=== PATIENT | female | born 1960 | race Two or more races ===

== ENCOUNTER 2016-10-08 21:18 | Inpatient (IN) | payer MEDICARE, MEDICAID ==
[~2016-10-08] VITALS: Ht 157.5 cm; Wt 59.0 kg
[2016-10-08 21:32] VITALS: BP 93/56
--- NOTE | 2016-10-08 21:37 | Emergency Room Report ---
History of Present Illness General Chief Complaint: Abnormal Labs Source: Patient Present Illness HPI Patient is a 56-year-old female who presents after having a decreased hemoglobin. Patient states that she has been sent in from her [facility] for generalized weakness. Patient reports having some bilateral leg pain. Patient states that she has a prior history of cancer. She was noted to have a prior history of schizophrenia on her record. Patient states that she had ovarian cancer on her left side. Patient reports having a neck wound which had previous had cultured as having of infection. The patient was noted to have a low hemoglobin and elevated white blood count on laboratory testing. Allergies: Coded Allergies: No Known Allergies (Unverified , 10/08/16) Patient History Past Medical History: see triage record Now: No Reviewed Nursing Documentation: PMH: Agreed, PSxH: Agreed Nursing Documentation-PMH Hx Hypertension: Yes Hx COPD: Yes Hx Seizures: Yes Review of Systems All Other Systems: negative except mentioned in HPI Physical Exam Vital Signs Date Time Temp Pulse Resp B/P Pulse Ox O2 Delivery O2 Flow Rate FiO2 10/08/16 21:18 80 16 102/62 94 Room Air 10/08/16 21:32 97.9 Sp02 EP Interpretation: reviewed, normal General Appearance: normal inspection, well appearing, no apparent distress, alert, GCS 15, Chronically Ill Head: atraumatic ENT: normal ENT inspection, hearing grossly normal, normal voice, other - poor dentition Neck: normal inspection, full range of motion, supple, no bony tend Respiratory: normal inspection, lungs clear, normal breath sounds, no respiratory distress, no retraction, no wheezing Cardiovascular #1: regular rate, rhythm, no edema Gastrointestinal: normal inspection, normal bowel sounds, non tender, soft, no guarding, no hernia Genitourinary: no CVA tenderness Musculoskeletal: normal inspection, back normal, normal range of motion Neurologic: normal inspection, alert, oriented x3, responsive, 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 Medical Decision Making Diagnostic Impression: Primary Impression: Skin abscess Additional Impression: Anemia ER Course Presented for abnormal laboratory values. Differential diagnosis included was not limited to hemolysis, chronic anemia, DIC, GI bleed, anemia of chronic disease, iron deficiency anemia among others.Because of complexity of patient's case laboratory testing and imaging studies were ordered. The patient was noted to have a rising white count compared to her baseline. I laboratory testing was also notable for anemia with hemoglobin of 7.2. Patient was noted to have a some skin lesions with evident infection. Patient started on vancomycin and Unasyn. Labs Test 10/08/16 21:36 10/08/16 22:15 10/08/16 23:15 White Blood Count 19.5 K/UL (4.8-10.8) Red Blood Count 2.90 M/UL (4.20-5.40) Hemoglobin 7.2 G/DL (12.0-16.0) Hematocrit 23.4 % (37.0-47.0) Mean Corpuscular Volume 81 FL (80-99) Mean Corpuscular Hemoglobin 25.0 PG (27.0-31.0) Mean Corpuscular Hemoglobin Concent 31.0 G/DL (32.0-36.0) Red Cell Distribution Width 15.5 % (11.6-14.8) Platelet Count 799 K/UL (150-450) Mean Platelet Volume 4.5 FL (6.5-10.1) Neutrophils (%) (Auto) 80.4 % (45.0-75.0) Lymphocytes (%) (Auto) 7.6 % (20.0-45.0) Monocytes (%) (Auto) 7.9 % (1.0-10.0) Eosinophils (%) (Auto) 3.3 % (0.0-3.0) Basophils (%) (Auto) 0.8 % (0.0-2.0) Prothrombin Time 10.9 SEC (9.30-11.50) Prothromb Time International Ratio 1.1 (0.9-1.1) Activated Partial Thromboplast Time 32 SEC (23-33) Sodium Level 133 mEQ/L (135-145) Potassium Level 4.4 mEQ/L (3.4-4.9) Chloride Level 95 mEQ/L (98-107) Carbon Dioxide Level 23 mEQ/L (20-30) Anion Gap 15 (5-15) Blood Urea Nitrogen 27 mg/dL (7-23) Creatinine 1.2 mg/dL (0.5-0.9) Estimat Glomerular Filtration Rate 46.7 mL/min (>60) Glucose Level 102 mg/dL (74-106) Calcium Level 13.7 mg/dL (8.6-10.2) Total Bilirubin 0.2 mg/dL (0.0-1.2) Aspartate Amino Transf (AST/SGOT) 14 U/L (5-40) Alanine Aminotransferase (ALT/SGPT) 7 U/L (3-33) Alkaline Phosphatase 78 U/L (35-104) Troponin I < 0.30 ng/mL (<=0.30) Total Protein 7.0 g/dL (6.6-8.7) Albumin 2.4 g/dL (3.5-5.2) Globulin 4.6 g/dL Albumin/Globulin Ratio 0.5 (1.0-2.7) Lipase 14 U/L (< 60) Lactic Acid Level 1.10 mmol/L (0.66-2.22) Urine Color Pale yellow Urine Appearance Clear Urine pH 6 (4.5-8.0) Urine Specific [place] 1.030 (1.005-1.035) Urine Protein 2+ (NEGATIVE) Urine Glucose (UA) Negative (NEGATIVE) Urine Ketones Negative (NEGATIVE) Urine Occult Blood 1+ (NEGATIVE) Urine Nitrite Negative (NEGATIVE) Urine Bilirubin Negative (NEGATIVE) Urine Urobilinogen Normal MG/DL (0.0-1.0) Urine Leukocyte Esterase Negative (NEGATIVE) Chest X-Ray Diagnostic Results EP Interpretation: Yes Findings: no consolidation, no effusion, no pneumothorax, no acute cardiopulmonary disease Number of Views: 1 Last Vital Signs Date Time Temp Pulse Resp B/P Pulse Ox O2 Delivery O2 Flow Rate FiO2 10/08/16 21:32 97.9 103 26 93/56 97 Room Air Status: unchanged Disposition: ADMITTED INPATIENT Condition: Serious Didier Arevalo Oct 08, 2016 21:37
[2016-10-08] MEDS ORDERED: Norco 5mg/325mg tab ORAL ONE (21:45)
[2016-10-08 21:52] LABS: MEAN CORPUSCULAR VOLUME 81 FL (80-99); MEAN PLATELET VOLUME 4.5 FL (6.5-10.1); PLATELET COUNT 799 K/UL (150-450); RED CELL DISTRIBUTION WIDTH 15.5 % (11.6-14.8); WHITE BLOOD COUNT 19.5 K/UL (4.8-10.8)
[2016-10-08 21:53] LABS: BASOPHILS % (AUTO) 0.8 % (0.0-2.0); EOSINOPHILS % (AUTO) 3.3 % (0.0-3.0); LYMPHOCYTES % (AUTO) 7.6 % (20.0-45.0); MONOCYTES % (AUTO) 7.9 % (1.0-10.0); NEUTROPHILS % (AUTO) 80.4 % (45.0-75.0)
[2016-10-08] MEDS ORDERED: Vancomycin 1 GM in NS 275 ML IVPB ONE (22:15)
[2016-10-08] MEDS ORDERED: Ampicillin/Sulbactam Sod 3 GM in NS 110 ML IVPB ONE (22:15)
[2016-10-08 22:21] LABS: INR 1.1 (0.9-1.1); PROTHROMBIN TIME 10.9 SEC (9.30-11.50); TROPONIN I < 0.30 ng/mL (<=0.30)
[2016-10-08 22:25] LABS: ALBUMIN/GLOBULIN RATIO 0.5 (1.0-2.7); CREATININE 1.2 mg/dL (0.5-0.9); GLOMERULAR FILTRATION RATE 46.7 mL/min (>60); POTASSIUM 4.4 mEQ/L (3.4-4.9)
[2016-10-08] MEDS ORDERED: Unasyn 3gm Inj ONE (22:25)
[2016-10-08] MEDS ORDERED: BENZTROPINE MESY1 MG PO (22:27)
[2016-10-08] MEDS ORDERED: DOCUSATE SODIU100 MG ORAL (22:30)
[2016-10-08] MEDS ORDERED: LISINOPRIL5 MG ORAL (22:31)
[2016-10-08] MEDS ORDERED: MONTELUKAST SOD10 MG ORAL (22:32)
[2016-10-08] MEDS ORDERED: TYLENOL EXTRA500 MG ORAL (22:33)
[2016-10-08] MEDS ORDERED: ZYPREXA20 MG ORAL (22:34)
[2016-10-08 22:40] LABS: CALCIUM 13.7 mg/dL (8.6-10.2)
[2016-10-08 22:59] VITALS: BP 89/54
[2016-10-08 23:15] VITALS: BP 95/58
[2016-10-08 23:35] LABS: APPEARANCE,URINE CLEAR; KETONES,URINE NEGATIVE (NEGATIVE); LEUKOCYTE ESTERASE ,URINE NEGATIVE (NEGATIVE); NITRITE,URINE NEGATIVE (NEGATIVE); PH,URINE 6 (4.5-8.0); PROTEIN,URINE 2+ (NEGATIVE); UROBILINOGEN,URINE NORMAL MG/DL (0.0-1.0)
[2016-10-08 23:45] LABS: BACTERIA,URINE MODERATE /HPF; SQUAMOUS EPITHELIAL CELL,UR FEW /LPF (NONE/OCC)
[2016-10-09] VITALS (9 sets, daily range): BP systolic 81–107; BP diastolic 43–60
[2016-10-09] MEDS ORDERED: Vancomycin 1gm inj IVPB ONE (00:07)
[2016-10-09 07:30] LABS: MEAN CORPUSCULAR HGB CONC 32.3 G/DL (32.0-36.0); MEAN CORPUSCULAR VOLUME 80 FL (80-99); MEAN PLATELET VOLUME 4.8 FL (6.5-10.1); PLATELET COUNT 743 K/UL (150-450); RED BLOOD COUNT 2.61 M/UL (4.20-5.40); RED CELL DISTRIBUTION WIDTH 15.5 % (11.6-14.8); WHITE BLOOD COUNT 17.6 K/UL (4.8-10.8)
[2016-10-09 08:14] LABS: ALBUMIN/GLOBULIN RATIO 0.5 (1.0-2.7); CREATININE 1.1 mg/dL (0.5-0.9); GLOMERULAR FILTRATION RATE 51.6 mL/min (>60); MAGNESIUM 1.8 mg/dL (1.7-2.5); PHOSPHORUS 4.1 mg/dL (2.5-4.8); TOTAL PROTEIN 6.2 g/dL (6.6-8.7); URIC ACID 6.2 mg/dL (3.0-7.5)
[2016-10-09 08:18] LABS: CALCIUM 13.2 mg/dL (8.6-10.2)
[2016-10-09 08:37] LABS: HEMOLYSIS 5; IRON 14 ug/dL (37-145); TOTAL IRON BINDING CAPACITY 119 ug/dL (250-400)
[2016-10-09] MEDS ORDERED: Pamidronate Disodium Inj 90 MG in Sodium Chloride 550 ML IVPB ONE ×3 (08:45→22:30)
[2016-10-09] MEDS ORDERED: Acetaminophen 500mg (ES) tab ORAL PRN (08:45)
[2016-10-09 08:46] LABS: FERRITIN 1271 ng/mL (13-150)
--- NOTE | 2016-10-09 08:53 | Consultation ---
Consult Note Consult Note asked to eval for management of hypercalcemia Patient is a 56-year-old female who presents after having a decreased hemoglobin. Patient states that she has been sent in from her retirement for generalized weakness. Patient reports having some bilateral leg pain. Patient states that she has a prior history of cancer. She was noted to have a prior history of schizophrenia on her record. Patient states that she had ovarian cancer on her left side. Patient reports having a neck wound which had previous had cultured as having of infection. The patient was noted to have a low hemoglobin and elevated white blood count on laboratory testing. Patient interviewed , examined, data reviewed, discussed with RN . Assessment/Plan Hypercalcemia, related to Neoplastic process- Symptomatic Anemia, Etiology?? Cancer, GI Loss, .... Sugg: Aggressive Hydrate- Aredia Calcitonin [place] Lasix Monitor Ca and Phos and Lytes Transfusion per frame polisher CLEMENTE APPIAH Oct 09, 2016 08:53
--- NOTE | 2016-10-09 10:13 | Infectious Diseases Prog Note ---
Assessment/Plan Problems: (1) Skin infection Assessment & Plan: of the left neck, will send wound for culture and start vancomycin and unasyn empirically (2) Sepsis Assessment & Plan: due to skin infection, will send blood culture , and start vancomycin with unasyn empirically (3) Anemia Assessment & Plan: monitor H/H transfuse blood as needed, rule out GI bleeding as a source (4) JAY (acute kidney injury) Assessment & Plan: suspect pre renal azotemia due to anemia, continue hydration , transfuse blood as needed Subjective Allergies: Coded Allergies: No Known Allergies (Unverified , 10/08/16) Objective Vital Signs Last 24 Hour Vital Signs Date Time Temp Pulse Resp B/P Pulse Ox O2 Delivery O2 Flow Rate FiO2 10/09/16 07:47 97.9 101 20 100/43 95 Room Air 10/09/16 05:40 97.5 88 18 93/47 96 Room Air 10/09/16 04:00 97.3 99 18 81/49 94 Room Air 10/09/16 00:53 97.9 91 18 85/46 95 Room Air 10/09/16 00:10 98 22 103/60 99 Room Air 10/09/16 00:10 98.6 98 22 103/60 99 Room Air 10/08/16 23:15 98.3 93 25 95/58 98 Room Air 10/08/16 22:59 98.1 96 25 89/54 97 Room Air 10/08/16 22:40 98.1 10/08/16 21:32 97.9 103 26 93/56 97 Room Air 10/08/16 21:18 80 16 102/62 94 Room Air Height (Feet): 5 Height (Inches): 2.00 Weight (Pounds): 130 Laboratory Tests Test 10/08/16 21:36 10/08/16 22:15 10/08/16 23:15 10/09/16 06:30 White Blood Count 19.5 K/UL (4.8-10.8) H Red Blood Count 2.90 M/UL (4.20-5.40) L Hemoglobin 7.2 G/DL (12.0-16.0) L Hematocrit 23.4 % (37.0-47.0) L Mean Corpuscular Volume 81 FL (80-99) Mean Corpuscular Hemoglobin 25.0 PG (27.0-31.0) L Mean Corpuscular Hemoglobin Concent 31.0 G/DL (32.0-36.0) L Red Cell Distribution Width 15.5 % (11.6-14.8) H Platelet Count 799 K/UL (150-450) H Mean Platelet Volume 4.5 FL (6.5-10.1) L Neutrophils (%) (Auto) 80.4 % (45.0-75.0) H Lymphocytes (%) (Auto) 7.6 % (20.0-45.0) L Monocytes (%) (Auto) 7.9 % (1.0-10.0) Eosinophils (%) (Auto) 3.3 % (0.0-3.0) H Basophils (%) (Auto) 0.8 % (0.0-2.0) Prothrombin Time 10.9 SEC (9.30-11.50) Prothromb Time International Ratio 1.1 (0.9-1.1) Activated Partial Thromboplast Time 32 SEC (23-33) Sodium Level 133 mEQ/L (135-145) L Potassium Level 4.4 mEQ/L (3.4-4.9) Chloride Level 95 mEQ/L (98-107) L Carbon Dioxide Level 23 mEQ/L (20-30) Anion Gap 15 (5-15) Blood Urea Nitrogen 27 mg/dL (7-23) H Creatinine 1.2 mg/dL (0.5-0.9) H Estimat Glomerular Filtration Rate 46.7 mL/min (>60) Glucose Level 102 mg/dL (74-106) Calcium Level 13.7 mg/dL (8.6-10.2) *H Total Bilirubin 0.2 mg/dL (0.0-1.2) Aspartate Amino Transf (AST/SGOT) 14 U/L (5-40) Alanine Aminotransferase (ALT/SGPT) 7 U/L (3-33) Alkaline Phosphatase 78 U/L (35-104) Troponin I < 0.30 ng/mL (<=0.30) Total Protein 7.0 g/dL (6.6-8.7) Albumin 2.4 g/dL (3.5-5.2) L Globulin 4.6 g/dL Albumin/Globulin Ratio 0.5 (1.0-2.7) L Lipase 14 U/L (< 60) Lactic Acid Level 1.10 mmol/L (0.66-2.22) Urine Color Pale yellow Urine Appearance Clear Urine pH 6 (4.5-8.0) Urine Specific [place] 1.030 (1.005-1.035) Urine Protein 2+ (NEGATIVE) H Urine Glucose (UA) Negative (NEGATIVE) Urine Ketones Negative (NEGATIVE) Urine Occult Blood 1+ (NEGATIVE) H Urine Nitrite Negative (NEGATIVE) Urine Bilirubin Negative (NEGATIVE) Urine Urobilinogen Normal MG/DL (0.0-1.0) Urine Leukocyte Esterase Negative (NEGATIVE) Urine RBC 2-4 /HPF (0 - 2) H Urine WBC 5-10 /HPF (0 - 2) H Urine Squamous Epithelial Cells Few /LPF (NONE/OCC) Urine Bacteria Moderate /HPF (NONE) H Vitamin B12 Level 432 pg/mL (211-946) Test 10/09/16 06:35 White Blood Count 17.6 K/UL (4.8-10.8) H Red Blood Count 2.61 M/UL (4.20-5.40) L Hemoglobin 6.8 G/DL (12.0-16.0) *L Hematocrit 21.0 % (37.0-47.0) L Mean Corpuscular Volume 80 FL (80-99) Mean Corpuscular Hemoglobin 26.0 PG (27.0-31.0) L Mean Corpuscular Hemoglobin Concent 32.3 G/DL (32.0-36.0) Red Cell Distribution Width 15.5 % (11.6-14.8) H Platelet Count 743 K/UL (150-450) H Mean Platelet Volume 4.8 FL (6.5-10.1) L Neutrophils (%) (Auto) % (45.0-75.0) Lymphocytes (%) (Auto) % (20.0-45.0) Monocytes (%) (Auto) % (1.0-10.0) Eosinophils (%) (Auto) % (0.0-3.0) Basophils (%) (Auto) % (0.0-2.0) Neutrophils % (Manual) Pending Lymphocytes % (Manual) Pending Platelet Estimate Pending Platelet Morphology Pending Sodium Level 133 mEQ/L (135-145) L Potassium Level 4.0 mEQ/L (3.4-4.9) Chloride Level 97 mEQ/L (98-107) L Carbon Dioxide Level 22 mEQ/L (20-30) Anion Gap 14 (5-15) Blood Urea Nitrogen 24 mg/dL (7-23) H Creatinine 1.1 mg/dL (0.5-0.9) H Estimat Glomerular Filtration Rate 51.6 mL/min (>60) Glucose Level 82 mg/dL (74-106) Uric Acid 6.2 mg/dL (3.0-7.5) Calcium Level 13.2 mg/dL (8.6-10.2) *H Phosphorus Level 4.1 mg/dL (2.5-4.8) Magnesium Level 1.8 mg/dL (1.7-2.5) Iron Level 14 ug/dL (37-145) L Total Iron Binding Capacity 119 ug/dL (250-400) L Percent Iron Saturation 12 % (15-50) L Unsaturated Iron Binding 105 ug/dL (112-346) L Ferritin 1271 ng/mL (13-150) H Total Bilirubin 0.2 mg/dL (0.0-1.2) Aspartate Amino Transf (AST/SGOT) 13 U/L (5-40) Alanine Aminotransferase (ALT/SGPT) 6 U/L (3-33) Alkaline Phosphatase 72 U/L (35-104) Total Protein 6.2 g/dL (6.6-8.7) L Albumin 2.1 g/dL (3.5-5.2) L Globulin 4.1 g/dL Albumin/Globulin Ratio 0.5 (1.0-2.7) L Folate Pending Cortisol Pending Current Medications Medications (Trade) Dose Ordered Sig/[place] Route PRN Reason Start Time Stop Time Status Last Admin Dose Admin Acetaminophen (Tylenol) 500 mg NEEDED PRN ORAL Prn Headache/Temp > 101 10/09/16 08:45 10/09/16 23:59 Acetaminophen 650 mg 650 mg Q4H PRN ORAL Mild Pain/Temp > 100.5 10/09/16 01:00 11/08/16 00:59 10/09/16 01:52 Calcitonin [place] 1 sprays 1 sprays DAILY NASAL 10/09/16 10:00 11/08/16 09:59 Docusate Sodium (Colace) 100 mg TWICE A DAY ORAL 10/09/16 09:00 11/08/16 08:59 Furosemide (Lasix) 10 mg EVERY 6 HOURS IV 10/09/16 12:00 10/10/16 12:01 Pamidronate Disodium/Sodium Chloride (Aredia/NS) 550 ml @ 137.5 mls/ hr ONCE ONCE IVPB 10/09/16 10:00 10/09/16 13:59 Pantoprazole (Protonix) 40 mg DAILY IVP 10/09/16 09:00 11/08/16 08:59 Sodium Chloride (Sodium Chloride 1000ml bag) 1,000 ml @ 150 mls/hr Q6H40M IV 10/10/16 02:00 11/09/16 01:59 Jaden Su M.D. Oct 09, 2016 10:13
--- NOTE | 2016-10-09 10:20 | Diagnostic Imaging Report ---
Indication: Chest pain Technique: XRAY CHEST 1 V Comparison: None Findings: Cardiomedial still silhouette is within normal limits. There are increased interstitial lung markings. There is no pneumothorax or obvious effusion. IVC filter is present. Degenerative osseous changes are noted. Impression: Acute indeterminate interstitial disease. Clinical correlation recommended.
[2016-10-09] MEDS: Docusate 100mg cap ORAL SCH ×2 (10:43→18:33)
[2016-10-09] MEDS: Pantoprazole Inj IVP SCH (10:44)
[2016-10-09 11:03] LABS: ANISOCYTOSIS 1+; BAND NEUTROPHILS % (MANUAL) 0 % (0-8); BASOPHILS % (MANUAL) 0 % (0-2); EOSINOPHILS % (MANUAL) 1 % (0-3); HYPOCHROMASIA 2+; LYMPHOCYTES % (MANUAL) 13 % (20-45); NEUTROPHILS % (MANUAL) 83 % (45-75); PLATELET ESTIMATE INCREASED; PLATELET MORPHOLOGY NORMAL; TOTAL CELLS COUNTED 100
[2016-10-09 11:04] LABS: MICROCYTES 1+
--- NOTE | 2016-10-09 12:01 | Wound Care Consultation ---
Wound Assessment Wound Assessment : Wound Number: #1 Wound Present on Admission: Yes New Wound: No Status Change of Wound: No Wound Location Body Site Modif: left, anterior Wound Location Body Site: other - neck Wound Type: other - abscess Lillian Test: Does not Lillian Wound Thickness: Full Thickness Wound Length: 2.0 Wound Width: 3.0 Wound Depth: utd Percent of Wound [place]/Red: 50 Percent of Wound Bed Yellow/Wh: 50 Wound Drainage Description: Serosanguineous Wound Drainage Amount: Scant Wound Drainage Odor: None/Absent Tissue Surrounding Wound: Erythemic Wound General Appearance: Reddened, Draining Wound Comment #1 Left anterior neck Abscess. Recommendation -FOLLOW UP WITH ATTENDING MD FOR POSSIBLE INCISION AND DRAINAGE.(I&D) OR ANY FURTHER TREATMENT ORDERS. -Local wound care as ordered. -Keep site clean and dry. -Turn and reposition.Offload affected site. -Optimize nutrition. -Pressure reducing mattress for skin management. -Assess and notify MD for any changes of condition noted. JEANNIE CASAS Oct 09, 2016 12:01
[2016-10-09] MEDS ORDERED: Vancomycin 750mg/D5W 275ml IVPB SCH ×2 (13:00)
[2016-10-09] MEDS ORDERED: Vancomycin 0.75 GM in D5W 275 ML IVPB SCH (13:00)
[2016-10-09] MEDS: Ampicillin/Sulbactam Sod 3 GM in NS 110 ML IVPB SCH ×2 (15:56→20:54)
[2016-10-09 17:06] LABS: MEAN CORPUSCULAR HEMOGLOBIN 26.5 PG (27.0-31.0); MEAN CORPUSCULAR HGB CONC 32.1 G/DL (32.0-36.0); MEAN CORPUSCULAR VOLUME 83 FL (80-99); MEAN PLATELET VOLUME 4.6 FL (6.5-10.1); PLATELET COUNT 735 K/UL (150-450); RED BLOOD COUNT 3.28 M/UL (4.20-5.40); RED CELL DISTRIBUTION WIDTH 15.3 % (11.6-14.8)
[2016-10-09 17:11] LABS: WHITE BLOOD COUNT 23.5 K/UL (4.8-10.8)
[2016-10-09 17:56] LABS: INR 1.1 (0.9-1.1); PROTHROMBIN TIME 11.3 SEC (9.30-11.50)
[2016-10-09 18:11] LABS: BAND NEUTROPHILS % (MANUAL) 3 % (0-8); EOSINOPHILS % (MANUAL) 2 % (0-3); LYMPHOCYTES % (MANUAL) 9 % (20-45); NEUTROPHILS % (MANUAL) 85 % (45-75); TOTAL CELLS COUNTED 100
[2016-10-09 18:12] LABS: ANISOCYTOSIS 1+; BASOPHILS % (MANUAL) 0 % (0-2); PLATELET ESTIMATE INCREASED; PLATELET MORPHOLOGY NORMAL; POLYCHROMASIA 1+
[2016-10-09 18:51] LABS: ALBUMIN/GLOBULIN RATIO 0.5 (1.0-2.7); CALCIUM 12.9 mg/dL (8.6-10.2); CREATININE 1.1 mg/dL (0.5-0.9); GLOMERULAR FILTRATION RATE 51.6 mL/min (>60); POTASSIUM 4.2 mEQ/L (3.4-4.9); TOTAL PROTEIN 6.2 g/dL (6.6-8.7)
[2016-10-09] MEDS ORDERED: Tubing IV Secondary IV ONE (19:46)
[2016-10-09] MEDS ORDERED: NS 550ML IV ONE (19:46)
[2016-10-09] MEDS ORDERED: Tubing Blood Filter IV ONE (19:47)
[2016-10-09] MEDS: Vancomycin 750mg/D5W 275ml IVPB SCH ×2 (22:28)
--- NOTE | 2016-10-09 22:29 | Consultation ---
DATE OF CONSULTATION: INFECTIOUS DISEASE CONSULTATION REQUESTING PHYSICIAN: Sulma Desir M.D. REASON FOR CONSULTATION: Left anterior neck abscess. Recommendation for antibiotics therapy. HISTORY OF PRESENT ILLNESS: The patient is a 56-year-old female who was sent from her retirement for generalized weakness and decreased hemoglobin level. The patient has a prior history of ovarian cancer on the left. Unclear whether she had surgical resection for it or chemotherapy, but recently she had skin lesion, which was biopsied on the left anterior side of her neck and she developed wounds after her biopsy. Her wound probably became infected and she developed an abscess. Her white count was found to be elevated in the emergency room 16665.5. Her temperature was 97.9. The patient was admitted to the hospital for intravenous antibiotics treatment and possible incision and drainage and I was consulted by the primary provider for antibiotics recommendation and further management. REVIEW OF SYSTEMS: A 12-point system reviewed were all negative apart from the one I mentioned above in my History and Physical. PAST MEDICAL HISTORY: Significant for hypertension, chronic obstructive pulmonary disease, and seizure. PAST SURGICAL HISTORY: Unknown. FAMILY HISTORY: Not able to obtain. The patient is poor historian. SOCIAL HISTORY: The patient lives in retirement. No recent drugs, tobacco, or alcohol. ALLERGIES: She has no known drug allergy. MEDICATIONS: The patient received vancomycin and Unasyn in the emergency room. For the rest of her medications, please refer to MAR. LABORATORY DATA: Today, white count 17.6, hemoglobin of 6.8, and platelet count of 743,000. BUN of 24, creatinine of 1.1., and ferritin of 1271. Urinalysis showed negative nitrite, negative leukocyte esterase, 2 to 4 red blood cells, and 5 to 10 WBC. IMAGING: Chest x-ray showed acute indeterminate interstitial disease. PHYSICAL EXAMINATION: VITAL SIGNS: Temperature a 100.6, pulse 116, respirations 20, blood pressure 101/58, saturation 95% on room air. GENERAL: This is a middle-aged female, lying in bed, awake, and alert , not in distress. HEENT: Normocephalic and atraumatic. Pupils reactive to light equally. Moist oral mucosa. No exudate or thrush. NECK: Supple. No lymphadenopathy. The left anterior skin abscess with pus material draining out of it. Mild fluctuation around the abscess site and skin redness. No significant lymphadenopathy. CARDIOVASCULAR: She is tachycardic. S1 and S2 positive. LUNGS: Clear bilaterally. No wheezing or rhonchi. Normal breathing efforts. ABDOMEN: Soft, nontender, and nondistended. Positive bowel sounds. No hepatosplenomegaly or ascites. EXTREMITIES: No edema. No cyanosis. ASSESSMENT AND PLAN: 1. Left anterior neck wound with a skin infection. The patient will be started on vancomycin and Unasyn. We will send wound for culture. Recommend surgical evaluation for incision and drainage and fluid to be sent for culture and sensitivity. 2. Sepsis due to number 1. We will start vancomycin and Unasyn empirically, send blood culture and skin culture. Continue intravenous fluid for hydration. Monitor vital signs. 3. Anemia, unclear whether gastrointestinal related. Continue to monitor H and H transfuse blood as needed and screen for melena. 4. Acute renal failure due to prerenal azotemia and anemia. Continue hydration. Transfuse blood. Continue intravenous fluids. Consult Renal. Monitor urine output. Jaden Su M.D. DR: DEANDRE JOB#: [id number] CC: BRINA
--- NOTE | 2016-10-09 23:59 | History and Physical Report ---
DATE OF ADMISSION: 10/08/2016 HISTORY OF PRESENT ILLNESS: The patient has been admitted for severe anemia as well as leukocytosis, rule out skin infection as well as sever hypercalcemia and dehydration. The patient also basically has been having bilateral leg pain that she has a history of cancer. The patient also has schizophrenia. The patient has a history of ovarian cancer and history of wounds in the neck. The patient denies nausea, vomiting, diarrhea, fever, or chills. No abdominal pain. Denies rectal bleeding. Denies vomiting. PAST MEDICAL HISTORY: Significant for ovarian cancer as well as hypertension, COPD, and seizure disorder as well as history of anemia, history of acute renal insufficiency, hypertension, constipation, psychosis, and asthma/COPD. MEDICATIONS: Montelukast, lisinopril, Colace, Cogentin, Tylenol and Zyprexa. ALLERGIES: No known allergies. SOCIAL HISTORY: Denies alcohol or illicit drug use. FAMILY HISTORY: Noncontributory. REVIEW OF SYSTEMS: HEENT: Denies headaches. Respiratory: Denies shortness of breath. Denies cough. Cardiovascular: Denies chest pain. Gastrointestinal: Denies nausea, vomiting or diarrhea. Extremities: Does have neck pain. Central Nervous System: Denies change in vision or speech pattern. PHYSICAL EXAMINATION: VITAL SIGNS: Temperature is 97.3 degrees, pulse is 99, and blood pressure initially was 81/49, which improved. HEENT: PERRLA. NECK: Supple. No lymphadenopathy. CHEST: Clear to auscultation. GASTROINTESTINAL: Soft, nontender and nondistended. No organomegaly. EXTREMITIES: There is 1+ edema. Reflexes are equal on both sides. She is able to move extremities. LABORATORY AND DIAGNOSTIC DATA: WBC of 19.5, hemoglobin 7.2, and platelets 799,000. Sodium 133, potassium 4, BUN of 25, creatinine of 1.1 and glucose of 82. Calcium of 13. ASSESSMENT AND PLAN: 1. Severe hypercalcemia. 2. Leukocytosis, rule out sepsis, rule out skin infection. 3. Severe anemia. I have asked, Dr. Jarquin, Dr. Sanchez, Dr. Su, Dr. Alvarez to see the patient for the above-mentioned diagnoses and treatment. Sulma Desir M.D. DR: ISABEL JOB#: [id number] CC:
[2016-10-10] VITALS: BP 101/52
[2016-10-10 00:47] LABS: MEAN CORPUSCULAR HEMOGLOBIN 26.3 PG (27.0-31.0); MEAN CORPUSCULAR HGB CONC 32.5 G/DL (32.0-36.0); MEAN CORPUSCULAR VOLUME 81 FL (80-99); MEAN PLATELET VOLUME 4.4 FL (6.5-10.1); PLATELET COUNT 743 K/UL (150-450); RED BLOOD COUNT 3.12 M/UL (4.20-5.40); RED CELL DISTRIBUTION WIDTH 15.1 % (11.6-14.8)
[2016-10-10 04:00] VITALS: BP 136/58
[2016-10-10] MEDS: Ampicillin/Sulbactam Sod 3 GM in NS 110 ML IVPB SCH ×3 (06:10→21:21)
--- NOTE | 2016-10-10 06:49 | Consultation ---
DATE OF CONSULTATION: 10/09/2016 GASTROLOGY CONSULTATION CHIEF COMPLAINT: I was asked to see this patient for evaluation of constipation. HISTORY OF PRESENT ILLNESS: The patient is a pleasant 56-year-old white woman who was brought in here due to infection in the neck. She has no abdominal pain, nausea, vomiting, or diarrhea, but she was complaining of constipation. She has not had endoscopy or colonoscopy and declined to have those. The patient understands that her anemia and possibility of cancer, and she refused, and she still refuses . PAST MEDICAL HISTORY: History of schizophrenia, history of anemia, history of ovarian cancer. FAMILY HISTORY: Noncontributory. SOCIAL HISTORY: The patient denies . REVIEW OF SYSTEMS: Otherwise negative. PHYSICAL EXAMINATION: GENERAL: A thin white woman, seen in her room. HEENT: Normocephalic and atraumatic. NECK: Supple. CHEST: Clear to auscultation. CARDIOVASCULAR: Revealed regular rate. ABDOMEN: Soft with good bowel sounds. There is no organomegaly. EXTREMITIES: Revealed no edema. LABORATORY DATA: Noted. ASSESSMENT: 1. Anemia. 2. . 3. Constipation. RECOMMENDATIONS: 1. Bowel regimen. 2. Monitor CBC. 3. Follow the exam. 4. The patient refuses endoscopy and colonoscopy. Thank you for asking to participate in the care of this patient. Arcadio Jarquin M.D. DR: JEROMY JOB#: [id number] CC:
[2016-10-10 08:00] VITALS: BP 95/56
[2016-10-10 08:07] LABS: RHEUMATOID FACTOR SCREEN 14.9 IU/mL (0.0-13.9)
--- NOTE | 2016-10-10 08:19 | Consultation ---
DATE OF CONSULTATION: 10/09/2016 NOTE: "POOR AUDIO QUALITY" HEMATOLOGY/ONCOLOGY CONSULTATION: CONSULTING PHYSICIAN: Bud Alvarez M.D. REASON FOR CONSULTATION: 1. Severe anemia. 2. Hypercalcemia. 3. Thrombocytosis, reactive. 4. Leukocytosis . CURRENT COMPLAINT/HISTORY OF PRESENT ILLNESS: Dear Dr. Desir, Today, I had an opportunity to see one of your patients, who as you are aware is a 56-year-old delightful female with a history of questionable ovarian cancer, anemia, and history of schizophrenia. The patient was brought to the emergency room of [facility]. During evaluation, it was found that the patient developed significant anemia as well as hypercalcemia as well as thrombocytosis as well as leukocytosis. Hematology service was history of severe anemia. PAST MEDICAL HISTORY: 1. History of ovarian cancer. 2. Skin abscess. 3. History of anemia. 4. Skin infection . 5. . 6. History of hypertension. 7. COPD. 8. History of seizure disorder. MEDICATIONS: 1. Pamidronate. 2. Vancomycin. 3. . 4. . 5. . 6. Pantoprazole. 7. Docusate. 8. Tylenol. FAMILY HISTORY: Noncontributory. SOCIAL HISTORY: No history of smoking. No history of alcohol abuse. No history of illicit drug use. REVIEW OF SYSTEMS: General: The patient is not in any significant distress, but looks chronically ill. Respiratory: Mild shortness of breath on exertion. Gastrointestinal: The patient claims constipation. Neuromuscular: The patient claims muscle aches. PHYSICAL EXAMINATION: VITAL SIGNS: T-Max 97 degrees, respiratory rate 20, heart rate 80, and blood pressure 130/80. HEENT: Head is normocephalic and atraumatic. NECK: Neck is supple. No thyroid enlargement. No lymphadenopathy. LUNGS: Decreased breath sounds bilaterally with few rhonchi in the base. HEART: S1 and S2 regular. ABDOMEN: Soft and benign. No organomegaly present. Bowel sounds present. EXTREMITIES: No cyanosis, clubbing, or edema. LABORATORY DATA: WBC 17.6, hemoglobin 6.8, hematocrit 21.0, and platelets 743,000. Chemistry shows calcium 13.2, 1.1, and ferritin 1271. IMPRESSION: 1. Hypercalcemia, unknown origin. 2. Possible underlying malignancy. 3. History of ovarian cancer. 4. Anemia of chronic disease (severe). 5. Anemia of iron deficiency (severe). 6. Hyperferritinemia, most likely reactive. 7. History of schizophrenia. 8. History of ovarian cancer. 9. Hypertension. 10. Chronic obstructive pulmonary disease. 11. History of seizure. 12. Skin abscess. 13. Failure to thrive. RECOMMENDATIONS: 1. Watch count. 2. Watch coagulopathy. 3. PRBC transfusion on p.r.n. basis. 4. Possible bone marrow biopsy to rule out aplastic anemia versus myelodysplastic syndrome. 5. CT scan of abdomen and pelvis, rule out possible occult malignancy. 6. Bone scan to rule out metastatic lesion. 7. Serum protein electrophoresis. 8. Anemia workup to be completed. 9. Venous Doppler of bilateral lower extremity to rule out DVT. 10. SCD DVT prophylaxis. 11. Check tumor markers. 12. Skin care. 13. . Bud Alvarez MD DR: Vanita JOB#: [id number] CC:
[2016-10-10] MEDS: Vancomycin 750mg/D5W 275ml IVPB SCH ×2 (08:44)
[2016-10-10] MEDS: Docusate 100mg cap ORAL SCH ×2 (08:44→18:52)
[2016-10-10] MEDS: Pantoprazole Inj IVP SCH (08:47)
[2016-10-10 09:11] LABS: MEAN CORPUSCULAR HEMOGLOBIN 25.9 PG (27.0-31.0); MEAN CORPUSCULAR VOLUME 81 FL (80-99); MEAN PLATELET VOLUME 4.8 FL (6.5-10.1); PLATELET COUNT 719 K/UL (150-450); RED BLOOD COUNT 3.12 M/UL (4.20-5.40); RED CELL DISTRIBUTION WIDTH 15.4 % (11.6-14.8); WHITE BLOOD COUNT 21.2 K/UL (4.8-10.8)
[2016-10-10 09:24] LABS: ALBUMIN/GLOBULIN RATIO 0.5 (1.0-2.7); CALCIUM 12.3 mg/dL (8.6-10.2); CREATININE 1.1 mg/dL (0.5-0.9); GLOMERULAR FILTRATION RATE 51.6 mL/min (>60); POTASSIUM 3.4 mEQ/L (3.4-4.9); TOTAL PROTEIN 6.2 g/dL (6.6-8.7)
[2016-10-10 09:29] LABS: ANISOCYTOSIS 1+; BAND NEUTROPHILS % (MANUAL) 1 % (0-8); BASOPHILS % (MANUAL) 0 % (0-2); EOSINOPHILS % (MANUAL) 0 % (0-3); HYPOCHROMASIA 1+; LYMPHOCYTES % (MANUAL) 5 % (20-45); NEUTROPHILS % (MANUAL) 88 % (45-75); PLATELET ESTIMATE INCREASED; PLATELET MORPHOLOGY NORMAL; TOTAL CELLS COUNTED 100
[2016-10-10 09:30] LABS: THYROID STIMULATING HORMONE 3.46 uIU/mL (0.300-4.500)
[2016-10-10 09:32] LABS: CRP QUANT 25.7 mg/dL (< 0.5); MAGNESIUM 1.6 mg/dL (1.7-2.5); PHOSPHORUS 3.5 mg/dL (2.5-4.8); URIC ACID 6.2 mg/dL (3.0-7.5)
[2016-10-10 10:25] LABS: ANISOCYTOSIS 1+; BAND NEUTROPHILS % (MANUAL) 4 % (0-8); BASOPHILS % (MANUAL) 0 % (0-2); EOSINOPHILS % (MANUAL) 2 % (0-3); HYPOCHROMASIA 1+; LYMPHOCYTES % (MANUAL) 4 % (20-45); NEUTROPHILS % (MANUAL) 86 % (45-75); PLATELET ESTIMATE INCREASED; PLATELET MORPHOLOGY NORMAL; TOTAL CELLS COUNTED 100
[2016-10-10 12:00] VITALS: BP 90/49
--- NOTE | 2016-10-10 12:01 | General Progress Note ---
Assessment/Plan Status: unchanged Status Narrative serum Ca slightly improved Assessment/Plan status: Hypercalcemia, related to Neoplastic process- Symptomatic Anemia, Etiology?? Cancer, GI Loss, .... Sugg: Aggressive Hydrate- Aredia Calcitonin Fontenot Lasix Monitor Ca and Phos and Lytes Transfusion per drywall sprayer PO Phos, Mag, KCL Subjective ROS Limited/Unobtainable: No Constitutional: Reports: malaise, other - confused, weakness Allergies: Coded Allergies: No Known Allergies (Unverified , 10/08/16) Objective Last 24 Hour Vital Signs Date Time Temp Pulse Resp B/P Pulse Ox O2 Delivery O2 Flow Rate FiO2 10/10/16 04:00 98.1 111 20 136/58 94 Room Air 10/10/16 00:00 97.9 107 20 101/52 96 Room Air 10/09/16 20:00 99.0 112 18 91/59 95 Room Air 10/09/16 15:34 99.1 107 20 107/53 94 Room Air 10/09/16 13:57 99.1 Intake and Output 10/09/16 10/10/16 19:00 07:00 Intake Total 1360 ml 1960 ml Output Total 350 ml 1350 ml Balance 1010 ml 610 ml Intake Oral 0 ml IV Total 1110 ml 1960 ml Blood Product 250 ml Output Urine Total 350 ml 1350 ml # Voids 2 Laboratory Tests 10/09/16 16:45: White Blood Count 23.5*H, Red Blood Count 3.28L, Hemoglobin 8.7L, Hematocrit 27.1L, Mean Corpuscular Volume 83, Mean Corpuscular Hemoglobin 26.5L, Mean Corpuscular Hemoglobin Concent 32.1, Red Cell Distribution Width 15.3H, Platelet Count 735H, Mean Platelet Volume 4.6L, Neutrophils (%) (Auto) , Lymphocytes (%) (Auto) , Monocytes (%) (Auto) , Eosinophils (%) (Auto) , Basophils (%) (Auto) , Differential Total Cells Counted 100, Neutrophils % ( Manual) 85H, Lymphocytes % (Manual) 9L, Monocytes % (Manual) 1, Eosinophils % ( Manual) 2, Basophils % (Manual) 0, Band Neutrophils 3, Platelet Estimate IncreasedH, Platelet Morphology Normal, Polychromasia 1+, Anisocytosis 1+, Reticulocyte Count 0.5, Hemoglobin A [Pending], Hemoglobin A2 [Pending], Hemoglobin C [Pending], Hemoglobin F () [Pending], Hemoglobin S [Pending], Variant Hemoglobin [Pending], Hemoglobin Electrophoresis Interp [Pending], Hemoglobin Interpretation [Pending], Hemoglobin Solubility [Pending], Haptoglobin 369H, Prothrombin Time 11.3, Prothromb Time International Ratio 1.1 , Fibrinogen 547H, Sodium Level 132L, Potassium Level 4.2, Chloride Level 95L, Carbon Dioxide Level 21, Anion Gap 16H, Blood Urea Nitrogen 25H, Creatinine 1.1H , Estimat Glomerular Filtration Rate 51.6, Glucose Level 69L, Calcium Level 12.9H, Total Bilirubin 0.2, Aspartate Amino Transf (AST/SGOT) 14, Alanine Aminotransferase (ALT/SGPT) 7, Alkaline Phosphatase 68, Ammonia 38, Lactate Dehydrogenase 248H, Total Protein 6.2L, Total Protein (PEP) [Pending], Albumin 2.1L, Albumin (PEP) [Pending], Globulin 4.1, Globulin (PEP) [Pending], Albumin/ Globulin Ratio [Pending], Lzvns-9-Yprozefqc [Pending], Ajmzd-0-Qxgnlwftn [ Pending], Beta Globulins [Pending], Beta Gamma Globulin [Pending], PEP Abnormal Protein Bands [Pending], Protein Electrophoresis Interpret [Pending], Alpha Fetoprotein [Pending], Carcinoembryonic Antigen 3.4H, CA 15-3 Antigen [Pending] , CA 19-9 Antigen 28.59, CA 27.29 [Pending], CA 125 Antigen [Pending], RBC Folate Hemolysate [Pending], Red Blood Cell Folate [Pending], Immunoglobulin G [ Pending], Immunoglobulin A [Pending], Immunoglobulin M [Pending], Immunofixation Screen [Pending], Rheumatoid Factor Screen 14.9H, Hepatitis A IgM Antibody [Pending], Hepatitis B Surface Antigen [Pending], Hepatitis B Core IgM Antibody [Pending], Hepatitis C Antibody [Pending], HIV (1&2) Antibody Rapid Negative 10/10/16 00:35: White Blood Count 23.0*H, Red Blood Count 3.12L, Hemoglobin 8.2L, Hematocrit 25.2L, Mean Corpuscular Volume 81, Mean Corpuscular Hemoglobin 26.3L, Mean Corpuscular Hemoglobin Concent 32.5, Red Cell Distribution Width 15.1H, Platelet Count 743H, Mean Platelet Volume 4.4L, Neutrophils (%) (Auto) , Lymphocytes (%) (Auto) , Monocytes (%) (Auto) , Eosinophils (%) (Auto) , Basophils (%) (Auto) , Differential Total Cells Counted 100, Neutrophils % ( Manual) 88H, Lymphocytes % (Manual) 5L, Monocytes % (Manual) 6, Eosinophils % ( Manual) 0, Basophils % (Manual) 0, Band Neutrophils 1, Platelet Estimate IncreasedH, Platelet Morphology Normal, Anisocytosis 1+, Hypochromasia 1+ 10/10/16 08:20: White Blood Count 21.2H, Red Blood Count 3.12L, Hemoglobin 8.1L, Hematocrit 25.3L, Mean Corpuscular Volume 81, Mean Corpuscular Hemoglobin 25.9L, Mean Corpuscular Hemoglobin Concent 32.0, Red Cell Distribution Width 15.4H, Platelet Count 719H, Mean Platelet Volume 4.8L, Neutrophils (%) (Auto) , Lymphocytes (%) (Auto) , Monocytes (%) (Auto) , Eosinophils (%) (Auto) , Basophils (%) (Auto) , Differential Total Cells Counted 100, Neutrophils % ( Manual) 86H, Lymphocytes % (Manual) 4L, Monocytes % (Manual) 4, Eosinophils % ( Manual) 2, Basophils % (Manual) 0, Band Neutrophils 4, Platelet Estimate IncreasedH, Platelet Morphology Normal, Anisocytosis 1+, Sodium Level 135, Potassium Level 3.4, Chloride Level 98, Carbon Dioxide Level 21, Anion Gap 16H, Blood Urea Nitrogen 21, Creatinine 1.1H, Estimat Glomerular Filtration Rate 51.6 , Glucose Level 111H, Calcium Level 12.3H, Total Bilirubin 0.3, Aspartate Amino Transf (AST/SGOT) 12, Alanine Aminotransferase (ALT/SGPT) 5, Alkaline Phosphatase 71, Total Protein 6.2L, Albumin 2.1L, Globulin 4.1, Albumin/ Globulin Ratio 0.5L, Hypochromasia 1+, Erythrocyte Sedimentation Rate 129H, Uric Acid 6.2, Phosphorus Level 3.5, Magnesium Level 1.6L, C-Reactive Protein, Quantitative 25.7H, Pro-B-Type Natriuretic Peptide 2715H, Thyroid Stimulating Hormone (TSH) 3.460 Height (Feet): 5 Height (Inches): 2.00 Weight (Pounds): 130 General Appearance: no apparent distress Cardiovascular: tachycardia Respiratory/Chest: decreased breath sounds Abdomen: soft Objective other physical exam not changed CLEMENTE APPIAH Oct 10, 2016 12:01
--- NOTE | 2016-10-10 12:33 | General Progress Note ---
Assessment/Plan Assessment/Plan IMPRESSION: 1. Hypercalcemia, unknown origin. eval for malignancy with tumor markers and CT C/A/P with contrast 2. Possible underlying malignancy, pending eval. 3. History of ovarian cancer. 4. Anemia of chronic disease (severe). 5. S/p pamidronate 6. Hyperferritinemia, most likely reactive. 7. History of schizophrenia. 8. History of ovarian cancer. 9. Hypertension. 10. Chronic obstructive pulmonary disease. 11. History of seizure. 12. Skin abscess. 13. Failure to thrive. RECOMMENDATIONS: 1. Watch count. 2. Watch coagulopathy. 3. PRBC transfusion on p.r.n. basis. 4. Possible bone marrow biopsy pending below eval 5. CT scan of abdomen and pelvis, rule out possible occult malignancy. 6. Bone scan in order to rule out metastatic lesion. 7. Serum protein electrophoresis. 8. Does not require iron 9. Venous Doppler of bilateral lower extremity to rule out DVT. 10. SCD for DVT prophylaxis. 11. Check tumor markers. 12. Hgb goal >7. 13. Staff Thank you, Miguel Alvarez MD Subjective Constitutional: Reports: no symptoms HEENT: Reports: no symptoms Cardiovascular: Reports: no symptoms Respiratory: Reports: no symptoms Gastrointestinal/Abdominal: Reports: poor appetite, poor fluid intake Genitourinary: Reports: no symptoms Neurologic/Psychiatric: Reports: no symptoms Endocrine: Reports: no symptoms Hematologic/Lymphatic: Reports: anemia Allergies: Coded Allergies: No Known Allergies (Unverified , 10/08/16) Subjective stable, tolerating POs, no complaints, no night sweats, hematochezia or hematemesis Objective Last 24 Hour Vital Signs Date Time Temp Pulse Resp B/P Pulse Ox O2 Delivery O2 Flow Rate FiO2 10/10/16 04:00 98.1 111 20 136/58 94 Room Air 10/10/16 00:00 97.9 107 20 101/52 96 Room Air 10/09/16 20:00 99.0 112 18 91/59 95 Room Air 10/09/16 15:34 99.1 107 20 107/53 94 Room Air 10/09/16 13:57 99.1 Intake and Output 10/09/16 10/10/16 19:00 07:00 Intake Total 1360 ml 1960 ml Output Total 350 ml 1350 ml Balance 1010 ml 610 ml Intake Oral 0 ml IV Total 1110 ml 1960 ml Blood Product 250 ml Output Urine Total 350 ml 1350 ml # Voids 2 Laboratory Tests 10/09/16 16:45: White Blood Count 23.5*H, Red Blood Count 3.28L, Hemoglobin 8.7L, Hematocrit 27.1L, Mean Corpuscular Volume 83, Mean Corpuscular Hemoglobin 26.5L, Mean Corpuscular Hemoglobin Concent 32.1, Red Cell Distribution Width 15.3H, Platelet Count 735H, Mean Platelet Volume 4.6L, Neutrophils (%) (Auto) , Lymphocytes (%) (Auto) , Monocytes (%) (Auto) , Eosinophils (%) (Auto) , Basophils (%) (Auto) , Differential Total Cells Counted 100, Neutrophils % ( Manual) 85H, Lymphocytes % (Manual) 9L, Monocytes % (Manual) 1, Eosinophils % ( Manual) 2, Basophils % (Manual) 0, Band Neutrophils 3, Platelet Estimate IncreasedH, Platelet Morphology Normal, Polychromasia 1+, Anisocytosis 1+, Reticulocyte Count 0.5, Hemoglobin A [Pending], Hemoglobin A2 [Pending], Hemoglobin C [Pending], Hemoglobin F () [Pending], Hemoglobin S [Pending], Variant Hemoglobin [Pending], Hemoglobin Electrophoresis Interp [Pending], Hemoglobin Interpretation [Pending], Hemoglobin Solubility [Pending], Haptoglobin 369H, Prothrombin Time 11.3, Prothromb Time International Ratio 1.1 , Fibrinogen 547H, Sodium Level 132L, Potassium Level 4.2, Chloride Level 95L, Carbon Dioxide Level 21, Anion Gap 16H, Blood Urea Nitrogen 25H, Creatinine 1.1H , Estimat Glomerular Filtration Rate 51.6, Glucose Level 69L, Calcium Level 12.9H, Total Bilirubin 0.2, Aspartate Amino Transf (AST/SGOT) 14, Alanine Aminotransferase (ALT/SGPT) 7, Alkaline Phosphatase 68, Ammonia 38, Lactate Dehydrogenase 248H, Total Protein 6.2L, Total Protein (PEP) [Pending], Albumin 2.1L, Albumin (PEP) [Pending], Globulin 4.1, Globulin (PEP) [Pending], Albumin/ Globulin Ratio [Pending], Jueag-7-Ryyuarjqk [Pending], Xifex-2-Kxypkfwiy [ Pending], Beta Globulins [Pending], Beta Gamma Globulin [Pending], PEP Abnormal Protein Bands [Pending], Protein Electrophoresis Interpret [Pending], Alpha Fetoprotein [Pending], Carcinoembryonic Antigen 3.4H, CA 15-3 Antigen [Pending] , CA 19-9 Antigen 28.59, CA 27.29 [Pending], CA 125 Antigen [Pending], RBC Folate Hemolysate [Pending], Red Blood Cell Folate [Pending], Immunoglobulin G [ Pending], Immunoglobulin A [Pending], Immunoglobulin M [Pending], Immunofixation Screen [Pending], Rheumatoid Factor Screen 14.9H, Hepatitis A IgM Antibody [Pending], Hepatitis B Surface Antigen [Pending], Hepatitis B Core IgM Antibody [Pending], Hepatitis C Antibody [Pending], HIV (1&2) Antibody Rapid Negative 10/10/16 00:35: White Blood Count 23.0*H, Red Blood Count 3.12L, Hemoglobin 8.2L, Hematocrit 25.2L, Mean Corpuscular Volume 81, Mean Corpuscular Hemoglobin 26.3L, Mean Corpuscular Hemoglobin Concent 32.5, Red Cell Distribution Width 15.1H, Platelet Count 743H, Mean Platelet Volume 4.4L, Neutrophils (%) (Auto) , Lymphocytes (%) (Auto) , Monocytes (%) (Auto) , Eosinophils (%) (Auto) , Basophils (%) (Auto) , Differential Total Cells Counted 100, Neutrophils % ( Manual) 88H, Lymphocytes % (Manual) 5L, Monocytes % (Manual) 6, Eosinophils % ( Manual) 0, Basophils % (Manual) 0, Band Neutrophils 1, Platelet Estimate IncreasedH, Platelet Morphology Normal, Anisocytosis 1+, Hypochromasia 1+ 10/10/16 08:20: White Blood Count 21.2H, Red Blood Count 3.12L, Hemoglobin 8.1L, Hematocrit 25.3L, Mean Corpuscular Volume 81, Mean Corpuscular Hemoglobin 25.9L, Mean Corpuscular Hemoglobin Concent 32.0, Red Cell Distribution Width 15.4H, Platelet Count 719H, Mean Platelet Volume 4.8L, Neutrophils (%) (Auto) , Lymphocytes (%) (Auto) , Monocytes (%) (Auto) , Eosinophils (%) (Auto) , Basophils (%) (Auto) , Differential Total Cells Counted 100, Neutrophils % ( Manual) 86H, Lymphocytes % (Manual) 4L, Monocytes % (Manual) 4, Eosinophils % ( Manual) 2, Basophils % (Manual) 0, Band Neutrophils 4, Platelet Estimate IncreasedH, Platelet Morphology Normal, Anisocytosis 1+, Sodium Level 135, Potassium Level 3.4, Chloride Level 98, Carbon Dioxide Level 21, Anion Gap 16H, Blood Urea Nitrogen 21, Creatinine 1.1H, Estimat Glomerular Filtration Rate 51.6 , Glucose Level 111H, Calcium Level 12.3H, Total Bilirubin 0.3, Aspartate Amino Transf (AST/SGOT) 12, Alanine Aminotransferase (ALT/SGPT) 5, Alkaline Phosphatase 71, Total Protein 6.2L, Albumin 2.1L, Globulin 4.1, Albumin/ Globulin Ratio 0.5L, Hypochromasia 1+, Erythrocyte Sedimentation Rate 129H, Uric Acid 6.2, Phosphorus Level 3.5, Magnesium Level 1.6L, C-Reactive Protein, Quantitative 25.7H, Pro-B-Type Natriuretic Peptide 2715H, Thyroid Stimulating Hormone (TSH) 3.460 Height (Feet): 5 Height (Inches): 2.00 Weight (Pounds): 130 General Appearance: no apparent distress EENT: normal ENT inspection Neck: supple Cardiovascular: normal rate Respiratory/Chest: chest wall non-tender Abdomen: non tender Extremities: non-tender Edema: 1+ Leg (L), 1+ Leg (R) Edema: mild edema Neurologic: alert Skin: warm/dry Miguel Alvarez Oct 10, 2016 12:33
[2016-10-10] MEDS ORDERED: Sorbitol Solution UD 30ml ORAL ONE (13:00)
[2016-10-10] MEDS: Phospha 250 Neutral tab ORAL SCH ×2 (14:51→18:52)
[2016-10-10] MEDS: Magnesium Oxide 400mg tab ORAL SCH ×2 (14:51→18:52)
[2016-10-10 15:33] VITALS: BP 96/64
--- NOTE | 2016-10-10 15:56 | General Progress Note ---
Assessment/Plan Assessment/Plan Assessment - hypercalcemia - constipation due to above - ovarian CA hx - Anemia - HTN - CPS Recommendations - laxative - push PO - OOB - refuses GI w/u - oncology f/u Subjective Allergies: Coded Allergies: No Known Allergies (Unverified , 10/08/16) Subjective c/o constipation po intake fair Objective Last 24 Hour Vital Signs Date Time Temp Pulse Resp B/P Pulse Ox O2 Delivery O2 Flow Rate FiO2 10/10/16 15:33 97.7 115 20 96/64 94 Room Air 10/10/16 12:00 98.6 114 18 90/49 93 10/10/16 08:00 98.1 113 20 95/56 94 Room Air 10/10/16 04:00 98.1 111 20 136/58 94 Room Air 10/10/16 00:00 97.9 107 20 101/52 96 Room Air 10/09/16 20:00 99.0 112 18 91/59 95 Room Air Intake and Output 10/09/16 10/10/16 19:00 07:00 Intake Total 1360 ml 1960 ml Output Total 350 ml 1350 ml Balance 1010 ml 610 ml Intake Oral 0 ml IV Total 1110 ml 1960 ml Blood Product 250 ml Output Urine Total 350 ml 1350 ml # Voids 2 Laboratory Tests 10/09/16 16:45: White Blood Count 23.5*H, Red Blood Count 3.28L, Hemoglobin 8.7L, Hematocrit 27.1L, Mean Corpuscular Volume 83, Mean Corpuscular Hemoglobin 26.5L, Mean Corpuscular Hemoglobin Concent 32.1, Red Cell Distribution Width 15.3H, Platelet Count 735H, Mean Platelet Volume 4.6L, Neutrophils (%) (Auto) , Lymphocytes (%) (Auto) , Monocytes (%) (Auto) , Eosinophils (%) (Auto) , Basophils (%) (Auto) , Differential Total Cells Counted 100, Neutrophils % ( Manual) 85H, Lymphocytes % (Manual) 9L, Monocytes % (Manual) 1, Eosinophils % ( Manual) 2, Basophils % (Manual) 0, Band Neutrophils 3, Platelet Estimate IncreasedH, Platelet Morphology Normal, Polychromasia 1+, Anisocytosis 1+, Reticulocyte Count 0.5, Hemoglobin A [Pending], Hemoglobin A2 [Pending], Hemoglobin C [Pending], Hemoglobin F () [Pending], Hemoglobin S [Pending], Variant Hemoglobin [Pending], Hemoglobin Electrophoresis Interp [Pending], Hemoglobin Interpretation [Pending], Hemoglobin Solubility [Pending], Haptoglobin 369H, Prothrombin Time 11.3, Prothromb Time International Ratio 1.1 , Fibrinogen 547H, Sodium Level 132L, Potassium Level 4.2, Chloride Level 95L, Carbon Dioxide Level 21, Anion Gap 16H, Blood Urea Nitrogen 25H, Creatinine 1.1H , Estimat Glomerular Filtration Rate 51.6, Glucose Level 69L, Calcium Level 12.9H, Total Bilirubin 0.2, Aspartate Amino Transf (AST/SGOT) 14, Alanine Aminotransferase (ALT/SGPT) 7, Alkaline Phosphatase 68, Ammonia 38, Lactate Dehydrogenase 248H, Total Protein 6.2L, Total Protein (PEP) [Pending], Albumin 2.1L, Albumin (PEP) [Pending], Globulin 4.1, Globulin (PEP) [Pending], Albumin/ Globulin Ratio [Pending], Qrjwk-3-Hesfuawnn [Pending], Ecezs-0-Ekywumodi [ Pending], Beta Globulins [Pending], Beta Gamma Globulin [Pending], PEP Abnormal Protein Bands [Pending], Protein Electrophoresis Interpret [Pending], Alpha Fetoprotein [Pending], Carcinoembryonic Antigen 3.4H, CA 15-3 Antigen [Pending] , CA 19-9 Antigen 28.59, CA 27.29 [Pending], CA 125 Antigen [Pending], RBC Folate Hemolysate [Pending], Red Blood Cell Folate [Pending], Immunoglobulin G [ Pending], Immunoglobulin A [Pending], Immunoglobulin M [Pending], Immunofixation Screen [Pending], Rheumatoid Factor Screen 14.9H, Hepatitis A IgM Antibody [Pending], Hepatitis B Surface Antigen [Pending], Hepatitis B Core IgM Antibody [Pending], Hepatitis C Antibody [Pending], HIV (1&2) Antibody Rapid Negative 10/10/16 00:35: White Blood Count 23.0*H, Red Blood Count 3.12L, Hemoglobin 8.2L, Hematocrit 25.2L, Mean Corpuscular Volume 81, Mean Corpuscular Hemoglobin 26.3L, Mean Corpuscular Hemoglobin Concent 32.5, Red Cell Distribution Width 15.1H, Platelet Count 743H, Mean Platelet Volume 4.4L, Neutrophils (%) (Auto) , Lymphocytes (%) (Auto) , Monocytes (%) (Auto) , Eosinophils (%) (Auto) , Basophils (%) (Auto) , Differential Total Cells Counted 100, Neutrophils % ( Manual) 88H, Lymphocytes % (Manual) 5L, Monocytes % (Manual) 6, Eosinophils % ( Manual) 0, Basophils % (Manual) 0, Band Neutrophils 1, Platelet Estimate IncreasedH, Platelet Morphology Normal, Anisocytosis 1+, Hypochromasia 1+ 10/10/16 08:20: White Blood Count 21.2H, Red Blood Count 3.12L, Hemoglobin 8.1L, Hematocrit 25.3L, Mean Corpuscular Volume 81, Mean Corpuscular Hemoglobin 25.9L, Mean Corpuscular Hemoglobin Concent 32.0, Red Cell Distribution Width 15.4H, Platelet Count 719H, Mean Platelet Volume 4.8L, Neutrophils (%) (Auto) , Lymphocytes (%) (Auto) , Monocytes (%) (Auto) , Eosinophils (%) (Auto) , Basophils (%) (Auto) , Differential Total Cells Counted 100, Neutrophils % ( Manual) 86H, Lymphocytes % (Manual) 4L, Monocytes % (Manual) 4, Eosinophils % ( Manual) 2, Basophils % (Manual) 0, Band Neutrophils 4, Platelet Estimate IncreasedH, Platelet Morphology Normal, Anisocytosis 1+, Sodium Level 135, Potassium Level 3.4, Chloride Level 98, Carbon Dioxide Level 21, Anion Gap 16H, Blood Urea Nitrogen 21, Creatinine 1.1H, Estimat Glomerular Filtration Rate 51.6 , Glucose Level 111H, Calcium Level 12.3H, Total Bilirubin 0.3, Aspartate Amino Transf (AST/SGOT) 12, Alanine Aminotransferase (ALT/SGPT) 5, Alkaline Phosphatase 71, Total Protein 6.2L, Albumin 2.1L, Globulin 4.1, Albumin/ Globulin Ratio 0.5L, Hypochromasia 1+, Erythrocyte Sedimentation Rate 129H, Uric Acid 6.2, Phosphorus Level 3.5, Magnesium Level 1.6L, C-Reactive Protein, Quantitative 25.7H, Pro-B-Type Natriuretic Peptide 2715H, Thyroid Stimulating Hormone (TSH) 3.460 Height (Feet): 5 Height (Inches): 2.00 Weight (Pounds): 130 Objective Thin WW NCAT supple CTA RRR Soft ND NT no edema HOLLAND GARSIA Oct 10, 2016 15:56
[2016-10-10 16:12] LABS: MEAN CORPUSCULAR HEMOGLOBIN 26.9 PG (27.0-31.0); MEAN CORPUSCULAR HGB CONC 33.4 G/DL (32.0-36.0); MEAN CORPUSCULAR VOLUME 81 FL (80-99); MEAN PLATELET VOLUME 4.4 FL (6.5-10.1); PLATELET COUNT 748 K/UL (150-450); RED CELL DISTRIBUTION WIDTH 15.1 % (11.6-14.8)
[2016-10-10 16:17] LABS: WHITE BLOOD COUNT 22.9 K/UL (4.8-10.8)
[2016-10-10 16:55] LABS: EOSINOPHILS % (MANUAL) 4 % (0-3); LYMPHOCYTES % (MANUAL) 7 % (20-45); NEUTROPHILS % (MANUAL) 87 % (45-75); TOTAL CELLS COUNTED 100
[2016-10-10 16:56] LABS: ANISOCYTOSIS 1+; MICROCYTES 2+; POLYCHROMASIA 1+; SPHEROCYTES OCCASIONAL
[2016-10-10 16:57] LABS: PLATELET MORPHOLOGY NORMAL
[2016-10-10 17:00] LABS: BAND NEUTROPHILS % (MANUAL) 0 % (0-8); BASOPHILS % (MANUAL) 0 % (0-2); PLATELET ESTIMATE INCREASED
[2016-10-10 20:00] VITALS: BP 102/65
[2016-10-11] VITALS: BP 112/67
[2016-10-11 04:00] VITALS: BP 106/60
[2016-10-11] MEDS: Ampicillin/Sulbactam Sod 3 GM in NS 110 ML IVPB SCH ×3 (05:51→21:52)
[2016-10-11 07:46] VITALS: BP 102/52
[2016-10-11 08:08] LABS: MEAN CORPUSCULAR VOLUME 81 FL (80-99); MEAN PLATELET VOLUME 4.8 FL (6.5-10.1); PLATELET COUNT 646 K/UL (150-450); RED CELL DISTRIBUTION WIDTH 15.8 % (11.6-14.8); WHITE BLOOD COUNT 17.9 K/UL (4.8-10.8)
[2016-10-11 08:28] LABS: ALBUMIN/GLOBULIN RATIO 0.5 (1.0-2.7); CALCIUM 10.7 mg/dL (8.6-10.2); GLOMERULAR FILTRATION RATE 57.6 mL/min (>60); MAGNESIUM 1.4 mg/dL (1.7-2.5); PHOSPHORUS 2.4 mg/dL (2.5-4.8); POTASSIUM 3.5 mEQ/L (3.4-4.9); TOTAL PROTEIN 6.1 g/dL (6.6-8.7); URIC ACID 5.3 mg/dL (3.0-7.5)
[2016-10-11] MEDS: Docusate 100mg cap ORAL SCH ×2 (09:00→17:36)
[2016-10-11] MEDS: Phospha 250 Neutral tab ORAL SCH ×3 (09:00→17:36)
[2016-10-11] MEDS: Vancomycin 500mg/D5W 110ml IVPB SCH ×4 (10:27→20:30)
--- NOTE | 2016-10-11 10:28 | General Progress Note ---
Assessment/Plan Status: stable Status Narrative Ca lower Assessment/Plan status: Hypercalcemia, related to Neoplastic process- Symptomatic Anemia, Etiology?? Cancer, GI Loss, .... Sugg: Aggressive Hydrate- Aredia given 90mg 10/09 Calcitonin nasal Fontenot Lasix Monitor Ca and Phos and Lytes Transfusion per mineral surveyor PO Phos, Mag, KCL Subjective ROS Limited/Unobtainable: No Constitutional: Reports: malaise Allergies: Coded Allergies: No Known Allergies (Unverified , 10/08/16) Objective Last 24 Hour Vital Signs Date Time Temp Pulse Resp B/P Pulse Ox O2 Delivery O2 Flow Rate FiO2 10/11/16 07:46 99.2 114 20 102/52 95 Room Air 10/11/16 04:00 98.0 120 20 106/60 93 Room Air 10/11/16 00:00 100.0 120 20 112/67 97 Room Air 10/10/16 20:00 98.5 118 20 102/65 97 Room Air 10/10/16 15:33 97.7 115 20 96/64 94 Room Air 10/10/16 12:00 98.6 114 18 90/49 93 Intake and Output 10/10/16 10/11/16 19:00 07:00 Intake Total 420 ml 1520 ml Output Total 1250 ml Balance 420 ml 270 ml Intake Oral 120 ml 360 ml IV Total 300 ml 1160 ml Output Urine Total 1250 ml # Bowel Movements 4 5 Laboratory Tests 10/10/16 16:00: White Blood Count 22.9*H, Red Blood Count 3.30L, Hemoglobin 8.9L, Hematocrit 26.6L, Mean Corpuscular Volume 81, Mean Corpuscular Hemoglobin 26.9L, Mean Corpuscular Hemoglobin Concent 33.4, Red Cell Distribution Width 15.1H, Platelet Count 748H, Mean Platelet Volume 4.4L, Neutrophils (%) (Auto) , Lymphocytes (%) (Auto) , Monocytes (%) (Auto) , Eosinophils (%) (Auto) , Basophils (%) (Auto) , Differential Total Cells Counted 100, Neutrophils % ( Manual) 87H, Lymphocytes % (Manual) 7L, Monocytes % (Manual) 2, Eosinophils % ( Manual) 4H, Basophils % (Manual) 0, Band Neutrophils 0, Platelet Estimate IncreasedH, Platelet Morphology Normal, Polychromasia 1+, Anisocytosis 1+, Microcytosis 2+, Spherocytes Occasional 10/10/16 18:30: Stool Occult Blood Negative 10/10/16 20:15: Vancomycin Level Trough 24.8H 10/11/16 07:30: White Blood Count 17.9H, Red Blood Count 3.00L, Hemoglobin 7.8L, Hematocrit 24.3L, Mean Corpuscular Volume 81, Mean Corpuscular Hemoglobin 26.0L, Mean Corpuscular Hemoglobin Concent 32.0, Red Cell Distribution Width 15.8H, Platelet Count 646H, Mean Platelet Volume 4.8L, Neutrophils (%) (Auto) , Lymphocytes (%) (Auto) , Monocytes (%) (Auto) , Eosinophils (%) (Auto) , Basophils (%) (Auto) , Neutrophils % (Manual) [Pending], Lymphocytes % (Manual) [Pending], Platelet Estimate [Pending], Platelet Morphology [Pending], Sodium Level 137, Potassium Level 3.5, Chloride Level 101, Carbon Dioxide Level 19L, Anion Gap 17H, Blood Urea Nitrogen 15, Creatinine 1.0H, Estimat Glomerular Filtration Rate 57.6, Glucose Level 91, Uric Acid 5.3, Calcium Level 10.7H, Phosphorus Level 2.4L, Magnesium Level 1.4L, Total Bilirubin 0.3, Aspartate Amino Transf (AST/SGOT) 12, Alanine Aminotransferase (ALT/SGPT) 5, Alkaline Phosphatase 78, Total Protein 6.1L, Albumin 2.2L, Globulin 3.9, Albumin/ Globulin Ratio 0.5L Height (Feet): 5 Height (Inches): 2.00 Weight (Pounds): 130 General Appearance: no apparent distress Cardiovascular: tachycardia Respiratory/Chest: decreased breath sounds Abdomen: soft Objective other physical exam not changed CLEMENTE APPIAH Oct 11, 2016 10:28
[2016-10-11] MEDS ORDERED: Potassium Phosphate 30 MM in NS 275 ML IV ONE (11:00)
--- NOTE | 2016-10-11 11:03 | Diagnostic Imaging Report ---
Indication: Pelvic pain Technique: XRAY PELVIS 1 VIEW Comparison: None Findings: Examination is limited secondary to obliquity. The left superior pubic ramus is poorly evaluated. There is no gross radiographically evident acute fracture or dislocation. A large cannulated cancellous screw traverses the sacrum and bilateral iliacs. Chronic appearing deformities are seen of the right superior and inferior pubic rami and the left inferior pubic ramus. There is osteopenia. Approximately 4.5 cm pelvic calcification is suggestive of a fibroid. There is osteopenia. Impression: Limited examination without gross radiographically evident acute fracture or dislocation. Further evaluation with CT recommended as indicated. Chronic appearing deformities of the right superior and inferior and left inferior pubic rami. Large cannulated cancellous screw traversing the sacrum and bilateral iliacs. Pelvic calcifications suggestive of fibroid. Osteopenia.
--- NOTE | 2016-10-11 11:11 | General Progress Note ---
Assessment/Plan Assessment/Plan IMPRESSION: 1. Hypercalcemia, unknown origin. eval for malignancy with tumor markers and CT C/A/P with contrast 2. Acute thrombus bilateral common femoral vein pending ivcFilter 3. History of ovarian cancer. 4. Anemia of chronic disease (severe). 5. S/p pamidronate 6. Hyperferritinemia, most likely reactive. 7. History of schizophrenia. 8. History of ovarian cancer. 9. Hypertension. 10. Chronic obstructive pulmonary disease. 11. History of seizure. 12. Skin abscess. 13. Failure to thrive. RECOMMENDATIONS: 1. Watch count. Hgb goal >7. 2. PENDING IVC filter today 3. PRBC transfusion on p.r.n. basis. 4. Possible bone marrow biopsy pending below eval 5. CT scan of abdomen and pelvis, rule out possible occult malignancy. 6. Bone scan in order to rule out metastatic lesion. 7. Serum protein electrophoresis. 8. Does not require iron 9. SCD for DVT prophylaxis. 10. Check tumor markers. 11. DW Staff Thank you, Miguel Alvarez MD Subjective Constitutional: Reports: no symptoms HEENT: Reports: no symptoms Cardiovascular: Reports: no symptoms Respiratory: Reports: no symptoms Gastrointestinal/Abdominal: Reports: no symptoms Genitourinary: Reports: no symptoms Neurologic/Psychiatric: Reports: no symptoms Endocrine: Reports: no symptoms Hematologic/Lymphatic: Reports: anemia Allergies: Coded Allergies: No Known Allergies (Unverified , 10/08/16) Subjective stable, tolerating POs, no complaints, no night sweats, hematochezia or hematemesis, pending IVCf Objective Last 24 Hour Vital Signs Date Time Temp Pulse Resp B/P Pulse Ox O2 Delivery O2 Flow Rate FiO2 10/11/16 07:46 99.2 114 20 102/52 95 Room Air 10/11/16 04:00 98.0 120 20 106/60 93 Room Air 10/11/16 00:00 100.0 120 20 112/67 97 Room Air 10/10/16 20:00 98.5 118 20 102/65 97 Room Air 10/10/16 15:33 97.7 115 20 96/64 94 Room Air 10/10/16 12:00 98.6 114 18 90/49 93 Intake and Output 10/10/16 10/11/16 18:59 06:59 Intake Total 420 ml 1670 ml Output Total 1250 ml Balance 420 ml 420 ml Intake Oral 120 ml 360 ml IV Total 300 ml 1310 ml Output Urine Total 1250 ml # Bowel Movements 4 5 Laboratory Tests 10/10/16 16:00: White Blood Count 22.9*H, Red Blood Count 3.30L, Hemoglobin 8.9L, Hematocrit 26.6L, Mean Corpuscular Volume 81, Mean Corpuscular Hemoglobin 26.9L, Mean Corpuscular Hemoglobin Concent 33.4, Red Cell Distribution Width 15.1H, Platelet Count 748H, Mean Platelet Volume 4.4L, Neutrophils (%) (Auto) , Lymphocytes (%) (Auto) , Monocytes (%) (Auto) , Eosinophils (%) (Auto) , Basophils (%) (Auto) , Differential Total Cells Counted 100, Neutrophils % ( Manual) 87H, Lymphocytes % (Manual) 7L, Monocytes % (Manual) 2, Eosinophils % ( Manual) 4H, Basophils % (Manual) 0, Band Neutrophils 0, Platelet Estimate IncreasedH, Platelet Morphology Normal, Polychromasia 1+, Anisocytosis 1+, Microcytosis 2+, Spherocytes Occasional 10/10/16 18:30: Stool Occult Blood Negative 10/10/16 20:15: Vancomycin Level Trough 24.8H 10/11/16 07:30: White Blood Count 17.9H, Red Blood Count 3.00L, Hemoglobin 7.8L, Hematocrit 24.3L, Mean Corpuscular Volume 81, Mean Corpuscular Hemoglobin 26.0L, Mean Corpuscular Hemoglobin Concent 32.0, Red Cell Distribution Width 15.8H, Platelet Count 646H, Mean Platelet Volume 4.8L, Neutrophils (%) (Auto) , Lymphocytes (%) (Auto) , Monocytes (%) (Auto) , Eosinophils (%) (Auto) , Basophils (%) (Auto) , Neutrophils % (Manual) [Pending], Lymphocytes % (Manual) [Pending], Platelet Estimate [Pending], Platelet Morphology [Pending], Sodium Level 137, Potassium Level 3.5, Chloride Level 101, Carbon Dioxide Level 19L, Anion Gap 17H, Blood Urea Nitrogen 15, Creatinine 1.0H, Estimat Glomerular Filtration Rate 57.6, Glucose Level 91, Uric Acid 5.3, Calcium Level 10.7H, Phosphorus Level 2.4L, Magnesium Level 1.4L, Total Bilirubin 0.3, Aspartate Amino Transf (AST/SGOT) 12, Alanine Aminotransferase (ALT/SGPT) 5, Alkaline Phosphatase 78, Total Protein 6.1L, Albumin 2.2L, Globulin 3.9, Albumin/ Globulin Ratio 0.5L Height (Feet): 5 Height (Inches): 2.00 Weight (Pounds): 130 General Appearance: no apparent distress EENT: TMs normal Neck: supple Cardiovascular: regular rhythm Respiratory/Chest: normal breath sounds Abdomen: non tender Extremities: non-tender Edema: 1+ Leg (L), 1+ Leg (R) Edema: mild edema Neurologic: alert Skin: warm/dry Miguel Alvarez Oct 11, 2016 11:11
[2016-10-11 11:41] VITALS: BP 110/68
[2016-10-11 12:12] LABS: BAND NEUTROPHILS % (MANUAL) 0 % (0-8); BASOPHILS % (MANUAL) 0 % (0-2); EOSINOPHILS % (MANUAL) 1 % (0-3); HYPOCHROMASIA 3+; LYMPHOCYTES % (MANUAL) 3 % (20-45); NEUTROPHILS % (MANUAL) 93 % (45-75); PLATELET ESTIMATE INCREASED; TOTAL CELLS COUNTED 100
[2016-10-11 12:13] LABS: ANISOCYTOSIS 1+; PLATELET MORPHOLOGY NORMAL
--- NOTE | 2016-10-11 12:31 | General Progress Note ---
Assessment/Plan Problem List: (1) Anemia ICD Codes: D64.9 - Anemia, unspecified SNOMED: 164054482 (2) Skin infection ICD Codes: L08.9 - Local infection of the skin and subcutaneous tissue, unspecified SNOMED: 561592556 (3) Sepsis ICD Codes: A41.9 - Sepsis, unspecified organism SNOMED: 06779739 (4) JAY (acute kidney injury) ICD Codes: N17.9 - Acute kidney failure, unspecified SNOMED: 26302944 Status: progressing Assessment/Plan afebrile vitals stable no wheezing arf sepsis ti anemia resp insuff clinically improving Subjective ROS Limited/Unobtainable: Yes Constitutional: Reports: no symptoms Allergies: Coded Allergies: No Known Allergies (Unverified , 10/08/16) Objective Last 24 Hour Vital Signs Date Time Temp Pulse Resp B/P Pulse Ox O2 Delivery O2 Flow Rate FiO2 10/11/16 11:41 98.8 112 20 110/68 95 Room Air 10/11/16 07:46 99.2 114 20 102/52 95 Room Air 10/11/16 04:00 98.0 120 20 106/60 93 Room Air 10/11/16 00:00 100.0 120 20 112/67 97 Room Air 10/10/16 20:00 98.5 118 20 102/65 97 Room Air 10/10/16 15:33 97.7 115 20 96/64 94 Room Air Intake and Output 10/10/16 10/11/16 19:00 07:00 Intake Total 420 ml 1520 ml Output Total 1250 ml Balance 420 ml 270 ml Intake Oral 120 ml 360 ml IV Total 300 ml 1160 ml Output Urine Total 1250 ml # Bowel Movements 4 5 Laboratory Tests 10/10/16 16:00: White Blood Count 22.9*H, Red Blood Count 3.30L, Hemoglobin 8.9L, Hematocrit 26.6L, Mean Corpuscular Volume 81, Mean Corpuscular Hemoglobin 26.9L, Mean Corpuscular Hemoglobin Concent 33.4, Red Cell Distribution Width 15.1H, Platelet Count 748H, Mean Platelet Volume 4.4L, Neutrophils (%) (Auto) , Lymphocytes (%) (Auto) , Monocytes (%) (Auto) , Eosinophils (%) (Auto) , Basophils (%) (Auto) , Differential Total Cells Counted 100, Neutrophils % ( Manual) 87H, Lymphocytes % (Manual) 7L, Monocytes % (Manual) 2, Eosinophils % ( Manual) 4H, Basophils % (Manual) 0, Band Neutrophils 0, Platelet Estimate IncreasedH, Platelet Morphology Normal, Polychromasia 1+, Anisocytosis 1+, Microcytosis 2+, Spherocytes Occasional 10/10/16 18:30: Stool Occult Blood Negative 10/10/16 20:15: Vancomycin Level Trough 24.8H 10/11/16 07:30: White Blood Count 17.9H, Red Blood Count 3.00L, Hemoglobin 7.8L, Hematocrit 24.3L, Mean Corpuscular Volume 81, Mean Corpuscular Hemoglobin 26.0L, Mean Corpuscular Hemoglobin Concent 32.0, Red Cell Distribution Width 15.8H, Platelet Count 646H, Mean Platelet Volume 4.8L, Neutrophils (%) (Auto) , Lymphocytes (%) (Auto) , Monocytes (%) (Auto) , Eosinophils (%) (Auto) , Basophils (%) (Auto) , Differential Total Cells Counted 100, Neutrophils % ( Manual) 93H, Lymphocytes % (Manual) 3L, Monocytes % (Manual) 3, Eosinophils % ( Manual) 1, Basophils % (Manual) 0, Band Neutrophils 0, Platelet Estimate IncreasedH, Platelet Morphology Normal, Anisocytosis 1+, Hypochromasia 3+, Sodium Level 137, Potassium Level 3.5, Chloride Level 101, Carbon Dioxide Level 19L, Anion Gap 17H, Blood Urea Nitrogen 15, Creatinine 1.0H, Estimat Glomerular Filtration Rate 57.6, Glucose Level 91, Uric Acid 5.3, Calcium Level 10.7H, Phosphorus Level 2.4L, Magnesium Level 1.4L, Total Bilirubin 0.3, Aspartate Amino Transf (AST/SGOT) 12, Alanine Aminotransferase (ALT/SGPT) 5, Alkaline Phosphatase 78, Total Protein 6.1L, Albumin 2.2L, Globulin 3.9, Albumin/ Globulin Ratio 0.5L Height (Feet): 5 Height (Inches): 2.00 Weight (Pounds): 130 EENT: PERRL/EOMI Neck: supple Cardiovascular: normal rate Respiratory/Chest: lungs clear Abdomen: soft Sulma Desir MD Oct 11, 2016 12:31
[2016-10-11 13:11] LABS: A/G RATIO 0.5 (0.7-1.7); ABNORMAL PROTEIN BAND 1 Not Observed g/dL (Not Observed); ALPHA-1 GLOBULIN 0.4 g/dL (0.0-0.4); ALPHA-2 GLOBULIN 0.9 g/dL (0.4-1.0); BETA GLOBULIN 0.9 g/dL (0.7-1.3); GLOBULIN, TOTAL 4.1 g/dL (2.2-3.9); TOTAL PROTEIN 6.1 g/dL (6.0-8.5)
[2016-10-11 14:15] LABS: IMMUNOGLOBULIN A 357 mg/dL (87-352); IMMUNOGLOBULIN G 1817 mg/dL (700-1600); IMMUNOGLOBULIN M 87 mg/dL (26-217)
[2016-10-11 14:26] LABS: OTHERS PATHOLOGIST COMMENT
--- NOTE | 2016-10-11 15:34 | Diagnostic Imaging Report ---
Clinical Indication: Abdominal pain Technique: Patient given oral contrast. IV administration nonionic contrast. Venous phase spiral acquisition obtained through the abdomen and pelvis. Multiplanar reconstructions were generated. Total dose length product 6:15 mGycm. CTDIvol(s) 12 mGy Comparison: None Findings: There is an inferior vena cava filter in good position in the infrarenal inferior vena cava. There is a very large mass in the pelvis. This is probably a conglomerate of masses and adenopathy. The posterior portion of this mass involves the left iliac wing, extending into the acetabulum and also crossing the sacroiliac joint into the sacrum. This destroys much of the left iliac bone. This mass surrounds and encases the external iliac artery and significantly narrows it distally. It completely occludes the left vein. Anteriorly, the mass extends through the lower abdominal/upper pelvic wall musculature and invades the subcutaneous fat, although does not appear to extend all the way into the skin surface. Overall the mass measures approximately 16 cm AP by 7 cm transverse by 15 cm craniocaudad. The mass also invades the medial aspect of the left psoas muscle, as well as iliacus muscle. There is a contiguous but probably separate mass appears to be centered in the left adnexal region which measures 4.9 x 3.7 cm. This appears to have a necrotic center. There is extensive involvement of the bladder by tumor, which appears to involve the bladder wall circumferentially. Contiguous tumor is seen posterior to the bladder as well, adjacent to the inferior aspect of the uterine fundus. The tumor masses involving the bladder sosa and demonstrate extensive necrosis. There is a Fontenot catheter within the bladder lumen. There is extensive bilateral inguinal lymphadenopathy, with inguinal nodes measuring up to 4.6 cm long axis dimension. There are iliac chain nodes on the right. There is a large necrotic mass to the right of the rectum, probably representing lymphadenopathy. There is some left iliac chain lymphadenopathy separate from the main mass There is extensive periaortic and pericaval lymphadenopathy. There is peripancreatic lymphadenopathy. Multiple masses are seen within the liver, measuring up to 16 mm long axis dimension. There is an osteolytic lesion involving the left side of the L5 vertebral body, extending into the pedicle and transverse process. There is an osteolytic lesion involving the right side of the L4 vertebral body. Small osteolytic lesion is in the anterior inferior L2 vertebral body to the right of midline. A large osteolytic lesion is seen involving the L1 vertebral body. This is associated with a mild pathologic compression fracture which mostly involves the inferior and superior endplates the results of about 10% height loss. Multiple masses are seen at both lung bases. There is also nonspecific interstitial and alveolar parenchymal disease at both lung bases, right greater than left, and trace right and small left pleural effusions. The gallbladder and bile ducts are unremarkable. The spleen and pancreas are unremarkable. The adrenals are unremarkable. There is severe left hydronephrosis, and severe thinning of the cortex and parenchymal loss of the left kidney. This appears to be due to obstruction by the large tumor mass described above. There is mild right hydronephrosis, with the point of ureteral obstruction appearing to be somewhere in the pelvis by either the lymphadenopathy or bladder mass In addition to the above described bony findings, there is a surgical waylon extending across the anterior sacrum from either iliac bone. There is what appears to be a fracture deformity of the left upper sacrum and left upper iliac bone. There is a fracture deformity of the right pubic bone. There is a large calcified uterine fibroid Defect within the right common femoral vein is noted, consistent with deep venous thro -- mbosis described on prior imaging report. The left femoral and common femoral veins are not well seen, appear to be compressed by surrounding tumor. There is diffuse subcutaneous edema. Impression: Evidence of extensive disseminated malignancy, as described above, with a large pelvic mass, extensive lymphadenopathy, extensive osseous metastases, hepatic and pulmonary metastases. There is also unusual circumferential involvement of the bladder wall Severe left hydronephrosis. Given the severe extent of renal cortical thinning, this is presumably long-standing Mild right hydronephrosis, presumably due to pelvic tumor Compression fracture of the L1 vertebral body, as described Posttraumatic and postsurgical skeletal changes, as described Bilateral pleural effusions, presumably malignant In addition to the pulmonary masses, there is bilateral basilar pulmonary parenchymal disease, which is nonspecific Inferior vena cava filter Right femoral deep venous thrombosis also described on prior venous duplex scan Diffuse subcutaneous edema Large calcified uterine fibroid The CT scanner at [facility] is accredited by the [employer] and the scans are performed using protocols designed to limit radiation exposure to as low as reasonably achievable to attain images of sufficient resolution adequate for diagnostic evaluation.
[2016-10-11 15:58] VITALS: BP 94/50
--- NOTE | 2016-10-11 16:45 | Infectious Diseases Prog Note ---
Assessment/Plan Problems: (1) Skin infection Assessment & Plan: of the left neck, wound culture is pending . continue vancomycin and unasyn empirically pending culture results (2) Sepsis Assessment & Plan: with leukocytosis , skin infection VS pelvic malignancy related , await blood culture , continue vancomycin with unasyn empirically (3) Anemia Assessment & Plan: due to chronic disease and malignancy, monitor H/H transfuse blood as needed, rule out GI bleeding as a source (4) JAY (acute kidney injury) Assessment & Plan: suspect due to ureter obstruction due to pelvic mass, recommend urology consult for stent placement , continue hydration, monitor UOP , avoid nephrotoxic meds (5) Pelvic mass in female Assessment & Plan: suspect recurrent ovarian CA, oncology is following, may benefit from chemo. Subjective Constitutional: Reports: anorexia, fatigue HEENT: Denies: congestion, coryza, dysphagia, hearing change, no symptoms, other, visual change Respiratory: Denies: dry cough, no symptoms, other, productive cough, shortness of breath Breasts: Denies: discharge, no symptoms, other, swelling, tenderness Cardiovascular: Reports: palpitations Gastrointestinal/Abdominal: Reports: bloating, nausea Genitourinary: Reports: frequency Neurologic: Denies: confusion, headache, no symptoms, numbness, other, weakness Psychiatric: Denies: anxiety, depression, no symptoms, other Skin: Reports: ulcer Allergies: Coded Allergies: No Known Allergies (Unverified , 10/08/16) Objective Vital Signs Last 24 Hour Vital Signs Date Time Temp Pulse Resp B/P Pulse Ox O2 Delivery O2 Flow Rate FiO2 10/11/16 15:58 98.2 112 20 94/50 94 Room Air 10/11/16 11:41 98.8 112 20 110/68 95 Room Air 10/11/16 07:46 99.2 114 20 102/52 95 Room Air 10/11/16 04:00 98.0 120 20 106/60 93 Room Air 10/11/16 00:00 100.0 120 20 112/67 97 Room Air 10/10/16 20:00 98.5 118 20 102/65 97 Room Air Height (Feet): 5 Height (Inches): 2.00 Weight (Pounds): 130 General Appearance: no acute distress, cachetic HEENT: normocephalic, atraumatic, anicteric, other - left anterior wound with cellulitis Respiratory/Chest: chest wall non-tender, normal breath sounds, no respiratory distress, no accessory muscle use, decreased breath sounds, crackles/rales Cardiovascular: normal peripheral pulses, normal rate, regular rhythm, no gallop/murmur, no JVD Abdomen: non distended, no scars, hypoactive bowel sounds, distended, tender, mass Extremities: no cyanosis, no clubbing Skin: no rash, ulcers Microbiology Date/Time Source Procedure Growth Status 10/08/16 22:15 Blood Blood Culture - Preliminary NO GROWTH AFTER 48 HOURS Resulted 10/08/16 22:00 Blood Blood Culture - Preliminary NO GROWTH AFTER 48 HOURS Resulted 10/08/16 22:56 Nasal Nares MRSA Culture - Final NO METHICILLIN RESISTANT STAPH AUREUS... Complete 10/08/16 23:15 Urine,Clean Catch Urine Culture - Preliminary Mixed Gram Positive Organism Resulted 10/10/16 07:30 Neck Gram Stain - Final Resulted 10/10/16 07:30 Neck Wound Culture - Preliminary NO GROWTH Resulted 10/08/16 22:56 Rectum VRE Culture - Final NO VANCOMYCIN RESISTANT ENTEROCOCCUS ... Complete Laboratory Tests Test 10/10/16 18:30 10/10/16 20:15 10/11/16 07:30 Stool Occult Blood Negative (NEGATIVE) Vancomycin Level Trough 24.8 ug/mL (5.0-12.0) H White Blood Count 17.9 K/UL (4.8-10.8) H Red Blood Count 3.00 M/UL (4.20-5.40) L Hemoglobin 7.8 G/DL (12.0-16.0) L Hematocrit 24.3 % (37.0-47.0) L Mean Corpuscular Volume 81 FL (80-99) Mean Corpuscular Hemoglobin 26.0 PG (27.0-31.0) L Mean Corpuscular Hemoglobin Concent 32.0 G/DL (32.0-36.0) Red Cell Distribution Width 15.8 % (11.6-14.8) H Platelet Count 646 K/UL (150-450) H Mean Platelet Volume 4.8 FL (6.5-10.1) L Neutrophils (%) (Auto) % (45.0-75.0) Lymphocytes (%) (Auto) % (20.0-45.0) Monocytes (%) (Auto) % (1.0-10.0) Eosinophils (%) (Auto) % (0.0-3.0) Basophils (%) (Auto) % (0.0-2.0) Differential Total Cells Counted 100 Neutrophils % (Manual) 93 % (45-75) H Lymphocytes % (Manual) 3 % (20-45) L Monocytes % (Manual) 3 % (1-10) Eosinophils % (Manual) 1 % (0-3) Basophils % (Manual) 0 % (0-2) Band Neutrophils 0 % (0-8) Platelet Estimate Increased H Platelet Morphology Normal Hypochromasia 3+ Anisocytosis 1+ Sodium Level 137 mEQ/L (135-145) Potassium Level 3.5 mEQ/L (3.4-4.9) Chloride Level 101 mEQ/L (98-107) Carbon Dioxide Level 19 mEQ/L (20-30) L Anion Gap 17 (5-15) H Blood Urea Nitrogen 15 mg/dL (7-23) Creatinine 1.0 mg/dL (0.5-0.9) H Estimat Glomerular Filtration Rate 57.6 mL/min (>60) Glucose Level 91 mg/dL (74-106) Uric Acid 5.3 mg/dL (3.0-7.5) Calcium Level 10.7 mg/dL (8.6-10.2) H Phosphorus Level 2.4 mg/dL (2.5-4.8) L Magnesium Level 1.4 mg/dL (1.7-2.5) L Total Bilirubin 0.3 mg/dL (0.0-1.2) Aspartate Amino Transf (AST/SGOT) 12 U/L (5-40) Alanine Aminotransferase (ALT/SGPT) 5 U/L (3-33) Alkaline Phosphatase 78 U/L (35-104) Total Protein 6.1 g/dL (6.6-8.7) L Albumin 2.2 g/dL (3.5-5.2) L Globulin 3.9 g/dL Albumin/Globulin Ratio 0.5 (1.0-2.7) L Current Medications Medications (Trade) Dose Ordered Sig/[place] Route PRN Reason Start Time Stop Time Status Last Admin Dose Admin Acetaminophen 650 mg 650 mg Q4H PRN ORAL Mild Pain/Temp > 100.5 10/09/16 01:00 11/08/16 00:59 10/09/16 01:52 Ampicillin Sodium/ Sulbactam Sodium/ Sodium Chloride (Unasyn/Sodium Chloride) 110 ml @ 220 mls/hr Q8HR IVPB 10/09/16 14:00 10/16/16 13:59 10/11/16 14:52 Calcitonin [place] (Miacalcin) 1 sprays DAILY NASAL 10/09/16 15:00 11/08/16 14:59 10/11/16 12:27 Docusate Sodium 100 mg 100 mg TWICE A DAY ORAL 10/09/16 09:00 11/08/16 08:59 10/10/16 18:52 Furosemide (Lasix) 10 mg EVERY 8 HOURS IV 10/11/16 14:00 11/10/16 13:59 10/11/16 14:52 Pantoprazole 40 mg 40 mg DAILY ORAL 10/11/16 09:00 11/10/16 08:59 Phosphorus (Phospha 250 Neutral) 250 mg THREE TIMES A DAY ORAL 10/10/16 13:00 11/09/16 12:59 10/10/16 18:52 Potassium Phosphate/Sodium Chloride (Potassium Phosphate/Sodium Chloride) 285 ml @ 47.5 mls/hr ONCE ONCE IV 10/11/16 11:00 10/11/16 16:59 10/11/16 13:51 Potassium Chloride (K-Dur) 40 meq Q12HR ORAL 10/10/16 21:00 11/09/16 20:59 10/10/16 20:47 Sodium Chloride (Sodium Chloride 1000ml bag) 1,000 ml @ 150 mls/hr Q6H40M IV 10/09/16 16:49 11/08/16 16:48 10/11/16 05:56 Vancomycin HCl (Vanco rx to dose) 1 ea DAILY PRN MISC PER RX PROTOCOL 10/09/16 11:45 11/08/16 11:44 Vancomycin HCl 500 mg/Dextrose 110 ml @ 110 mls/hr Q12H IVPB 10/11/16 09:00 10/16/16 08:59 10/11/16 10:27 Jaden Su M.D. Oct 11, 2016 16:45
[2016-10-11 20:00] VITALS: BP 102/67
--- NOTE | 2016-10-11 23:21 | General Progress Note ---
Assessment/Plan Assessment/Plan Assessment - hypercalcemia - constipation due to above - ovarian CA hx - Anemia - HTN - CPS Recommendations - laxative - push PO - OOB - refuses GI w/u - oncology f/u Subjective Allergies: Coded Allergies: No Known Allergies (Unverified , 10/08/16) Subjective doing better tolerating PO no abd pain Objective Last 24 Hour Vital Signs Date Time Temp Pulse Resp B/P Pulse Ox O2 Delivery O2 Flow Rate FiO2 10/11/16 20:00 97.9 89 20 102/67 97 Room Air 10/11/16 15:58 98.2 112 20 94/50 94 Room Air 10/11/16 11:41 98.8 112 20 110/68 95 Room Air 10/11/16 07:46 99.2 114 20 102/52 95 Room Air 10/11/16 04:00 98.0 120 20 106/60 93 Room Air 10/11/16 00:00 100.0 120 20 112/67 97 Room Air Intake and Output 10/10/16 10/11/16 19:00 07:00 Intake Total 420 ml 1670 ml Output Total 1250 ml Balance 420 ml 420 ml Intake Oral 120 ml 360 ml IV Total 300 ml 1310 ml Output Urine Total 1250 ml # Bowel Movements 4 5 Laboratory Tests 10/11/16 07:30: White Blood Count 17.9H, Red Blood Count 3.00L, Hemoglobin 7.8L, Hematocrit 24.3L, Mean Corpuscular Volume 81, Mean Corpuscular Hemoglobin 26.0L, Mean Corpuscular Hemoglobin Concent 32.0, Red Cell Distribution Width 15.8H, Platelet Count 646H, Mean Platelet Volume 4.8L, Neutrophils (%) (Auto) , Lymphocytes (%) (Auto) , Monocytes (%) (Auto) , Eosinophils (%) (Auto) , Basophils (%) (Auto) , Differential Total Cells Counted 100, Neutrophils % ( Manual) 93H, Lymphocytes % (Manual) 3L, Monocytes % (Manual) 3, Eosinophils % ( Manual) 1, Basophils % (Manual) 0, Band Neutrophils 0, Platelet Estimate IncreasedH, Platelet Morphology Normal, Hypochromasia 3+, Anisocytosis 1+, Sodium Level 137, Potassium Level 3.5, Chloride Level 101, Carbon Dioxide Level 19L, Anion Gap 17H, Blood Urea Nitrogen 15, Creatinine 1.0H, Estimat Glomerular Filtration Rate 57.6, Glucose Level 91, Uric Acid 5.3, Calcium Level 10.7H, Phosphorus Level 2.4L, Magnesium Level 1.4L, Total Bilirubin 0.3, Aspartate Amino Transf (AST/SGOT) 12, Alanine Aminotransferase (ALT/SGPT) 5, Alkaline Phosphatase 78, Total Protein 6.1L, Albumin 2.2L, Globulin 3.9, Albumin/ Globulin Ratio 0.5L Height (Feet): 5 Height (Inches): 2.00 Weight (Pounds): 130 Objective Thin WW NCAT supple CTA RRR Soft ND NT no edema HOLLAND GARSIA Oct 11, 2016 23:21
[2016-10-12] VITALS: BP 91/46
[2016-10-12 02:17] LABS: CA 27.29 81.1 U/mL (0.0-38.6)
[2016-10-12 04:00] VITALS: BP 91/50
[2016-10-12] MEDS: Ampicillin/Sulbactam Sod 3 GM in NS 110 ML IVPB SCH ×3 (06:39→22:19)
[2016-10-12 07:11] LABS: MEAN CORPUSCULAR HEMOGLOBIN 26.3 PG (27.0-31.0); MEAN CORPUSCULAR HGB CONC 31.2 G/DL (32.0-36.0); MEAN CORPUSCULAR VOLUME 84 FL (80-99); MEAN PLATELET VOLUME 4.7 FL (6.5-10.1); PLATELET COUNT 646 K/UL (150-450); RED BLOOD COUNT 2.95 M/UL (4.20-5.40); RED CELL DISTRIBUTION WIDTH 15.6 % (11.6-14.8)
[2016-10-12 07:15] LABS: ALANINE AMINOTRANSFERASE 8 U/L (3-33); ALBUMIN/GLOBULIN RATIO 0.4 (1.0-2.7); ANION GAP 15 (5-15); ASPARTATE AMINO TRANSFERASE 14 U/L (5-40); CALCIUM 9.6 mg/dL (8.6-10.2); CARBON DIOXIDE 18 mEQ/L (20-30); CHLORIDE 104 mEQ/L (98-107); CREATININE 0.9 mg/dL (0.5-0.9); GLOMERULAR FILTRATION RATE > 60 mL/min (>60); HEMOLYSIS 0; MAGNESIUM 2.4 mg/dL (1.7-2.5); PHOSPHORUS 3.2 mg/dL (2.5-4.8); POTASSIUM 4.6 mEQ/L (3.4-4.9); SODIUM 137 mEQ/L (135-145); URIC ACID 4.9 mg/dL (3.0-7.5)
[2016-10-12 08:15] VITALS: BP 96/73
[2016-10-12] MEDS: Docusate 100mg cap ORAL SCH ×2 (09:39→17:18)
[2016-10-12] MEDS: Vancomycin 500mg/D5W 110ml IVPB SCH ×4 (09:39→21:04)
[2016-10-12] MEDS: Phospha 250 Neutral tab ORAL SCH (09:39)
[2016-10-12 09:47] LABS: BAND NEUTROPHILS % (MANUAL) 0 % (0-8); BASOPHILS % (MANUAL) 0 % (0-2); EOSINOPHILS % (MANUAL) 0 % (0-3); LYMPHOCYTES % (MANUAL) 4 % (20-45); NEUTROPHILS % (MANUAL) 90 % (45-75); PLATELET ESTIMATE INCREASED; PLATELET MORPHOLOGY NORMAL; TOTAL CELLS COUNTED 100
[2016-10-12 09:48] LABS: ANISOCYTOSIS 1+
[2016-10-12 09:49] LABS: HYPOCHROMASIA 1+
--- NOTE | 2016-10-12 10:47 | General Progress Note ---
Assessment/Plan Status: stable Status Narrative Ca lower Assessment/Plan status: Hypercalcemia, related to Neoplastic process- Symptomatic Anemia, Etiology?? Cancer, GI Loss, .... Sugg: per orders- Aggressive Hydrate- Aredia given 90mg 10/09 Calcitonin nasal Fontenot Lasix Monitor Ca and Phos and Lytes Transfusion per gre tutor PO Phos, Mag, KCL Subjective ROS Limited/Unobtainable: No Constitutional: Reports: malaise Allergies: Coded Allergies: No Known Allergies (Unverified , 10/08/16) Objective Last 24 Hour Vital Signs Date Time Temp Pulse Resp B/P Pulse Ox O2 Delivery O2 Flow Rate FiO2 10/12/16 08:15 97.6 111 20 96/73 95 Room Air 10/12/16 04:00 98.1 105 20 91/50 93 Room Air 10/12/16 00:00 98.6 116 18 91/46 95 Room Air 10/11/16 20:00 97.9 89 20 102/67 97 Room Air 10/11/16 15:58 98.2 112 20 94/50 94 Room Air 10/11/16 11:41 98.8 112 20 110/68 95 Room Air Intake and Output 10/11/16 10/12/16 19:00 07:00 Intake Total 1107.5 ml 1660 ml Output Total 400 ml 1150 ml Balance 707.5 ml 510 ml Intake Oral 0 ml 240 ml IV Total 1107.5 ml 1420 ml Output Urine Total 400 ml 1150 ml # Bowel Movements 1 1 Laboratory Tests 10/12/16 06:15: White Blood Count 21.0H, Red Blood Count 2.95L, Hemoglobin 7.7L, Hematocrit 24.8L, Mean Corpuscular Volume 84, Mean Corpuscular Hemoglobin 26.3L, Mean Corpuscular Hemoglobin Concent 31.2L, Red Cell Distribution Width 15.6H, Platelet Count 646H, Mean Platelet Volume 4.7L, Neutrophils (%) (Auto) , Lymphocytes (%) (Auto) , Monocytes (%) (Auto) , Eosinophils (%) (Auto) , Basophils (%) (Auto) , Differential Total Cells Counted 100, Neutrophils % ( Manual) 90H, Lymphocytes % (Manual) 4L, Monocytes % (Manual) 6, Eosinophils % ( Manual) 0, Basophils % (Manual) 0, Band Neutrophils 0, Platelet Estimate IncreasedH, Platelet Morphology Normal, Hypochromasia 1+, Anisocytosis 1+, Sodium Level 137, Potassium Level 4.6, Chloride Level 104, Carbon Dioxide Level 18L, Anion Gap 15, Blood Urea Nitrogen 12, Creatinine 0.9, Estimat Glomerular Filtration Rate > 60, Glucose Level 92, Uric Acid 4.9, Calcium Level 9.6, Phosphorus Level 3.2, Magnesium Level 2.4, Total Bilirubin 0.2, Aspartate Amino Transf (AST/SGOT) 14, Alanine Aminotransferase (ALT/SGPT) 8, Alkaline Phosphatase 99, Total Protein 6.0L, Albumin 1.9L, Globulin 4.1, Albumin/ Globulin Ratio 0.4L Height (Feet): 5 Height (Inches): 2.00 Weight (Pounds): 130 General Appearance: no apparent distress Respiratory/Chest: lungs clear Abdomen: soft Objective other physical exam not changed CLEMENTE APPIAH Oct 12, 2016 10:47
--- NOTE | 2016-10-12 11:57 | General Progress Note ---
Assessment/Plan Problem List: (1) Anemia ICD Codes: D64.9 - Anemia, unspecified SNOMED: 110905346 (2) Skin infection ICD Codes: L08.9 - Local infection of the skin and subcutaneous tissue, unspecified SNOMED: 004103407 (3) Sepsis ICD Codes: A41.9 - Sepsis, unspecified organism SNOMED: 37539596 (4) JAY (acute kidney injury) ICD Codes: N17.9 - Acute kidney failure, unspecified SNOMED: 78892758 Status: progressing Assessment/Plan vitals stable dvt;treatment per dr davon wilde clinically improving Subjective ROS Limited/Unobtainable: Yes Constitutional: Reports: no symptoms Allergies: Coded Allergies: No Known Allergies (Unverified , 10/08/16) Objective Last 24 Hour Vital Signs Date Time Temp Pulse Resp B/P Pulse Ox O2 Delivery O2 Flow Rate FiO2 10/12/16 08:15 97.6 111 20 96/73 95 Room Air 10/12/16 04:00 98.1 105 20 91/50 93 Room Air 10/12/16 00:00 98.6 116 18 91/46 95 Room Air 10/11/16 20:00 97.9 89 20 102/67 97 Room Air 10/11/16 15:58 98.2 112 20 94/50 94 Room Air Intake and Output 10/11/16 10/12/16 19:00 07:00 Intake Total 1107.5 ml 1660 ml Output Total 400 ml 1150 ml Balance 707.5 ml 510 ml Intake Oral 0 ml 240 ml IV Total 1107.5 ml 1420 ml Output Urine Total 400 ml 1150 ml # Bowel Movements 1 1 Laboratory Tests 10/12/16 06:15: White Blood Count 21.0H, Red Blood Count 2.95L, Hemoglobin 7.7L, Hematocrit 24.8L, Mean Corpuscular Volume 84, Mean Corpuscular Hemoglobin 26.3L, Mean Corpuscular Hemoglobin Concent 31.2L, Red Cell Distribution Width 15.6H, Platelet Count 646H, Mean Platelet Volume 4.7L, Neutrophils (%) (Auto) , Lymphocytes (%) (Auto) , Monocytes (%) (Auto) , Eosinophils (%) (Auto) , Basophils (%) (Auto) , Differential Total Cells Counted 100, Neutrophils % ( Manual) 90H, Lymphocytes % (Manual) 4L, Monocytes % (Manual) 6, Eosinophils % ( Manual) 0, Basophils % (Manual) 0, Band Neutrophils 0, Platelet Estimate IncreasedH, Platelet Morphology Normal, Hypochromasia 1+, Anisocytosis 1+, Sodium Level 137, Potassium Level 4.6, Chloride Level 104, Carbon Dioxide Level 18L, Anion Gap 15, Blood Urea Nitrogen 12, Creatinine 0.9, Estimat Glomerular Filtration Rate > 60, Glucose Level 92, Uric Acid 4.9, Calcium Level 9.6, Phosphorus Level 3.2, Magnesium Level 2.4, Total Bilirubin 0.2, Aspartate Amino Transf (AST/SGOT) 14, Alanine Aminotransferase (ALT/SGPT) 8, Alkaline Phosphatase 99, Total Protein 6.0L, Albumin 1.9L, Globulin 4.1, Albumin/ Globulin Ratio 0.4L Height (Feet): 5 Height (Inches): 2.00 Weight (Pounds): 130 EENT: PERRL/EOMI Cardiovascular: regular rhythm Respiratory/Chest: lungs clear Sulma Desir MD Oct 12, 2016 11:57
[2016-10-12 12:10] VITALS: BP 104/57
[2016-10-12 13:55] LABS: CA 125 39.5 U/mL (0.0-38.1); CA15-3 75.8 U/mL (0.0-25.0)
[2016-10-12 14:17] LABS: HEMOGLOBIN A 97.9 % (94.0-98.0); HEMOGLOBIN A2 2.1 % (0.7-3.1)
[2016-10-12 15:17] LABS: HEMATOCRIT 25.4 % (34.0-46.6)
--- NOTE | 2016-10-12 15:20 | General Progress Note ---
Assessment/Plan Assessment/Plan IMPRESSION: 1. Hypercalcemia, likely related to metastatic malignancy - will obtain a biopsy if patient consents, has a history of ovarian cancer 2. Acute thrombus bilateral common femoral vein s/p IVC filter placement 3. Extensive disseminated malignancy, as described above, with a large pelvic mass, extensive lymphadenopathy, extensive osseous metastases, hepatic and pulmonary metastases. There is also unusual circumferential involvement of the bladder wall - pending bx 4. Anemia of chronic disease (severe). 5. Hx of ovarian cancer 6. Hyperferritinemia, most likely reactive. 7. History of schizophrenia. 8. History of ovarian cancer. 9. Hypertension. 10. Chronic obstructive pulmonary disease. 11. History of seizure. 12. Skin abscess. 13. Failure to thrive. RECOMMENDATIONS: 1. Watch count. Hgb goal >7. 2. PENDING CT guided biopsy of pelvic or pulm masses if consents 3. PRBC transfusion on p.r.n. basis. 4. Has refused endoscopy/colonoscopy 5. hx of noncomplance with care/treatment 6. Bone scan in order to rule out metastatic lesion. 7. Does not require iron 8. SCD for DVT prophylaxis. 9. Check tumor markers. 10. Staff Thank you, Miguel Alvarez MD Subjective Constitutional: Reports: no symptoms HEENT: Reports: no symptoms Cardiovascular: Reports: no symptoms Respiratory: Reports: no symptoms Gastrointestinal/Abdominal: Reports: poor appetite Genitourinary: Reports: no symptoms Neurologic/Psychiatric: Reports: no symptoms Endocrine: Reports: no symptoms Hematologic/Lymphatic: Reports: anemia Allergies: Coded Allergies: No Known Allergies (Unverified , 10/08/16) Subjective stable, tolerating POs, no complaints, no night sweats, hematochezia or hematemesis Objective Last 24 Hour Vital Signs Date Time Temp Pulse Resp B/P Pulse Ox O2 Delivery O2 Flow Rate FiO2 10/12/16 12:10 97.6 109 21 104/57 92 Room Air 10/12/16 08:15 97.6 111 20 96/73 95 Room Air 10/12/16 04:00 98.1 105 20 91/50 93 Room Air 10/12/16 00:00 98.6 116 18 91/46 95 Room Air 10/11/16 20:00 97.9 89 20 102/67 97 Room Air 10/11/16 15:58 98.2 112 20 94/50 94 Room Air Intake and Output 10/11/16 10/12/16 19:00 07:00 Intake Total 1107.5 ml 1660 ml Output Total 400 ml 1150 ml Balance 707.5 ml 510 ml Intake Oral 0 ml 240 ml IV Total 1107.5 ml 1420 ml Output Urine Total 400 ml 1150 ml # Bowel Movements 1 1 Laboratory Tests 10/12/16 06:15: White Blood Count 21.0H, Red Blood Count 2.95L, Hemoglobin 7.7L, Hematocrit 24.8L, Mean Corpuscular Volume 84, Mean Corpuscular Hemoglobin 26.3L, Mean Corpuscular Hemoglobin Concent 31.2L, Red Cell Distribution Width 15.6H, Platelet Count 646H, Mean Platelet Volume 4.7L, Neutrophils (%) (Auto) , Lymphocytes (%) (Auto) , Monocytes (%) (Auto) , Eosinophils (%) (Auto) , Basophils (%) (Auto) , Differential Total Cells Counted 100, Neutrophils % ( Manual) 90H, Lymphocytes % (Manual) 4L, Monocytes % (Manual) 6, Eosinophils % ( Manual) 0, Basophils % (Manual) 0, Band Neutrophils 0, Platelet Estimate IncreasedH, Platelet Morphology Normal, Hypochromasia 1+, Anisocytosis 1+, Sodium Level 137, Potassium Level 4.6, Chloride Level 104, Carbon Dioxide Level 18L, Anion Gap 15, Blood Urea Nitrogen 12, Creatinine 0.9, Estimat Glomerular Filtration Rate > 60, Glucose Level 92, Uric Acid 4.9, Calcium Level 9.6, Phosphorus Level 3.2, Magnesium Level 2.4, Total Bilirubin 0.2, Aspartate Amino Transf (AST/SGOT) 14, Alanine Aminotransferase (ALT/SGPT) 8, Alkaline Phosphatase 99, Total Protein 6.0L, Albumin 1.9L, Globulin 4.1, Albumin/ Globulin Ratio 0.4L Height (Feet): 5 Height (Inches): 2.00 Weight (Pounds): 130 General Appearance: no apparent distress EENT: TMs normal Neck: supple Cardiovascular: regular rhythm Respiratory/Chest: no respiratory distress Abdomen: soft Extremities: non-tender Edema: 1+ Leg (L), 1+ Leg (R) Edema: mild edema Neurologic: alert Skin: warm/dry Miguel Alvarez Oct 12, 2016 15:20
--- NOTE | 2016-10-12 15:53 | General Progress Note ---
Assessment/Plan Assessment/Plan Assessment - hypercalcemia - constipation due to above - ovarian CA hx - Anemia - HTN - CPS Recommendations - laxative - push PO - OOB - refuses GI w/u - understands risks - oncology f/u Subjective Allergies: Coded Allergies: No Known Allergies (Unverified , 10/08/16) Subjective doing better tolerating PO no abd pain (+) BM Objective Last 24 Hour Vital Signs Date Time Temp Pulse Resp B/P Pulse Ox O2 Delivery O2 Flow Rate FiO2 10/12/16 12:10 97.6 109 21 104/57 92 Room Air 10/12/16 08:15 97.6 111 20 96/73 95 Room Air 10/12/16 04:00 98.1 105 20 91/50 93 Room Air 10/12/16 00:00 98.6 116 18 91/46 95 Room Air 10/11/16 20:00 97.9 89 20 102/67 97 Room Air 10/11/16 15:58 98.2 112 20 94/50 94 Room Air Intake and Output 10/11/16 10/12/16 19:00 07:00 Intake Total 1107.5 ml 1660 ml Output Total 400 ml 1150 ml Balance 707.5 ml 510 ml Intake Oral 0 ml 240 ml IV Total 1107.5 ml 1420 ml Output Urine Total 400 ml 1150 ml # Bowel Movements 1 1 Laboratory Tests 10/12/16 06:15: White Blood Count 21.0H, Red Blood Count 2.95L, Hemoglobin 7.7L, Hematocrit 24.8L, Mean Corpuscular Volume 84, Mean Corpuscular Hemoglobin 26.3L, Mean Corpuscular Hemoglobin Concent 31.2L, Red Cell Distribution Width 15.6H, Platelet Count 646H, Mean Platelet Volume 4.7L, Neutrophils (%) (Auto) , Lymphocytes (%) (Auto) , Monocytes (%) (Auto) , Eosinophils (%) (Auto) , Basophils (%) (Auto) , Differential Total Cells Counted 100, Neutrophils % ( Manual) 90H, Lymphocytes % (Manual) 4L, Monocytes % (Manual) 6, Eosinophils % ( Manual) 0, Basophils % (Manual) 0, Band Neutrophils 0, Platelet Estimate IncreasedH, Platelet Morphology Normal, Hypochromasia 1+, Anisocytosis 1+, Sodium Level 137, Potassium Level 4.6, Chloride Level 104, Carbon Dioxide Level 18L, Anion Gap 15, Blood Urea Nitrogen 12, Creatinine 0.9, Estimat Glomerular Filtration Rate > 60, Glucose Level 92, Uric Acid 4.9, Calcium Level 9.6, Phosphorus Level 3.2, Magnesium Level 2.4, Total Bilirubin 0.2, Aspartate Amino Transf (AST/SGOT) 14, Alanine Aminotransferase (ALT/SGPT) 8, Alkaline Phosphatase 99, Total Protein 6.0L, Albumin 1.9L, Globulin 4.1, Albumin/ Globulin Ratio 0.4L Height (Feet): 5 Height (Inches): 2.00 Weight (Pounds): 130 Objective Thin WW NCAT supple CTA RRR Soft ND NT no edema HOLLAND GARSIA Oct 12, 2016 15:53
[2016-10-12 16:00] VITALS: BP 102/46
[2016-10-12] MEDS ORDERED: Milk of Magnesia 30ml Ud ORAL PRN (17:15)
[2016-10-12] MEDS ORDERED: Bisacodyl EC 5mg tab ORAL PRN (17:15)
[2016-10-12] MEDS: Norco 5mg/325mg tab ORAL PRN ×2 (17:19→21:23)
[2016-10-12 20:00] VITALS: BP 103/59
--- NOTE | 2016-10-12 21:54 | Infectious Diseases Prog Note ---
Assessment/Plan Problems: (1) Skin infection Assessment & Plan: of the left neck, wound culture is pending . continue vancomycin and unasyn empirically pending culture results (2) Sepsis Assessment & Plan: with leukocytosis , skin infection VS pelvic malignancy related , await culture results , continue vancomycin with unasyn empirically (3) Anemia Assessment & Plan: due to chronic disease and malignancy, monitor H/H transfuse blood as needed, rule out GI bleeding as a source (4) JAY (acute kidney injury) Assessment & Plan: suspect due to ureter obstruction due to pelvic mass, recommend urology consult for stent placement , continue hydration, monitor UOP , avoid nephrotoxic meds (5) Pelvic mass in female Assessment & Plan: suspect recurrent ovarian CA, oncology is following, needs biopsy to confirm , may benefit from chemo. Subjective Constitutional: Reports: anorexia, fatigue HEENT: Reports: other - left anterior neck wound Gastrointestinal/Abdominal: Reports: bloating, constipation Skin: Reports: ulcer Allergies: Coded Allergies: No Known Allergies (Unverified , 10/08/16) Objective Vital Signs Last 24 Hour Vital Signs Date Time Temp Pulse Resp B/P Pulse Ox O2 Delivery O2 Flow Rate FiO2 10/12/16 20:00 98.2 96 20 103/59 98 Room Air 10/12/16 16:00 97.9 108 20 102/46 91 Room Air 10/12/16 12:10 97.6 109 21 104/57 92 Room Air 10/12/16 08:15 97.6 111 20 96/73 95 Room Air 10/12/16 04:00 98.1 105 20 91/50 93 Room Air 10/12/16 00:00 98.6 116 18 91/46 95 Room Air Height (Feet): 5 Height (Inches): 2.00 Weight (Pounds): 130 General Appearance: WD/WN, no acute distress, cachetic HEENT: normocephalic, atraumatic, anicteric, mucous membranes moist, PERRL Respiratory/Chest: chest wall non-tender, lungs clear, normal breath sounds, no respiratory distress, no accessory muscle use Cardiovascular: normal peripheral pulses, normal rate, regular rhythm, no gallop/murmur, no JVD Abdomen: normal bowel sounds, soft, non tender, hypoactive bowel sounds, distended, guarding, tender, mass Extremities: no cyanosis Skin: no rash, no lesions Microbiology Date/Time Source Procedure Growth Status 10/10/16 07:30 Nasal Nares MRSA Culture - Final NO METHICILLIN RESISTANT STAPH AUREUS... Complete 10/10/16 07:30 Neck Gram Stain - Final Resulted 10/10/16 07:30 Neck Wound Culture - Preliminary NO GROWTH AFTER 48 HOURS Resulted 10/10/16 07:30 Rectum VRE Culture - Final NO VANCOMYCIN RESISTANT ENTEROCOCCUS ... Complete Laboratory Tests Test 10/12/16 06:15 White Blood Count 21.0 K/UL (4.8-10.8) H Red Blood Count 2.95 M/UL (4.20-5.40) L Hemoglobin 7.7 G/DL (12.0-16.0) L Hematocrit 24.8 % (37.0-47.0) L Mean Corpuscular Volume 84 FL (80-99) Mean Corpuscular Hemoglobin 26.3 PG (27.0-31.0) L Mean Corpuscular Hemoglobin Concent 31.2 G/DL (32.0-36.0) L Red Cell Distribution Width 15.6 % (11.6-14.8) H Platelet Count 646 K/UL (150-450) H Mean Platelet Volume 4.7 FL (6.5-10.1) L Neutrophils (%) (Auto) % (45.0-75.0) Lymphocytes (%) (Auto) % (20.0-45.0) Monocytes (%) (Auto) % (1.0-10.0) Eosinophils (%) (Auto) % (0.0-3.0) Basophils (%) (Auto) % (0.0-2.0) Differential Total Cells Counted 100 Neutrophils % (Manual) 90 % (45-75) H Lymphocytes % (Manual) 4 % (20-45) L Monocytes % (Manual) 6 % (1-10) Eosinophils % (Manual) 0 % (0-3) Basophils % (Manual) 0 % (0-2) Band Neutrophils 0 % (0-8) Platelet Estimate Increased H Platelet Morphology Normal Hypochromasia 1+ Anisocytosis 1+ Sodium Level 137 mEQ/L (135-145) Potassium Level 4.6 mEQ/L (3.4-4.9) Chloride Level 104 mEQ/L (98-107) Carbon Dioxide Level 18 mEQ/L (20-30) L Anion Gap 15 (5-15) Blood Urea Nitrogen 12 mg/dL (7-23) Creatinine 0.9 mg/dL (0.5-0.9) Estimat Glomerular Filtration Rate > 60 mL/min (>60) Glucose Level 92 mg/dL (74-106) Uric Acid 4.9 mg/dL (3.0-7.5) Calcium Level 9.6 mg/dL (8.6-10.2) Phosphorus Level 3.2 mg/dL (2.5-4.8) Magnesium Level 2.4 mg/dL (1.7-2.5) Total Bilirubin 0.2 mg/dL (0.0-1.2) Aspartate Amino Transf (AST/SGOT) 14 U/L (5-40) Alanine Aminotransferase (ALT/SGPT) 8 U/L (3-33) Alkaline Phosphatase 99 U/L (35-104) Total Protein 6.0 g/dL (6.6-8.7) L Albumin 1.9 g/dL (3.5-5.2) L Globulin 4.1 g/dL Albumin/Globulin Ratio 0.4 (1.0-2.7) L Current Medications Medications (Trade) Dose Ordered Sig/[place] Route PRN Reason Start Time Stop Time Status Last Admin Dose Admin Acetaminophen (Tylenol) 650 mg Q4H PRN ORAL Mild Pain/Temp > 100.5 10/09/16 01:00 11/08/16 00:59 10/09/16 01:52 Acetaminophen/ Hydrocodone Bitart ([place] 5/325) 1 tab Q4H PRN ORAL Moderate Pain (Pain Scale 4-6) 10/12/16 16:45 10/19/16 16:44 10/12/16 21:23 Ampicillin Sodium/ Sulbactam Sodium/ Sodium Chloride (Unasyn/Sodium Chloride) 110 ml @ 220 mls/hr Q8HR IVPB 10/09/16 14:00 10/16/16 13:59 10/12/16 13:03 Bisacodyl (Dulcolax) 10 mg DAILYPRN PRN ORAL Constipation 10/12/16 17:15 11/11/16 17:14 Calcitonin [place] (Miacalcin) 1 sprays DAILY NASAL 10/09/16 15:00 11/08/16 14:59 10/12/16 09:39 Docusate Sodium 100 mg 100 mg TWICE A DAY ORAL 10/09/16 09:00 11/08/16 08:59 10/12/16 17:18 Furosemide 10 mg 10 mg EVERY 8 HOURS IV 10/11/16 14:00 11/10/16 13:59 10/12/16 21:03 Magnesium Hydroxide (Mom) 30 ml DAILYPRN PRN ORAL Constipation Second Line 10/12/16 17:15 11/11/16 17:14 Pantoprazole 40 mg 40 mg DAILY ORAL 10/11/16 09:00 11/10/16 08:59 10/12/16 09:39 Potassium Chloride (K-Dur) 40 meq Q12HR ORAL 10/10/16 21:00 11/09/16 20:59 10/12/16 21:03 Sennosides (Senokot) 8.6 mg DAILY PRN ORAL Constipation 10/12/16 17:15 11/11/16 17:14 10/12/16 17:18 Sodium Chloride (Sodium Chloride 1000ml bag) 1,000 ml @ 100 mls/hr Q10H IV 10/12/16 13:00 11/11/16 12:59 10/12/16 13:03 Vancomycin HCl (Vanco rx to dose) 1 ea DAILY PRN MISC PER RX PROTOCOL 10/09/16 11:45 11/08/16 11:44 Vancomycin HCl/ Dextrose (Vancomycin/D5W) 110 ml @ 110 mls/hr Q12H IVPB 10/11/16 09:00 10/16/16 08:59 10/12/16 21:04 Jaden Su M.D. Oct 12, 2016 21:54
[2016-10-13] VITALS (7 sets, daily range): BP systolic 96–109; BP diastolic 58–69
[2016-10-13] MEDS: Ampicillin/Sulbactam Sod 3 GM in NS 110 ML IVPB SCH (06:38)
[2016-10-13] MEDS: Norco 5mg/325mg tab ORAL PRN ×3 (06:42→17:28)
[2016-10-13 07:02] LABS: MEAN CORPUSCULAR HEMOGLOBIN 26.1 PG (27.0-31.0); MEAN CORPUSCULAR HGB CONC 30.9 G/DL (32.0-36.0); MEAN CORPUSCULAR VOLUME 84 FL (80-99); MEAN PLATELET VOLUME 4.6 FL (6.5-10.1); PLATELET COUNT 699 K/UL (150-450); RED CELL DISTRIBUTION WIDTH 16.1 % (11.6-14.8)
[2016-10-13 07:04] LABS: WHITE BLOOD COUNT 22.6 K/UL (4.8-10.8)
[2016-10-13 07:36] LABS: ALANINE AMINOTRANSFERASE 6 U/L (3-33); ALBUMIN/GLOBULIN RATIO 0.4 (1.0-2.7); ANION GAP 16 (5-15); ASPARTATE AMINO TRANSFERASE 12 U/L (5-40); CARBON DIOXIDE 18 mEQ/L (20-30); CHLORIDE 104 mEQ/L (98-107); CREATININE 0.8 mg/dL (0.5-0.9); CRP QUANT 22.4 mg/dL (< 0.5); GLOMERULAR FILTRATION RATE > 60 mL/min (>60); HEMOLYSIS 0; PHOSPHORUS 2.4 mg/dL (2.5-4.8); POTASSIUM 4.9 mEQ/L (3.4-4.9); SODIUM 138 mEQ/L (135-145); TOTAL PROTEIN 6.2 g/dL (6.6-8.7); URIC ACID 4.2 mg/dL (3.0-7.5)
[2016-10-13 08:43] LABS: BAND NEUTROPHILS % (MANUAL) 0 % (0-8); BASOPHILS % (MANUAL) 0 % (0-2); EOSINOPHILS % (MANUAL) 3 % (0-3); LYMPHOCYTES % (MANUAL) 7 % (20-45); NEUTROPHILS % (MANUAL) 84 % (45-75); PLATELET ESTIMATE INCREASED; PLATELET MORPHOLOGY NORMAL; TOTAL CELLS COUNTED 100
[2016-10-13 08:44] LABS: ANISOCYTOSIS 1+; HYPOCHROMASIA 1+
[2016-10-13] MEDS: Vancomycin 500mg/D5W 110ml IVPB SCH ×4 (08:45→20:37)
[2016-10-13] MEDS: Docusate 100mg cap ORAL SCH ×2 (08:46→17:28)
--- NOTE | 2016-10-13 09:05 | General Progress Note ---
Assessment/Plan Status: stable Status Narrative serum Ca almost normalized Assessment/Plan status: Hypercalcemia, related to Neoplastic process- Symptomatic Anemia, Etiology?? Cancer, GI Loss, .... Sugg: per orders- DC IV Aredia given 90mg 10/09 DC Calcitonin nasal DC Fontenot DC Lasix DC KCL PO Phos Monitor Ca and Phos and Lytes Transfusion per state assessed properties director Subjective ROS Limited/Unobtainable: No Constitutional: Reports: malaise, weakness Allergies: Coded Allergies: No Known Allergies (Unverified , 10/08/16) Objective Last 24 Hour Vital Signs Date Time Temp Pulse Resp B/P Pulse Ox O2 Delivery O2 Flow Rate FiO2 10/13/16 08:15 96.6 109 16 96/64 95 Room Air 10/13/16 07:41 97.7 10/13/16 04:00 97.7 103 18 100/58 94 Room Air 10/13/16 00:00 97.7 92 18 96/61 94 Room Air 10/12/16 20:00 98.2 96 20 103/59 98 Room Air 10/12/16 16:00 97.9 108 20 102/46 91 Room Air 10/12/16 12:10 97.6 109 21 104/57 92 Room Air Intake and Output 10/12/16 10/13/16 19:00 07:00 Intake Total 1700 ml 1360 ml Output Total 1200 ml 1650 ml Balance 500 ml -290 ml Intake Oral 720 ml 240 ml IV Total 980 ml 1120 ml Output Urine Total 1200 ml 1650 ml Laboratory Tests 10/13/16 06:20: White Blood Count 22.6*H, Red Blood Count 3.10L, Hemoglobin 8.1L, Hematocrit 26.1L, Mean Corpuscular Volume 84, Mean Corpuscular Hemoglobin 26.1L, Mean Corpuscular Hemoglobin Concent 30.9L, Red Cell Distribution Width 16.1H, Platelet Count 699H, Mean Platelet Volume 4.6L, Neutrophils (%) (Auto) , Lymphocytes (%) (Auto) , Monocytes (%) (Auto) , Eosinophils (%) (Auto) , Basophils (%) (Auto) , Differential Total Cells Counted 100, Neutrophils % ( Manual) 84H, Lymphocytes % (Manual) 7L, Monocytes % (Manual) 6, Eosinophils % ( Manual) 3, Basophils % (Manual) 0, Band Neutrophils 0, Platelet Estimate IncreasedH, Platelet Morphology Normal, Hypochromasia 1+, Anisocytosis 1+, Sodium Level 138, Potassium Level 4.9, Chloride Level 104, Carbon Dioxide Level 18L, Anion Gap 16H, Blood Urea Nitrogen 12, Creatinine 0.8, Estimat Glomerular Filtration Rate > 60, Glucose Level 93, Uric Acid 4.2, Calcium Level 9.0, Phosphorus Level 2.4L, Magnesium Level 2.0, Total Bilirubin 0.2, Gamma Glutamyl Transpeptidase 23, Aspartate Amino Transf (AST/SGOT) 12, Alanine Aminotransferase (ALT/SGPT) 6, Alkaline Phosphatase 91, C-Reactive Protein, Quantitative 22.4H, Pro-B-Type Natriuretic Peptide 4617H, Total Protein 6.2L, Albumin 2.0L, Globulin 4.2, Albumin/Globulin Ratio 0.4L Height (Feet): 5 Height (Inches): 2.00 Weight (Pounds): 130 General Appearance: no apparent distress, confused Cardiovascular: tachycardia Respiratory/Chest: decreased breath sounds Abdomen: soft Objective other physical exam not changed CLEMENTE APPIAH Oct 13, 2016 09:05
[2016-10-13] MEDS: Phospha 250 Neutral tab ORAL SCH ×3 (09:49→17:28)
--- NOTE | 2016-10-13 11:03 | General Progress Note ---
Assessment/Plan Problem List: (1) Anemia ICD Codes: D64.9 - Anemia, unspecified SNOMED: 914757263 (2) Skin infection ICD Codes: L08.9 - Local infection of the skin and subcutaneous tissue, unspecified SNOMED: 179466796 (3) Sepsis ICD Codes: A41.9 - Sepsis, unspecified organism SNOMED: 38321845 (4) JAY (acute kidney injury) ICD Codes: N17.9 - Acute kidney failure, unspecified SNOMED: 10691740 Status: progressing Assessment/Plan vitals stable dvt;treatment per dr davon wilde infection is improving afebrle reviwed chart and labs Subjective ROS Limited/Unobtainable: Yes Allergies: Coded Allergies: No Known Allergies (Unverified , 10/08/16) Objective Last 24 Hour Vital Signs Date Time Temp Pulse Resp B/P Pulse Ox O2 Delivery O2 Flow Rate FiO2 10/13/16 08:15 96.6 109 16 96/64 95 Room Air 10/13/16 07:41 97.7 10/13/16 04:00 97.7 103 18 100/58 94 Room Air 10/13/16 00:00 97.7 92 18 96/61 94 Room Air 10/12/16 20:00 98.2 96 20 103/59 98 Room Air 10/12/16 16:00 97.9 108 20 102/46 91 Room Air 10/12/16 12:10 97.6 109 21 104/57 92 Room Air Intake and Output 10/12/16 10/13/16 19:00 07:00 Intake Total 1700 ml 1360 ml Output Total 1200 ml 1650 ml Balance 500 ml -290 ml Intake Oral 720 ml 240 ml IV Total 980 ml 1120 ml Output Urine Total 1200 ml 1650 ml Laboratory Tests 10/13/16 06:20: White Blood Count 22.6*H, Red Blood Count 3.10L, Hemoglobin 8.1L, Hematocrit 26.1L, Mean Corpuscular Volume 84, Mean Corpuscular Hemoglobin 26.1L, Mean Corpuscular Hemoglobin Concent 30.9L, Red Cell Distribution Width 16.1H, Platelet Count 699H, Mean Platelet Volume 4.6L, Neutrophils (%) (Auto) , Lymphocytes (%) (Auto) , Monocytes (%) (Auto) , Eosinophils (%) (Auto) , Basophils (%) (Auto) , Differential Total Cells Counted 100, Neutrophils % ( Manual) 84H, Lymphocytes % (Manual) 7L, Monocytes % (Manual) 6, Eosinophils % ( Manual) 3, Basophils % (Manual) 0, Band Neutrophils 0, Platelet Estimate IncreasedH, Platelet Morphology Normal, Hypochromasia 1+, Anisocytosis 1+, Sodium Level 138, Potassium Level 4.9, Chloride Level 104, Carbon Dioxide Level 18L, Anion Gap 16H, Blood Urea Nitrogen 12, Creatinine 0.8, Estimat Glomerular Filtration Rate > 60, Glucose Level 93, Uric Acid 4.2, Calcium Level 9.0, Phosphorus Level 2.4L, Magnesium Level 2.0, Total Bilirubin 0.2, Gamma Glutamyl Transpeptidase 23, Aspartate Amino Transf (AST/SGOT) 12, Alanine Aminotransferase (ALT/SGPT) 6, Alkaline Phosphatase 91, C-Reactive Protein, Quantitative 22.4H, Pro-B-Type Natriuretic Peptide 4617H, Total Protein 6.2L, Albumin 2.0L, Globulin 4.2, Albumin/Globulin Ratio 0.4L Height (Feet): 5 Height (Inches): 2.00 Weight (Pounds): 130 EENT: PERRL/EOMI Neck: supple Cardiovascular: normal rate Respiratory/Chest: lungs clear Abdomen: soft Sulma Desir MD Oct 13, 2016 11:03
[2016-10-13] MEDS: Piperacillin/Tazobactam 3.375 GM in D5W 110 ML IVPB SCH ×2 (13:37→21:45)
--- NOTE | 2016-10-13 17:04 | Infectious Diseases Prog Note ---
Assessment/Plan Problems: (1) Skin infection Assessment & Plan: S/P lymph node biopsy complicated with skin wound of the left neck, wound culture is pending . continue vancomycin and switch unasyn to zosyn empirically pending culture results (2) Sepsis Assessment & Plan: with leukocytosis , skin infection VS pyelonephritis due to ureter obstruction from pelvic malignancy related , recommend immediate nephrostomy to relief obstruction, by IR. culture results are negative so far , continue vancomycin and switch unasyn to zosyn (3) Anemia Assessment & Plan: due to chronic disease and malignancy, monitor H/H transfuse blood as needed, rule out GI bleeding as a source (4) JAY (acute kidney injury) Assessment & Plan: suspect due to ureter obstruction due to pelvic mass, recommend urology consult for stent placement , continue hydration, monitor UOP , avoid nephrotoxic meds (5) Pelvic mass in female Assessment & Plan: suspect recurrent ovarian CA, oncology is following, needs biopsy to confirm , but she refused it, may benefit from chemo for palliative purpose. recommend hospice care Subjective Constitutional: Reports: anorexia, fatigue Gastrointestinal/Abdominal: Reports: bloating, constipation, nausea Neurologic: Reports: weakness Psychiatric: Reports: depression Hematologic: Reports: swollen lymph nodes Allergies: Coded Allergies: No Known Allergies (Unverified , 10/08/16) Objective Vital Signs Last 24 Hour Vital Signs Date Time Temp Pulse Resp B/P Pulse Ox O2 Delivery O2 Flow Rate FiO2 10/13/16 16:00 98.7 109 20 109/69 95 Room Air 10/13/16 12:22 97.0 10/13/16 12:15 97.0 105 18 98/62 95 Room Air 10/13/16 08:15 96.6 109 16 96/64 95 Room Air 10/13/16 04:00 97.7 103 18 100/58 94 Room Air 10/13/16 00:00 97.7 92 18 96/61 94 Room Air 10/12/16 20:00 98.2 96 20 103/59 98 Room Air Height (Feet): 5 Height (Inches): 2.00 Weight (Pounds): 130 General Appearance: WD/WN, no acute distress HEENT: normocephalic, atraumatic, anicteric, mucous membranes moist Respiratory/Chest: chest wall non-tender, lungs clear, normal breath sounds, no respiratory distress, no accessory muscle use Cardiovascular: normal peripheral pulses, normal rate, regular rhythm, no gallop/murmur Abdomen: normal bowel sounds, hypoactive bowel sounds, distended, mass, hepatomegaly Extremities: no cyanosis, no clubbing Skin: no rash, no lesions, other - neck lymph node Laboratory Tests Test 10/13/16 06:20 White Blood Count 22.6 K/UL (4.8-10.8) *H Red Blood Count 3.10 M/UL (4.20-5.40) L Hemoglobin 8.1 G/DL (12.0-16.0) L Hematocrit 26.1 % (37.0-47.0) L Mean Corpuscular Volume 84 FL (80-99) Mean Corpuscular Hemoglobin 26.1 PG (27.0-31.0) L Mean Corpuscular Hemoglobin Concent 30.9 G/DL (32.0-36.0) L Red Cell Distribution Width 16.1 % (11.6-14.8) H Platelet Count 699 K/UL (150-450) H Mean Platelet Volume 4.6 FL (6.5-10.1) L Neutrophils (%) (Auto) % (45.0-75.0) Lymphocytes (%) (Auto) % (20.0-45.0) Monocytes (%) (Auto) % (1.0-10.0) Eosinophils (%) (Auto) % (0.0-3.0) Basophils (%) (Auto) % (0.0-2.0) Differential Total Cells Counted 100 Neutrophils % (Manual) 84 % (45-75) H Lymphocytes % (Manual) 7 % (20-45) L Monocytes % (Manual) 6 % (1-10) Eosinophils % (Manual) 3 % (0-3) Basophils % (Manual) 0 % (0-2) Band Neutrophils 0 % (0-8) Platelet Estimate Increased H Platelet Morphology Normal Hypochromasia 1+ Anisocytosis 1+ Sodium Level 138 mEQ/L (135-145) Potassium Level 4.9 mEQ/L (3.4-4.9) Chloride Level 104 mEQ/L (98-107) Carbon Dioxide Level 18 mEQ/L (20-30) L Anion Gap 16 (5-15) H Blood Urea Nitrogen 12 mg/dL (7-23) Creatinine 0.8 mg/dL (0.5-0.9) Estimat Glomerular Filtration Rate > 60 mL/min (>60) Glucose Level 93 mg/dL (74-106) Uric Acid 4.2 mg/dL (3.0-7.5) Calcium Level 9.0 mg/dL (8.6-10.2) Phosphorus Level 2.4 mg/dL (2.5-4.8) L Magnesium Level 2.0 mg/dL (1.7-2.5) Total Bilirubin 0.2 mg/dL (0.0-1.2) Gamma Glutamyl Transpeptidase 23 U/L (5-36) Aspartate Amino Transf (AST/SGOT) 12 U/L (5-40) Alanine Aminotransferase (ALT/SGPT) 6 U/L (3-33) Alkaline Phosphatase 91 U/L (35-104) C-Reactive Protein, Quantitative 22.4 mg/dL (< 0.5) H Pro-B-Type Natriuretic Peptide 4617 pg/mL (0-125) H Total Protein 6.2 g/dL (6.6-8.7) L Albumin 2.0 g/dL (3.5-5.2) L Globulin 4.2 g/dL Albumin/Globulin Ratio 0.4 (1.0-2.7) L Current Medications Medications (Trade) Dose Ordered Sig/[place] Route PRN Reason Start Time Stop Time Status Last Admin Dose Admin Acetaminophen (Tylenol) 650 mg Q4H PRN ORAL Mild Pain/Temp > 100.5 10/09/16 01:00 11/08/16 00:59 10/09/16 01:52 Acetaminophen/ Hydrocodone Bitart (Scroggins 5/325) 1 tab Q4H PRN ORAL Moderate Pain (Pain Scale 4-6) 10/12/16 16:45 10/19/16 16:44 10/13/16 11:23 Bisacodyl (Dulcolax) 10 mg DAILYPRN PRN ORAL Constipation 10/12/16 17:15 11/11/16 17:14 Docusate Sodium (Colace) 100 mg TWICE A DAY ORAL 10/09/16 09:00 11/08/16 08:59 10/13/16 08:46 Magnesium Hydroxide 30 ml 30 ml DAILYPRN PRN ORAL Constipation Second Line 10/12/16 17:15 11/11/16 17:14 Pantoprazole 40 mg 40 mg DAILY ORAL 10/11/16 09:00 11/10/16 08:59 10/13/16 08:46 Phosphorus (Phospha 250 Neutral) 250 mg THREE TIMES A DAY ORAL 10/13/16 09:15 11/12/16 09:14 10/13/16 13:00 Piperacillin Sod/ Tazobactam Sod/ Dextrose (Zosyn/D5W) 110 ml @ 27.5 mls/hr EVERY 8 HOURS IVPB 10/13/16 14:00 10/18/16 13:59 10/13/16 13:37 Sennosides (Senokot) 8.6 mg DAILY PRN ORAL Constipation 10/12/16 17:15 11/11/16 17:14 10/12/16 17:18 Vancomycin HCl (Vanco rx to dose) 1 ea DAILY PRN MISC PER RX PROTOCOL 10/09/16 11:45 11/08/16 11:44 Vancomycin HCl/ Dextrose (Vancomycin/D5W) 110 ml @ 110 mls/hr Q12H IVPB 10/11/16 09:00 10/16/16 08:59 10/13/16 08:45 Jaden Su M.D. Oct 13, 2016 17:04
--- NOTE | 2016-10-13 17:54 | General Progress Note ---
Assessment/Plan Assessment/Plan IMPRESSION: 1. Hypercalcemia, likely related to metastatic malignancy - will obtain a biopsy if patient consents (today she consented with RN by bedside), has a history of ovarian cancer 2. Acute thrombus bilateral common femoral vein s/p IVC filter placement 3. Extensive disseminated malignancy, as described above, with a large pelvic mass, extensive lymphadenopathy, extensive osseous metastases, hepatic and pulmonary metastases. There is also unusual circumferential involvement of the bladder wall - pending bx 4. Anemia of chronic disease (severe). 5. Hx of ovarian cancer 6. Hyperferritinemia, most likely reactive. 7. History of schizophrenia. 8. History of ovarian cancer. 9. Hypertension. 10. Chronic obstructive pulmonary disease. 11. History of seizure. 12. Skin abscess. 13. Failure to thrive. RECOMMENDATIONS: 1. Watch count. Hgb goal >7. 2. PENDING CT guided biopsy of pelvic or pulm masses if consents 3. PRBC transfusion on p.r.n. basis. 4. Has refused endoscopy/colonoscopy 5. hx of noncomplance with care/treatment 6. Bone scan in order to rule out metastatic lesion. 7. Does not require iron 8. SCD for DVT prophylaxis. 9. Check tumor markers. 10. Staff Thank you, Miguel Alvarez MD Subjective Constitutional: Denies: chills, diaphoresis, fever, malaise, no symptoms, other , weakness HEENT: Denies: blurred vision, double vision, ear discharge, ear pain, eye pain , mouth pain, mouth swelling, no symptoms, nose congestion, nose pain, other, tearing, throat pain, throat swelling Cardiovascular: Denies: chest pain, edema, irregular heart rate, lightheadedness, no symptoms, other, palpitations, syncope Respiratory: Denies: SOB at rest, SOB with excertion, cough, no symptoms, orthopnea, other, shortness of breath, sputum, stridor, wheezing Gastrointestinal/Abdominal: Denies: abdomen distended, abdominal pain, black stools, blood in stool, constipated, diarrhea, difficulty swallowing, nausea, no symptoms, other, poor appetite, poor fluid intake, rectal bleeding, tarry stools, vomiting Genitourinary: Denies: burning, discharge, flank pain, frequency, hematuria, incontinence, no symptoms, other, pain, urgency Neurologic/Psychiatric: Denies: anxiety, depressed, emotional problems, headache, no symptoms, numbness, other, paresthesia, pre-existing deficit, seizure, tingling, tremors, weakness Endocrine: Denies: excessive sweating, flushing, increased hunger, increased thirst, increased urine, intolerance to cold, intolerance to heat, no symptoms, other, unexplained weight gain, unexplained weight loss Allergies: Coded Allergies: No Known Allergies (Unverified , 10/08/16) Subjective stable, tolerating POs, no complaints, no night sweats, hematochezia or hematemesis Objective Last 24 Hour Vital Signs Date Time Temp Pulse Resp B/P Pulse Ox O2 Delivery O2 Flow Rate FiO2 10/13/16 16:00 98.7 109 20 109/69 95 Room Air 10/13/16 12:22 97.0 10/13/16 12:15 97.0 105 18 98/62 95 Room Air 10/13/16 08:15 96.6 109 16 96/64 95 Room Air 10/13/16 04:00 97.7 103 18 100/58 94 Room Air 10/13/16 00:00 97.7 92 18 96/61 94 Room Air 10/12/16 20:00 98.2 96 20 103/59 98 Room Air Intake and Output 10/12/16 10/13/16 19:00 07:00 Intake Total 1700 ml 1360 ml Output Total 1200 ml 1650 ml Balance 500 ml -290 ml Intake Oral 720 ml 240 ml IV Total 980 ml 1120 ml Output Urine Total 1200 ml 1650 ml Laboratory Tests 10/13/16 06:20: White Blood Count 22.6*H, Red Blood Count 3.10L, Hemoglobin 8.1L, Hematocrit 26.1L, Mean Corpuscular Volume 84, Mean Corpuscular Hemoglobin 26.1L, Mean Corpuscular Hemoglobin Concent 30.9L, Red Cell Distribution Width 16.1H, Platelet Count 699H, Mean Platelet Volume 4.6L, Neutrophils (%) (Auto) , Lymphocytes (%) (Auto) , Monocytes (%) (Auto) , Eosinophils (%) (Auto) , Basophils (%) (Auto) , Differential Total Cells Counted 100, Neutrophils % ( Manual) 84H, Lymphocytes % (Manual) 7L, Monocytes % (Manual) 6, Eosinophils % ( Manual) 3, Basophils % (Manual) 0, Band Neutrophils 0, Platelet Estimate IncreasedH, Platelet Morphology Normal, Hypochromasia 1+, Anisocytosis 1+, Sodium Level 138, Potassium Level 4.9, Chloride Level 104, Carbon Dioxide Level 18L, Anion Gap 16H, Blood Urea Nitrogen 12, Creatinine 0.8, Estimat Glomerular Filtration Rate > 60, Glucose Level 93, Uric Acid 4.2, Calcium Level 9.0, Phosphorus Level 2.4L, Magnesium Level 2.0, Total Bilirubin 0.2, Gamma Glutamyl Transpeptidase 23, Aspartate Amino Transf (AST/SGOT) 12, Alanine Aminotransferase (ALT/SGPT) 6, Alkaline Phosphatase 91, C-Reactive Protein, Quantitative 22.4H, Pro-B-Type Natriuretic Peptide 4617H, Total Protein 6.2L, Albumin 2.0L, Globulin 4.2, Albumin/Globulin Ratio 0.4L Height (Feet): 5 Height (Inches): 2.00 Weight (Pounds): 130 General Appearance: no apparent distress EENT: TMs normal Neck: supple Cardiovascular: regular rhythm Respiratory/Chest: lungs clear Abdomen: non tender, no mass Extremities: non-tender Edema: 1+ Leg (L), 1+ Leg (R) Edema: moderate edema Neurologic: alert Skin: normal pigmentation Miguel Alvarez Oct 13, 2016 17:54
--- NOTE | 2016-10-13 17:59 | Consultation ---
DATE OF CONSULTATION: 10/13/2016 REASON FOR CONSULTATION: Wound at the left supraclavicular area. REQUESTING PHYSICIAN: Dr. Su. HISTORY OF PRESENT ILLNESS: The patient is a 56-year-old female, who was brought to the emergency room due to weakness and multiple medical problems as well as the anemia. She stated that a few months ago which is not clear when, she has had a biopsy of the left supraclavicular area but the wound did not heal and during evaluation bulging in the area was felt and it was felt that it might be due to infection and abscess. The patient denies any fever but in the emergency room she had WBC of 22,000. She had laparoscopic biopsy of the mass in her pelvis which apparently has shown cancer of the ovary but she did not receive any radiation or even chemotherapy. There is a scar of the incision in the left groin which seem that it has been for probably for another lymph node biopsy. PAST MEDICAL HISTORY: She denies allergies, diabetes, hypertension, cardiac, or renal disease. She has a history of seizure disorder, anemia, ovarian cancer, chronic obstructive pulmonary disease, and schizophrenia. PAST SURGICAL HISTORY: Laparoscopic biopsy of the intra-abdominal mass and probably the surgery on the left groin as well as lymph node biopsy of the left suprapubic area. MEDICATIONS: Please see the medicine reconciliation form. SOCIAL HISTORY: The patient is a 56-year-old female, who is and mother of one child. She smokes about 4 to 5 cigarettes per day. Denies drinking. In the last few months, [facility] has been a [facility]. She has severe pain in the legs and she is unable to walk. REVIEW OF SYSTEMS: She complains of the pain in the legs and weakness as well as shortness of breath. PHYSICAL EXAMINATION: GENERAL: The patient appeared to be cachectic 56-year-old female, in no acute distress. HEENT: Head is normocephalic and atraumatic. Eyes, pupils are equal, round, reactive to light. Mouth is clear but very poor denture. NECK: There is no palpable thyromegaly or adenopathy. She has multiple lymph nodes in the left supraclavicular area. She has a small incision which is open. CHEST: She has rhonchi on both sides. HEART: There is no gallop or murmur. ABDOMEN: Soft, flat, nontender. She has a scar of a small vertical incision above the umbilicus. She has a mass in the lower abdomen. GENITALIA: She has edema and erythema in the left groin. She has adenopathy in both groins. EXTREMITIES: Cachectic. ASSESSMENT: Stage IV ovarian cancer. RECOMMENDATIONS: The lump at the supraclavicular area is the lymph node and I do not feel any abscess in the left groin. The erythema, edema, and swelling is due to the extension of the tumor. At this time, unfortunately surgery cannot offer any benefit and the patient requires to be kept comfortable. Glo Morales M.D. DR: Tima JOB#: [id number] CC: BRINA
--- NOTE | 2016-10-13 23:16 | General Progress Note ---
Assessment/Plan Assessment/Plan Assessment - hypercalcemia - constipation - ovarian CA , mets - Anemia - HTN - CPS Recommendations - laxative - push PO - OOB - refuses GI w/u - oncology f/u Subjective Allergies: Coded Allergies: No Known Allergies (Unverified , 10/08/16) Subjective doing better tolerating PO no abd pain (-) BM Objective Last 24 Hour Vital Signs Date Time Temp Pulse Resp B/P Pulse Ox O2 Delivery O2 Flow Rate FiO2 10/13/16 22:00 109 99/65 10/13/16 20:00 98.2 115 20 105/61 96 Room Air 10/13/16 16:00 98.7 109 20 109/69 95 Room Air 10/13/16 12:22 97.0 10/13/16 12:15 97.0 105 18 98/62 95 Room Air 10/13/16 08:15 96.6 109 16 96/64 95 Room Air 10/13/16 04:00 97.7 103 18 100/58 94 Room Air 10/13/16 00:00 97.7 92 18 96/61 94 Room Air Intake and Output 10/12/16 10/13/16 19:00 07:00 Intake Total 1700 ml 1360 ml Output Total 1200 ml 1650 ml Balance 500 ml -290 ml Intake Oral 720 ml 240 ml IV Total 980 ml 1120 ml Output Urine Total 1200 ml 1650 ml Laboratory Tests 10/13/16 06:20: White Blood Count 22.6*H, Red Blood Count 3.10L, Hemoglobin 8.1L, Hematocrit 26.1L, Mean Corpuscular Volume 84, Mean Corpuscular Hemoglobin 26.1L, Mean Corpuscular Hemoglobin Concent 30.9L, Red Cell Distribution Width 16.1H, Platelet Count 699H, Mean Platelet Volume 4.6L, Neutrophils (%) (Auto) , Lymphocytes (%) (Auto) , Monocytes (%) (Auto) , Eosinophils (%) (Auto) , Basophils (%) (Auto) , Differential Total Cells Counted 100, Neutrophils % ( Manual) 84H, Lymphocytes % (Manual) 7L, Monocytes % (Manual) 6, Eosinophils % ( Manual) 3, Basophils % (Manual) 0, Band Neutrophils 0, Platelet Estimate IncreasedH, Platelet Morphology Normal, Hypochromasia 1+, Anisocytosis 1+, Sodium Level 138, Potassium Level 4.9, Chloride Level 104, Carbon Dioxide Level 18L, Anion Gap 16H, Blood Urea Nitrogen 12, Creatinine 0.8, Estimat Glomerular Filtration Rate > 60, Glucose Level 93, Uric Acid 4.2, Calcium Level 9.0, Phosphorus Level 2.4L, Magnesium Level 2.0, Total Bilirubin 0.2, Gamma Glutamyl Transpeptidase 23, Aspartate Amino Transf (AST/SGOT) 12, Alanine Aminotransferase (ALT/SGPT) 6, Alkaline Phosphatase 91, C-Reactive Protein, Quantitative 22.4H, Pro-B-Type Natriuretic Peptide 4617H, Total Protein 6.2L, Albumin 2.0L, Globulin 4.2, Albumin/Globulin Ratio 0.4L 10/13/16 19:30: Random Vancomycin Level 22.9 Height (Feet): 5 Height (Inches): 2.00 Weight (Pounds): 130 Objective Thin WW NCAT supple CTA RRR Soft ND NT no edema HOLLAND GARSIA Oct 13, 2016 23:16
[2016-10-14] VITALS: BP 94/49
[2016-10-14] MEDS: Norco 5mg/325mg tab ORAL PRN ×3 (03:55→20:46)
[2016-10-14 04:00] VITALS: BP 104/56
[2016-10-14] MEDS: Piperacillin/Tazobactam 3.375 GM in D5W 110 ML IVPB SCH ×3 (06:10→22:55)
[2016-10-14 07:46] VITALS: BP 90/57
[2016-10-14] MEDS: Docusate 100mg cap ORAL SCH ×2 (08:59→18:00)
[2016-10-14] MEDS: Phospha 250 Neutral tab ORAL SCH ×3 (09:00→19:16)
[2016-10-14] MEDS: Vancomycin 750 MG in D5W 275 ML IVPB SCH (09:00)
--- NOTE | 2016-10-14 10:27 | General Progress Note ---
Assessment/Plan Status: stable Assessment/Plan status: Hypercalcemia, related to Neoplastic process- Symptomatic Anemia, Etiology?? Cancer, GI Loss, .... Sugg: no labs today per orders- DC IV Aredia given 90mg 10/09 DC Calcitonin nasal DC Fontenot DC Lasix DC KCL PO Phos Monitor Ca and Phos and Lytes Transfusion per mangle roller Subjective ROS Limited/Unobtainable: No Constitutional: Reports: malaise Allergies: Coded Allergies: No Known Allergies (Unverified , 10/08/16) Objective Last 24 Hour Vital Signs Date Time Temp Pulse Resp B/P Pulse Ox O2 Delivery O2 Flow Rate FiO2 10/14/16 07:46 97.2 105 16 90/57 94 Room Air 10/14/16 04:00 97.7 102 18 104/56 92 Room Air 10/14/16 00:00 98.2 107 18 94/49 91 Room Air 10/13/16 22:00 109 99/65 10/13/16 20:00 98.2 115 20 105/61 96 Room Air 10/13/16 16:00 98.7 109 20 109/69 95 Room Air 10/13/16 12:22 97.0 10/13/16 12:15 97.0 105 18 98/62 95 Room Air Intake and Output 10/13/16 10/14/16 18:59 06:59 Intake Total 900.0 ml 415.0 ml Output Total 900 ml Balance 0 ml 415.0 ml Intake Oral 580 ml 360 ml IV Total 320.0 ml 55.0 ml Output Urine Total 900 ml # Voids 5 Laboratory Tests 10/13/16 19:30: Random Vancomycin Level 22.9 Height (Feet): 5 Height (Inches): 2.00 Weight (Pounds): 130 General Appearance: no apparent distress Objective other physical exam not changed CLEMENTE APPIAH Oct 14, 2016 10:27
--- NOTE | 2016-10-14 10:29 | General Progress Note ---
Assessment/Plan Assessment/Plan Assessment - hypercalcemia - constipation - ovarian CA , mets - Anemia - HTN - CPS Recommendations - laxative - push PO - OOB - refuses GI w/u - oncology f/u Subjective Allergies: Coded Allergies: No Known Allergies (Unverified , 10/08/16) Subjective doing better tolerating PO no abd pain (-) BM - wants laxative Objective Last 24 Hour Vital Signs Date Time Temp Pulse Resp B/P Pulse Ox O2 Delivery O2 Flow Rate FiO2 10/14/16 07:46 97.2 105 16 90/57 94 Room Air 10/14/16 04:00 97.7 102 18 104/56 92 Room Air 10/14/16 00:00 98.2 107 18 94/49 91 Room Air 10/13/16 22:00 109 99/65 10/13/16 20:00 98.2 115 20 105/61 96 Room Air 10/13/16 16:00 98.7 109 20 109/69 95 Room Air 10/13/16 12:22 97.0 10/13/16 12:15 97.0 105 18 98/62 95 Room Air Intake and Output 10/13/16 10/14/16 19:00 07:00 Intake Total 900.0 ml 415.0 ml Output Total 900 ml Balance 0 ml 415.0 ml Intake Oral 580 ml 360 ml IV Total 320.0 ml 55.0 ml Output Urine Total 900 ml # Voids 5 Laboratory Tests 10/13/16 19:30: Random Vancomycin Level 22.9 Height (Feet): 5 Height (Inches): 2.00 Weight (Pounds): 130 Objective Thin WW NCAT supple CTA RRR Soft ND NT no edema HOLLAND GARSIA Oct 14, 2016 10:29
[2016-10-14] MEDS ORDERED: Sorbitol Solution UD 30ml ORAL ONE (11:00)
--- NOTE | 2016-10-14 11:07 | General Progress Note ---
Assessment/Plan Problem List: (1) Anemia ICD Codes: D64.9 - Anemia, unspecified SNOMED: 295221863 (2) Skin infection ICD Codes: L08.9 - Local infection of the skin and subcutaneous tissue, unspecified SNOMED: 421762801 (3) Sepsis ICD Codes: A41.9 - Sepsis, unspecified organism SNOMED: 92094574 (4) JAY (acute kidney injury) ICD Codes: N17.9 - Acute kidney failure, unspecified SNOMED: 37314788 Assessment/Plan afebrle no wheezing hydro consulted urology for hydronephrosis reviewed chart and labs Subjective ROS Limited/Unobtainable: Yes Constitutional: Reports: no symptoms HEENT: Reports: no symptoms Cardiovascular: Reports: no symptoms Respiratory: Reports: no symptoms Allergies: Coded Allergies: No Known Allergies (Unverified , 10/08/16) Objective Last 24 Hour Vital Signs Date Time Temp Pulse Resp B/P Pulse Ox O2 Delivery O2 Flow Rate FiO2 10/14/16 07:46 97.2 105 16 90/57 94 Room Air 10/14/16 04:00 97.7 102 18 104/56 92 Room Air 10/14/16 00:00 98.2 107 18 94/49 91 Room Air 10/13/16 22:00 109 99/65 10/13/16 20:00 98.2 115 20 105/61 96 Room Air 10/13/16 16:00 98.7 109 20 109/69 95 Room Air 10/13/16 12:22 97.0 10/13/16 12:15 97.0 105 18 98/62 95 Room Air Intake and Output 10/13/16 10/14/16 19:00 07:00 Intake Total 900.0 ml 415.0 ml Output Total 900 ml Balance 0 ml 415.0 ml Intake Oral 580 ml 360 ml IV Total 320.0 ml 55.0 ml Output Urine Total 900 ml # Voids 5 Laboratory Tests 10/13/16 19:30: Random Vancomycin Level 22.9 Height (Feet): 5 Height (Inches): 2.00 Weight (Pounds): 130 EENT: PERRL/EOMI Neck: supple Respiratory/Chest: lungs clear Abdomen: soft Sulma Desir MD Oct 14, 2016 11:07
[2016-10-14 11:31] VITALS: BP 95/63
--- NOTE | 2016-10-14 13:04 | Consultation ---
History of Present Illness General Date patient seen: Oct 14, 2016 Time patient seen: 12:57 Chief Complaint: Abnormal Labs Reason for Consultation: hydronephrosis Present Illness HPI 56 yo female, very pleasant, but in an unpleasant medical situation. Has ovarian/pelvic malignancy extensively invading left pelvis, muscle and bone involvement. Bladder involved as well. Imaging shows chronic obstruction of left kidney leading to nonfunctioning hydronephrotic kidney. Has extensive lymphadenopathy. Patient seems to understand this, she expressed multiple times she wants no more procedures and wants to go home. Denies flank pain, hematuria, abdominal discomfort currently. Allergies: Coded Allergies: No Known Allergies (Unverified , 10/08/16) Medication History Scheduled Benztropine Mesylate* (Benztropine Mesylate*), 1 MG PO TWICE A DAY, (Reported) Docusate Sodium* (Docusate Sodium*), 100 MG ORAL TWICE A DAY, (Reported) Montelukast Sodium* (Montelukast Sodium*), 10 MG ORAL BEDTIME, (Reported) Olanzapine (Zyprexa), 20 MG ORAL TWICE A DAY, (Reported) Scheduled PRN Acetaminophen* (Tylenol Extra Strength*), 325 MG ORAL Q4HR PRN for Fever/ Headache/Mild Pain, (Reported) Lisinopril (Lisinopril*), 5 MG ORAL DAILY PRN for For High Blood Pressure, ( Reported) Patient History Limited by: medical condition History Provided By: Patient, Medical Record Healthcare decision maker pt alert Resuscitation status Full Code Advanced Directive on File Past Medical/Surgical History Past Medical/Surgical History: (1) Skin abscess (2) Sepsis (3) JAY (acute kidney injury) (4) Pelvic mass in female Review of Systems Constitutional: Reports: malaise, weakness Eye: Denies: acuity changes, blurred vision, discharge, double vision, eye pain , no symptoms, nose congestion, nose pain, other, see HPI, tearing ENT: Denies: ear discharge, ear pain, hearing loss, mouth pain, nasal discharge , no symptoms, nose congestion, nose pain, other, see HPI, throat pain, throat swelling Respiratory: Denies: MONTES, cough, no symptoms, orthopnea, other, see HPI, shortness of breath, sputum, stridor, wheezing Cardiovascular: Denies: PND, chest pain, edema, no symptoms, other, palpitations, see HPI, syncope Gastrointestinal: Denies: abdominal pain, constipation, diarrhea, hematemesis, melena, nausea, no symptoms, other, see HPI, vomiting Genitourinary: Denies: discharge, dysuria, frequency, hematuria, incontinence, no symptoms, other, pain, retention, see HPI, urgency, vag bleed/dc Musculoskeletal: Denies: back pain, gout, joint pain, joint swelling, muscle pain, muscle stiffness, no symptoms, other, see HPI Skin: Denies: change in color, change in hair/nails, dryness, lesions, no symptoms, other, rash, see HPI Psychiatric: Denies: HI, SI, anxiety, depressed feelings, emotional problems, hallucinations, no symptoms, other, prior hx, see HPI Neurological: Denies: dizziness, focal weakness, headache, no symptoms, numbness, other, paresthesia, see HPI, seizure, syncope, tingling, tremors Endocrine: Denies: excessive sweating, flushing, increased thirst, increased urine, intolerance to temperature, no symptoms, other, see HPI, unexplained weight loss Hematologic/Lymphatic: Denies: anemia, blood clots, diathesis, easy bleeding, easy bruising, no symptoms, other, see HPI, swollen glands Physical Exam General Appearance: mild distress, agitated, thin Respiratory/Chest: lungs clear Cardiovascular/Chest: normal rate, regular rhythm Abdomen: soft Neurologic: alert Last 24 Hour Vital Signs Date Time Temp Pulse Resp B/P Pulse Ox O2 Delivery O2 Flow Rate FiO2 10/14/16 11:31 98.2 108 15 95/63 93 Room Air 10/14/16 07:46 97.2 105 16 90/57 94 Room Air 10/14/16 04:00 97.7 102 18 104/56 92 Room Air 10/14/16 00:00 98.2 107 18 94/49 91 Room Air 10/13/16 22:00 109 99/65 10/13/16 20:00 98.2 115 20 105/61 96 Room Air 10/13/16 16:00 98.7 109 20 109/69 95 Room Air Intake and Output 10/13/16 10/14/16 19:00 07:00 Intake Total 900.0 ml 415.0 ml Output Total 900 ml Balance 0 ml 415.0 ml Intake Oral 580 ml 360 ml IV Total 320.0 ml 55.0 ml Output Urine Total 900 ml # Voids 5 Laboratory Tests Test 10/13/16 19:30 Random Vancomycin Level 22.9 ug/mL Height (Feet): 5 Height (Inches): 2.00 Weight (Pounds): 130 Medications Current Medications Medications (Trade) Dose Ordered Sig/[place] Route PRN Reason Start Time Stop Time Status Last Admin Dose Admin Acetaminophen (Tylenol) 650 mg Q4H PRN ORAL Mild Pain/Temp > 100.5 10/09/16 01:00 11/08/16 00:59 10/09/16 01:52 Acetaminophen/ Hydrocodone Bitart ([place] 5/325) 1 tab Q4H PRN ORAL Moderate Pain (Pain Scale 4-6) 10/12/16 16:45 10/19/16 16:44 10/14/16 03:55 Bisacodyl (Dulcolax) 10 mg DAILYPRN PRN ORAL Constipation 10/12/16 17:15 11/11/16 17:14 10/13/16 20:37 Docusate Sodium (Colace) 100 mg TWICE A DAY ORAL 10/09/16 09:00 11/08/16 08:59 10/14/16 08:59 Magnesium Hydroxide 30 ml 30 ml DAILYPRN PRN ORAL Constipation Second Line 10/12/16 17:15 11/11/16 17:14 Pantoprazole (Protonix) 40 mg DAILY ORAL 10/11/16 09:00 11/10/16 08:59 10/14/16 08:59 Phosphorus 250 mg 250 mg THREE TIMES A DAY ORAL 10/13/16 09:15 11/12/16 09:14 10/14/16 09:00 Piperacillin Sod/ Tazobactam Sod/ Dextrose (Zosyn/D5W) 110 ml @ 27.5 mls/hr EVERY 8 HOURS IVPB 10/13/16 14:00 10/18/16 13:59 10/14/16 06:10 Sennosides (Senokot) 8.6 mg DAILY PRN ORAL Constipation 10/12/16 17:15 11/11/16 17:14 10/13/16 20:37 Vancomycin HCl (Vanco rx to dose) 1 ea DAILY PRN MISC PER RX PROTOCOL 10/09/16 11:45 11/08/16 11:44 Vancomycin HCl/ Dextrose (Vancomycin/D5W) 275 ml @ 183.333 mls/hr Q24H IVPB 10/14/16 09:00 10/19/16 08:59 10/14/16 09:[address] abd/pelvis: left atrophic kidney with hydronephrosis, mild right hydronephrosis. extensive pelvic mass involving muscle, bone, and bladder. Assessment/Plan Status: not improved Assessment/Plan 56 yo female with extensive pelvic malignancy. Given infiltrative nature, has caused loss of function in left kidney likely due to chronic obstruction. Thankfully not having severe left flank pain. While it is possible this atrophic kidney is chronically infected, the likelihood of ureteral stent being placed through bladder is very low. Given involvement of bladder, I would strongly recommend against any sort of cystoscopic retrograde instrumentation of EITHER kidney. Currently, creatinine is stable, function in right kidney is preserved. Mild hydro does not warrant intervention at this point as stenting will undoubtedly fail due to extrinsic compression. Patient stated multiple times she wishes for no further procedures. Offered unilateral vs. bilateral percutaneous nephrostomy tubes, but she does not wish for external urine drainage bags. She seems to understand the status of her kidneys and the likelihood of progression of disease. Given destructive nature of pelvic lesion , I would favor that as more of source of leukocytosis than possible pyelonephritis. At this time, recommend no urologic intervention, strongly consider palliation. Sai Soria M.D. Oct 14, 2016 13:03
--- NOTE | 2016-10-14 16:01 | General Progress Note ---
Assessment/Plan Assessment/Plan IMPRESSION: 1. Extensive disseminated malignancy, as described above, with a large pelvic mass, extensive lymphadenopathy, extensive osseous metastases, hepatic and pulmonary metastases. There is also unusual circumferential involvement of the bladder wall - pending biopsy however patient refuses 2. Hypercalcemia, likely related to metastatic malignancy 3. Acute thrombus bilateral common femoral vein s/p IVC filter placement 4. Anemia of chronic disease (severe). 5. Hx of ovarian cancer 6. Hyperferritinemia, most likely reactive. 7. History of schizophrenia. 8. History of ovarian cancer. 9. Hypertension. 10. Chronic obstructive pulmonary disease. 11. History of seizure. 12. Skin abscess. 13. Failure to thrive. 14. Hepatitis C RECOMMENDATIONS: 1. Watch count. Hgb goal >7. 2. PENDING a biopsy but patient refusing 3. PRBC transfusion on p.r.n. basis. Refused meds 4. Has refused endoscopy/colonoscopy 5. hx of noncomplance with care/treatment 6. Consider hospice/palliative care given patient refusal for workup/treatment, would benefit from this service 7. Does not require iron 8. SCD for DVT prophylaxis. 9. Reviewed tumor markers. 10. Staff Thank you, Miguel Alvarez MD Subjective Constitutional: Reports: no symptoms HEENT: Reports: no symptoms Cardiovascular: Reports: no symptoms Respiratory: Reports: no symptoms Gastrointestinal/Abdominal: Reports: no symptoms Genitourinary: Reports: no symptoms Neurologic/Psychiatric: Reports: anxiety Endocrine: Reports: no symptoms Hematologic/Lymphatic: Reports: anemia Allergies: Coded Allergies: No Known Allergies (Unverified , 10/08/16) Subjective stable, tolerating POs, no complaints, no night sweats, hematochezia or hematemesis Objective Last 24 Hour Vital Signs Date Time Temp Pulse Resp B/P Pulse Ox O2 Delivery O2 Flow Rate FiO2 10/14/16 11:31 98.2 108 15 95/63 93 Room Air 10/14/16 07:46 97.2 105 16 90/57 94 Room Air 10/14/16 04:00 97.7 102 18 104/56 92 Room Air 10/14/16 00:00 98.2 107 18 94/49 91 Room Air 10/13/16 22:00 109 99/65 10/13/16 20:00 98.2 115 20 105/61 96 Room Air 10/13/16 16:00 98.7 109 20 109/69 95 Room Air Intake and Output 10/13/16 10/14/16 19:00 07:00 Intake Total 900.0 ml 415.0 ml Output Total 900 ml Balance 0 ml 415.0 ml Intake Oral 580 ml 360 ml IV Total 320.0 ml 55.0 ml Output Urine Total 900 ml # Voids 5 Laboratory Tests 10/13/16 19:30: Random Vancomycin Level 22.9 Height (Feet): 5 Height (Inches): 2.00 Weight (Pounds): 130 General Appearance: no apparent distress EENT: normal ENT inspection Neck: normal alignment Cardiovascular: regular rhythm Respiratory/Chest: normal breath sounds Abdomen: non tender Extremities: normal inspection Edema: 1+ Leg (L), 1+ Leg (R) Edema: mild edema Neurologic: alert Skin: warm/dry Miguel Alvarez Oct 14, 2016 16:00
[2016-10-14 16:07] VITALS: BP 120/72
[2016-10-14] MEDS ORDERED: Tubing IV Secondary IV ONE (17:35)
--- NOTE | 2016-10-14 17:39 | Infectious Diseases Prog Note ---
Assessment/Plan Problems: (1) Skin infection Assessment & Plan: S/P lymph node biopsy complicated with skin wound of the left neck, wound culture is negative . on vancomycin and zosyn empirically , still has leukocytosis, will add fluconazol for fungal coverage , pending culture results (2) Sepsis Assessment & Plan: with leukocytosis , skin infection VS pyelonephritis due to ureter obstruction from pelvic malignancy , recommend nephrostomy to relief obstruction, by IR, but patient refused. culture results are negative so far , continue vancomycin and zosyn (3) Anemia Assessment & Plan: due to chronic disease and malignancy, monitor H/H transfuse blood as needed, rule out GI bleeding as a source (4) JAY (acute kidney injury) Assessment & Plan: suspect due to ureter obstruction due to pelvic mass, recommend urology consult for stent placement , or nephrostomy by IR, continue hydration, monitor UOP, avoid nephrotoxic meds (5) Pelvic mass in female Assessment & Plan: suspect recurrent ovarian CA, oncology is following, needs biopsy to confirm , but she refused it, may benefit from chemo for palliative purpose. recommend hospice care Subjective Constitutional: Reports: anorexia, fatigue Gastrointestinal/Abdominal: Reports: bloating, nausea, other - pain Psychiatric: Reports: anxiety, depression Skin: Reports: ulcer Allergies: Coded Allergies: No Known Allergies (Unverified , 10/08/16) Objective Vital Signs Last 24 Hour Vital Signs Date Time Temp Pulse Resp B/P Pulse Ox O2 Delivery O2 Flow Rate FiO2 10/14/16 17:32 98.1 10/14/16 16:07 98.1 106 20 120/72 94 Room Air 10/14/16 11:31 98.2 108 15 95/63 93 Room Air 10/14/16 07:46 97.2 105 16 90/57 94 Room Air 10/14/16 04:00 97.7 102 18 104/56 92 Room Air 10/14/16 00:00 98.2 107 18 94/49 91 Room Air 10/13/16 22:00 109 99/65 10/13/16 20:00 98.2 115 20 105/61 96 Room Air Height (Feet): 5 Height (Inches): 2.00 Weight (Pounds): 130 General Appearance: WD/WN, no acute distress HEENT: normocephalic, atraumatic, anicteric, mucous membranes moist Respiratory/Chest: chest wall non-tender, lungs clear, normal breath sounds, no respiratory distress, no accessory muscle use Cardiovascular: normal peripheral pulses, normal rate, regular rhythm, no gallop/murmur Abdomen: no organomegaly, hypoactive bowel sounds, distended, tender, mass Extremities: no cyanosis, no clubbing Skin: no rash, no lesions, ulcers Laboratory Tests Test 10/13/16 19:30 10/14/16 15:20 Random Vancomycin Level 22.9 ug/mL Stool Occult Blood Pending Current Medications Medications (Trade) Dose Ordered Sig/[place] Route PRN Reason Start Time Stop Time Status Last Admin Dose Admin Acetaminophen (Tylenol) 650 mg Q4H PRN ORAL Mild Pain/Temp > 100.5 10/09/16 01:00 11/08/16 00:59 10/09/16 01:52 Acetaminophen/ Hydrocodone Bitart ([place] 5/325) 1 tab Q4H PRN ORAL Moderate Pain (Pain Scale 4-6) 10/12/16 16:45 10/19/16 16:44 10/14/16 16:25 Bisacodyl (Dulcolax) 10 mg DAILYPRN PRN ORAL Constipation 10/12/16 17:15 11/11/16 17:14 10/13/16 20:37 Docusate Sodium (Colace) 100 mg TWICE A DAY ORAL 10/09/16 09:00 11/08/16 08:59 10/14/16 08:59 Magnesium Hydroxide 30 ml 30 ml DAILYPRN PRN ORAL Constipation Second Line 10/12/16 17:15 11/11/16 17:14 Pantoprazole (Protonix) 40 mg DAILY ORAL 10/11/16 09:00 11/10/16 08:59 10/14/16 08:59 Phosphorus 250 mg 250 mg THREE TIMES A DAY ORAL 10/13/16 09:15 11/12/16 09:14 10/14/16 13:49 Piperacillin Sod/ Tazobactam Sod/ Dextrose (Zosyn/D5W) 110 ml @ 27.5 mls/hr EVERY 8 HOURS IVPB 10/13/16 14:00 10/18/16 13:59 10/14/16 13:49 Sennosides (Senokot) 8.6 mg DAILY PRN ORAL Constipation 10/12/16 17:15 11/11/16 17:14 10/13/16 20:37 Vancomycin HCl (Vanco rx to dose) 1 ea DAILY PRN MISC PER RX PROTOCOL 10/09/16 11:45 11/08/16 11:44 Vancomycin HCl/ Dextrose (Vancomycin/D5W) 275 ml @ 183.333 mls/hr Q24H IVPB 10/14/16 09:00 10/19/16 08:59 10/14/16 09:00 Jaden Su M.D. Oct 14, 2016 17:39
[2016-10-14 20:00] VITALS: BP 114/72
[2016-10-15] VITALS: BP 148/73
[2016-10-15 04:00] VITALS: BP 96/55
[2016-10-15] MEDS: Piperacillin/Tazobactam 3.375 GM in D5W 110 ML IVPB SCH ×3 (06:35→23:11)
[2016-10-15] MEDS: Norco 5mg/325mg tab ORAL PRN ×2 (06:40→18:37)
--- NOTE | 2016-10-15 06:56 | Pulmonology Progress Note ---
Assessment/Plan Assessment/Plan ASSESSMENT ovarian cancer with mets extensive metastatic disseminated disease persistent leukocytosis, likely 2 to malignancy possible sepsis s/p lymph node biopsy with subsequent left neck wound infection anemia , s/p 1 u PRBC acute DVT bilateral LE hypercalcemia bilateral pleural effusion, likely malignant COPD hydronephrosis, chronic acute kidney injury /ATN 2 to hydronephrosis, schizophrenia hepatitis C L1 compression fracture PLAN OF CARE MS floor CTAP with evidence of extensive disseminated malignancy, with a large pelvic mass, extensive lymphadenopathy, extensive osseous metastases, hepatic and pulmonary metastases, unusual circumferential involvement of the bladder wall Severe left hydronephrosis. Given the severe extent of renal cortical thinning, this is presumably long-standing. Mild right hydronephrosis, presumably due to pelvic tumor Compression fracture of the L1 vertebral body, cancer tumor markers elevated : Ca 15-3, CA 125, CA 27-29 and CEA, normal Ca 19- 9 pain management heme/onco follows patient refused biopsy as ordered as well as bone scan GI follows patient declined EGD/colonoscopy monitor HH, transfuse prn, per heme goal Hgb>7 low iron but high ferritin, s/p 1 u PRBC, stool OB negative x 1, 2 other pending empiric abx, ID follows, blood cx negative, wound cx negative, urine cx mixed GPO, colony <10,000 leukocytosis likely reactive, due to malignancy O2 ; HHN prn fup with CXR, Venous Duplex with evidence of acute bilateral DVT LE. patient had IVC filter as evident on imaging, further management as per heme/ onco urologist seen the patient, does not recommend stents, instead bilateral nephrostomies, however patient declined urologist concurred that leukocytosis more likely due to malignancy than possible pyelo pain management bowel regimen correction of electrolytes , s/p Aredia case discussed and evaluated by supervising physician Subjective Allergies: Coded Allergies: No Known Allergies (Unverified , 10/08/16) Subjective persistent leukocytosis, afebrile HH down to 7.5/24 creat up to 1.3 Objective Last 24 Hour Vital Signs Date Time Temp Pulse Resp B/P Pulse Ox O2 Delivery O2 Flow Rate FiO2 10/15/16 04:00 98.2 104 18 96/55 91 Room Air 10/15/16 00:00 97.9 63 18 148/73 98 Room Air 10/14/16 21:45 97.7 10/14/16 20:00 97.7 96 18 114/72 95 Room Air 10/14/16 16:07 98.1 106 20 120/72 94 Room Air 10/14/16 11:31 98.2 108 15 95/63 93 Room Air 10/14/16 07:46 97.2 105 16 90/57 94 Room Air Intake and Output 10/14/16 10/15/16 19:00 07:00 Intake Total 812.500 ml 600.0 ml Output Total 200 ml Balance 612.500 ml 600.0 ml Intake Oral 400 ml 490 ml IV Total 412.500 ml 110.0 ml Output Urine Total 200 ml # Voids 3 # Bowel Movements 1 5 General Appearance: no acute distress, other - awake, alert, resposive, chronically ill looking female, older than her biological age HEENT: normocephalic, atraumatic, anicteric, mucous membranes moist Respiratory/Chest: lungs clear - with moderate air entry , no respiratory distress, no accessory muscle use Cardiovascular: normal peripheral pulses, regular rhythm, no JVD Abdomen: normal bowel sounds - abdomen soft, mild diffused tenderness, no rebound, no guarding, no CVAT Genitourinary: normal external genitalia Extremities: no edema, pedal pulses normal Neurologic/Psychiatric: alert, oriented x 3, responsive, normal mood/affect Musculoskeletal: normal muscle bulk Laboratory Tests 10/14/16 15:20: Stool Occult Blood [Pending] 10/14/16 23:00: Stool Occult Blood [Pending] Current Medications Medications (Trade) Dose Ordered Sig/[place] Route PRN Reason Start Time Stop Time Status Last Admin Dose Admin Acetaminophen (Tylenol) 650 mg Q4H PRN ORAL Mild Pain/Temp > 100.5 10/09/16 01:00 11/08/16 00:59 10/09/16 01:52 Acetaminophen/ Hydrocodone Bitart ([place] 5/325) 1 tab Q4H PRN ORAL Moderate Pain (Pain Scale 4-6) 10/12/16 16:45 10/19/16 16:44 10/15/16 06:40 Bisacodyl (Dulcolax) 10 mg DAILYPRN PRN ORAL Constipation 10/12/16 17:15 11/11/16 17:14 10/13/16 20:37 Docusate Sodium (Colace) 100 mg TWICE A DAY ORAL 10/09/16 09:00 11/08/16 08:59 10/14/16 08:59 Fluconazole/ Sodium Chloride (Diflucan 400mg/ 200ml Premix) 200 ml @ 100 mls/hr Q24H IV 10/14/16 20:00 10/21/16 19:59 10/14/16 20:46 Magnesium Hydroxide 30 ml 30 ml DAILYPRN PRN ORAL Constipation Second Line 10/12/16 17:15 11/11/16 17:14 Pantoprazole (Protonix) 40 mg DAILY ORAL 10/11/16 09:00 11/10/16 08:59 10/14/16 08:59 Phosphorus 250 mg 250 mg THREE TIMES A DAY ORAL 10/13/16 09:15 11/12/16 09:14 10/14/16 19:16 Piperacillin Sod/ Tazobactam Sod/ Dextrose (Zosyn/D5W) 110 ml @ 27.5 mls/hr EVERY 8 HOURS IVPB 10/13/16 14:00 10/18/16 13:59 10/15/16 06:35 Sennosides (Senokot) 8.6 mg DAILY PRN ORAL Constipation 10/12/16 17:15 11/11/16 17:14 10/13/16 20:37 Vancomycin HCl (Vanco rx to dose) 1 ea DAILY PRN MISC PER RX PROTOCOL 10/09/16 11:45 11/08/16 11:44 Vancomycin HCl 750 mg/Dextrose 275 ml @ 183.333 mls/hr Q24H IVPB 10/14/16 09:00 10/19/16 08:59 10/14/16 09:00 Rocío Gonzalez (Vanchtein) POLICY INTERN Oct 15, 2016 06:56
[2016-10-15 07:19] LABS: MEAN CORPUSCULAR HEMOGLOBIN 25.9 PG (27.0-31.0); MEAN CORPUSCULAR HGB CONC 31.4 G/DL (32.0-36.0); MEAN CORPUSCULAR VOLUME 83 FL (80-99); PLATELET COUNT 761 K/UL (150-450); RED BLOOD COUNT 2.91 M/UL (4.20-5.40); WHITE BLOOD COUNT 21.4 K/UL (4.8-10.8)
[2016-10-15 07:30] VITALS: BP 97/58
[2016-10-15 07:40] LABS: ALANINE AMINOTRANSFERASE < 5 U/L (3-33); ALBUMIN/GLOBULIN RATIO 0.5 (1.0-2.7); ANION GAP 16 (5-15); ASPARTATE AMINO TRANSFERASE 11 U/L (5-40); CARBON DIOXIDE 19 mEQ/L (20-30); CHLORIDE 103 mEQ/L (98-107); CREATININE 1.3 mg/dL (0.5-0.9); CRP QUANT 18.9 mg/dL (< 0.5); GLOMERULAR FILTRATION RATE 42.5 mL/min (>60); HEMOLYSIS 2; MAGNESIUM 1.9 mg/dL (1.7-2.5); POTASSIUM 4.9 mEQ/L (3.4-4.9); SODIUM 138 mEQ/L (135-145); TOTAL PROTEIN 5.7 g/dL (6.6-8.7); URIC ACID 4.3 mg/dL (3.0-7.5)
[2016-10-15] MEDS: Phospha 250 Neutral tab ORAL SCH (09:18)
[2016-10-15] MEDS: Vancomycin 750 MG in D5W 275 ML IVPB SCH (09:18)
[2016-10-15] MEDS: Docusate 100mg cap ORAL SCH ×2 (09:18→18:00)
[2016-10-15 10:24] LABS: ANISOCYTOSIS 1+; BAND NEUTROPHILS % (MANUAL) 0 % (0-8); BASOPHILS % (MANUAL) 0 % (0-2); EOSINOPHILS % (MANUAL) 2 % (0-3); HYPOCHROMASIA 1+; LYMPHOCYTES % (MANUAL) 9 % (20-45); NEUTROPHILS % (MANUAL) 86 % (45-75); PLATELET ESTIMATE INCREASED; PLATELET MORPHOLOGY NORMAL; TOTAL CELLS COUNTED 100
--- NOTE | 2016-10-15 10:28 | General Progress Note ---
Assessment/Plan Problem List: (1) Anemia ICD Codes: D64.9 - Anemia, unspecified SNOMED: 283011661 (2) Skin infection ICD Codes: L08.9 - Local infection of the skin and subcutaneous tissue, unspecified SNOMED: 518866284 (3) Sepsis ICD Codes: A41.9 - Sepsis, unspecified organism SNOMED: 82594023 (4) JAY (acute kidney injury) ICD Codes: N17.9 - Acute kidney failure, unspecified SNOMED: 03151451 Status: progressing Assessment/Plan mets cancer w hydro refuses any procedure whatsoever spread cancer psych patient cant dc due to very low hb needs transfusion before dc Subjective ROS Limited/Unobtainable: Yes Allergies: Coded Allergies: No Known Allergies (Unverified , 10/08/16) Objective Last 24 Hour Vital Signs Date Time Temp Pulse Resp B/P Pulse Ox O2 Delivery O2 Flow Rate FiO2 10/15/16 07:30 98.2 96 15 97/58 92 Room Air 10/15/16 04:00 98.2 104 18 96/55 91 Room Air 10/15/16 00:00 97.9 63 18 148/73 98 Room Air 10/14/16 21:45 97.7 10/14/16 20:00 97.7 96 18 114/72 95 Room Air 10/14/16 16:07 98.1 106 20 120/72 94 Room Air 10/14/16 11:31 98.2 108 15 95/63 93 Room Air Intake and Output 10/14/16 10/15/16 19:00 07:00 Intake Total 812.500 ml 600.0 ml Output Total 200 ml Balance 612.500 ml 600.0 ml Intake Oral 400 ml 490 ml IV Total 412.500 ml 110.0 ml Output Urine Total 200 ml # Voids 3 # Bowel Movements 1 5 Laboratory Tests 10/14/16 15:20: Stool Occult Blood [Pending] 10/14/16 23:00: Stool Occult Blood [Pending] 10/15/16 05:25: White Blood Count 21.4H, Red Blood Count 2.91L, Hemoglobin 7.5L, Hematocrit 24.0L, Mean Corpuscular Volume 83, Mean Corpuscular Hemoglobin 25.9L, Mean Corpuscular Hemoglobin Concent 31.4L, Red Cell Distribution Width 17.0H, Platelet Count 761H, Mean Platelet Volume 5.0L, Neutrophils (%) (Auto) , Lymphocytes (%) (Auto) , Monocytes (%) (Auto) , Eosinophils (%) (Auto) , Basophils (%) (Auto) , Differential Total Cells Counted 100, Neutrophils % ( Manual) 86H, Lymphocytes % (Manual) 9L, Monocytes % (Manual) 3, Eosinophils % ( Manual) 2, Basophils % (Manual) 0, Band Neutrophils 0, Platelet Estimate IncreasedH, Platelet Morphology Normal, Hypochromasia 1+, Anisocytosis 1+, Sodium Level 138, Potassium Level 4.9, Chloride Level 103, Carbon Dioxide Level 19L, Anion Gap 16H, Blood Urea Nitrogen 17, Creatinine 1.3H, Estimat Glomerular Filtration Rate 42.5, Glucose Level 82, Uric Acid 4.3, Calcium Level 8.0L, Phosphorus Level 3.0, Magnesium Level 1.9, Total Bilirubin < 0.2, Aspartate Amino Transf (AST/SGOT) 11, Alanine Aminotransferase (ALT/SGPT) < 5, Alkaline Phosphatase 101, C-Reactive Protein, Quantitative 18.9H, Total Protein 5.7L, Albumin 2.0L, Globulin 3.7, Albumin/Globulin Ratio 0.5L Height (Feet): 5 Height (Inches): 2.00 Weight (Pounds): 130 General Appearance: confused Neck: supple Cardiovascular: normal rate Respiratory/Chest: lungs clear Sulma Desir MD Oct 15, 2016 10:28
[2016-10-15 11:28] VITALS: BP 105/70
--- NOTE | 2016-10-15 13:01 | General Progress Note ---
Assessment/Plan Assessment/Plan IMPRESSION: 1. Extensive disseminated malignancy, as described above, with a large pelvic mass, extensive lymphadenopathy, extensive osseous metastases, hepatic and pulmonary metastases. There is also unusual circumferential involvement of the bladder wall - discussed multiple times, patient refuses 2. Hypercalcemia, likely related to metastatic malignancy 3. Acute thrombus bilateral common femoral vein s/p IVC filter placement 4. Anemia of chronic disease (severe). 5. Hx of ovarian cancer 6. Hyperferritinemia, most likely reactive. 7. History of schizophrenia. 8. History of ovarian cancer. 9. Hypertension. 10. Chronic obstructive pulmonary disease. 11. History of seizure. 12. Skin abscess. 13. Failure to thrive. 14. Hepatitis C RECOMMENDATIONS: 1. Watch count. Hgb goal >7. 2. PATIENT IS REFUSING biopsy 3. PRBC transfusion on p.r.n. basis. Refused meds 4. Has refused endoscopy/colonoscopy 5. hx of noncomplance with care/treatment 6. Consider hospice/palliative care given patient refusal for workup/treatment, would benefit from this service 7. Does not require iron 8. SCD for DVT prophylaxis. 9. Reviewed tumor markers. 10. Staff Thank you, Miguel Alvarez MD Subjective Constitutional: Reports: no symptoms HEENT: Reports: no symptoms Cardiovascular: Reports: no symptoms Respiratory: Reports: no symptoms Gastrointestinal/Abdominal: Reports: no symptoms Genitourinary: Reports: no symptoms Neurologic/Psychiatric: Reports: no symptoms Endocrine: Reports: no symptoms Hematologic/Lymphatic: Reports: anemia Allergies: Coded Allergies: No Known Allergies (Unverified , 10/08/16) Subjective stable, potentially to be discharged after blood transfusion Objective Last 24 Hour Vital Signs Date Time Temp Pulse Resp B/P Pulse Ox O2 Delivery O2 Flow Rate FiO2 10/15/16 11:28 97.7 91 14 105/70 94 Room Air 10/15/16 07:30 98.2 96 15 97/58 92 Room Air 10/15/16 04:00 98.2 104 18 96/55 91 Room Air 10/15/16 00:00 97.9 63 18 148/73 98 Room Air 10/14/16 21:45 97.7 10/14/16 20:00 97.7 96 18 114/72 95 Room Air 10/14/16 16:07 98.1 106 20 120/72 94 Room Air Intake and Output 10/14/16 10/15/16 19:00 07:00 Intake Total 812.500 ml 600.0 ml Output Total 200 ml Balance 612.500 ml 600.0 ml Intake Oral 400 ml 490 ml IV Total 412.500 ml 110.0 ml Output Urine Total 200 ml # Voids 3 # Bowel Movements 1 5 Laboratory Tests 10/14/16 15:20: Stool Occult Blood Negative 10/14/16 23:00: Stool Occult Blood [Pending] 10/15/16 05:25: White Blood Count 21.4H, Red Blood Count 2.91L, Hemoglobin 7.5L, Hematocrit 24.0L, Mean Corpuscular Volume 83, Mean Corpuscular Hemoglobin 25.9L, Mean Corpuscular Hemoglobin Concent 31.4L, Red Cell Distribution Width 17.0H, Platelet Count 761H, Mean Platelet Volume 5.0L, Neutrophils (%) (Auto) , Lymphocytes (%) (Auto) , Monocytes (%) (Auto) , Eosinophils (%) (Auto) , Basophils (%) (Auto) , Differential Total Cells Counted 100, Neutrophils % ( Manual) 86H, Lymphocytes % (Manual) 9L, Monocytes % (Manual) 3, Eosinophils % ( Manual) 2, Basophils % (Manual) 0, Band Neutrophils 0, Platelet Estimate IncreasedH, Platelet Morphology Normal, Hypochromasia 1+, Anisocytosis 1+, Sodium Level 138, Potassium Level 4.9, Chloride Level 103, Carbon Dioxide Level 19L, Anion Gap 16H, Blood Urea Nitrogen 17, Creatinine 1.3H, Estimat Glomerular Filtration Rate 42.5, Glucose Level 82, Uric Acid 4.3, Calcium Level 8.0L, Phosphorus Level 3.0, Magnesium Level 1.9, Total Bilirubin < 0.2, Aspartate Amino Transf (AST/SGOT) 11, Alanine Aminotransferase (ALT/SGPT) < 5, Alkaline Phosphatase 101, C-Reactive Protein, Quantitative 18.9H, Total Protein 5.7L, Albumin 2.0L, Globulin 3.7, Albumin/Globulin Ratio 0.5L Height (Feet): 5 Height (Inches): 2.00 Weight (Pounds): 130 General Appearance: alert EENT: normal ENT inspection Neck: normal inspection Cardiovascular: regular rhythm Respiratory/Chest: normal breath sounds Abdomen: non tender Extremities: non-tender Edema: 1+ Leg (L), 1+ Leg (R) Edema: mild edema Neurologic: alert Skin: normal pigmentation Miguel Alvarez Oct 15, 2016 13:01
--- NOTE | 2016-10-15 14:16 | General Progress Note ---
Assessment/Plan Status: stable - from renal stand Status Narrative leukocytosis persists Assessment/Plan status: Hypercalcemia, related to Neoplastic process- IMPROVED Symptomatic Anemia, Etiology?? Cancer, GI Loss, .... Sugg: Aredia given 90mg 10/09 DC Calcitonin nasal DC Fontenot DC Lasix DC KCL PO Phos Monitor Ca and Phos and Lytes Transfusion per cfo controller per consultants Subjective ROS Limited/Unobtainable: No Constitutional: Reports: malaise Allergies: Coded Allergies: No Known Allergies (Unverified , 10/08/16) Objective Last 24 Hour Vital Signs Date Time Temp Pulse Resp B/P Pulse Ox O2 Delivery O2 Flow Rate FiO2 10/15/16 11:28 97.7 91 14 105/70 94 Room Air 10/15/16 07:30 98.2 96 15 97/58 92 Room Air 10/15/16 04:00 98.2 104 18 96/55 91 Room Air 10/15/16 00:00 97.9 63 18 148/73 98 Room Air 10/14/16 21:45 97.7 10/14/16 20:00 97.7 96 18 114/72 95 Room Air 10/14/16 16:07 98.1 106 20 120/72 94 Room Air Intake and Output 10/14/16 10/15/16 19:00 07:00 Intake Total 812.500 ml 600.0 ml Output Total 200 ml Balance 612.500 ml 600.0 ml Intake Oral 400 ml 490 ml IV Total 412.500 ml 110.0 ml Output Urine Total 200 ml # Voids 3 # Bowel Movements 1 5 Laboratory Tests 10/14/16 15:20: Stool Occult Blood Negative 10/14/16 23:00: Stool Occult Blood [Pending] 10/15/16 05:25: White Blood Count 21.4H, Red Blood Count 2.91L, Hemoglobin 7.5L, Hematocrit 24.0L, Mean Corpuscular Volume 83, Mean Corpuscular Hemoglobin 25.9L, Mean Corpuscular Hemoglobin Concent 31.4L, Red Cell Distribution Width 17.0H, Platelet Count 761H, Mean Platelet Volume 5.0L, Neutrophils (%) (Auto) , Lymphocytes (%) (Auto) , Monocytes (%) (Auto) , Eosinophils (%) (Auto) , Basophils (%) (Auto) , Differential Total Cells Counted 100, Neutrophils % ( Manual) 86H, Lymphocytes % (Manual) 9L, Monocytes % (Manual) 3, Eosinophils % ( Manual) 2, Basophils % (Manual) 0, Band Neutrophils 0, Platelet Estimate IncreasedH, Platelet Morphology Normal, Hypochromasia 1+, Anisocytosis 1+, Sodium Level 138, Potassium Level 4.9, Chloride Level 103, Carbon Dioxide Level 19L, Anion Gap 16H, Blood Urea Nitrogen 17, Creatinine 1.3H, Estimat Glomerular Filtration Rate 42.5, Glucose Level 82, Uric Acid 4.3, Calcium Level 8.0L, Phosphorus Level 3.0, Magnesium Level 1.9, Total Bilirubin < 0.2, Aspartate Amino Transf (AST/SGOT) 11, Alanine Aminotransferase (ALT/SGPT) < 5, Alkaline Phosphatase 101, C-Reactive Protein, Quantitative 18.9H, Total Protein 5.7L, Albumin 2.0L, Globulin 3.7, Albumin/Globulin Ratio 0.5L Height (Feet): 5 Height (Inches): 2.00 Weight (Pounds): 130 General Appearance: no apparent distress Cardiovascular: tachycardia Respiratory/Chest: lungs clear Objective other physical exam not changed CLEMENTE APPIAH Oct 15, 2016 14:16
[2016-10-15] MEDS ORDERED: Tubing IV Secondary IV ONE (14:56)
[2016-10-15] MEDS ORDERED: NS 275ml ONE (14:56)
--- NOTE | 2016-10-15 15:59 | General Progress Note ---
Assessment/Plan Assessment/Plan Assessment - hypercalcemia - constipation - ovarian CA , mets - Anemia - HTN - CPS Recommendations - laxative - push PO - OOB - refuses GI w/u - oncology f/u Subjective Allergies: Coded Allergies: No Known Allergies (Unverified , 10/08/16) Subjective doing better tolerating PO no abd pain (+) BM Objective Last 24 Hour Vital Signs Date Time Temp Pulse Resp B/P Pulse Ox O2 Delivery O2 Flow Rate FiO2 10/15/16 11:28 97.7 91 14 105/70 94 Room Air 10/15/16 07:30 98.2 96 15 97/58 92 Room Air 10/15/16 04:00 98.2 104 18 96/55 91 Room Air 10/15/16 00:00 97.9 63 18 148/73 98 Room Air 10/14/16 21:45 97.7 10/14/16 20:00 97.7 96 18 114/72 95 Room Air 10/14/16 16:07 98.1 106 20 120/72 94 Room Air Intake and Output 10/14/16 10/15/16 19:00 07:00 Intake Total 812.500 ml 600.0 ml Output Total 200 ml Balance 612.500 ml 600.0 ml Intake Oral 400 ml 490 ml IV Total 412.500 ml 110.0 ml Output Urine Total 200 ml # Voids 3 # Bowel Movements 1 5 Laboratory Tests 10/14/16 23:00: Stool Occult Blood Negative 10/15/16 05:25: White Blood Count 21.4H, Red Blood Count 2.91L, Hemoglobin 7.5L, Hematocrit 24.0L, Mean Corpuscular Volume 83, Mean Corpuscular Hemoglobin 25.9L, Mean Corpuscular Hemoglobin Concent 31.4L, Red Cell Distribution Width 17.0H, Platelet Count 761H, Mean Platelet Volume 5.0L, Neutrophils (%) (Auto) , Lymphocytes (%) (Auto) , Monocytes (%) (Auto) , Eosinophils (%) (Auto) , Basophils (%) (Auto) , Differential Total Cells Counted 100, Neutrophils % ( Manual) 86H, Lymphocytes % (Manual) 9L, Monocytes % (Manual) 3, Eosinophils % ( Manual) 2, Basophils % (Manual) 0, Band Neutrophils 0, Platelet Estimate IncreasedH, Platelet Morphology Normal, Hypochromasia 1+, Anisocytosis 1+, Sodium Level 138, Potassium Level 4.9, Chloride Level 103, Carbon Dioxide Level 19L, Anion Gap 16H, Blood Urea Nitrogen 17, Creatinine 1.3H, Estimat Glomerular Filtration Rate 42.5, Glucose Level 82, Uric Acid 4.3, Calcium Level 8.0L, Phosphorus Level 3.0, Magnesium Level 1.9, Total Bilirubin < 0.2, Aspartate Amino Transf (AST/SGOT) 11, Alanine Aminotransferase (ALT/SGPT) < 5, Alkaline Phosphatase 101, C-Reactive Protein, Quantitative 18.9H, Total Protein 5.7L, Albumin 2.0L, Globulin 3.7, Albumin/Globulin Ratio 0.5L Height (Feet): 5 Height (Inches): 2.00 Weight (Pounds): 130 Objective Thin WW NCAT supple CTA RRR Soft ND NT no edema HOLLAND GARSIA Oct 15, 2016 15:59
[2016-10-15 16:00] VITALS: BP 111/67
--- NOTE | 2016-10-15 16:16 | Infectious Diseases Prog Note ---
Assessment/Plan Problems: (1) Skin infection Assessment & Plan: S/P lymph node biopsy complicated with skin wound infection of the left neck, wound culture is negative . on vancomycin and zosyn empirically , still has leukocytosis, suspect due to ureter obstruction and peylonephritis, refused nephrostomy , fluconazol was added for fungal coverage , await culture results (2) Sepsis Assessment & Plan: with leukocytosis , skin infection VS pyelonephritis due to ureter obstruction from pelvic malignancy , recommend nephrostomy to relief obstruction, by IR, but patient refused. culture results are negative so far , continue vancomycin and zosyn for now, recommend hospice care (3) Anemia Assessment & Plan: due to chronic disease and malignancy, monitor H/H transfuse blood as needed, rule out GI bleeding as a source (4) JAY (acute kidney injury) Assessment & Plan: suspect due to ureter obstruction due to pelvic mass, recommend urology consult for stent placement , or nephrostomy by IR, continue hydration, monitor UOP, avoid nephrotoxic meds (5) Pelvic mass in female Assessment & Plan: suspect recurrent ovarian CA, oncology is following, needs biopsy to confirm , but she refused it, may benefit from chemo for palliative purpose. recommend hospice care Subjective Constitutional: Reports: fatigue Gastrointestinal/Abdominal: Reports: bloating, constipation Neurologic: Reports: weakness Allergies: Coded Allergies: No Known Allergies (Unverified , 10/08/16) All Systems: reviewed and negative except above Objective Vital Signs Last 24 Hour Vital Signs Date Time Temp Pulse Resp B/P Pulse Ox O2 Delivery O2 Flow Rate FiO2 10/15/16 11:28 97.7 91 14 105/70 94 Room Air 10/15/16 07:30 98.2 96 15 97/58 92 Room Air 10/15/16 04:00 98.2 104 18 96/55 91 Room Air 10/15/16 00:00 97.9 63 18 148/73 98 Room Air 10/14/16 21:45 97.7 10/14/16 20:00 97.7 96 18 114/72 95 Room Air Height (Feet): 5 Height (Inches): 2.00 Weight (Pounds): 130 General Appearance: WD/WN, no acute distress HEENT: normocephalic, atraumatic, anicteric, mucous membranes moist Respiratory/Chest: chest wall non-tender, lungs clear, normal breath sounds, no respiratory distress, no accessory muscle use Cardiovascular: normal peripheral pulses, normal rate, regular rhythm, no gallop/murmur, no JVD Abdomen: normal bowel sounds, soft, non tender, no scars, hypoactive bowel sounds, distended, tender, mass Skin: no rash, no lesions Laboratory Tests Test 10/14/16 23:00 10/15/16 05:25 Stool Occult Blood Negative (NEGATIVE) White Blood Count 21.4 K/UL (4.8-10.8) H Red Blood Count 2.91 M/UL (4.20-5.40) L Hemoglobin 7.5 G/DL (12.0-16.0) L Hematocrit 24.0 % (37.0-47.0) L Mean Corpuscular Volume 83 FL (80-99) Mean Corpuscular Hemoglobin 25.9 PG (27.0-31.0) L Mean Corpuscular Hemoglobin Concent 31.4 G/DL (32.0-36.0) L Red Cell Distribution Width 17.0 % (11.6-14.8) H Platelet Count 761 K/UL (150-450) H Mean Platelet Volume 5.0 FL (6.5-10.1) L Neutrophils (%) (Auto) % (45.0-75.0) Lymphocytes (%) (Auto) % (20.0-45.0) Monocytes (%) (Auto) % (1.0-10.0) Eosinophils (%) (Auto) % (0.0-3.0) Basophils (%) (Auto) % (0.0-2.0) Differential Total Cells Counted 100 Neutrophils % (Manual) 86 % (45-75) H Lymphocytes % (Manual) 9 % (20-45) L Monocytes % (Manual) 3 % (1-10) Eosinophils % (Manual) 2 % (0-3) Basophils % (Manual) 0 % (0-2) Band Neutrophils 0 % (0-8) Platelet Estimate Increased H Platelet Morphology Normal Hypochromasia 1+ Anisocytosis 1+ Sodium Level 138 mEQ/L (135-145) Potassium Level 4.9 mEQ/L (3.4-4.9) Chloride Level 103 mEQ/L (98-107) Carbon Dioxide Level 19 mEQ/L (20-30) L Anion Gap 16 (5-15) H Blood Urea Nitrogen 17 mg/dL (7-23) Creatinine 1.3 mg/dL (0.5-0.9) H Estimat Glomerular Filtration Rate 42.5 mL/min (>60) Glucose Level 82 mg/dL (74-106) Uric Acid 4.3 mg/dL (3.0-7.5) Calcium Level 8.0 mg/dL (8.6-10.2) L Phosphorus Level 3.0 mg/dL (2.5-4.8) Magnesium Level 1.9 mg/dL (1.7-2.5) Total Bilirubin < 0.2 mg/dL (0.0-1.2) Aspartate Amino Transf (AST/SGOT) 11 U/L (5-40) Alanine Aminotransferase (ALT/SGPT) < 5 U/L (3-33) Alkaline Phosphatase 101 U/L (35-104) C-Reactive Protein, Quantitative 18.9 mg/dL (< 0.5) H Total Protein 5.7 g/dL (6.6-8.7) L Albumin 2.0 g/dL (3.5-5.2) L Globulin 3.7 g/dL Albumin/Globulin Ratio 0.5 (1.0-2.7) L Current Medications Medications (Trade) Dose Ordered Sig/[place] Route PRN Reason Start Time Stop Time Status Last Admin Dose Admin Acetaminophen (Tylenol) 325 mg ONCE PRN ORAL prior to blood transfusion 10/15/16 09:00 10/15/16 21:00 10/15/16 12:39 Acetaminophen (Tylenol) 650 mg Q4H PRN ORAL Mild Pain/Temp > 100.5 10/09/16 01:00 11/08/16 00:59 10/09/16 01:52 Acetaminophen/ Hydrocodone Bitart ([place] 5/325) 1 tab Q4H PRN ORAL Moderate Pain (Pain Scale 4-6) 10/12/16 16:45 10/19/16 16:44 10/15/16 06:40 Bisacodyl (Dulcolax) 10 mg DAILYPRN PRN ORAL Constipation 10/12/16 17:15 11/11/16 17:14 10/13/16 20:37 Diphenhydramine HCl (Benadryl) 50 mg ONCE PRN ORAL prior to blood transfusion 10/15/16 09:00 10/15/16 21:00 10/15/16 12:37 Docusate Sodium (Colace) 100 mg TWICE A DAY ORAL 10/09/16 09:00 11/08/16 08:59 10/15/16 09:18 Fluconazole/ Sodium Chloride (Diflucan 400mg/ 200ml Premix) 200 ml @ 100 mls/hr Q24H IV 10/14/16 20:00 10/21/16 19:59 10/14/16 20:46 Magnesium Hydroxide 30 ml 30 ml DAILYPRN PRN ORAL Constipation Second Line 10/12/16 17:15 11/11/16 17:14 Pantoprazole (Protonix) 40 mg DAILY ORAL 10/11/16 09:00 11/10/16 08:59 10/15/16 09:18 Piperacillin Sod/ Tazobactam Sod 3.375 gm/Dextrose 110 ml @ 27.5 mls/hr EVERY 8 HOURS IVPB 10/13/16 14:00 10/18/16 13:59 10/15/16 06:35 Sennosides (Senokot) 8.6 mg DAILY PRN ORAL Constipation 10/12/16 17:15 11/11/16 17:14 10/13/16 20:37 Vancomycin HCl (Vanco rx to dose) 1 ea DAILY PRN MISC PER RX PROTOCOL 10/09/16 11:45 11/08/16 11:44 Vancomycin HCl 750 mg/Dextrose 275 ml @ 183.333 mls/hr Q24H IVPB 10/14/16 09:00 10/19/16 08:59 10/15/16 09:18 Jaden Su M.D. Oct 15, 2016 16:16
[2016-10-15] MEDS ORDERED: VANCOMYCIN1 GM/2502 IVPB (17:12)
[2016-10-15] MEDS ORDERED: FLUCONAZOL IV (17:15)
[2016-10-15] MEDS ORDERED: ZOSYN 3.373.375 GM/1 IVPB (17:16)
[2016-10-15 20:00] VITALS: BP 109/62
--- NOTE | 2016-10-15 21:51 | Diagnostic Imaging Report ---
APPROVED REPORT CPT Code: 55600 Present Symptoms Lower Extremity Pain: Bilateral DVT of Lower Extremity: Bilateral RIGHT LEG: Venous imaging reveals acute thrombus in the common femoral vein. Imaging also reveals patency of the superficial femoral, popliteal and the calf veins. The greater saphenous vein is also within normal limits. LEFT LEG: Venous imaging reveals acute thrombus in the common femoral, superficial femoral and popliteal veins. Imaging also reveals patency of the calf veins. Imaging also reveals acute thrombus in imaged portion of the greater saphenous vein. RHIANNA Kang was notified of the abnormal results at 11:30 hours.
[2016-10-16] VITALS: BP 105/63
[2016-10-16] MEDS: Norco 5mg/325mg tab ORAL PRN ×2 (01:09→16:42)
[2016-10-16 04:00] VITALS: BP 90/60
[2016-10-16] MEDS: Piperacillin/Tazobactam 3.375 GM in D5W 110 ML IVPB SCH ×3 (06:51→22:19)
[2016-10-16 07:52] LABS: MEAN CORPUSCULAR HEMOGLOBIN 27.2 PG (27.0-31.0); MEAN CORPUSCULAR HGB CONC 32.8 G/DL (32.0-36.0); MEAN CORPUSCULAR VOLUME 83 FL (80-99); MEAN PLATELET VOLUME 4.6 FL (6.5-10.1); PLATELET COUNT 774 K/UL (150-450); RED BLOOD COUNT 3.84 M/UL (4.20-5.40); RED CELL DISTRIBUTION WIDTH 16.1 % (11.6-14.8)
[2016-10-16 08:04] VITALS: BP 108/69
[2016-10-16 08:22] LABS: ALBUMIN/GLOBULIN RATIO 0.4 (1.0-2.7); CALCIUM 7.6 mg/dL (8.6-10.2); CREATININE 1.6 mg/dL (0.5-0.9); GLOMERULAR FILTRATION RATE 33.5 mL/min (>60); POTASSIUM 4.9 mEQ/L (3.4-4.9); TOTAL PROTEIN 5.8 g/dL (6.6-8.7)
[2016-10-16] MEDS: Docusate 100mg cap ORAL SCH ×2 (08:38→17:55)
[2016-10-16 09:43] LABS: ANISOCYTOSIS 1+; BAND NEUTROPHILS % (MANUAL) 0 % (0-8); BASOPHILS % (MANUAL) 1 % (0-2); EOSINOPHILS % (MANUAL) 2 % (0-3); HYPOCHROMASIA 1+; LYMPHOCYTES % (MANUAL) 1 % (20-45); NEUTROPHILS % (MANUAL) 93 % (45-75); PLATELET ESTIMATE INCREASED; PLATELET MORPHOLOGY NORMAL; TOTAL CELLS COUNTED 100
[2016-10-16 11:56] VITALS: BP 95/59
[2016-10-16] MEDS ORDERED: NS 250 ML IVPB ONE (12:30)
--- NOTE | 2016-10-16 12:31 | General Progress Note ---
Assessment/Plan Status: unchanged, deteriorating - serum Cr Status Narrative Cr maliha 1.6 Assessment/Plan status: Hypercalcemia, related to Neoplastic process- IMPROVED Symptomatic Anemia, Etiology?? Cancer, GI Loss, .... Acute renal failure now- Cr up 1.6 Sugg: restart IV- check lytes and Ca and Phos Aredia given 90mg 10/09 DC Calcitonin nasal DC Fontenot DC Lasix DC KCL PO Phos Monitor Ca and Phos and Lytes Transfusion per bow maker custom per consultants Subjective ROS Limited/Unobtainable: No Constitutional: Reports: malaise Allergies: Coded Allergies: No Known Allergies (Unverified , 10/08/16) Objective Last 24 Hour Vital Signs Date Time Temp Pulse Resp B/P Pulse Ox O2 Delivery O2 Flow Rate FiO2 10/16/16 11:56 97.5 94 15 95/59 93 Room Air 10/16/16 08:04 98.1 100 16 108/69 Room Air 10/16/16 04:00 97.5 98 18 90/60 91 Room Air 10/16/16 00:00 96.8 92 18 105/63 93 Room Air 10/15/16 20:00 98.6 80 17 109/62 96 Room Air 10/15/16 19:36 98.1 10/15/16 16:00 98.1 93 16 111/67 92 Room Air Intake and Output 10/15/16 10/16/16 19:00 07:00 Intake Total 1471.666 ml 530 ml Output Total 400 ml Balance 1071.666 ml 530 ml Intake Oral 800 ml 430 ml IV Total 421.666 ml 100 ml Blood Product 250 ml Output Urine Total 400 ml # Voids 5 Laboratory Tests 10/16/16 07:47: White Blood Count 21.0H, Red Blood Count 3.84L, Hemoglobin 10.4#L, Hematocrit 31.8#L, Mean Corpuscular Volume 83, Mean Corpuscular Hemoglobin 27.2, Mean Corpuscular Hemoglobin Concent 32.8, Red Cell Distribution Width 16.1H, Platelet Count 774H, Mean Platelet Volume 4.6L, Neutrophils (%) (Auto) , Lymphocytes (%) (Auto) , Monocytes (%) (Auto) , Eosinophils (%) (Auto) , Basophils (%) (Auto) , Differential Total Cells Counted 100, Neutrophils % ( Manual) 93H, Lymphocytes % (Manual) 1L, Monocytes % (Manual) 3, Eosinophils % ( Manual) 2, Basophils % (Manual) 1, Band Neutrophils 0, Platelet Estimate IncreasedH, Platelet Morphology Normal, Hypochromasia 1+, Anisocytosis 1+, Sodium Level 128L, Potassium Level 4.9, Chloride Level 94L, Carbon Dioxide Level 17L, Anion Gap 17H, Blood Urea Nitrogen 18, Creatinine 1.6H, Estimat Glomerular Filtration Rate 33.5, Glucose Level 88, Calcium Level 7.6L, Total Bilirubin 0.3, Aspartate Amino Transf (AST/SGOT) 11, Alanine Aminotransferase ( ALT/SGPT) 5, Alkaline Phosphatase 93, Total Protein 5.8L, Albumin 1.7L, Globulin 4.1, Albumin/Globulin Ratio 0.4L, Vancomycin Level Trough 29.0H Height (Feet): 5 Height (Inches): 2.00 Weight (Pounds): 130 General Appearance: no apparent distress, lethargic Objective other physical exam not changed CLEMENTE APPIAH Oct 16, 2016 12:31
[2016-10-16] MEDS: Sodium Citrate 30ml ORAL SCH ×2 (12:47→17:55)
[2016-10-16] MEDS: D5NS 1,000 ML IV SCH ×2 (13:28→22:22)
--- NOTE | 2016-10-16 13:46 | Pulmonology Progress Note ---
Assessment/Plan Assessment/Plan ASSESSMENT ovarian cancer with mets extensive metastatic disseminated disease persistent leukocytosis, likely 2 to malignancy possible sepsis s/p lymph node biopsy with subsequent left neck wound infection anemia , s/p 1 u PRBC acute DVT bilateral LE hypercalcemia of malignancy acute renal failure hyponatremia bilateral pleural effusion, likely malignant COPD hydronephrosis, chronic acute kidney injury /ATN 2 to hydronephrosis, schizophrenia hepatitis C L1 compression fracture PLAN OF CARE MS floor CTAP with evidence of extensive disseminated malignancy, with a large pelvic mass, extensive lymphadenopathy, extensive osseous metastases, hepatic and pulmonary metastases, unusual circumferential involvement of the bladder wall Severe left hydronephrosis. Given the severe extent of renal cortical thinning, this is presumably long-standing. Mild right hydronephrosis, presumably due to pelvic tumor Compression fracture of the L1 vertebral body, cancer tumor markers elevated : Ca 15-3, CA 125, CA 27-29 and CEA, normal Ca 19- 9 pain management heme/onco follows patient refused biopsy as ordered as well as bone scan GI follows patient declined EGD/colonoscopy monitor HH, up after transfusion 10/15 low iron but high ferritin, stool OB negative x 3 empiric abx, ID follows, blood cx negative, wound cx negative, urine cx mixed GPO, colony <10,000 leukocytosis likely reactive, due to malignancy in acute renal failrue and hypo Na today: nephro follows started on IVF off Lasix , avoid nephrotoxic hyper Ca management , correction of electrolytes , s/p Aredia -per nephro O2 ; HHN prn fup with CXR, Venous Duplex with evidence of acute bilateral DVT LE. patient had IVC filter as evident on imaging, further management as per heme/ onco urologist seen the patient, does not recommend stents, instead bilateral nephrostomies, however patient declined urologist concurred that leukocytosis more likely due to malignancy than possible pyelo pain management bowel regimen case discussed and evaluated by supervising physician Subjective Allergies: Coded Allergies: No Known Allergies (Unverified , 10/08/16) Subjective persistent leukocytosis, afebrile up after transfusion in ARF with creat 1.6 and hyponatremia, Na 128 Objective Last 24 Hour Vital Signs Date Time Temp Pulse Resp B/P Pulse Ox O2 Delivery O2 Flow Rate FiO2 10/16/16 11:56 97.5 94 15 95/59 93 Room Air 10/16/16 08:04 98.1 100 16 108/69 Room Air 10/16/16 04:00 97.5 98 18 90/60 91 Room Air 10/16/16 00:00 96.8 92 18 105/63 93 Room Air 10/15/16 20:00 98.6 80 17 109/62 96 Room Air 10/15/16 19:36 98.1 10/15/16 16:00 98.1 93 16 111/67 92 Room Air Intake and Output 10/15/16 10/16/16 19:00 07:00 Intake Total 1471.666 ml 530 ml Output Total 400 ml Balance 1071.666 ml 530 ml Intake Oral 800 ml 430 ml IV Total 421.666 ml 100 ml Blood Product 250 ml Output Urine Total 400 ml # Voids 5 Objective General Appearance: no acute distress, other - awake, alert, resposive, chronically ill looking female, older than her biological age HEENT: normocephalic, atraumatic, anicteric, mucous membranes moist Respiratory/Chest: lungs clear - with moderate air entry , no respiratory distress, no accessory muscle use Cardiovascular: normal peripheral pulses, regular rhythm, no JVD Abdomen: normal bowel sounds - abdomen soft, mild diffused tenderness, no rebound, no guarding, no CVAT Genitourinary: normal external genitalia Extremities: no edema, pedal pulses normal Neurologic/Psychiatric: alert, oriented x 3, responsive, normal mood/affect Musculoskeletal: normal muscle bulk Laboratory Tests 10/16/16 07:47: White Blood Count 21.0H, Red Blood Count 3.84L, Hemoglobin 10.4#L, Hematocrit 31.8#L, Mean Corpuscular Volume 83, Mean Corpuscular Hemoglobin 27.2, Mean Corpuscular Hemoglobin Concent 32.8, Red Cell Distribution Width 16.1H, Platelet Count 774H, Mean Platelet Volume 4.6L, Neutrophils (%) (Auto) , Lymphocytes (%) (Auto) , Monocytes (%) (Auto) , Eosinophils (%) (Auto) , Basophils (%) (Auto) , Differential Total Cells Counted 100, Neutrophils % ( Manual) 93H, Lymphocytes % (Manual) 1L, Monocytes % (Manual) 3, Eosinophils % ( Manual) 2, Basophils % (Manual) 1, Band Neutrophils 0, Platelet Estimate IncreasedH, Platelet Morphology Normal, Hypochromasia 1+, Anisocytosis 1+, Sodium Level 128L, Potassium Level 4.9, Chloride Level 94L, Carbon Dioxide Level 17L, Anion Gap 17H, Blood Urea Nitrogen 18, Creatinine 1.6H, Estimat Glomerular Filtration Rate 33.5, Glucose Level 88, Calcium Level 7.6L, Total Bilirubin 0.3, Aspartate Amino Transf (AST/SGOT) 11, Alanine Aminotransferase ( ALT/SGPT) 5, Alkaline Phosphatase 93, Total Protein 5.8L, Albumin 1.7L, Globulin 4.1, Albumin/Globulin Ratio 0.4L, Vancomycin Level Trough 29.0H Current Medications Medications (Trade) Dose Ordered Sig/[place] Route PRN Reason Start Time Stop Time Status Last Admin Dose Admin Acetaminophen (Tylenol) 650 mg Q4H PRN ORAL Mild Pain/Temp > 100.5 10/09/16 01:00 11/08/16 00:59 10/09/16 01:52 Acetaminophen/ Hydrocodone Bitart ([place] 5/325) 1 tab Q4H PRN ORAL Moderate Pain (Pain Scale 4-6) 10/12/16 16:45 10/19/16 16:44 10/16/16 01:09 Bisacodyl (Dulcolax) 10 mg DAILYPRN PRN ORAL Constipation 10/12/16 17:15 11/11/16 17:14 10/13/16 20:37 Dextrose/Sodium Chloride (D5ns) 1,000 ml @ 100 mls/hr Q10H IV 10/16/16 13:00 11/15/16 12:59 10/16/16 13:28 Docusate Sodium (Colace) 100 mg TWICE A DAY ORAL 10/09/16 09:00 11/08/16 08:59 10/16/16 08:38 Fluconazole/ Sodium Chloride 100 ml @ 100 mls/hr Q24H IV 10/16/16 20:00 10/23/16 19:59 Magnesium Hydroxide 30 ml 30 ml DAILYPRN PRN ORAL Constipation Second Line 10/12/16 17:15 11/11/16 17:14 Pantoprazole (Protonix) 40 mg DAILY ORAL 10/11/16 09:00 11/10/16 08:59 10/16/16 08:38 Piperacillin Sod/ Tazobactam Sod 3.375 gm/Dextrose 110 ml @ 27.5 mls/hr EVERY 8 HOURS IVPB 10/13/16 14:00 10/18/16 13:59 10/16/16 06:51 Sennosides (Senokot) 8.6 mg DAILY PRN ORAL Constipation 10/12/16 17:15 11/11/16 17:14 10/13/16 20:37 Sodium Citrate (Bicitra) 30 ml EVERY 6 HOURS ORAL 10/16/16 12:30 11/15/16 12:29 10/16/16 12:47 Vancomycin HCl (Vanco rx to dose) 1 ea DAILY PRN MISC PER RX PROTOCOL 10/09/16 11:45 11/08/16 11:44 Carlos (Abbiarabella)Rocío NP Oct 16, 2016 13:46
[2016-10-16] MEDS ORDERED: Tubing Blood Filter IV ONE (14:06)
[2016-10-16] MEDS ORDERED: NS 275ml ONE (14:06)
[2016-10-16] MEDS ORDERED: Tubing IV Secondary IV ONE (14:07)
--- NOTE | 2016-10-16 14:09 | General Progress Note ---
Assessment/Plan Problem List: (1) Anemia ICD Codes: D64.9 - Anemia, unspecified SNOMED: 535338596 (2) Skin infection ICD Codes: L08.9 - Local infection of the skin and subcutaneous tissue, unspecified SNOMED: 938580721 (3) Sepsis ICD Codes: A41.9 - Sepsis, unspecified organism SNOMED: 25766994 (4) JAY (acute kidney injury) ICD Codes: N17.9 - Acute kidney failure, unspecified SNOMED: 93090390 Status: progressing Assessment/Plan mets cancer w hydro refuses any procedure whatsoever spread cancer psych patient anemia improved dc planning might benefit from comfort care Subjective ROS Limited/Unobtainable: Yes Constitutional: Reports: no symptoms Allergies: Coded Allergies: No Known Allergies (Unverified , 10/08/16) Objective Last 24 Hour Vital Signs Date Time Temp Pulse Resp B/P Pulse Ox O2 Delivery O2 Flow Rate FiO2 10/16/16 11:56 97.5 94 15 95/59 93 Room Air 10/16/16 08:04 98.1 100 16 108/69 Room Air 10/16/16 04:00 97.5 98 18 90/60 91 Room Air 10/16/16 00:00 96.8 92 18 105/63 93 Room Air 10/15/16 20:00 98.6 80 17 109/62 96 Room Air 10/15/16 19:36 98.1 10/15/16 16:00 98.1 93 16 111/67 92 Room Air Intake and Output 10/15/16 10/16/16 19:00 07:00 Intake Total 1471.666 ml 530 ml Output Total 400 ml Balance 1071.666 ml 530 ml Intake Oral 800 ml 430 ml IV Total 421.666 ml 100 ml Blood Product 250 ml Output Urine Total 400 ml # Voids 5 Laboratory Tests 10/16/16 07:47: White Blood Count 21.0H, Red Blood Count 3.84L, Hemoglobin 10.4#L, Hematocrit 31.8#L, Mean Corpuscular Volume 83, Mean Corpuscular Hemoglobin 27.2, Mean Corpuscular Hemoglobin Concent 32.8, Red Cell Distribution Width 16.1H, Platelet Count 774H, Mean Platelet Volume 4.6L, Neutrophils (%) (Auto) , Lymphocytes (%) (Auto) , Monocytes (%) (Auto) , Eosinophils (%) (Auto) , Basophils (%) (Auto) , Differential Total Cells Counted 100, Neutrophils % ( Manual) 93H, Lymphocytes % (Manual) 1L, Monocytes % (Manual) 3, Eosinophils % ( Manual) 2, Basophils % (Manual) 1, Band Neutrophils 0, Platelet Estimate IncreasedH, Platelet Morphology Normal, Hypochromasia 1+, Anisocytosis 1+, Sodium Level 128L, Potassium Level 4.9, Chloride Level 94L, Carbon Dioxide Level 17L, Anion Gap 17H, Blood Urea Nitrogen 18, Creatinine 1.6H, Estimat Glomerular Filtration Rate 33.5, Glucose Level 88, Calcium Level 7.6L, Total Bilirubin 0.3, Aspartate Amino Transf (AST/SGOT) 11, Alanine Aminotransferase ( ALT/SGPT) 5, Alkaline Phosphatase 93, Total Protein 5.8L, Albumin 1.7L, Globulin 4.1, Albumin/Globulin Ratio 0.4L, Vancomycin Level Trough 29.0H Height (Feet): 5 Height (Inches): 2.00 Weight (Pounds): 130 General Appearance: confused Respiratory/Chest: lungs clear Abdomen: soft Sulma Desir MD Oct 16, 2016 14:09
--- NOTE | 2016-10-16 15:15 | Infectious Diseases Prog Note ---
Assessment/Plan Problems: (1) Skin infection Assessment & Plan: S/P lymph node biopsy complicated with skin wound infection of the left neck, wound culture is negative . on vancomycin and zosyn empirically , still has leukocytosis, suspect due to ureter obstruction and pyelonephritis, refused nephrostomy , fluconazole was added for fungal coverage , await culture results (2) Sepsis Assessment & Plan: with leukocytosis , suspect malignancy related VS pyelonephritis due to ureter obstruction from pelvic malignancy , recommend nephrostomy to relief obstruction by IR, but patient refused. culture results are negative so far , continue vancomycin and zosyn for now, recommend hospice care, since she has been refusing medical care and procedures. (3) Anemia Assessment & Plan: due to chronic disease and malignancy, monitor H/H transfuse blood as needed, rule out GI bleeding as a source (4) JAY (acute kidney injury) Assessment & Plan: suspect due to ureter obstruction due to pelvic mass, recommend urology consult for stent placement , or nephrostomy by IR, continue hydration, monitor UOP, avoid nephrotoxic meds (5) Pelvic mass in female Assessment & Plan: suspect recurrent ovarian CA, oncology is following, needs biopsy to confirm , but she refused it, may benefit from chemo for palliative purpose. recommend hospice care Subjective Constitutional: Reports: anorexia, fatigue Respiratory: Reports: dry cough Gastrointestinal/Abdominal: Reports: bloating, constipation Neurologic: Reports: weakness Psychiatric: Reports: depression Skin: Reports: ulcer Allergies: Coded Allergies: No Known Allergies (Unverified , 10/08/16) All Systems: reviewed and negative except above Objective Vital Signs Last 24 Hour Vital Signs Date Time Temp Pulse Resp B/P Pulse Ox O2 Delivery O2 Flow Rate FiO2 10/16/16 11:56 97.5 94 15 95/59 93 Room Air 10/16/16 08:04 98.1 100 16 108/69 Room Air 10/16/16 04:00 97.5 98 18 90/60 91 Room Air 10/16/16 00:00 96.8 92 18 105/63 93 Room Air 10/15/16 20:00 98.6 80 17 109/62 96 Room Air 10/15/16 19:36 98.1 10/15/16 16:00 98.1 93 16 111/67 92 Room Air Height (Feet): 5 Height (Inches): 2.00 Weight (Pounds): 130 General Appearance: WD/WN, no acute distress HEENT: normocephalic, atraumatic, anicteric, mucous membranes moist, other - left anterior neck wound Respiratory/Chest: chest wall non-tender, lungs clear, normal breath sounds, no respiratory distress, no accessory muscle use Cardiovascular: normal peripheral pulses, normal rate, regular rhythm, no gallop/murmur, no JVD Abdomen: normal bowel sounds, soft, non tender, no organomegaly, non distended , no mass Extremities: no cyanosis, no clubbing Skin: no rash, no lesions, ulcers Laboratory Tests Test 10/16/16 07:47 White Blood Count 21.0 K/UL (4.8-10.8) H Red Blood Count 3.84 M/UL (4.20-5.40) L Hemoglobin 10.4 G/DL (12.0-16.0) #L Hematocrit 31.8 % (37.0-47.0) #L Mean Corpuscular Volume 83 FL (80-99) Mean Corpuscular Hemoglobin 27.2 PG (27.0-31.0) Mean Corpuscular Hemoglobin Concent 32.8 G/DL (32.0-36.0) Red Cell Distribution Width 16.1 % (11.6-14.8) H Platelet Count 774 K/UL (150-450) H Mean Platelet Volume 4.6 FL (6.5-10.1) L Neutrophils (%) (Auto) % (45.0-75.0) Lymphocytes (%) (Auto) % (20.0-45.0) Monocytes (%) (Auto) % (1.0-10.0) Eosinophils (%) (Auto) % (0.0-3.0) Basophils (%) (Auto) % (0.0-2.0) Differential Total Cells Counted 100 Neutrophils % (Manual) 93 % (45-75) H Lymphocytes % (Manual) 1 % (20-45) L Monocytes % (Manual) 3 % (1-10) Eosinophils % (Manual) 2 % (0-3) Basophils % (Manual) 1 % (0-2) Band Neutrophils 0 % (0-8) Platelet Estimate Increased H Platelet Morphology Normal Hypochromasia 1+ Anisocytosis 1+ Sodium Level 128 mEQ/L (135-145) L Potassium Level 4.9 mEQ/L (3.4-4.9) Chloride Level 94 mEQ/L (98-107) L Carbon Dioxide Level 17 mEQ/L (20-30) L Anion Gap 17 (5-15) H Blood Urea Nitrogen 18 mg/dL (7-23) Creatinine 1.6 mg/dL (0.5-0.9) H Estimat Glomerular Filtration Rate 33.5 mL/min (>60) Glucose Level 88 mg/dL (74-106) Calcium Level 7.6 mg/dL (8.6-10.2) L Total Bilirubin 0.3 mg/dL (0.0-1.2) Aspartate Amino Transf (AST/SGOT) 11 U/L (5-40) Alanine Aminotransferase (ALT/SGPT) 5 U/L (3-33) Alkaline Phosphatase 93 U/L (35-104) Total Protein 5.8 g/dL (6.6-8.7) L Albumin 1.7 g/dL (3.5-5.2) L Globulin 4.1 g/dL Albumin/Globulin Ratio 0.4 (1.0-2.7) L Vancomycin Level Trough 29.0 ug/mL (5.0-12.0) H Current Medications Medications (Trade) Dose Ordered Sig/[place] Route PRN Reason Start Time Stop Time Status Last Admin Dose Admin Acetaminophen (Tylenol) 650 mg Q4H PRN ORAL Mild Pain/Temp > 100.5 10/09/16 01:00 11/08/16 00:59 10/09/16 01:52 Acetaminophen/ Hydrocodone Bitart ([place] 5/325) 1 tab Q4H PRN ORAL Moderate Pain (Pain Scale 4-6) 10/12/16 16:45 10/19/16 16:44 10/16/16 01:09 Bisacodyl (Dulcolax) 10 mg DAILYPRN PRN ORAL Constipation 10/12/16 17:15 11/11/16 17:14 10/13/16 20:37 Dextrose/Sodium Chloride (D5ns) 1,000 ml @ 100 mls/hr Q10H IV 10/16/16 13:00 11/15/16 12:59 10/16/16 13:28 Docusate Sodium (Colace) 100 mg TWICE A DAY ORAL 10/09/16 09:00 11/08/16 08:59 10/16/16 08:38 Fluconazole/ Sodium Chloride 100 ml @ 100 mls/hr Q24H IV 10/16/16 20:00 10/23/16 19:59 Magnesium Hydroxide 30 ml 30 ml DAILYPRN PRN ORAL Constipation Second Line 10/12/16 17:15 11/11/16 17:14 Pantoprazole (Protonix) 40 mg DAILY ORAL 10/11/16 09:00 11/10/16 08:59 10/16/16 08:38 Piperacillin Sod/ Tazobactam Sod 3.375 gm/Dextrose 110 ml @ 27.5 mls/hr EVERY 8 HOURS IVPB 10/13/16 14:00 10/18/16 13:59 10/16/16 14:19 Sennosides (Senokot) 8.6 mg DAILY PRN ORAL Constipation 10/12/16 17:15 11/11/16 17:14 10/13/16 20:37 Sodium Citrate (Bicitra) 30 ml EVERY 6 HOURS ORAL 10/16/16 12:30 11/15/16 12:29 10/16/16 12:47 Vancomycin HCl (Vanco rx to dose) 1 ea DAILY PRN MISC PER RX PROTOCOL 10/09/16 11:45 11/08/16 11:44 Jaden Su M.D. Oct 16, 2016 15:15
[2016-10-16 15:55] VITALS: BP 100/60
--- NOTE | 2016-10-16 16:46 | General Progress Note ---
Assessment/Plan Assessment/Plan IMPRESSION: 1. Extensive disseminated malignancy, as described above, with a large pelvic mass, extensive lymphadenopathy, extensive osseous metastases, hepatic and pulmonary metastases. There is also unusual circumferential involvement of the bladder wall - discussed multiple times, patient refuses 2. Hypercalcemia, likely related to metastatic malignancy 3. Acute thrombus bilateral common femoral vein s/p IVC filter placement 4. Anemia of chronic disease (severe). 5. Hx of ovarian cancer 6. Hyperferritinemia, most likely reactive. 7. History of schizophrenia. 8. History of ovarian cancer. 9. Hypertension. 10. Chronic obstructive pulmonary disease. 11. History of seizure. 12. Skin abscess. 13. Failure to thrive. 14. Hepatitis C RECOMMENDATIONS: 1. Watch count. Hgb goal >7. 2. PATIENT IS REFUSING biopsy 3. PRBC transfusion on p.r.n. basis. Refused meds 4. Has refused endoscopy/colonoscopy 5. hx of noncomplance with care/treatment 6. Consider hospice/palliative care given patient refusal for workup/treatment, would benefit from this service 7. Does not require iron 8. SCD for DVT prophylaxis. 9. Reviewed tumor markers. 10. Staff Thank you, Florentino Alvarez MD Subjective Constitutional: Reports: no symptoms HEENT: Reports: no symptoms Cardiovascular: Reports: no symptoms Respiratory: Reports: no symptoms Gastrointestinal/Abdominal: Reports: no symptoms Genitourinary: Reports: no symptoms Neurologic/Psychiatric: Reports: no symptoms Hematologic/Lymphatic: Reports: no symptoms Allergies: Coded Allergies: No Known Allergies (Unverified , 10/08/16) Objective Last 24 Hour Vital Signs Date Time Temp Pulse Resp B/P Pulse Ox O2 Delivery O2 Flow Rate FiO2 10/16/16 15:55 100.4 104 16 100/60 92 Room Air 10/16/16 11:56 97.5 94 15 95/59 93 Room Air 10/16/16 08:04 98.1 100 16 108/69 Room Air 10/16/16 04:00 97.5 98 18 90/60 91 Room Air 10/16/16 00:00 96.8 92 18 105/63 93 Room Air 10/15/16 20:00 98.6 80 17 109/62 96 Room Air 10/15/16 19:36 98.1 Intake and Output 10/15/16 10/16/16 19:00 07:00 Intake Total 1471.666 ml 530 ml Output Total 400 ml Balance 1071.666 ml 530 ml Intake Oral 800 ml 430 ml IV Total 421.666 ml 100 ml Blood Product 250 ml Output Urine Total 400 ml # Voids 5 Laboratory Tests 10/16/16 07:47: White Blood Count 21.0H, Red Blood Count 3.84L, Hemoglobin 10.4#L, Hematocrit 31.8#L, Mean Corpuscular Volume 83, Mean Corpuscular Hemoglobin 27.2, Mean Corpuscular Hemoglobin Concent 32.8, Red Cell Distribution Width 16.1H, Platelet Count 774H, Mean Platelet Volume 4.6L, Neutrophils (%) (Auto) , Lymphocytes (%) (Auto) , Monocytes (%) (Auto) , Eosinophils (%) (Auto) , Basophils (%) (Auto) , Differential Total Cells Counted 100, Neutrophils % ( Manual) 93H, Lymphocytes % (Manual) 1L, Monocytes % (Manual) 3, Eosinophils % ( Manual) 2, Basophils % (Manual) 1, Band Neutrophils 0, Platelet Estimate IncreasedH, Platelet Morphology Normal, Hypochromasia 1+, Anisocytosis 1+, Sodium Level 128L, Potassium Level 4.9, Chloride Level 94L, Carbon Dioxide Level 17L, Anion Gap 17H, Blood Urea Nitrogen 18, Creatinine 1.6H, Estimat Glomerular Filtration Rate 33.5, Glucose Level 88, Calcium Level 7.6L, Total Bilirubin 0.3, Aspartate Amino Transf (AST/SGOT) 11, Alanine Aminotransferase ( ALT/SGPT) 5, Alkaline Phosphatase 93, Total Protein 5.8L, Albumin 1.7L, Globulin 4.1, Albumin/Globulin Ratio 0.4L, Vancomycin Level Trough 29.0H Height (Feet): 5 Height (Inches): 2.00 Weight (Pounds): 130 General Appearance: no apparent distress EENT: TMs normal Neck: supple Cardiovascular: regular rhythm Respiratory/Chest: normal breath sounds Abdomen: soft Pelvis: no masses Extremities: non-tender Edema: no edema noted Arm (L), no edema noted Arm (R), no edema noted Leg (L), no edema noted Leg (R), no edema noted Pedal (L), no edema noted Pedal (R), no edema noted Generalized Neurologic: alert Skin: warm/dry Lymphatic: normal anterior cervical (L), normal anterior cervical (R), normal axillary (L), normal axillary (R), normal inguinal (L), normal inguinal (R), normal other, normal posterior cervical (L), normal posterior cervical (R), normal submandibular (L), normal submandibular (R), normal supraclavicular (L), normal supraclavicular (R) FLORENTINO ALVAREZ Oct 16, 2016 16:46
[2016-10-16 20:00] VITALS: BP 102/61
[2016-10-16] MEDS: Fluconazole 200mg/100ml (Pre-Mix) IV SCH (20:09)
[2016-10-17] VITALS: BP 94/53
[2016-10-17] MEDS: Sodium Citrate 30ml ORAL SCH ×4 (00:32→18:00)
[2016-10-17 04:00] VITALS: BP 113/64
[2016-10-17 04:59] LABS: ALANINE AMINOTRANSFERASE < 5 U/L (3-33); ALBUMIN/GLOBULIN RATIO 0.4 (1.0-2.7); ANION GAP 16 (5-15); ASPARTATE AMINO TRANSFERASE 11 U/L (5-40); CALCIUM 7.4 mg/dL (8.6-10.2); CARBON DIOXIDE 17 mEQ/L (20-30); CHLORIDE 95 mEQ/L (98-107); CREATININE 1.8 mg/dL (0.5-0.9); GLOMERULAR FILTRATION RATE 29.2 mL/min (>60); HEMOLYSIS 0; POTASSIUM 4.5 mEQ/L (3.4-4.9); SODIUM 128 mEQ/L (135-145)
[2016-10-17] MEDS: Piperacillin/Tazobactam 3.375 GM in D5W 110 ML IVPB SCH ×2 (05:08→21:30)
[2016-10-17 05:37] LABS: CRP QUANT 22.6 mg/dL (< 0.5); MAGNESIUM 1.6 mg/dL (1.7-2.5); PHOSPHORUS 3.3 mg/dL (2.5-4.8); URIC ACID 4.6 mg/dL (3.0-7.5)
[2016-10-17 08:15] VITALS: BP 104/60
[2016-10-17] MEDS: Docusate 100mg cap ORAL SCH ×2 (09:00→18:00)
[2016-10-17] MEDS: D5NS 1,000 ML IV SCH ×2 (09:06→19:00)
[2016-10-17] MEDS: Norco 5mg/325mg tab ORAL PRN ×2 (09:14→18:00)
--- NOTE | 2016-10-17 10:16 | Infectious Diseases Prog Note ---
Assessment/Plan Problems: (1) Skin infection Assessment & Plan: S/P lymph node biopsy complicated with skin wound infection of the left neck, wound culture is negative . on vancomycin and zosyn empirically , still has leukocytosis, suspect due to ureter obstruction and pyelonephritis, refused nephrostomy , fluconazole was added for fungal coverage , await culture results (2) Sepsis Assessment & Plan: with leukocytosis , suspect malignancy related VS pyelonephritis due to ureter obstruction from pelvic malignancy , recommend nephrostomy to relief obstruction by IR, but patient refused. culture results are negative so far , continue vancomycin and zosyn for now, recommend hospice care, since she has been refusing medical care and procedures. (3) Anemia Assessment & Plan: due to chronic disease and malignancy, monitor H/H transfuse blood as needed, rule out GI bleeding as a source (4) JAY (acute kidney injury) Assessment & Plan: suspect due to ureter obstruction due to pelvic mass, recommend urology consult for stent placement , or nephrostomy by IR, continue hydration, monitor UOP, avoid nephrotoxic meds (5) Pelvic mass in female Assessment & Plan: suspect recurrent ovarian CA, oncology is following, needs biopsy to confirm , but she refused it, may benefit from chemo for palliative purpose. recommend hospice care Subjective Constitutional: Reports: anorexia, fatigue Cardiovascular: Reports: dyspnea on exertion Gastrointestinal/Abdominal: Reports: bloating, constipation Allergies: Coded Allergies: No Known Allergies (Unverified , 10/08/16) Objective Vital Signs Last 24 Hour Vital Signs Date Time Temp Pulse Resp B/P Pulse Ox O2 Delivery O2 Flow Rate FiO2 10/17/16 08:15 97.9 101 20 104/60 97 Room Air 10/17/16 04:00 97.7 100 18 113/64 97 Room Air 10/17/16 00:00 97.7 85 18 94/53 92 Room Air 10/16/16 20:00 98.3 96 20 102/61 90 Room Air 10/16/16 18:30 97.9 10/16/16 17:41 100.4 10/16/16 15:55 100.4 104 16 100/60 92 Room Air 10/16/16 11:56 97.5 94 15 95/59 93 Room Air Height (Feet): 5 Height (Inches): 2.00 Weight (Pounds): 130 General Appearance: WD/WN, no acute distress, cachetic HEENT: normocephalic, atraumatic, anicteric, other - left anterior neck wound Respiratory/Chest: chest wall non-tender, lungs clear, normal breath sounds, no respiratory distress Cardiovascular: normal peripheral pulses, normal rate, regular rhythm Abdomen: normal bowel sounds, distended, tender, mass Extremities: no cyanosis, no clubbing Laboratory Tests Test 10/17/16 03:45 Sodium Level 128 mEQ/L (135-145) L Potassium Level 4.5 mEQ/L (3.4-4.9) Chloride Level 95 mEQ/L (98-107) L Carbon Dioxide Level 17 mEQ/L (20-30) L Anion Gap 16 (5-15) H Blood Urea Nitrogen 18 mg/dL (7-23) Creatinine 1.8 mg/dL (0.5-0.9) H Estimat Glomerular Filtration Rate 29.2 mL/min (>60) Glucose Level 87 mg/dL (74-106) Uric Acid 4.6 mg/dL (3.0-7.5) Calcium Level 7.4 mg/dL (8.6-10.2) L Phosphorus Level 3.3 mg/dL (2.5-4.8) Magnesium Level 1.6 mg/dL (1.7-2.5) L Total Bilirubin 0.3 mg/dL (0.0-1.2) Gamma Glutamyl Transpeptidase 37 U/L (5-36) H Aspartate Amino Transf (AST/SGOT) 11 U/L (5-40) Alanine Aminotransferase (ALT/SGPT) < 5 U/L (3-33) Alkaline Phosphatase 111 U/L (35-104) H Total Creatine Kinase 38 U/L (26-140) C-Reactive Protein, Quantitative 22.6 mg/dL (< 0.5) H Pro-B-Type Natriuretic Peptide 4967 pg/mL (0-125) H Total Protein 6.0 g/dL (6.6-8.7) L Albumin 1.8 g/dL (3.5-5.2) L Globulin 4.2 g/dL Albumin/Globulin Ratio 0.4 (1.0-2.7) L Random Vancomycin Level 24.6 ug/mL Current Medications Medications (Trade) Dose Ordered Sig/[place] Route PRN Reason Start Time Stop Time Status Last Admin Dose Admin Acetaminophen (Tylenol) 650 mg Q4H PRN ORAL Mild Pain/Temp > 100.5 10/09/16 01:00 11/08/16 00:59 10/16/16 17:31 Acetaminophen/ Hydrocodone Bitart ([place] 5/325) 1 tab Q4H PRN ORAL Moderate Pain (Pain Scale 4-6) 10/12/16 16:45 10/19/16 16:44 10/17/16 09:14 Bisacodyl (Dulcolax) 10 mg DAILYPRN PRN ORAL Constipation 10/12/16 17:15 11/11/16 17:14 10/13/16 20:37 Dextrose/Sodium Chloride (D5ns) 1,000 ml @ 100 mls/hr Q10H IV 10/16/16 13:00 11/15/16 12:59 10/17/16 09:06 Docusate Sodium (Colace) 100 mg TWICE A DAY ORAL 10/09/16 09:00 11/08/16 08:59 10/16/16 17:55 Fluconazole/ Sodium Chloride 100 ml @ 100 mls/hr Q24H IV 10/16/16 20:00 10/23/16 19:59 10/16/16 20:09 Magnesium Hydroxide 30 ml 30 ml DAILYPRN PRN ORAL Constipation Second Line 10/12/16 17:15 11/11/16 17:14 Pantoprazole (Protonix) 40 mg DAILY ORAL 10/11/16 09:00 11/10/16 08:59 10/17/16 09:06 Piperacillin Sod/ Tazobactam Sod 3.375 gm/Dextrose 110 ml @ 27.5 mls/hr EVERY 8 HOURS IVPB 10/13/16 14:00 10/18/16 23:59 10/17/16 05:08 Sennosides (Senokot) 8.6 mg DAILY PRN ORAL Constipation 10/12/16 17:15 11/11/16 17:14 10/13/16 20:37 Sodium Citrate (Bicitra) 30 ml EVERY 6 HOURS ORAL 10/16/16 12:30 11/15/16 12:29 10/17/16 06:00 Vancomycin HCl (Vanco rx to dose) 1 ea DAILY PRN MISC PER RX PROTOCOL 10/09/16 11:45 11/08/16 11:44 Jaden Su M.D. Oct 17, 2016 10:16
--- NOTE | 2016-10-17 11:59 | General Progress Note ---
Assessment/Plan Status: deteriorating - serum Cr Assessment/Plan status: Hypercalcemia, related to Neoplastic process- IMPROVED Symptomatic Anemia, Etiology?? Cancer, GI Loss, .... Acute renal failure now- Cr up 1.8, high Vanco level Sugg: Restart IV- and [place]- urine studies- monitor Vanco level- Hold Vanco for now- adjust Zosyn dose- check lytes and Ca and Phos Aredia given 90mg 10/09 Monitor Ca and Phos and Lytes Transfusion per child care center assistant director per consultants Subjective ROS Limited/Unobtainable: No Constitutional: Reports: malaise, weakness Allergies: Coded Allergies: No Known Allergies (Unverified , 10/08/16) Objective Last 24 Hour Vital Signs Date Time Temp Pulse Resp B/P Pulse Ox O2 Delivery O2 Flow Rate FiO2 10/17/16 08:15 97.9 101 20 104/60 97 Room Air 10/17/16 04:00 97.7 100 18 113/64 97 Room Air 10/17/16 00:00 97.7 85 18 94/53 92 Room Air 10/16/16 20:00 98.3 96 20 102/61 90 Room Air 10/16/16 18:30 97.9 10/16/16 17:41 100.4 10/16/16 15:55 100.4 104 16 100/60 92 Room Air 10/16/16 11:56 97.5 94 15 95/59 93 Room Air Intake and Output 10/16/16 10/17/16 19:00 07:00 Intake Total 1160.0 ml 2187.5 ml Balance 1160.0 ml 2187.5 ml Intake Oral 800 ml 1550 ml IV Total 360.0 ml 637.5 ml # Voids 2 6 # Bowel Movements 4 Laboratory Tests 10/17/16 03:45: Sodium Level 128L, Potassium Level 4.5, Chloride Level 95L, Carbon Dioxide Level 17L, Anion Gap 16H, Blood Urea Nitrogen 18, Creatinine 1.8H, Estimat Glomerular Filtration Rate 29.2, Glucose Level 87, Uric Acid 4.6, Calcium Level 7.4L, Phosphorus Level 3.3, Magnesium Level 1.6L, Total Bilirubin 0.3, Gamma Glutamyl Transpeptidase 37H, Aspartate Amino Transf (AST/SGOT) 11, Alanine Aminotransferase (ALT/SGPT) < 5, Alkaline Phosphatase 111H, Total Creatine Kinase 38, C-Reactive Protein, Quantitative 22.6H, Pro-B-Type Natriuretic Peptide 4967H, Total Protein 6.0L, Albumin 1.8L, Globulin 4.2, Albumin/Globulin Ratio 0.4L, Random Vancomycin Level 24.6 Height (Feet): 5 Height (Inches): 2.00 Weight (Pounds): 130 General Appearance: no apparent distress, lethargic Objective other physical exam not changed CLEMENTE APPIAH Oct 17, 2016 11:58
[2016-10-17 12:15] VITALS: BP_SYST 152; BP_SYST 99; BP_DIAS 56; BP_DIAS 79
[2016-10-17] MEDS: Clindamycin 600mg 50 ML IV SCH ×2 (13:24→20:53)
--- NOTE | 2016-10-17 13:44 | General Progress Note ---
Assessment/Plan Assessment/Plan IMPRESSION: 1. Extensive disseminated malignancy, as described above, with a large pelvic mass, extensive lymphadenopathy, extensive osseous metastases, hepatic and pulmonary metastases. There is also unusual circumferential involvement of the bladder wall - discussed multiple times, patient refuses 2. Hypercalcemia, likely related to metastatic malignancy 3. Acute thrombus bilateral common femoral vein s/p IVC filter placement 4. Anemia of chronic disease (severe). 5. Hx of ovarian cancer 6. Hyperferritinemia, most likely reactive. 7. History of schizophrenia. 8. History of ovarian cancer. 9. Hypertension. 10. Chronic obstructive pulmonary disease. 11. History of seizure. 12. Skin abscess. 13. Failure to thrive. 14. Hepatitis C RECOMMENDATIONS: 1. Watch count. Hgb goal >7. 2. PATIENT IS REFUSING biopsy 3. PRBC transfusion on p.r.n. basis. Refused meds 4. Has refused endoscopy/colonoscopy 5. hx of noncomplance with care/treatment 6. Consider hospice/palliative care given patient refusal for workup/treatment, would benefit from this service 7. Does not require iron 8. SCD for DVT prophylaxis. 9. Reviewed tumor markers. 10. Staff Thank you, Miguel Alvarez MD Subjective Constitutional: Reports: no symptoms HEENT: Reports: no symptoms Cardiovascular: Reports: no symptoms Respiratory: Reports: no symptoms Gastrointestinal/Abdominal: Reports: no symptoms Genitourinary: Reports: no symptoms Neurologic/Psychiatric: Reports: no symptoms Endocrine: Reports: no symptoms Hematologic/Lymphatic: Reports: anemia Allergies: Coded Allergies: No Known Allergies (Unverified , 10/08/16) Subjective stable, potentially to be discharged soon Objective Last 24 Hour Vital Signs Date Time Temp Pulse Resp B/P Pulse Ox O2 Delivery O2 Flow Rate FiO2 10/17/16 12:15 97.6 97 19 99/56 97 Room Air 10/17/16 08:15 97.9 101 20 104/60 97 Room Air 10/17/16 04:00 97.7 100 18 113/64 97 Room Air 10/17/16 00:00 97.7 85 18 94/53 92 Room Air 10/16/16 20:00 98.3 96 20 102/61 90 Room Air 10/16/16 18:30 97.9 10/16/16 17:41 100.4 10/16/16 15:55 100.4 104 16 100/60 92 Room Air Intake and Output 10/16/16 10/17/16 19:00 07:00 Intake Total 1160.0 ml 2187.5 ml Balance 1160.0 ml 2187.5 ml Intake Oral 800 ml 1550 ml IV Total 360.0 ml 637.5 ml # Voids 2 6 # Bowel Movements 4 Laboratory Tests 10/17/16 03:45: Sodium Level 128L, Potassium Level 4.5, Chloride Level 95L, Carbon Dioxide Level 17L, Anion Gap 16H, Blood Urea Nitrogen 18, Creatinine 1.8H, Estimat Glomerular Filtration Rate 29.2, Glucose Level 87, Uric Acid 4.6, Calcium Level 7.4L, Phosphorus Level 3.3, Magnesium Level 1.6L, Total Bilirubin 0.3, Gamma Glutamyl Transpeptidase 37H, Aspartate Amino Transf (AST/SGOT) 11, Alanine Aminotransferase (ALT/SGPT) < 5, Alkaline Phosphatase 111H, Total Creatine Kinase 38, C-Reactive Protein, Quantitative 22.6H, Pro-B-Type Natriuretic Peptide 4967H, Total Protein 6.0L, Albumin 1.8L, Globulin 4.2, Albumin/Globulin Ratio 0.4L, Random Vancomycin Level 24.6 Height (Feet): 5 Height (Inches): 2.00 Weight (Pounds): 130 General Appearance: no apparent distress Neck: non-tender Cardiovascular: regular rhythm Respiratory/Chest: no accessory muscle use Extremities: non-tender Edema: 1+ Leg (L), 1+ Leg (R) Edema: mild edema Neurologic: alert Skin: warm/dry Miguel Alvarez Oct 17, 2016 13:44
--- NOTE | 2016-10-17 14:01 | Pulmonology Progress Note ---
Assessment/Plan Assessment/Plan ASSESSMENT ovarian cancer with mets extensive metastatic disseminated disease persistent leukocytosis, likely 2 to malignancy possible sepsis s/p lymph node biopsy with subsequent left neck wound infection anemia , s/p 1 u PRBC acute DVT bilateral LE hypercalcemia of malignancy acute renal failure hyponatremia bilateral pleural effusion, likely malignant COPD hydronephrosis, chronic acute kidney injury /ATN 2 to hydronephrosis, schizophrenia hepatitis C L1 compression fracture PLAN OF CARE MS floor CTAP with evidence of extensive disseminated malignancy, with a large pelvic mass, extensive lymphadenopathy, extensive osseous metastases, hepatic and pulmonary metastases, unusual circumferential involvement of the bladder wall Severe left hydronephrosis. Given the severe extent of renal cortical thinning, this is presumably long-standing. Mild right hydronephrosis, presumably due to pelvic tumor Compression fracture of the L1 vertebral body, cancer tumor markers elevated : Ca 15-3, CA 125, CA 27-29 and CEA, normal Ca 19- 9 pain management heme/onco follows patient refused biopsy as ordered as well as bone scan GI follows patient declined EGD/colonoscopy monitor HH, up after transfusion 10/15 low iron but high ferritin, stool OB negative x 3 empiric abx, ID follows, blood cx negative, wound cx negative, urine cx mixed GPO, colony <10,000 leukocytosis likely reactive, due to malignancy in acute renal failure and hypo Na : nephro follows check labs in am continue on IVF off Lasix , avoid nephrotoxic hyper Ca management , correction of electrolytes , s/p Aredia -per nephro O2 ; HHN prn fup with CXR, Venous Duplex with evidence of acute bilateral DVT LE. patient had IVC filter as evident on imaging, further management as per heme/ onco urologist seen the patient, does not recommend stents, instead bilateral nephrostomies, however patient declined urologist concurred that leukocytosis more likely due to malignancy than possible pyelo pain management bowel regimen case discussed and evaluated by supervising physician Subjective Allergies: Coded Allergies: No Known Allergies (Unverified , 10/08/16) Subjective persistent leukocytosis, afebrile up after transfusion in ARF with creat 1.6 and hyponatremia, Na 128 Objective Last 24 Hour Vital Signs Date Time Temp Pulse Resp B/P Pulse Ox O2 Delivery O2 Flow Rate FiO2 10/17/16 12:15 97.6 97 19 99/56 97 Room Air 10/17/16 08:15 97.9 101 20 104/60 97 Room Air 10/17/16 04:00 97.7 100 18 113/64 97 Room Air 10/17/16 00:00 97.7 85 18 94/53 92 Room Air 10/16/16 20:00 98.3 96 20 102/61 90 Room Air 10/16/16 18:30 97.9 10/16/16 17:41 100.4 10/16/16 15:55 100.4 104 16 100/60 92 Room Air Intake and Output 10/16/16 10/17/16 19:00 07:00 Intake Total 1160.0 ml 2187.5 ml Balance 1160.0 ml 2187.5 ml Intake Oral 800 ml 1550 ml IV Total 360.0 ml 637.5 ml # Voids 2 6 # Bowel Movements 4 Objective General Appearance: no acute distress, other - awake, alert, resposive, chronically ill looking female, older than her biological age HEENT: normocephalic, atraumatic, anicteric, mucous membranes moist Respiratory/Chest: lungs clear - with moderate air entry , no respiratory distress, no accessory muscle use Cardiovascular: normal peripheral pulses, regular rhythm, no JVD Abdomen: normal bowel sounds - abdomen soft, mild diffused tenderness, no rebound, no guarding, no CVAT Genitourinary: normal external genitalia Extremities: no edema, pedal pulses normal Neurologic/Psychiatric: alert, oriented x 3, responsive, normal mood/affect Musculoskeletal: normal muscle bulk Laboratory Tests 10/17/16 03:45: Sodium Level 128L, Potassium Level 4.5, Chloride Level 95L, Carbon Dioxide Level 17L, Anion Gap 16H, Blood Urea Nitrogen 18, Creatinine 1.8H, Estimat Glomerular Filtration Rate 29.2, Glucose Level 87, Uric Acid 4.6, Calcium Level 7.4L, Phosphorus Level 3.3, Magnesium Level 1.6L, Total Bilirubin 0.3, Gamma Glutamyl Transpeptidase 37H, Aspartate Amino Transf (AST/SGOT) 11, Alanine Aminotransferase (ALT/SGPT) < 5, Alkaline Phosphatase 111H, Total Creatine Kinase 38, C-Reactive Protein, Quantitative 22.6H, Pro-B-Type Natriuretic Peptide 4967H, Total Protein 6.0L, Albumin 1.8L, Globulin 4.2, Albumin/Globulin Ratio 0.4L, Random Vancomycin Level 24.6 Current Medications Medications (Trade) Dose Ordered Sig/[place] Route PRN Reason Start Time Stop Time Status Last Admin Dose Admin Acetaminophen (Tylenol) 650 mg Q4H PRN ORAL Mild Pain/Temp > 100.5 10/09/16 01:00 11/08/16 00:59 10/16/16 17:31 Acetaminophen/ Hydrocodone Bitart ([place] 5/325) 1 tab Q4H PRN ORAL Moderate Pain (Pain Scale 4-6) 10/12/16 16:45 10/19/16 16:44 10/17/16 09:14 Bisacodyl (Dulcolax) 10 mg DAILYPRN PRN ORAL Constipation 10/12/16 17:15 11/11/16 17:14 10/13/16 20:37 Clindamycin HCl/ Dextrose 50 ml @ 100 mls/hr Q8HR@0500,1300,2100 IV 10/17/16 13:00 10/24/16 12:59 10/17/16 13:24 Dextrose/Sodium Chloride (D5ns) 1,000 ml @ 100 mls/hr Q10H IV 10/16/16 13:00 11/15/16 12:59 10/17/16 09:06 Docusate Sodium (Colace) 100 mg TWICE A DAY ORAL 10/09/16 09:00 11/08/16 08:59 10/16/16 17:55 Fluconazole/ Sodium Chloride 100 ml @ 100 mls/hr Q24H IV 10/16/16 20:00 10/23/16 19:59 10/16/16 20:09 Pantoprazole (Protonix) 40 mg DAILY ORAL 10/11/16 09:00 11/10/16 08:59 10/17/16 09:06 Piperacillin Sod/ Tazobactam Sod/ Dextrose (Zosyn/D5W) 110 ml @ 27.5 mls/hr EVERY 12 HOURS IVPB 10/17/16 21:00 10/24/16 20:59 Sennosides 8.6 mg 8.6 mg DAILY PRN ORAL Constipation 10/12/16 17:15 11/11/16 17:14 10/13/16 20:37 Sodium Citrate 30 ml 30 ml EVERY 6 HOURS ORAL 10/16/16 12:30 11/15/16 12:29 10/17/16 13:24 Carlos ([facility])Rocío NP Oct 17, 2016 14:01
[2016-10-17 16:00] VITALS: BP 116/67
[2016-10-17 19:00] VITALS: BP 118/65
[2016-10-17] MEDS: Fluconazole 200mg/100ml (Pre-Mix) IV SCH (19:49)
[2016-10-18] VITALS (8 sets, daily range): BP systolic 95–148; BP diastolic 54–96
[2016-10-18] MEDS ORDERED: Morphine Sulfate 4mg/ml Inj IVP PRN
[2016-10-18] MEDS: Sodium Citrate 30ml ORAL SCH ×4 (00:16→17:39)
[2016-10-18] MEDS: Norco 5mg/325mg tab ORAL PRN ×2 (02:52→18:46)
[2016-10-18] MEDS: Clindamycin 600mg 50 ML IV SCH ×3 (04:24→20:44)
[2016-10-18] MEDS: D5NS 1,000 ML IV SCH (04:27)
[2016-10-18 07:47] LABS: MEAN CORPUSCULAR HEMOGLOBIN 27.3 PG (27.0-31.0); MEAN CORPUSCULAR HGB CONC 32.7 G/DL (32.0-36.0); MEAN CORPUSCULAR VOLUME 83 FL (80-99); PLATELET COUNT 748 K/UL (150-450); RED BLOOD COUNT 3.65 M/UL (4.20-5.40); RED CELL DISTRIBUTION WIDTH 16.9 % (11.6-14.8)
[2016-10-18 07:54] LABS: WHITE BLOOD COUNT 22.5 K/UL (4.8-10.8)
[2016-10-18 07:57] LABS: ALANINE AMINOTRANSFERASE 5 U/L (3-33); ALBUMIN/GLOBULIN RATIO 0.4 (1.0-2.7); ANION GAP 19 (5-15); ASPARTATE AMINO TRANSFERASE 10 U/L (5-40); CALCIUM 6.8 mg/dL (8.6-10.2); CARBON DIOXIDE 17 mEQ/L (20-30); CHLORIDE 87 mEQ/L (98-107); CREATININE 2.2 mg/dL (0.5-0.9); GLOMERULAR FILTRATION RATE 23.2 mL/min (>60); HEMOLYSIS 1; MAGNESIUM 1.5 mg/dL (1.7-2.5); PHOSPHORUS 3.8 mg/dL (2.5-4.8); POTASSIUM 4.3 mEQ/L (3.4-4.9); SODIUM 123 mEQ/L (135-145); TOTAL PROTEIN 5.4 g/dL (6.6-8.7); URIC ACID 4.6 mg/dL (3.0-7.5)
[2016-10-18] MEDS ORDERED: DuoNeb 0.5-3(2.5)mg/3ml neb HHN PRN (08:00)
[2016-10-18 08:29] LABS: BAND NEUTROPHILS % (MANUAL) 2 % (0-8); BASOPHILS % (MANUAL) 0 % (0-2); EOSINOPHILS % (MANUAL) 2 % (0-3); LYMPHOCYTES % (MANUAL) 17 % (20-45); NEUTROPHILS % (MANUAL) 72 % (45-75); PLATELET ESTIMATE INCREASED; PLATELET MORPHOLOGY NORMAL; TOTAL CELLS COUNTED 100
[2016-10-18] MEDS: Docusate 100mg cap ORAL SCH ×2 (09:00→17:41)
[2016-10-18] MEDS: Piperacillin/Tazobactam 3.375 GM in D5W 110 ML IVPB SCH (09:16)
--- NOTE | 2016-10-18 10:44 | Diagnostic Imaging Report ---
Indication: Dyspnea Comparison: 10/15/16 A single view chest radiograph was obtained. Findings: Vascular and interstitial prominence demonstrated. Heart is normal in size. Central vessels are prominent. Bones are osteopenic. Impression: Suspected interstitial pulmonary edema
--- NOTE | 2016-10-18 10:50 | Diagnostic Imaging Report ---
Indication: SOB Technique: One view of the chest Comparison: 07.15 Findings: Bilateral diffuse chronic appearing interstitial disease/fibrosis is again demonstrated throughout both lungs. There is some pleural fluid on the left which was not evident previously. Heart size is normal. Impression: New small left pleural effusion Stable diffuse chronic appearing parenchymal changes. No new infiltrates
--- NOTE | 2016-10-18 11:32 | General Progress Note ---
Assessment/Plan Problem List: (1) Anemia ICD Codes: D64.9 - Anemia, unspecified SNOMED: 716559354 (2) Skin infection ICD Codes: L08.9 - Local infection of the skin and subcutaneous tissue, unspecified SNOMED: 131585747 (3) Sepsis ICD Codes: A41.9 - Sepsis, unspecified organism SNOMED: 74923458 (4) JAY (acute kidney injury) ICD Codes: N17.9 - Acute kidney failure, unspecified SNOMED: 18691568 Status: deteriorating Assessment/Plan mets cancer w hydro refuses any procedure consulted dr huitron worsening leukocytosis and azotemia wheezing febrile yesterday not safe for dc hydrop Subjective Allergies: Coded Allergies: No Known Allergies (Unverified , 10/08/16) Subjective chronic pain Objective Last 24 Hour Vital Signs Date Time Temp Pulse Resp B/P Pulse Ox O2 Delivery O2 Flow Rate FiO2 10/18/16 08:32 103 24 97 Nasal Cannula 2.0 28 10/18/16 08:28 28 10/18/16 08:27 99 24 95 Nasal Cannula 2.0 28 10/18/16 08:26 99 24 Nasal Cannula 2.0 28 10/18/16 08:00 96.8 89 18 114/68 96 Nasal Cannula 2.0 10/18/16 04:00 97.5 89 16 121/76 96 Room Air 10/18/16 00:00 96.9 97 19 98/54 92 Room Air 10/17/16 19:00 97.9 99 20 118/65 96 Nasal Cannula 2.0 10/17/16 18:59 97.7 10/17/16 16:00 97.7 96 20 116/67 95 Nasal Cannula 2.0 10/17/16 12:15 97.6 97 19 99/56 97 Room Air Intake and Output 10/17/16 10/18/16 19:00 07:00 Intake Total 1517.5 ml 742.5 ml Output Total 300 ml Balance 1517.5 ml 442.5 ml Intake Oral 440 ml 240 ml IV Total 1077.5 ml 502.5 ml Output Urine Total 300 ml # Voids 2 2 # Bowel Movements 3 1 Laboratory Tests 10/18/16 05:40: White Blood Count 22.5*H, Red Blood Count 3.65L, Hemoglobin 10.0L, Hematocrit 30.5L, Mean Corpuscular Volume 83, Mean Corpuscular Hemoglobin 27.3, Mean Corpuscular Hemoglobin Concent 32.7, Red Cell Distribution Width 16.9H, Platelet Count 748H, Mean Platelet Volume 5.0L, Neutrophils (%) (Auto) , Lymphocytes (%) (Auto) , Monocytes (%) (Auto) , Eosinophils (%) (Auto) , Basophils (%) (Auto) , Differential Total Cells Counted 100, Neutrophils % ( Manual) 72, Lymphocytes % (Manual) 17L, Monocytes % (Manual) 7, Eosinophils % ( Manual) 2, Basophils % (Manual) 0, Band Neutrophils 2, Platelet Estimate IncreasedH, Platelet Morphology Normal, Red Blood Cell Morphology Normal, Sodium Level 123L, Potassium Level 4.3, Chloride Level 87L, Carbon Dioxide Level 17L, Anion Gap 19H, Blood Urea Nitrogen 21, Creatinine 2.2H, Estimat Glomerular Filtration Rate 23.2, Glucose Level 79, Uric Acid 4.6, Calcium Level 6.8L, Phosphorus Level 3.8, Magnesium Level 1.5L, Total Bilirubin < 0.2, Aspartate Amino Transf (AST/SGOT) 10, Alanine Aminotransferase (ALT/SGPT) 5, Alkaline Phosphatase 129H, C-Reactive Protein, Quantitative 20.0H, Pro-B-Type Natriuretic Peptide 5248H, Total Protein 5.4L, Albumin 1.7L, Globulin 3.7, Albumin/Globulin Ratio 0.4L, Random Vancomycin Level 18.1 10/18/16 06:45: Urine Eosinophils None seen, Urine Random Sodium 27 Height (Feet): 5 Height (Inches): 2.00 Weight (Pounds): 130 Respiratory/Chest: rhonchi - bilaterally Sulma Desir MD Oct 18, 2016 11:32
--- NOTE | 2016-10-18 12:59 | General Progress Note ---
Assessment/Plan Status: unchanged, deteriorating Status Narrative wants to go home- refusing care Assessment/Plan status: Hypercalcemia, related to Neoplastic process- IMPROVED Symptomatic Anemia, Etiology?? Cancer, GI Loss, .... Acute renal failure now- Cr up 1.8, high Vanco level Sugg: Psych eval for MS - If patient can make her own decisions? urine studies- monitor Vanco level- Hold Vanco for now- adjust Zosyn dose- check lytes and Ca and Phos Aredia given 90mg 10/09 Monitor Ca and Phos and Lytes Transfusion per basket person per consultants Subjective ROS Limited/Unobtainable: No Constitutional: Reports: malaise, weakness Allergies: Coded Allergies: No Known Allergies (Unverified , 10/08/16) Objective Last 24 Hour Vital Signs Date Time Temp Pulse Resp B/P Pulse Ox O2 Delivery O2 Flow Rate FiO2 10/18/16 12:00 96.6 97 18 126/79 95 Room Air 10/18/16 08:32 103 24 97 Nasal Cannula 2.0 28 10/18/16 08:28 28 10/18/16 08:27 99 24 95 Nasal Cannula 2.0 28 10/18/16 08:26 99 24 Nasal Cannula 2.0 28 10/18/16 08:00 96.8 89 18 114/68 96 Nasal Cannula 2.0 10/18/16 04:00 97.5 89 16 121/76 96 Room Air 10/18/16 00:00 96.9 97 19 98/54 92 Room Air 10/17/16 19:00 97.9 99 20 118/65 96 Nasal Cannula 2.0 10/17/16 18:59 97.7 10/17/16 16:00 97.7 96 20 116/67 95 Nasal Cannula 2.0 Intake and Output 10/17/16 10/18/16 19:00 07:00 Intake Total 1517.5 ml 742.5 ml Output Total 300 ml Balance 1517.5 ml 442.5 ml Intake Oral 440 ml 240 ml IV Total 1077.5 ml 502.5 ml Output Urine Total 300 ml # Voids 2 2 # Bowel Movements 3 1 Laboratory Tests 10/18/16 05:40: White Blood Count 22.5*H, Red Blood Count 3.65L, Hemoglobin 10.0L, Hematocrit 30.5L, Mean Corpuscular Volume 83, Mean Corpuscular Hemoglobin 27.3, Mean Corpuscular Hemoglobin Concent 32.7, Red Cell Distribution Width 16.9H, Platelet Count 748H, Mean Platelet Volume 5.0L, Neutrophils (%) (Auto) , Lymphocytes (%) (Auto) , Monocytes (%) (Auto) , Eosinophils (%) (Auto) , Basophils (%) (Auto) , Differential Total Cells Counted 100, Neutrophils % ( Manual) 72, Lymphocytes % (Manual) 17L, Monocytes % (Manual) 7, Eosinophils % ( Manual) 2, Basophils % (Manual) 0, Band Neutrophils 2, Platelet Estimate IncreasedH, Platelet Morphology Normal, Red Blood Cell Morphology Normal, Sodium Level 123L, Potassium Level 4.3, Chloride Level 87L, Carbon Dioxide Level 17L, Anion Gap 19H, Blood Urea Nitrogen 21, Creatinine 2.2H, Estimat Glomerular Filtration Rate 23.2, Glucose Level 79, Uric Acid 4.6, Calcium Level 6.8L, Phosphorus Level 3.8, Magnesium Level 1.5L, Total Bilirubin < 0.2, Aspartate Amino Transf (AST/SGOT) 10, Alanine Aminotransferase (ALT/SGPT) 5, Alkaline Phosphatase 129H, C-Reactive Protein, Quantitative 20.0H, Pro-B-Type Natriuretic Peptide 5248H, Total Protein 5.4L, Albumin 1.7L, Globulin 3.7, Albumin/Globulin Ratio 0.4L, Random Vancomycin Level 18.1 10/18/16 06:45: Urine Eosinophils None seen, Urine Random Sodium 27 Height (Feet): 5 Height (Inches): 2.00 Weight (Pounds): 130 General Appearance: no apparent distress, lethargic Objective other physical exam not changed CLEMENTE APPIAH Oct 18, 2016 12:59
[2016-10-18] MEDS ORDERED: Tubing IV Secondary IV ONE (17:10)
[2016-10-18] MEDS ORDERED: D5NS 1000ml IV ONE (17:10)
--- NOTE | 2016-10-18 17:26 | Infectious Diseases Prog Note ---
Assessment/Plan Problems: (1) Skin infection Assessment & Plan: S/P lymph node biopsy complicated with skin wound infection of the left neck, wound culture is negative . on clindamycin and zosyn empirically , still has leukocytosis, suspect due to ureter obstruction and pyelonephritis, refused nephrostomy , fluconazole was added for fungal coverage , but no improvement in her WBC, since she needs source control to relief her obstruction (2) Sepsis Assessment & Plan: with leukocytosis , suspect malignancy related VS pyelonephritis due to ureter obstruction from pelvic malignancy , recommend nephrostomy to relief obstruction by IR, but patient refused. culture results are negative so far , continue vancomycin and zosyn for now, recommend hospice care, since she has been refusing medical care and procedures. (3) Anemia Assessment & Plan: due to chronic disease and malignancy, monitor H/H transfuse blood as needed, rule out GI bleeding as a source (4) JAY (acute kidney injury) Assessment & Plan: suspect due to ureter obstruction due to pelvic mass, recommend urology consult for stent placement , or nephrostomy by IR, unfortunately she refused , continue hydration, monitor UOP, avoid nephrotoxic meds (5) Pelvic mass in female Assessment & Plan: suspect recurrent ovarian CA, oncology is following, needs biopsy to confirm , but she refused it, may benefit from chemo for palliative purpose. recommend hospice care Subjective Constitutional: Reports: fatigue Gastrointestinal/Abdominal: Reports: bloating, nausea Neurologic: Reports: confusion, weakness Skin: Reports: ulcer Musculoskeletal: Reports: stiffness Allergies: Coded Allergies: No Known Allergies (Unverified , 10/08/16) All Systems: reviewed and negative except above Objective Vital Signs Last 24 Hour Vital Signs Date Time Temp Pulse Resp B/P Pulse Ox O2 Delivery O2 Flow Rate FiO2 10/18/16 16:00 98.4 98 18 120/77 94 Room Air 10/18/16 12:00 96.6 97 18 126/79 95 Room Air 10/18/16 08:32 103 24 97 Nasal Cannula 2.0 28 10/18/16 08:28 28 10/18/16 08:27 99 24 95 Nasal Cannula 2.0 28 10/18/16 08:26 99 24 Nasal Cannula 2.0 28 10/18/16 08:00 96.8 89 18 114/68 96 Nasal Cannula 2.0 10/18/16 04:00 97.5 89 16 121/76 96 Room Air 10/18/16 00:00 96.9 97 19 98/54 92 Room Air 10/17/16 19:00 97.9 99 20 118/65 96 Nasal Cannula 2.0 10/17/16 18:59 97.7 Height (Feet): 5 Height (Inches): 2.00 Weight (Pounds): 130 General Appearance: no acute distress, cachetic HEENT: normocephalic, atraumatic, anicteric Respiratory/Chest: chest wall non-tender, lungs clear, normal breath sounds, no respiratory distress Cardiovascular: normal peripheral pulses, normal rate, regular rhythm, no gallop/murmur, no JVD Abdomen: normal bowel sounds, soft, non tender, no organomegaly, non distended , no mass Extremities: no cyanosis, no clubbing Skin: no rash, no lesions Laboratory Tests Test 10/18/16 05:40 10/18/16 06:45 White Blood Count 22.5 K/UL (4.8-10.8) *H Red Blood Count 3.65 M/UL (4.20-5.40) L Hemoglobin 10.0 G/DL (12.0-16.0) L Hematocrit 30.5 % (37.0-47.0) L Mean Corpuscular Volume 83 FL (80-99) Mean Corpuscular Hemoglobin 27.3 PG (27.0-31.0) Mean Corpuscular Hemoglobin Concent 32.7 G/DL (32.0-36.0) Red Cell Distribution Width 16.9 % (11.6-14.8) H Platelet Count 748 K/UL (150-450) H Mean Platelet Volume 5.0 FL (6.5-10.1) L Neutrophils (%) (Auto) % (45.0-75.0) Lymphocytes (%) (Auto) % (20.0-45.0) Monocytes (%) (Auto) % (1.0-10.0) Eosinophils (%) (Auto) % (0.0-3.0) Basophils (%) (Auto) % (0.0-2.0) Differential Total Cells Counted 100 Neutrophils % (Manual) 72 % (45-75) Lymphocytes % (Manual) 17 % (20-45) L Monocytes % (Manual) 7 % (1-10) Eosinophils % (Manual) 2 % (0-3) Basophils % (Manual) 0 % (0-2) Band Neutrophils 2 % (0-8) Platelet Estimate Increased H Platelet Morphology Normal Red Blood Cell Morphology Normal Sodium Level 123 mEQ/L (135-145) L Potassium Level 4.3 mEQ/L (3.4-4.9) Chloride Level 87 mEQ/L (98-107) L Carbon Dioxide Level 17 mEQ/L (20-30) L Anion Gap 19 (5-15) H Blood Urea Nitrogen 21 mg/dL (7-23) Creatinine 2.2 mg/dL (0.5-0.9) H Estimat Glomerular Filtration Rate 23.2 mL/min (>60) Glucose Level 79 mg/dL (74-106) Uric Acid 4.6 mg/dL (3.0-7.5) Calcium Level 6.8 mg/dL (8.6-10.2) L Phosphorus Level 3.8 mg/dL (2.5-4.8) Magnesium Level 1.5 mg/dL (1.7-2.5) L Total Bilirubin < 0.2 mg/dL (0.0-1.2) Aspartate Amino Transf (AST/SGOT) 10 U/L (5-40) Alanine Aminotransferase (ALT/SGPT) 5 U/L (3-33) Alkaline Phosphatase 129 U/L (35-104) H C-Reactive Protein, Quantitative 20.0 mg/dL (< 0.5) H Pro-B-Type Natriuretic Peptide 5248 pg/mL (0-125) H Total Protein 5.4 g/dL (6.6-8.7) L Albumin 1.7 g/dL (3.5-5.2) L Globulin 3.7 g/dL Albumin/Globulin Ratio 0.4 (1.0-2.7) L Random Vancomycin Level 18.1 ug/mL Urine Eosinophils None seen Urine Random Sodium 27 mmol/L Current Medications Medications (Trade) Dose Ordered Sig/[place] Route PRN Reason Start Time Stop Time Status Last Admin Dose Admin Acetaminophen (Tylenol) 650 mg Q4H PRN ORAL Mild Pain/Temp > 100.5 10/09/16 01:00 11/08/16 00:59 10/16/16 17:31 Acetaminophen/ Hydrocodone Bitart (Chili 5/325) 1 tab Q4H PRN ORAL Moderate Pain (Pain Scale 4-6) 10/12/16 16:45 10/19/16 16:44 10/18/16 02:52 Albuterol/ Ipratropium (DuoNeb 0.5-3(2.5)mg/3ml) 3 ml Q4H PRN HHN Shortness of Breath 10/18/16 08:00 10/23/16 07:59 10/18/16 08:23 Bisacodyl (Dulcolax) 10 mg DAILYPRN PRN ORAL Constipation 10/12/16 17:15 11/11/16 17:14 10/13/16 20:37 Clindamycin HCl/ Dextrose 50 ml @ 100 mls/hr Q8HR@0500,1300,2100 IV 10/17/16 13:00 10/24/16 12:59 10/18/16 13:26 Docusate Sodium (Colace) 100 mg TWICE A DAY ORAL 10/09/16 09:00 11/08/16 08:59 10/17/16 18:00 Fluconazole/ Sodium Chloride (Diflucan 200mg/ 100ml Premix) 100 ml @ 100 mls/hr Q24H IV 10/16/16 20:00 10/23/16 19:59 10/17/16 19:49 Morphine Sulfate (Morphine Sulfate) 4 mg Q4H PRN IVP Severe Pain (Pain Scale 7-10) 10/18/16 00:00 10/25/16 00:00 Pantoprazole (Protonix) 40 mg DAILY ORAL 10/11/16 09:00 11/10/16 08:59 10/18/16 09:16 Piperacillin Sod/ Tazobactam Sod/ Dextrose (Zosyn/D5W) 110 ml @ 27.5 mls/hr EVERY 12 HOURS IVPB 10/17/16 21:00 10/24/16 20:59 10/18/16 09:16 Sennosides 8.6 mg 8.6 mg DAILY PRN ORAL Constipation 10/12/16 17:15 11/11/16 17:14 10/13/16 20:37 Sodium Citrate 30 ml 30 ml EVERY 6 HOURS ORAL 10/16/16 12:30 11/15/16 12:29 10/18/16 13:25 Jaden Su M.D. Oct 18, 2016 17:26
--- NOTE | 2016-10-18 18:06 | General Progress Note ---
Assessment/Plan Assessment/Plan IMPRESSION: 1. Extensive disseminated malignancy, as described above, with a large pelvic mass, extensive lymphadenopathy, extensive osseous metastases, hepatic and pulmonary metastases. There is also unusual circumferential involvement of the bladder wall - discussed multiple times, patient refuses 2. Hypercalcemia, likely related to metastatic malignancy 3. Acute thrombus bilateral common femoral vein s/p IVC filter placement 4. Anemia of chronic disease (severe). 5. Hx of ovarian cancer 6. Hyperferritinemia, most likely reactive. 7. History of schizophrenia. 8. History of ovarian cancer. 9. Hypertension. 10. Chronic obstructive pulmonary disease. 11. History of seizure. 12. Skin abscess. 13. Failure to thrive. 14. Hepatitis C RECOMMENDATIONS: 1. Watch count. Hgb goal >7. 2. PATIENT IS REFUSING biopsy 3. PRBC transfusion on p.r.n. basis. Refused meds 4. Has refused endoscopy/colonoscopy 5. hx of noncomplance with care/treatment 6. Consider hospice/palliative care given patient refusal for workup/treatment, would benefit from this service 7. Does not require iron 8. SCD for DVT prophylaxis. 9. Reviewed tumor markers. 10. Staff Thank you, Florentino Alvarez MD Subjective Constitutional: Reports: no symptoms HEENT: Reports: no symptoms Cardiovascular: Reports: no symptoms Respiratory: Reports: no symptoms Gastrointestinal/Abdominal: Reports: no symptoms Genitourinary: Reports: no symptoms Neurologic/Psychiatric: Reports: no symptoms Endocrine: Reports: no symptoms Hematologic/Lymphatic: Reports: no symptoms Allergies: Coded Allergies: No Known Allergies (Unverified , 10/08/16) Objective Last 24 Hour Vital Signs Date Time Temp Pulse Resp B/P Pulse Ox O2 Delivery O2 Flow Rate FiO2 10/18/16 16:00 98.4 98 18 120/77 94 Room Air 10/18/16 12:00 96.6 97 18 126/79 95 Room Air 10/18/16 08:32 103 24 97 Nasal Cannula 2.0 10/18/16 08:28 28 10/18/16 08:27 99 24 95 Nasal Cannula 2.0 28 10/18/16 08:26 99 24 Nasal Cannula 2.0 28 10/18/16 08:00 96.8 89 18 114/68 96 Nasal Cannula 2.0 10/18/16 04:00 97.5 89 16 121/76 96 Room Air 10/18/16 00:00 96.9 97 19 98/54 92 Room Air Intake and Output 10/17/16 10/18/16 17:00 05:00 Intake Total 1595.0 ml 742.5 ml Output Total 150 ml 300 ml Balance 1445.0 ml 442.5 ml Intake Oral 690 ml 240 ml IV Total 905.0 ml 502.5 ml Output Urine Total 150 ml 300 ml # Voids 5 # Bowel Movements 5 Laboratory Tests 10/18/16 05:40: White Blood Count 22.5*H, Red Blood Count 3.65L, Hemoglobin 10.0L, Hematocrit 30.5L, Mean Corpuscular Volume 83, Mean Corpuscular Hemoglobin 27.3, Mean Corpuscular Hemoglobin Concent 32.7, Red Cell Distribution Width 16.9H, Platelet Count 748H, Mean Platelet Volume 5.0L, Neutrophils (%) (Auto) , Lymphocytes (%) (Auto) , Monocytes (%) (Auto) , Eosinophils (%) (Auto) , Basophils (%) (Auto) , Differential Total Cells Counted 100, Neutrophils % ( Manual) 72, Lymphocytes % (Manual) 17L, Monocytes % (Manual) 7, Eosinophils % ( Manual) 2, Basophils % (Manual) 0, Band Neutrophils 2, Platelet Estimate IncreasedH, Platelet Morphology Normal, Red Blood Cell Morphology Normal, Sodium Level 123L, Potassium Level 4.3, Chloride Level 87L, Carbon Dioxide Level 17L, Anion Gap 19H, Blood Urea Nitrogen 21, Creatinine 2.2H, Estimat Glomerular Filtration Rate 23.2, Glucose Level 79, Uric Acid 4.6, Calcium Level 6.8L, Phosphorus Level 3.8, Magnesium Level 1.5L, Total Bilirubin < 0.2, Aspartate Amino Transf (AST/SGOT) 10, Alanine Aminotransferase (ALT/SGPT) 5, Alkaline Phosphatase 129H, C-Reactive Protein, Quantitative 20.0H, Pro-B-Type Natriuretic Peptide 5248H, Total Protein 5.4L, Albumin 1.7L, Globulin 3.7, Albumin/Globulin Ratio 0.4L, Random Vancomycin Level 18.1 10/18/16 06:45: Urine Eosinophils None seen, Urine Random Sodium 27 Height (Feet): 5 Height (Inches): 2.00 Weight (Pounds): 130 General Appearance: alert EENT: TMs normal Neck: supple Cardiovascular: normal rate Respiratory/Chest: lungs clear Abdomen: soft Pelvis: no masses Extremities: non-tender Edema: no edema noted Arm (L), no edema noted Arm (R), no edema noted Leg (L), no edema noted Leg (R), no edema noted Pedal (L), no edema noted Pedal (R), no edema noted Generalized Edema: mild edema Neurologic: oriented x 3 Skin: warm/dry Lymphatic: normal anterior cervical (L), normal anterior cervical (R), normal axillary (L), normal axillary (R), normal inguinal (L), normal inguinal (R), normal other, normal posterior cervical (L), normal posterior cervical (R), normal submandibular (L), normal submandibular (R), normal supraclavicular (L), normal supraclavicular (R) FLORENTINO ALVAREZ Oct 18, 2016 18:06
[2016-10-18] MEDS: Fluconazole 200mg/100ml (Pre-Mix) IV SCH (19:01)
[2016-10-18 21:09] LABS: TROPONIN I < 0.30 ng/mL (<=0.30)
[2016-10-18 21:21] LABS: CKMB 1.7 ng/mL (< 3.8)
--- NOTE | 2016-10-18 21:59 | Consultation ---
DATE OF CONSULTATION: HISTORY OF PRESENT ILLNESS: The patient is a 56-year-old female with a history of multiple medical problems including ovarian cancer on her left side and she also has a history of hypertension, chronic obstructive pulmonary disease, and seizure disorder. The patient has been admitted due to left anterior neck abscess after she received the biopsy. She also has had surgical resection as well as chemotherapy for her ovarian cancer. Psychiatry was consulted as the patient has been refusing dialysis as well as further biopsy that was recommended by the doctors. She also has been off and on refusing laboratory workups. During the evaluation, the patient was disoriented. She did not know the month or date and she thought she is in 2016. She was unable to understand the process and/or appreciate the information that was given to her in regards to her medical condition and the importance of receiving biopsy and dialysis. She was unable to understand when I discussed with her high BUN and creatinine and liver function. PAST PSYCHIATRIC HISTORY: Unknown. She is a poor historian. PAST MEDICAL HISTORY: Hypertension, ovarian cancer, and seizure disorder. ALLERGIES: There is no known drug allergies. FAMILY HISTORY: Noncontributory and the patient is a poor historian. SUBSTANCE ABUSE HISTORY: No history of illicit drug use or alcohol. SOCIAL HISTORY: The patient lives in a [facility]. MENTAL STATUS EXAMINATION: The patient was alert and oriented times self and place. Mood was depressed. Affect was constricted. Congruent mood. Thought process was concrete. Thought content was negative for suicidal or homicidal ideation. No psychotic symptoms. Cognition is impaired. Insight and judgment was impaired. ASSESSMENT: AXIS I Cognitive impairment due to underlying general medical condition. AXIS II Deferred. AXIS III As above. AXIS IV Moderate. AXIS V Global assessment of functioning is 20. PLAN: The patient does not have capacity to make medical decisions. Therefore, I discussed with the case management to fill out the probate conservatorship paperwork. The clinical social work aide services were unavailable, who had the form. Therefore, I will fill out the next . Probate conservatorship will be filed on 10/19/2016. No medication at this time. We will continue to follow and readjust the medications. Darcy Santos M.D. DR: NAVID JOB#: [id number] CC:
--- NOTE | 2016-10-18 22:08 | General Progress Note ---
Assessment/Plan Assessment/Plan Assessment - hypercalcemia - constipation - ovarian CA , mets - Anemia - HTN - CPS Recommendations - laxative - push PO - OOB - refuses GI w/u - oncology f/u Subjective Allergies: Coded Allergies: No Known Allergies (Unverified , 10/08/16) Subjective feels OK tolerating PO no abd pain (+) BM Objective Last 24 Hour Vital Signs Date Time Temp Pulse Resp B/P Pulse Ox O2 Delivery O2 Flow Rate FiO2 10/18/16 20:00 97.9 135 16 148/96 90 Room Air 10/18/16 19:45 98.4 10/18/16 16:00 98.4 98 18 120/77 94 Room Air 10/18/16 12:00 96.6 97 18 126/79 95 Room Air 10/18/16 08:32 103 24 97 Nasal Cannula 2.0 28 10/18/16 08:28 28 10/18/16 08:27 99 24 95 Nasal Cannula 2.0 28 10/18/16 08:26 99 24 Nasal Cannula 2.0 28 10/18/16 08:00 96.8 89 18 114/68 96 Nasal Cannula 2.0 10/18/16 04:00 97.5 89 16 121/76 96 Room Air 10/18/16 00:00 96.9 97 19 98/54 92 Room Air Intake and Output 10/17/16 10/18/16 19:00 07:00 Intake Total 1517.5 ml 742.5 ml Output Total 150 ml 300 ml Balance 1367.5 ml 442.5 ml Intake Oral 440 ml 240 ml IV Total 1077.5 ml 502.5 ml Output Urine Total 150 ml 300 ml # Voids 2 2 # Bowel Movements 3 1 Laboratory Tests 10/18/16 05:40: White Blood Count 22.5*H, Red Blood Count 3.65L, Hemoglobin 10.0L, Hematocrit 30.5L, Mean Corpuscular Volume 83, Mean Corpuscular Hemoglobin 27.3, Mean Corpuscular Hemoglobin Concent 32.7, Red Cell Distribution Width 16.9H, Platelet Count 748H, Mean Platelet Volume 5.0L, Neutrophils (%) (Auto) , Lymphocytes (%) (Auto) , Monocytes (%) (Auto) , Eosinophils (%) (Auto) , Basophils (%) (Auto) , Differential Total Cells Counted 100, Neutrophils % ( Manual) 72, Lymphocytes % (Manual) 17L, Monocytes % (Manual) 7, Eosinophils % ( Manual) 2, Basophils % (Manual) 0, Band Neutrophils 2, Platelet Estimate IncreasedH, Platelet Morphology Normal, Red Blood Cell Morphology Normal, Sodium Level 123L, Potassium Level 4.3, Chloride Level 87L, Carbon Dioxide Level 17L, Anion Gap 19H, Blood Urea Nitrogen 21, Creatinine 2.2H, Estimat Glomerular Filtration Rate 23.2, Glucose Level 79, Uric Acid 4.6, Calcium Level 6.8L, Phosphorus Level 3.8, Magnesium Level 1.5L, Total Bilirubin < 0.2, Aspartate Amino Transf (AST/SGOT) 10, Alanine Aminotransferase (ALT/SGPT) 5, Alkaline Phosphatase 129H, C-Reactive Protein, Quantitative 20.0H, Pro-B-Type Natriuretic Peptide 5248H, Total Protein 5.4L, Albumin 1.7L, Globulin 3.7, Albumin/Globulin Ratio 0.4L, Random Vancomycin Level 18.1 10/18/16 06:45: Urine Eosinophils None seen, Urine Random Sodium 27 10/18/16 20:45: Total Creatine Kinase 43, Creatine Kinase MB 1.7, Creatine Kinase MB Relative Index 3.9, Troponin I < 0.30 Height (Feet): 5 Height (Inches): 2.00 Weight (Pounds): 130 Objective Thin WW NCAT supple CTA RRR Soft ND NT no edema HOLLAND GARSIA Oct 18, 2016 22:08
--- NOTE | 2016-10-18 23:05 | Emergency Room Report ---
History of Present Illness General Chief Complaint: Abnormal Labs Source: Patient, Medical Record Present Illness Allergies: Coded Allergies: No Known Allergies (Unverified , 10/08/16) Patient History Now: No Nursing Documentation-PMH Hx Hypertension: Yes Hx COPD: Yes Hx Cancer: No Hx Gastrointestinal Problems: No Hx Neurological Problems: Yes Hx Seizures: Yes Physical Exam Vital Signs Date Time Temp Pulse Resp B/P Pulse Ox O2 Delivery O2 Flow Rate FiO2 10/08/16 21:18 80 16 102/62 94 Room Air 10/08/16 21:32 97.9 10/17/16 16:00 2.0 10/18/16 08:26 28 Procedures CPR/Code Blue CPR/Code Blue Narrative I was called upstairs to a CODE BLUE Upon arrival the patient was apnic CPR was in progress Patient required emergent airway intubation This was performed without any medications as the patient had no gag reflex Refer to the note for full specifics ACLS continued Patient received multiple medications refer to the sheet for the full specifics On a secondary survey the patient appears extremely edematous Swollen the abdominal and lower extremity area NG tube was placed as well Patient did respond to acute intervention We obtained a blood pressure and a heart rate I did attempt a central line on the right femoral vein, patient has significant edema and I was unsuccessful at the central line Patient does have 2 separate peripheral IVs And the blood pressure was 140/70 at this time Patient was transferred to ICU in critical condition Pupils are approximately 4 mm unreactive Intubation Intubation : Consent: Emergent Intubation Method: orotracheal Tube Size (cm): 7.5 Breath Sounds after Intubation: equal Intubation Complications: no complications Post Intubation Xray: Yes Attempts: One Patient Tolerated: Well Complications: None Medical Decision Making Diagnostic Impression: Primary Impression: Skin abscess Additional Impression: Anemia Last Vital Signs Date Time Temp Pulse Resp B/P Pulse Ox O2 Delivery O2 Flow Rate FiO2 10/18/16 22:42 122 10/18/16 22:40 96.1 21 109/69 100 Mechanical Ventilator 100 10/18/16 19:00 4.0 Disposition: ADMITTED INPATIENT Condition: Serious Referrals: Sulma Desir MD (PCP) SULMA DIAZ D.O. Oct 18, 2016 23:05
[2016-10-18 23:39] LABS: ABG ALLEN TEST POSITIVE; ABG BASE EXCESS -14.3; ABG PCO2 37.5 mmHg (35.0-45.0)
[2016-10-19] VITALS (17 sets, daily range): BP systolic 92–169; BP diastolic 40–121
[2016-10-19] MEDS: Sodium Citrate 30ml ORAL SCH ×4 (00:15→17:28)
[2016-10-19] MEDS ORDERED: Norco 5mg/325mg tab ORAL PRN (00:45)
[2016-10-19 03:47] LABS: MEAN CORPUSCULAR HEMOGLOBIN 26.3 PG (27.0-31.0); MEAN CORPUSCULAR HGB CONC 31.6 G/DL (32.0-36.0); MEAN CORPUSCULAR VOLUME 83 FL (80-99); MEAN PLATELET VOLUME 4.9 FL (6.5-10.1); PLATELET COUNT 713 K/UL (150-450); RED BLOOD COUNT 3.73 M/UL (4.20-5.40); RED CELL DISTRIBUTION WIDTH 16.7 % (11.6-14.8)
[2016-10-19 04:02] LABS: ALANINE AMINOTRANSFERASE 8 U/L (3-33); ALBUMIN/GLOBULIN RATIO 0.4 (1.0-2.7); ANION GAP 22 (5-15); ASPARTATE AMINO TRANSFERASE 20 U/L (5-40); CALCIUM 6.9 mg/dL (8.6-10.2); CARBON DIOXIDE 16 mEQ/L (20-30); CHLORIDE 86 mEQ/L (98-107); CREATININE 2.6 mg/dL (0.5-0.9); GLOMERULAR FILTRATION RATE 19.1 mL/min (>60); HEMOLYSIS 1; MAGNESIUM 1.6 mg/dL (1.7-2.5); PHOSPHORUS 5.5 mg/dL (2.5-4.8); POTASSIUM 4.4 mEQ/L (3.4-4.9); SODIUM 124 mEQ/L (135-145); TOTAL PROTEIN 5.8 g/dL (6.6-8.7)
[2016-10-19 04:12] LABS: WHITE BLOOD COUNT 36.3 K/UL (4.8-10.8)
[2016-10-19] MEDS ORDERED: Clindamycin 600mg 50 ML IV SCH (05:00)
[2016-10-19] MEDS ORDERED: Piperacillin/Tazobactam 3.375 GM in D5W 110 ML IVPB SCH (09:00)
[2016-10-19] MEDS ORDERED: Docusate 100mg cap ORAL SCH (09:00)
[2016-10-19 09:09] LABS: ABG ALLEN TEST POSITIVE; ABG BASE EXCESS -11.9; ABG PCO2 40.9 mmHg (35.0-45.0)
--- NOTE | 2016-10-19 09:33 | Pulmonolgy Critical Care Note ---
Critical Care - Asmt/Plan Problems: (1) Cardiac arrest (2) Respiratory failure, acute (3) Seizures (4) Decerebrate posture (5) Sepsis (6) JAY (acute kidney injury) (7) Pelvic mass in female Respiratory: monitor respiratory rate, adjust FIO2, CXR Cardiac: continue to monitor HR/BP Renal: F/U I&O, check electrolytes Infectious Disease: check cultures Gastrointestinal: continue feedings/current rate Endocrine: monitor blood sugar, check TSH Hematologic: monitor H/H Neurologic: PRN Ativan Affect: PRN ativan Prophylaxis: Protonix, Heparin Disposition: keep in ICU Notes Reviewed: ID, GI Discussed with: nurses, consultants, other Critical Care - Objective Last 24 Hour Vital Signs Date Time Temp Pulse Resp B/P Pulse Ox O2 Delivery O2 Flow Rate FiO2 10/19/16 07:09 134 24 50 10/19/16 07:00 120 20 133/63 100 Mechanical Ventilator 50 10/19/16 06:00 124 20 128/81 100 Mechanical Ventilator 50 10/19/16 05:15 118 24 50 10/19/16 05:00 125 20 157/93 100 Mechanical Ventilator 50 10/19/16 04:00 50 10/19/16 04:00 97.8 89 20 98/68 100 Mechanical Ventilator 50 10/19/16 04:00 89 10/19/16 03:25 86 22 50 10/19/16 03:00 85 20 96/65 100 Mechanical Ventilator 50 10/19/16 02:00 50 10/19/16 02:00 86 20 95/61 100 Mechanical Ventilator 50 10/19/16 01:28 88 22 50 10/19/16 01:00 91 20 92/65 100 Mechanical Ventilator 100 10/19/16 00:00 96.8 92 20 93/58 100 Mechanical Ventilator 100 10/19/16 00:00 101 10/18/16 23:14 113 20 100 10/18/16 23:04 115 20 95/56 100 Mechanical Ventilator 100 10/18/16 22:42 122 10/18/16 22:40 96.1 119 21 109/69 100 Mechanical Ventilator 100 10/18/16 22:36 100 10/18/16 22:17 127 16 100 10/18/16 20:00 97.9 135 16 148/96 90 Room Air 10/18/16 19:45 98.4 10/18/16 19:00 136 20 Nasal Cannula 4.0 10/18/16 16:00 98.4 98 18 120/77 94 Room Air 10/18/16 12:00 96.6 97 18 126/79 95 Room Air Status: obtunded Condition: critical HEENT: atraumatic Neck: full ROM Lungs: clear Heart: HR/BP stable Abdomen: soft, non-tender, feeding tube Extremities: no C/C/E, edema Decubiti: location Critical Care - Subjective ROS Limited/Unobtainable: Yes ICU Day: 2 Interval Events: Patient with metastatic ovarian cancer, who was refusing any treatment ( I doubt that any was available) developed respiratory failure and cardiac arrest. She was revived and transferred to ICU. Pt is decerebrating, with episodes of seizures. EKG Rhythm: Sinus Rhythm FI02: 50 Vent Support Breath Rate: 20 Vent Support Mode: AC Vent Tidal Volume: 500 Sputum Amount: Moderate PEEP: 5.0 PIP: 20 Fluids: KVO Drips: none I&O: Intake and Output 10/18/16 10/19/16 19:00 07:00 Intake Total 840.0 ml 200 ml Output Total 150 ml 320 ml Balance 690.0 ml -120 ml Intake Oral 480 ml IV Total 360.0 ml 200 ml Output Urine Total 150 ml 120 ml Gastric Drainage Total 200 ml # Bowel Movements 2 CXR: ET in good position, cardiomegaly ET-Tube: 7.5 ET Position: 23 Labs: Laboratory Tests Test 10/18/16 20:45 10/18/16 23:00 10/19/16 02:30 10/19/16 06:00 Total Creatine Kinase 43 U/L (26-140) Creatine Kinase MB 1.7 ng/mL (< 3.8) Creatine Kinase MB Relative Index 3.9 Troponin I < 0.30 ng/mL (<=0.30) Arterial Blood pH 7.167 (7.350-7.450) Arterial Blood Partial Pressure CO2 37.5 mmHg (35.0-45.0) Arterial Blood Partial Pressure O2 359.0 mmHg (75.0-100.0) H Arterial Blood HCO3 13.3 mmol/L (22.0-26.0) L Arterial Blood Oxygen Saturation 99.5 % (92.0-98.0) H Arterial Blood Base Excess -14.3 Edgard Test Positive White Blood Count 36.3 K/UL (4.8-10.8) #*H Red Blood Count 3.73 M/UL (4.20-5.40) L Hemoglobin 9.8 G/DL (12.0-16.0) L Hematocrit 31.1 % (37.0-47.0) L Mean Corpuscular Volume 83 FL (80-99) Mean Corpuscular Hemoglobin 26.3 PG (27.0-31.0) L Mean Corpuscular Hemoglobin Concent 31.6 G/DL (32.0-36.0) L Red Cell Distribution Width 16.7 % (11.6-14.8) H Platelet Count 713 K/UL (150-450) H Mean Platelet Volume 4.9 FL (6.5-10.1) L Neutrophils (%) (Auto) % (45.0-75.0) Lymphocytes (%) (Auto) % (20.0-45.0) Monocytes (%) (Auto) % (1.0-10.0) Eosinophils (%) (Auto) % (0.0-3.0) Basophils (%) (Auto) % (0.0-2.0) Neutrophils % (Manual) Pending Lymphocytes % (Manual) Pending Platelet Estimate Pending Platelet Morphology Pending Sodium Level 124 mEQ/L (135-145) L Potassium Level 4.4 mEQ/L (3.4-4.9) Chloride Level 86 mEQ/L (98-107) L Carbon Dioxide Level 16 mEQ/L (20-30) L Anion Gap 22 (5-15) H Blood Urea Nitrogen 24 mg/dL (7-23) H Creatinine 2.6 mg/dL (0.5-0.9) H Estimat Glomerular Filtration Rate 19.1 mL/min (>60) Glucose Level 121 mg/dL (74-106) H Calcium Level 6.9 mg/dL (8.6-10.2) L Phosphorus Level 5.5 mg/dL (2.5-4.8) H Magnesium Level 1.6 mg/dL (1.7-2.5) L Total Bilirubin < 0.2 mg/dL (0.0-1.2) Aspartate Amino Transf (AST/SGOT) 20 U/L (5-40) Alanine Aminotransferase (ALT/SGPT) 8 U/L (3-33) Alkaline Phosphatase 151 U/L (35-104) H Total Protein 5.8 g/dL (6.6-8.7) L Albumin 1.7 g/dL (3.5-5.2) L Globulin 4.1 g/dL Albumin/Globulin Ratio 0.4 (1.0-2.7) L Urine Eosinophils Pending Test 10/19/16 09:00 Arterial Blood pH 7.197 (7.350-7.450) Arterial Blood Partial Pressure CO2 40.9 mmHg (35.0-45.0) Arterial Blood Partial Pressure O2 112.7 mmHg (75.0-100.0) H Arterial Blood HCO3 15.5 mmol/L (22.0-26.0) L Arterial Blood Oxygen Saturation 97.9 % (92.0-98.0) Arterial Blood Base Excess -11.9 Edgard Test Positive TRISTON FRIED Oct 19, 2016 09:33
[2016-10-19] MEDS ORDERED: D5NS 1,000 ML IV SCH (09:45)
[2016-10-19] MEDS ORDERED: LORazepam Inj 2mg/ml 1ml IV PRN ×2 (10:30→16:30)
--- NOTE | 2016-10-19 10:37 | Diagnostic Imaging Report ---
Indication: TUBE PLCMT Technique: One view of the chest Comparison: 15 hours earlier Findings: Interim placement of endotracheal tube, tip projecting in good position approximately 3 cm above the cindy. Interim placement of a nasogastric tube. Tip is coiled within the gastric fundus. Previously demonstrated interstitial disease is again demonstrated, be slightly improved allowing for differences in exposure technique Impression: Satisfactory endotracheal and nasogastric intubation Slight improvement of pulmonary interstitial disease
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
--- NOTE | 2016-10-19 10:56 | General Progress Note ---
Assessment/Plan Status: deteriorating Assessment/Plan status: Coded now on Vent in ICU- Hypercalcemia, related to Neoplastic process- IMPROVED Symptomatic Anemia, Etiology?? Cancer, GI Loss, .... Acute renal failure now- Cr rising Sugg: comfort care in view of recent deterioration of clinical state and underlying metastatic cancer. Prognisis poor. Aredia given 90mg 10/09 per consultants Subjective ROS Limited/Unobtainable: Yes Constitutional: Reports: other - coded - now on Vent in ICU Allergies: Coded Allergies: No Known Allergies (Unverified , 10/08/16) Objective Last 24 Hour Vital Signs Date Time Temp Pulse Resp B/P Pulse Ox O2 Delivery O2 Flow Rate FiO2 10/19/16 10:48 137 31 50 10/19/16 09:29 138 28 50 10/19/16 09:29 134 24 50 10/19/16 08:00 50 10/19/16 07:09 134 24 50 10/19/16 07:00 120 20 133/63 100 Mechanical Ventilator 50 10/19/16 06:00 124 20 128/81 100 Mechanical Ventilator 50 10/19/16 05:15 118 24 50 10/19/16 05:00 125 20 157/93 100 Mechanical Ventilator 50 10/19/16 04:00 50 10/19/16 04:00 97.8 89 20 98/68 100 Mechanical Ventilator 50 10/19/16 04:00 89 10/19/16 03:25 86 22 50 10/19/16 03:00 85 20 96/65 100 Mechanical Ventilator 50 10/19/16 02:00 50 10/19/16 02:00 86 20 95/61 100 Mechanical Ventilator 50 10/19/16 01:28 88 22 50 10/19/16 01:00 91 20 92/65 100 Mechanical Ventilator 100 10/19/16 00:00 96.8 92 20 93/58 100 Mechanical Ventilator 100 10/19/16 00:00 101 10/18/16 23:14 113 20 100 10/18/16 23:04 115 20 95/56 100 Mechanical Ventilator 100 10/18/16 22:42 122 10/18/16 22:40 96.1 119 21 109/69 100 Mechanical Ventilator 100 10/18/16 22:36 100 10/18/16 22:17 127 16 100 10/18/16 20:00 97.9 135 16 148/96 90 Room Air 10/18/16 19:45 98.4 10/18/16 19:00 136 20 Nasal Cannula 4.0 10/18/16 16:00 98.4 98 18 120/77 94 Room Air 10/18/16 12:00 96.6 97 18 126/79 95 Room Air Intake and Output 10/18/16 10/19/16 19:00 07:00 Intake Total 840.0 ml 200 ml Output Total 150 ml 320 ml Balance 690.0 ml -120 ml Intake Oral 480 ml IV Total 360.0 ml 200 ml Output Urine Total 150 ml 120 ml Gastric Drainage Total 200 ml # Bowel Movements 2 Laboratory Tests 10/18/16 20:45: Total Creatine Kinase 43, Creatine Kinase MB 1.7, Creatine Kinase MB Relative Index 3.9, Troponin I < 0.30 10/18/16 23:00: Arterial Blood pH 7.167*L, Arterial Blood Partial Pressure CO2 37.5, Arterial Blood Partial Pressure O2 359.0H, Arterial Blood HCO3 13.3L, Arterial Blood Oxygen Saturation 99.5H, Arterial Blood Base Excess -14.3, Edgard Test Positive 10/19/16 02:30: White Blood Count 36.3#*H, Red Blood Count 3.73L, Hemoglobin 9.8L, Hematocrit 31.1L, Mean Corpuscular Volume 83, Mean Corpuscular Hemoglobin 26.3L, Mean Corpuscular Hemoglobin Concent 31.6L, Red Cell Distribution Width 16.7H, Platelet Count 713H, Mean Platelet Volume 4.9L, Neutrophils (%) (Auto) , Lymphocytes (%) (Auto) , Monocytes (%) (Auto) , Eosinophils (%) (Auto) , Basophils (%) (Auto) , Neutrophils % (Manual) [Pending], Lymphocytes % (Manual) [Pending], Platelet Estimate [Pending], Platelet Morphology [Pending], Sodium Level 124L, Potassium Level 4.4, Chloride Level 86L, Carbon Dioxide Level 16L, Anion Gap 22H, Blood Urea Nitrogen 24H, Creatinine 2.6H, Estimat Glomerular Filtration Rate 19.1, Glucose Level 121H, Calcium Level 6.9L, Phosphorus Level 5.5H, Magnesium Level 1.6L, Total Bilirubin < 0.2, Aspartate Amino Transf (AST/ SGOT) 20, Alanine Aminotransferase (ALT/SGPT) 8, Alkaline Phosphatase 151H, Total Protein 5.8L, Albumin 1.7L, Globulin 4.1, Albumin/Globulin Ratio 0.4L 10/19/16 06:00: Urine Eosinophils Few 10/19/16 09:00: Arterial Blood pH 7.197*L, Arterial Blood Partial Pressure CO2 40.9, Arterial Blood Partial Pressure O2 112.7H, Arterial Blood HCO3 15.5L, Arterial Blood Oxygen Saturation 97.9, Arterial Blood Base Excess -11.9, Edgard Test Positive Height (Feet): 5 Height (Inches): 2.00 Weight (Pounds): 130 General Appearance: agitated EENT: other Cardiovascular: tachycardia Respiratory/Chest: decreased breath sounds Abdomen: distended Neurologic: other - twitchings Objective other physical exam not changed CLEMENTE APPIAH Oct 19, 2016 10:56
--- NOTE | 2016-10-19 11:17 | General Progress Note ---
Assessment/Plan Problem List: (1) Anemia ICD Codes: D64.9 - Anemia, unspecified SNOMED: 424431606 (2) Skin infection ICD Codes: L08.9 - Local infection of the skin and subcutaneous tissue, unspecified SNOMED: 040184936 (3) Sepsis ICD Codes: A41.9 - Sepsis, unspecified organism SNOMED: 41724723 (4) JAY (acute kidney injury) ICD Codes: N17.9 - Acute kidney failure, unspecified SNOMED: 79921521 Status: deteriorating Assessment/Plan mets cancer w hydro s/p code blue anoxic encephalopathy favor comfort care give extent of mets cancer and psych and other comorbidities Subjective ROS Limited/Unobtainable: Yes Allergies: Coded Allergies: No Known Allergies (Unverified , 10/08/16) Subjective chronic pain Objective Last 24 Hour Vital Signs Date Time Temp Pulse Resp B/P Pulse Ox O2 Delivery O2 Flow Rate FiO2 10/19/16 10:48 137 31 50 10/19/16 09:29 138 28 50 10/19/16 09:29 134 24 50 10/19/16 08:00 50 10/19/16 07:09 134 24 50 10/19/16 07:00 120 20 133/63 100 Mechanical Ventilator 50 10/19/16 06:00 124 20 128/81 100 Mechanical Ventilator 50 10/19/16 05:15 118 24 50 10/19/16 05:00 125 20 157/93 100 Mechanical Ventilator 50 10/19/16 04:00 50 10/19/16 04:00 97.8 89 20 98/68 100 Mechanical Ventilator 50 10/19/16 04:00 89 10/19/16 03:25 86 22 50 10/19/16 03:00 85 20 96/65 100 Mechanical Ventilator 50 10/19/16 02:00 50 10/19/16 02:00 86 20 95/61 100 Mechanical Ventilator 50 10/19/16 01:28 88 22 50 10/19/16 01:00 91 20 92/65 100 Mechanical Ventilator 100 10/19/16 00:00 96.8 92 20 93/58 100 Mechanical Ventilator 100 10/19/16 00:00 101 10/18/16 23:14 113 20 100 10/18/16 23:04 115 20 95/56 100 Mechanical Ventilator 100 10/18/16 22:42 122 10/18/16 22:40 96.1 119 21 109/69 100 Mechanical Ventilator 100 10/18/16 22:36 100 10/18/16 22:17 127 16 100 10/18/16 20:00 97.9 135 16 148/96 90 Room Air 10/18/16 19:45 98.4 10/18/16 19:00 136 20 Nasal Cannula 4.0 10/18/16 16:00 98.4 98 18 120/77 94 Room Air 10/18/16 12:00 96.6 97 18 126/79 95 Room Air Intake and Output 10/18/16 10/19/16 19:00 07:00 Intake Total 840.0 ml 200 ml Output Total 150 ml 320 ml Balance 690.0 ml -120 ml Intake Oral 480 ml IV Total 360.0 ml 200 ml Output Urine Total 150 ml 120 ml Gastric Drainage Total 200 ml # Bowel Movements 2 Laboratory Tests 10/18/16 20:45: Total Creatine Kinase 43, Creatine Kinase MB 1.7, Creatine Kinase MB Relative Index 3.9, Troponin I < 0.30 10/18/16 23:00: Arterial Blood pH 7.167*L, Arterial Blood Partial Pressure CO2 37.5, Arterial Blood Partial Pressure O2 359.0H, Arterial Blood HCO3 13.3L, Arterial Blood Oxygen Saturation 99.5H, Arterial Blood Base Excess -14.3, Edgard Test Positive 10/19/16 02:30: White Blood Count 36.3#*H, Red Blood Count 3.73L, Hemoglobin 9.8L, Hematocrit 31.1L, Mean Corpuscular Volume 83, Mean Corpuscular Hemoglobin 26.3L, Mean Corpuscular Hemoglobin Concent 31.6L, Red Cell Distribution Width 16.7H, Platelet Count 713H, Mean Platelet Volume 4.9L, Neutrophils (%) (Auto) , Lymphocytes (%) (Auto) , Monocytes (%) (Auto) , Eosinophils (%) (Auto) , Basophils (%) (Auto) , Neutrophils % (Manual) [Pending], Lymphocytes % (Manual) [Pending], Platelet Estimate [Pending], Platelet Morphology [Pending], Sodium Level 124L, Potassium Level 4.4, Chloride Level 86L, Carbon Dioxide Level 16L, Anion Gap 22H, Blood Urea Nitrogen 24H, Creatinine 2.6H, Estimat Glomerular Filtration Rate 19.1, Glucose Level 121H, Calcium Level 6.9L, Phosphorus Level 5.5H, Magnesium Level 1.6L, Total Bilirubin < 0.2, Aspartate Amino Transf (AST/ SGOT) 20, Alanine Aminotransferase (ALT/SGPT) 8, Alkaline Phosphatase 151H, Total Protein 5.8L, Albumin 1.7L, Globulin 4.1, Albumin/Globulin Ratio 0.4L 10/19/16 06:00: Urine Eosinophils Few 10/19/16 09:00: Arterial Blood pH 7.197*L, Arterial Blood Partial Pressure CO2 40.9, Arterial Blood Partial Pressure O2 112.7H, Arterial Blood HCO3 15.5L, Arterial Blood Oxygen Saturation 97.9, Arterial Blood Base Excess -11.9, Edgard Test Positive Height (Feet): 5 Height (Inches): 2.00 Weight (Pounds): 130 General Appearance: lethargic, confused Sulma Desir MD Oct 19, 2016 11:17
[2016-10-19 11:28] LABS: ANISOCYTOSIS 1+; BAND NEUTROPHILS % (MANUAL) 1 % (0-8); BASOPHILS % (MANUAL) 0 % (0-2); EOSINOPHILS % (MANUAL) 0 % (0-3); LYMPHOCYTES % (MANUAL) 2 % (20-45); NEUTROPHILS % (MANUAL) 92 % (45-75); PLATELET ESTIMATE INCREASED; PLATELET MORPHOLOGY NORMAL; TOTAL CELLS COUNTED 100
[2016-10-19 11:29] LABS: HYPOCHROMASIA 1+
--- NOTE | 2016-10-19 13:54 | Diagnostic Imaging Report ---
Indication: Acute renal failure Technique: Grayscale and duplex images of the kidneys, retroperitoneum, and bladder were obtained. Comparison:CT abdomen pelvis dated 10/10/2016 Findings: Right kidney measures 13 point cm in length. Left kidney measures 11.7 cm in length. Both kidneys demonstrate normal echogenicity. There is severe left hydronephrosis with minimal residual renal parenchyma. There is mild right hydronephrosis.. No focal abnormality. Normal inferior vena cava. Bladder is empty, contains a Fontenot catheter. It demonstrates wall thickening. Impression: Mild right and severe left hydronephrosis. Associated parenchymal loss of the left kidney. This is also described on prior CT scan Empty bladder with Fontenot catheter. Bladder wall thickening. This is also described on prior CT.
--- NOTE | 2016-10-19 14:43 | Cardiac Electrophysiology PN ---
Subjective Subjective [id number] Objective Last 24 Hour Vital Signs Date Time Temp Pulse Resp B/P Pulse Ox O2 Delivery O2 Flow Rate FiO2 10/19/16 14:00 113 21 124/83 100 Mechanical Ventilator 50 10/19/16 13:23 113 24 50 10/19/16 13:00 106 21 101/59 100 Mechanical Ventilator 50 10/19/16 12:00 114 10/19/16 12:00 98.9 109 20 94/56 100 Mechanical Ventilator 50 10/19/16 12:00 50 10/19/16 11:00 137 29 143/121 100 Mechanical Ventilator 50 10/19/16 10:48 137 31 50 10/19/16 10:00 139 25 140/82 100 Mechanical Ventilator 50 10/19/16 09:29 138 28 50 10/19/16 09:29 134 24 50 10/19/16 09:00 136 26 169/91 100 Mechanical Ventilator 50 10/19/16 08:00 50 10/19/16 08:00 98.0 132 25 128/75 100 Mechanical Ventilator 50 10/19/16 08:00 130 10/19/16 07:09 134 24 50 10/19/16 07:00 120 20 133/63 100 Mechanical Ventilator 50 10/19/16 06:00 124 20 128/81 100 Mechanical Ventilator 50 10/19/16 05:15 118 24 50 10/19/16 05:00 125 20 157/93 100 Mechanical Ventilator 50 10/19/16 04:00 50 10/19/16 04:00 97.8 89 20 98/68 100 Mechanical Ventilator 50 10/19/16 04:00 89 10/19/16 03:25 86 22 50 10/19/16 03:00 85 20 96/65 100 Mechanical Ventilator 50 10/19/16 02:00 50 10/19/16 02:00 86 20 95/61 100 Mechanical Ventilator 50 10/19/16 01:28 88 22 50 10/19/16 01:00 91 20 92/65 100 Mechanical Ventilator 100 10/19/16 00:00 96.8 92 20 93/58 100 Mechanical Ventilator 100 10/19/16 00:00 101 10/18/16 23:14 113 20 100 10/18/16 23:04 115 20 95/56 100 Mechanical Ventilator 100 10/18/16 22:42 122 10/18/16 22:40 96.1 119 21 109/69 100 Mechanical Ventilator 100 10/18/16 22:36 100 10/18/16 22:17 127 16 100 10/18/16 20:00 97.9 135 16 148/96 90 Room Air 10/18/16 19:45 98.4 10/18/16 19:00 136 20 Nasal Cannula 4.0 10/18/16 16:00 98.4 98 18 120/77 94 Room Air Intake and Output 10/18/16 10/19/16 19:00 07:00 Intake Total 840.0 ml 200 ml Output Total 150 ml 320 ml Balance 690.0 ml -120 ml Intake Oral 480 ml IV Total 360.0 ml 200 ml Output Urine Total 150 ml 120 ml Gastric Drainage Total 200 ml # Bowel Movements 2 Laboratory Tests Test 10/18/16 20:45 10/18/16 23:00 10/19/16 02:30 10/19/16 06:00 Total Creatine Kinase 43 U/L (26-140) Creatine Kinase MB 1.7 ng/mL (< 3.8) Creatine Kinase MB Relative Index 3.9 Troponin I < 0.30 ng/mL (<=0.30) Arterial Blood pH 7.167 (7.350-7.450) Arterial Blood Partial Pressure CO2 37.5 mmHg (35.0-45.0) Arterial Blood Partial Pressure O2 359.0 mmHg (75.0-100.0) H Arterial Blood HCO3 13.3 mmol/L (22.0-26.0) L Arterial Blood Oxygen Saturation 99.5 % (92.0-98.0) H Arterial Blood Base Excess -14.3 Edgard Test Positive White Blood Count 36.3 K/UL (4.8-10.8) #*H Red Blood Count 3.73 M/UL (4.20-5.40) L Hemoglobin 9.8 G/DL (12.0-16.0) L Hematocrit 31.1 % (37.0-47.0) L Mean Corpuscular Volume 83 FL (80-99) Mean Corpuscular Hemoglobin 26.3 PG (27.0-31.0) L Mean Corpuscular Hemoglobin Concent 31.6 G/DL (32.0-36.0) L Red Cell Distribution Width 16.7 % (11.6-14.8) H Platelet Count 713 K/UL (150-450) H Mean Platelet Volume 4.9 FL (6.5-10.1) L Neutrophils (%) (Auto) % (45.0-75.0) Lymphocytes (%) (Auto) % (20.0-45.0) Monocytes (%) (Auto) % (1.0-10.0) Eosinophils (%) (Auto) % (0.0-3.0) Basophils (%) (Auto) % (0.0-2.0) Differential Total Cells Counted 100 Neutrophils % (Manual) 92 % (45-75) H Lymphocytes % (Manual) 2 % (20-45) L Monocytes % (Manual) 5 % (1-10) Eosinophils % (Manual) 0 % (0-3) Basophils % (Manual) 0 % (0-2) Band Neutrophils 1 % (0-8) Platelet Estimate Increased H Platelet Morphology Normal Hypochromasia 1+ Anisocytosis 1+ Sodium Level 124 mEQ/L (135-145) L Potassium Level 4.4 mEQ/L (3.4-4.9) Chloride Level 86 mEQ/L (98-107) L Carbon Dioxide Level 16 mEQ/L (20-30) L Anion Gap 22 (5-15) H Blood Urea Nitrogen 24 mg/dL (7-23) H Creatinine 2.6 mg/dL (0.5-0.9) H Estimat Glomerular Filtration Rate 19.1 mL/min (>60) Glucose Level 121 mg/dL (74-106) H Calcium Level 6.9 mg/dL (8.6-10.2) L Phosphorus Level 5.5 mg/dL (2.5-4.8) H Magnesium Level 1.6 mg/dL (1.7-2.5) L Total Bilirubin < 0.2 mg/dL (0.0-1.2) Aspartate Amino Transf (AST/SGOT) 20 U/L (5-40) Alanine Aminotransferase (ALT/SGPT) 8 U/L (3-33) Alkaline Phosphatase 151 U/L (35-104) H Total Protein 5.8 g/dL (6.6-8.7) L Albumin 1.7 g/dL (3.5-5.2) L Globulin 4.1 g/dL Albumin/Globulin Ratio 0.4 (1.0-2.7) L Urine Eosinophils Few Test 2/21/17 09:00 Arterial Blood pH 7.197 (7.350-7.450) Arterial Blood Partial Pressure CO2 40.9 mmHg (35.0-45.0) Arterial Blood Partial Pressure O2 112.7 mmHg (75.0-100.0) H Arterial Blood HCO3 15.5 mmol/L (22.0-26.0) L Arterial Blood Oxygen Saturation 97.9 % (92.0-98.0) Arterial Blood Base Excess -11.9 Edgard Test Positive ANGELINE MONTES Oct 19, 2016 14:43
--- NOTE | 2016-10-19 14:56 | General Progress Note ---
Assessment/Plan Assessment/Plan Assessment - resp arrest - s/p code blue - hypercalcemia - constipation - ovarian CA , mets - Anemia - HTN - CPS Recommendations - supportive care - care planning - poor px - agree with comfort care Subjective Allergies: Coded Allergies: No Known Allergies (Unverified , 10/08/16) Subjective seen early am doing poorly coded now intubated, in ICU eyes open but unresponsive Objective Last 24 Hour Vital Signs Date Time Temp Pulse Resp B/P Pulse Ox O2 Delivery O2 Flow Rate FiO2 10/19/16 14:00 113 21 124/83 100 Mechanical Ventilator 50 10/19/16 13:23 113 24 50 10/19/16 13:00 106 21 101/59 100 Mechanical Ventilator 50 10/19/16 12:00 114 10/19/16 12:00 98.9 109 20 94/56 100 Mechanical Ventilator 50 10/19/16 12:00 50 10/19/16 11:00 137 29 143/121 100 Mechanical Ventilator 50 10/19/16 10:48 137 31 50 10/19/16 10:00 139 25 140/82 100 Mechanical Ventilator 50 10/19/16 09:29 138 28 50 10/19/16 09:29 134 24 50 10/19/16 09:00 136 26 169/91 100 Mechanical Ventilator 50 10/19/16 08:00 50 10/19/16 08:00 98.0 132 25 128/75 100 Mechanical Ventilator 50 10/19/16 08:00 130 10/19/16 07:09 134 24 50 10/19/16 07:00 120 20 133/63 100 Mechanical Ventilator 50 10/19/16 06:00 124 20 128/81 100 Mechanical Ventilator 50 10/19/16 05:15 118 24 50 10/19/16 05:00 125 20 157/93 100 Mechanical Ventilator 50 10/19/16 04:00 50 10/19/16 04:00 97.8 89 20 98/68 100 Mechanical Ventilator 50 10/19/16 04:00 89 10/19/16 03:25 86 22 50 10/19/16 03:00 85 20 96/65 100 Mechanical Ventilator 50 10/19/16 02:00 50 10/19/16 02:00 86 20 95/61 100 Mechanical Ventilator 50 10/19/16 01:28 88 22 50 10/19/16 01:00 91 20 92/65 100 Mechanical Ventilator 100 10/19/16 00:00 96.8 92 20 93/58 100 Mechanical Ventilator 100 10/19/16 00:00 101 10/18/16 23:14 113 20 100 10/18/16 23:04 115 20 95/56 100 Mechanical Ventilator 100 10/18/16 22:42 122 10/18/16 22:40 96.1 119 21 109/69 100 Mechanical Ventilator 100 10/18/16 22:36 100 10/18/16 22:17 127 16 100 10/18/16 20:00 97.9 135 16 148/96 90 Room Air 10/18/16 19:45 98.4 10/18/16 19:00 136 20 Nasal Cannula 4.0 10/18/16 16:00 98.4 98 18 120/77 94 Room Air Intake and Output 10/18/16 10/19/16 19:00 07:00 Intake Total 840.0 ml 200 ml Output Total 150 ml 320 ml Balance 690.0 ml -120 ml Intake Oral 480 ml IV Total 360.0 ml 200 ml Output Urine Total 150 ml 120 ml Gastric Drainage Total 200 ml # Bowel Movements 2 Laboratory Tests 10/18/16 20:45: Total Creatine Kinase 43, Creatine Kinase MB 1.7, Creatine Kinase MB Relative Index 3.9, Troponin I < 0.30 10/18/16 23:00: Arterial Blood pH 7.167*L, Arterial Blood Partial Pressure CO2 37.5, Arterial Blood Partial Pressure O2 359.0H, Arterial Blood HCO3 13.3L, Arterial Blood Oxygen Saturation 99.5H, Arterial Blood Base Excess -14.3, Edgard Test Positive 10/19/16 02:30: White Blood Count 36.3#*H, Red Blood Count 3.73L, Hemoglobin 9.8L, Hematocrit 31.1L, Mean Corpuscular Volume 83, Mean Corpuscular Hemoglobin 26.3L, Mean Corpuscular Hemoglobin Concent 31.6L, Red Cell Distribution Width 16.7H, Platelet Count 713H, Mean Platelet Volume 4.9L, Neutrophils (%) (Auto) , Lymphocytes (%) (Auto) , Monocytes (%) (Auto) , Eosinophils (%) (Auto) , Basophils (%) (Auto) , Differential Total Cells Counted 100, Neutrophils % ( Manual) 92H, Lymphocytes % (Manual) 2L, Monocytes % (Manual) 5, Eosinophils % ( Manual) 0, Basophils % (Manual) 0, Band Neutrophils 1, Platelet Estimate IncreasedH, Platelet Morphology Normal, Hypochromasia 1+, Anisocytosis 1+, Sodium Level 124L, Potassium Level 4.4, Chloride Level 86L, Carbon Dioxide Level 16L, Anion Gap 22H, Blood Urea Nitrogen 24H, Creatinine 2.6H, Estimat Glomerular Filtration Rate 19.1, Glucose Level 121H, Calcium Level 6.9L, Phosphorus Level 5.5H, Magnesium Level 1.6L, Total Bilirubin < 0.2, Aspartate Amino Transf (AST/SGOT) 20, Alanine Aminotransferase (ALT/SGPT) 8, Alkaline Phosphatase 151H, Total Protein 5.8L, Albumin 1.7L, Globulin 4.1, Albumin/ Globulin Ratio 0.4L 10/19/16 06:00: Urine Eosinophils Few 10/19/16 09:00: Arterial Blood pH 7.197*L, Arterial Blood Partial Pressure CO2 40.9, Arterial Blood Partial Pressure O2 112.7H, Arterial Blood HCO3 15.5L, Arterial Blood Oxygen Saturation 97.9, Arterial Blood Base Excess -11.9, Edgard Test Positive Height (Feet): 5 Height (Inches): 2.00 Weight (Pounds): 130 Objective Thin WW NCAT, intubated supple CTA with coarse BS RRR abd more firm no edema HOLLAND GARSIA Oct 19, 2016 14:56
--- NOTE | 2016-10-19 15:58 | General Progress Note ---
Progress Note Progress Note I discussed the plan of care with all the healthcare network consultant on the case. They are agreed with comfort care and DNR. I suggest to remove the ET tube and let the patient have a comfortable passing. TRISTON FRIED Oct 19, 2016 15:58
[2016-10-19] MEDS ORDERED: Morphine Sulfate 4mg/ml Inj IVP PRN ×2 (16:00)
[2016-10-19] MEDS ORDERED: DuoNeb 0.5-3(2.5)mg/3ml neb HHN PRN ×2 (16:00)
--- NOTE | 2016-10-19 16:33 | Infectious Diseases Prog Note ---
Assessment/Plan Problems: (1) Skin infection Assessment & Plan: S/P lymph node biopsy complicated with skin wound infection of the left neck, wound culture is negative . was on clindamycin and zosyn empirically , still has leukocytosis, suspect due to ureter obstruction and pyelonephritis, refused nephrostomy , fluconazole was added for fungal coverage , but no improvement in her WBC, since she needs source control to relief her obstruction, but refused all procedures. (2) Sepsis Assessment & Plan: less likely , suspect malignancy related VS pyelonephritis due to ureter obstruction from pelvic malignancy , recommend nephrostomy to relief obstruction by IR, but patient refused. culture results are negative so far , continue zosyn and start zyvox , recommend hospice care, and comfort measures since she has been refusing medical care and procedures. (3) Anemia Assessment & Plan: due to chronic disease and malignancy, monitor H/H transfuse blood as needed, rule out GI bleeding as a source (4) JAY (acute kidney injury) Assessment & Plan: suspect due to ureter obstruction due to pelvic mass, recommend urology consult for stent placement , or nephrostomy by IR, unfortunately she refused , continue hydration, monitor UOP, avoid nephrotoxic meds (5) Pelvic mass in female Assessment & Plan: suspect recurrent ovarian CA, oncology is following, needs biopsy to confirm , but she refused it, may benefit from chemo for palliative purpose. recommend hospice care (6) Respiratory failure, acute Assessment & Plan: intubated on mechanical ventilation, has poor prognosis , pulmonary is following (7) Cardiac arrest Assessment & Plan: S/P CPR with intubation, poor prognosis , with anoxic brain injury, cards was consulted. Subjective ROS Limited/Unobtainable: Yes Allergies: Coded Allergies: No Known Allergies (Unverified , 10/08/16) Subjective she is intubated on mechanical ventilation. Objective Vital Signs Last 24 Hour Vital Signs Date Time Temp Pulse Resp B/P Pulse Ox O2 Delivery O2 Flow Rate FiO2 10/19/16 15:11 110 21 50 10/19/16 14:00 113 21 124/83 100 Mechanical Ventilator 50 10/19/16 13:23 113 24 50 10/19/16 13:00 106 21 101/59 100 Mechanical Ventilator 50 10/19/16 12:00 114 10/19/16 12:00 98.9 109 20 94/56 100 Mechanical Ventilator 50 10/19/16 12:00 50 10/19/16 11:00 137 29 143/121 100 Mechanical Ventilator 50 10/19/16 10:48 137 31 50 10/19/16 10:00 139 25 140/82 100 Mechanical Ventilator 50 10/19/16 09:29 138 28 50 10/19/16 09:29 134 24 50 10/19/16 09:00 136 26 169/91 100 Mechanical Ventilator 50 10/19/16 08:00 50 10/19/16 08:00 98.0 132 25 128/75 100 Mechanical Ventilator 50 10/19/16 08:00 130 10/19/16 07:09 134 24 50 10/19/16 07:00 120 20 133/63 100 Mechanical Ventilator 50 10/19/16 06:00 124 20 128/81 100 Mechanical Ventilator 50 10/19/16 05:15 118 24 50 10/19/16 05:00 125 20 157/93 100 Mechanical Ventilator 50 10/19/16 04:00 50 10/19/16 04:00 97.8 89 20 98/68 100 Mechanical Ventilator 50 10/19/16 04:00 89 10/19/16 03:25 86 22 50 10/19/16 03:00 85 20 96/65 100 Mechanical Ventilator 50 10/19/16 02:00 50 10/19/16 02:00 86 20 95/61 100 Mechanical Ventilator 50 10/19/16 01:28 88 22 50 10/19/16 01:00 91 20 92/65 100 Mechanical Ventilator 100 10/19/16 00:00 96.8 92 20 93/58 100 Mechanical Ventilator 100 10/19/16 00:00 101 10/18/16 23:14 113 20 100 10/18/16 23:04 115 20 95/56 100 Mechanical Ventilator 100 10/18/16 22:42 122 10/18/16 22:40 96.1 119 21 109/69 100 Mechanical Ventilator 100 10/18/16 22:36 100 10/18/16 22:17 127 16 100 10/18/16 20:00 97.9 135 16 148/96 90 Room Air 10/18/16 19:45 98.4 10/18/16 19:00 136 20 Nasal Cannula 4.0 Height (Feet): 5 Height (Inches): 2.00 Weight (Pounds): 130 General Appearance: WD/WN, no acute distress HEENT: normocephalic, atraumatic, anicteric Respiratory/Chest: normal breath sounds, no respiratory distress, no accessory muscle use, decreased breath sounds, crackles/rales Cardiovascular: normal peripheral pulses, normal rate, regular rhythm, no JVD, tachycardia Abdomen: hypoactive bowel sounds, distended, tender, mass Extremities: no cyanosis, no clubbing Skin: no rash, no lesions Laboratory Tests Test 10/18/16 20:45 10/18/16 23:00 10/19/16 02:30 10/19/16 06:00 Total Creatine Kinase 43 U/L (26-140) Creatine Kinase MB 1.7 ng/mL (< 3.8) Creatine Kinase MB Relative Index 3.9 Troponin I < 0.30 ng/mL (<=0.30) Arterial Blood pH 7.167 (7.350-7.450) Arterial Blood Partial Pressure CO2 37.5 mmHg (35.0-45.0) Arterial Blood Partial Pressure O2 359.0 mmHg (75.0-100.0) H Arterial Blood HCO3 13.3 mmol/L (22.0-26.0) L Arterial Blood Oxygen Saturation 99.5 % (92.0-98.0) H Arterial Blood Base Excess -14.3 Edgard Test Positive White Blood Count 36.3 K/UL (4.8-10.8) #*H Red Blood Count 3.73 M/UL (4.20-5.40) L Hemoglobin 9.8 G/DL (12.0-16.0) L Hematocrit 31.1 % (37.0-47.0) L Mean Corpuscular Volume 83 FL (80-99) Mean Corpuscular Hemoglobin 26.3 PG (27.0-31.0) L Mean Corpuscular Hemoglobin Concent 31.6 G/DL (32.0-36.0) L Red Cell Distribution Width 16.7 % (11.6-14.8) H Platelet Count 713 K/UL (150-450) H Mean Platelet Volume 4.9 FL (6.5-10.1) L Neutrophils (%) (Auto) % (45.0-75.0) Lymphocytes (%) (Auto) % (20.0-45.0) Monocytes (%) (Auto) % (1.0-10.0) Eosinophils (%) (Auto) % (0.0-3.0) Basophils (%) (Auto) % (0.0-2.0) Differential Total Cells Counted 100 Neutrophils % (Manual) 92 % (45-75) H Lymphocytes % (Manual) 2 % (20-45) L Monocytes % (Manual) 5 % (1-10) Eosinophils % (Manual) 0 % (0-3) Basophils % (Manual) 0 % (0-2) Band Neutrophils 1 % (0-8) Platelet Estimate Increased H Platelet Morphology Normal Hypochromasia 1+ Anisocytosis 1+ Sodium Level 124 mEQ/L (135-145) L Potassium Level 4.4 mEQ/L (3.4-4.9) Chloride Level 86 mEQ/L (98-107) L Carbon Dioxide Level 16 mEQ/L (20-30) L Anion Gap 22 (5-15) H Blood Urea Nitrogen 24 mg/dL (7-23) H Creatinine 2.6 mg/dL (0.5-0.9) H Estimat Glomerular Filtration Rate 19.1 mL/min (>60) Glucose Level 121 mg/dL (74-106) H Calcium Level 6.9 mg/dL (8.6-10.2) L Phosphorus Level 5.5 mg/dL (2.5-4.8) H Magnesium Level 1.6 mg/dL (1.7-2.5) L Total Bilirubin < 0.2 mg/dL (0.0-1.2) Aspartate Amino Transf (AST/SGOT) 20 U/L (5-40) Alanine Aminotransferase (ALT/SGPT) 8 U/L (3-33) Alkaline Phosphatase 151 U/L (35-104) H Total Protein 5.8 g/dL (6.6-8.7) L Albumin 1.7 g/dL (3.5-5.2) L Globulin 4.1 g/dL Albumin/Globulin Ratio 0.4 (1.0-2.7) L Urine Eosinophils Few Test 10/19/16 09:00 Arterial Blood pH 7.197 (7.350-7.450) Arterial Blood Partial Pressure CO2 40.9 mmHg (35.0-45.0) Arterial Blood Partial Pressure O2 112.7 mmHg (75.0-100.0) H Arterial Blood HCO3 15.5 mmol/L (22.0-26.0) L Arterial Blood Oxygen Saturation 97.9 % (92.0-98.0) Arterial Blood Base Excess -11.9 Edgard Test Positive Current Medications Medications (Trade) Dose Ordered Sig/[place] Route PRN Reason Start Time Stop Time Status Last Admin Dose Admin Acetaminophen (Tylenol) 650 mg Q4H PRN ORAL Mild Pain/Temp > 100.5 10/19/16 17:00 11/18/16 16:59 Albuterol/ Ipratropium (DuoNeb 0.5-3(2.5)mg/3ml) 3 ml Q4H PRN HHN Shortness of Breath 10/19/16 16:00 10/24/16 15:59 Dextrose/Sodium Chloride 1,000 ml @ 75 mls/hr [id number] IV 10/19/16 16:00 11/18/16 15:59 Linezolid 300 ml @ 300 mls/hr Q12HR IVPB 10/19/16 21:00 10/26/16 20:59 Lorazepam (Ativan 2mg/ml 1ml) 2 mg Q2H PRN IV For Anxiety 10/19/16 16:30 10/26/16 16:29 Morphine Sulfate (Morphine Sulfate) 4 mg Q4H PRN IVP Severe Pain (Pain Scale 7-10) 10/19/16 16:00 10/26/16 15:59 Pantoprazole (Protonix) 40 mg DAILY IVP 10/20/16 10:00 11/19/16 09:59 Piperacillin Sod/ Tazobactam Sod/ Dextrose (Zosyn/D5W) 110 ml @ 27.5 mls/hr EVERY 12 HOURS IVPB 10/19/16 21:00 10/26/16 20:59 Sodium Citrate (Bicitra) 30 ml EVERY 6 HOURS ORAL 10/19/16 18:00 11/18/16 17:59 Jaden Su M.D. Oct 19, 2016 16:33
[2016-10-19] MEDS: D5NS 1,000 ML IV SCH (16:39)
[2016-10-19] MEDS ORDERED: Bisacodyl EC 5mg tab ORAL PRN (17:15)
--- NOTE | 2016-10-19 17:51 | General Progress Note ---
Assessment/Plan Assessment/Plan IMPRESSION: 1. Extensive disseminated malignancy, as described above, with a large pelvic mass, extensive lymphadenopathy, extensive osseous metastases, hepatic and pulmonary metastases. There is also unusual circumferential involvement of the bladder wall - discussed multiple times, patient refuses 2. Hypercalcemia, likely related to metastatic malignancy 3. Acute thrombus bilateral common femoral vein s/p IVC filter placement 4. Anemia of chronic disease (severe). 5. Hx of ovarian cancer 6. Hyperferritinemia, most likely reactive. 7. History of schizophrenia. 8. History of ovarian cancer. 9. Hypertension. 10. Chronic obstructive pulmonary disease. 11. History of seizure. 12. Skin abscess. 13. Failure to thrive. 14. Hepatitis C RECOMMENDATIONS: 1. Watch count. Hgb goal >7. 2. PATIENT IS REFUSING biopsy 3. PRBC transfusion on p.r.n. basis. Refused meds 4. Has refused endoscopy/colonoscopy 5. hx of noncomplance with care/treatment 6. Consider hospice/palliative care given patient refusal for workup/treatment, would benefit from this service 7. Does not require iron 8. SCD for DVT prophylaxis. 9. Reviewed tumor markers. 10. Staff Thank you, Florentino Alavrez MD Subjective Constitutional: Reports: no symptoms HEENT: Reports: no symptoms Cardiovascular: Reports: no symptoms Respiratory: Reports: no symptoms Gastrointestinal/Abdominal: Reports: no symptoms Genitourinary: Reports: no symptoms Neurologic/Psychiatric: Reports: no symptoms Endocrine: Reports: no symptoms Hematologic/Lymphatic: Reports: no symptoms Allergies: Coded Allergies: No Known Allergies (Unverified , 10/08/16) Objective Last 24 Hour Vital Signs Date Time Temp Pulse Resp B/P Pulse Ox O2 Delivery O2 Flow Rate FiO2 10/19/16 17:13 128 32 50 10/19/16 15:11 110 21 50 10/19/16 14:00 113 21 124/83 100 Mechanical Ventilator 50 10/19/16 13:23 113 24 50 10/19/16 13:00 106 21 101/59 100 Mechanical Ventilator 50 10/19/16 12:00 114 10/19/16 12:00 98.9 109 20 94/56 100 Mechanical Ventilator 50 10/19/16 12:00 50 10/19/16 11:00 137 29 143/121 100 Mechanical Ventilator 50 10/19/16 10:48 137 31 50 10/19/16 10:00 139 25 140/82 100 Mechanical Ventilator 50 10/19/16 09:29 138 28 50 10/19/16 09:29 134 24 50 10/19/16 09:00 136 26 169/91 100 Mechanical Ventilator 50 10/19/16 08:00 50 10/19/16 08:00 98.0 132 25 128/75 100 Mechanical Ventilator 50 10/19/16 08:00 130 10/19/16 07:09 134 24 50 10/19/16 07:00 120 20 133/63 100 Mechanical Ventilator 50 10/19/16 06:00 124 20 128/81 100 Mechanical Ventilator 50 10/19/16 05:15 118 24 50 10/19/16 05:00 125 20 157/93 100 Mechanical Ventilator 50 10/19/16 04:00 50 10/19/16 04:00 97.8 89 20 98/68 100 Mechanical Ventilator 50 10/19/16 04:00 89 10/19/16 03:25 86 22 50 10/19/16 03:00 85 20 96/65 100 Mechanical Ventilator 50 10/19/16 02:00 50 10/19/16 02:00 86 20 95/61 100 Mechanical Ventilator 50 10/19/16 01:28 88 22 50 10/19/16 01:00 91 20 92/65 100 Mechanical Ventilator 100 10/19/16 00:00 96.8 92 20 93/58 100 Mechanical Ventilator 100 10/19/16 00:00 101 10/18/16 23:14 113 20 100 10/18/16 23:04 115 20 95/56 100 Mechanical Ventilator 100 10/18/16 22:42 122 10/18/16 22:40 96.1 119 21 109/69 100 Mechanical Ventilator 100 10/18/16 22:36 100 10/18/16 22:17 127 16 100 10/18/16 20:00 97.9 135 16 148/96 90 Room Air Intake and Output 10/18/16 10/19/16 17:00 05:00 Intake Total 840.0 ml 350 ml Output Total 150 ml 120 ml Balance 690.0 ml 230 ml Intake Oral 280 ml 200 ml IV Total 560.0 ml 150 ml Output Urine Total 150 ml 120 ml # Voids 2 # Bowel Movements 3 Laboratory Tests 10/18/16 20:45: Total Creatine Kinase 43, Creatine Kinase MB 1.7, Creatine Kinase MB Relative Index 3.9, Troponin I < 0.30 10/18/16 23:00: Arterial Blood pH 7.167*L, Arterial Blood Partial Pressure CO2 37.5, Arterial Blood Partial Pressure O2 359.0H, Arterial Blood HCO3 13.3L, Arterial Blood Oxygen Saturation 99.5H, Arterial Blood Base Excess -14.3, Edgard Test Positive 10/19/16 02:30: White Blood Count 36.3#*H, Red Blood Count 3.73L, Hemoglobin 9.8L, Hematocrit 31.1L, Mean Corpuscular Volume 83, Mean Corpuscular Hemoglobin 26.3L, Mean Corpuscular Hemoglobin Concent 31.6L, Red Cell Distribution Width 16.7H, Platelet Count 713H, Mean Platelet Volume 4.9L, Neutrophils (%) (Auto) , Lymphocytes (%) (Auto) , Monocytes (%) (Auto) , Eosinophils (%) (Auto) , Basophils (%) (Auto) , Differential Total Cells Counted 100, Neutrophils % ( Manual) 92H, Lymphocytes % (Manual) 2L, Monocytes % (Manual) 5, Eosinophils % ( Manual) 0, Basophils % (Manual) 0, Band Neutrophils 1, Platelet Estimate IncreasedH, Platelet Morphology Normal, Hypochromasia 1+, Anisocytosis 1+, Sodium Level 124L, Potassium Level 4.4, Chloride Level 86L, Carbon Dioxide Level 16L, Anion Gap 22H, Blood Urea Nitrogen 24H, Creatinine 2.6H, Estimat Glomerular Filtration Rate 19.1, Glucose Level 121H, Calcium Level 6.9L, Phosphorus Level 5.5H, Magnesium Level 1.6L, Total Bilirubin < 0.2, Aspartate Amino Transf (AST/SGOT) 20, Alanine Aminotransferase (ALT/SGPT) 8, Alkaline Phosphatase 151H, Total Protein 5.8L, Albumin 1.7L, Globulin 4.1, Albumin/ Globulin Ratio 0.4L 10/19/16 06:00: Urine Eosinophils Few 10/19/16 09:00: Arterial Blood pH 7.197*L, Arterial Blood Partial Pressure CO2 40.9, Arterial Blood Partial Pressure O2 112.7H, Arterial Blood HCO3 15.5L, Arterial Blood Oxygen Saturation 97.9, Arterial Blood Base Excess -11.9, Edgard Test Positive Height (Feet): 5 Height (Inches): 2.00 Weight (Pounds): 130 General Appearance: alert Neck: non-tender Cardiovascular: normal rate Respiratory/Chest: lungs clear Abdomen: soft Pelvis: no masses Extremities: non-tender Edema: no edema noted Arm (L), no edema noted Arm (R), no edema noted Leg (L), no edema noted Leg (R), no edema noted Pedal (L), no edema noted Pedal (R), no edema noted Generalized Edema: mild edema Neurologic: unresponsive Lymphatic: normal anterior cervical (L), normal anterior cervical (R), normal axillary (L), normal axillary (R), normal inguinal (L), normal inguinal (R), normal other, normal posterior cervical (L), normal posterior cervical (R), normal submandibular (L), normal submandibular (R), normal supraclavicular (L), normal supraclavicular (R) FLORENTINO ALVAREZ Oct 19, 2016 17:51
[2016-10-19] MEDS ORDERED: Sodium Bicarbonate 8.4% 50ml Carp ONE (19:22)
[2016-10-19] MEDS ORDERED: EPINEPHrine 1mg/10ml carp IV ONE (19:22)
[2016-10-19] MEDS ORDERED: Atropine Inj 1mg/10ml Syr ONE (19:22)
[2016-10-19] MEDS: Piperacillin/Tazobactam 3.375 GM in D5W 110 ML IVPB SCH (20:21)
--- NOTE | 2016-10-19 21:29 | Consultation ---
Consult Note Consult Note NEUROLOGY CONSULTATION: Full note dictated #[id number] 56 y/o, CF, ?H with PH of schizophrenia, metastatic ovarian cancer, a questionable seizure disorder, who was admitted to the hospital on 10/08/16 for sepsis and anemia. On 10/18/16 she had an asystolic cardiac arrest. A code blue was called and following that it took 20 minutes to obtain a pulse and BP. Since then the patient has been comatose and exhibiting myoclonic movements. ON EXAM: Comatose. Only brainstem reflex is EM on OCM. IMPRESSION: Prognosis for recovery of neurologic function poor due to prolonged duration of cardiopulmonary arrest and severe myoclonus following that. In addition patient has a terminal underlying cancer. REC: Agree with DNR/DNI status. Would discontinue artificial means of prolonging the inevitable. Corie Hernandez M.D., M.S.P.H. CORIE HERNANDEZ Oct 19, 2016 21:29
[2016-10-20] VITALS: BP 115/71
[2016-10-20] MEDS: Sodium Citrate 30ml ORAL SCH ×4 (00:11→18:20)
--- NOTE | 2016-10-20 02:58 | Consultation ---
DATE OF CONSULTATION: 10/19/2016 NEUROLOGY CONSULTATION REQUESTING PHYSICIANS: Sulma Desir M.D. & Jeison Pruett M.D. HISTORY: Ms. Mony Renner is a 56-year-old, lady, of unknown handedness, who does have a past history of schizophrenia, metastatic ovarian cancer, and a questionable seizure disorder, who was admitted to the hospital on 10/08/2016 for sepsis and anemia. She was being stabilized in the hospital when on 10/18/2016 at 21:29 hours she was found to be asystolic. A Code Blue was called immediately and she was intubated and artificially ventilated. After advanced cardiac life support, she was noted to have a return of a pulse and measurable blood pressure 20 minutes later. Since then, the patient has been comatose and has been exhibiting myoclonic movements. This consultation was requested to evaluate the patient from a neurological point of view for prognostication. At this point in time, the patient is comatose and thus no further history can be obtained. PAST MEDICAL HISTORY: Significant for schizophrenia, metastatic ovarian cancer and seizure disorder. FAMILY HISTORY: Unavailable. PERSONAL HISTORY: Home: She lives in a [facility]. Work and habits: Unknown. PRESENT MEDICATIONS: Include Protonix, linezolid, Zosyn, Tylenol p.r.n., Ativan p.r.n., albuterol, DuoNeb p.r.n. and morphine p.r.n. PHYSICAL EXAMINATION: GENERAL: She is a well-developed, relatively well-nourished, lady, lying in bed, connected to the ventilator via an orotracheal tube. VITAL SIGNS: Pulse 131 per minute, blood pressure 124/89 mmHg, respirations 25 per minute, all controlled by the ventilator, and temperature 98.4 degrees Fahrenheit. HEAD: Normocephalic and atraumatic. NECK: No neck rigidity was observed. EENT EXAMINATION: Benign. NEUROLOGICAL EXAMINATION: MENTAL STATUS EXAMINATION: She was comatose and did not respond even to deep painful stimuli. Further mental status testing was impossible. SPEECH: Could not be tested. LANGUAGE: Could not be tested. CRANIAL NERVE EXAMINATION: II: She did not blink to threat. III, IV & : The external ocular movements were present on oculocephalic maneuvers. The pupils were 3 mm in diameter and did not react to light. V & VII: The corneal reflexes were present, but significantly diminished. VIII: She did not respond to sounds and had no nystagmus. IX & X: The gag reflex was absent on manipulating the endotracheal tube. XI: The sternocleidomastoids and trapezii did not function. XII: Could not be tested adequately. MOTOR SYSTEM: The tone was increased in all four extremities. Examination of muscle mass revealed generalized muscle wasting. Examination of power was impossible to perform but on applying deep painful stimuli, no movements were seen. SENSORY EXAMINATION: She did not respond even to deep painful stimuli. REFLEXES: 2+ present bilaterally symmetrical at the biceps, triceps, and brachioradialis. 1+ at both knees. 0 at both ankles. The plantar responses were mute bilaterally. COORDINATION, STANCE & GAIT: Could not be tested. DIAGNOSTIC IMPRESSION: 1. Ms. Mony Renner is a 56-year-old, lady, of unknown handedness, who does have a past history of schizophrenia, a seizure disorder and ovarian cancer for metastatic nature, who was hospitalized for sepsis and anemia and while she was being stabilized in the hospital she had a Code Blue on 10/18/2016 with asystolic cardiopulmonary arrest. It took approximately 20 minutes before she could be resuscitated. Following that, she was noted to be comatose and having generalized myoclonus. 2. On neurological examination, at this time, she is comatose and the only brainstem function that she exhibits is eye movements on oculocephalic maneuvers and diminished corneal reflexes. 3. 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 4. The prognosis for recovery of neurological function is poor due to the prolonged duration of the cardiopulmonary arrest and in addition, the severe myoclonus following that. In addition, the patient has an underlying terminal cancer, which again makes the prognosis worse. RECOMMENDATIONS: 1. Agree with management thus far. 2. Agree with having the patient on a DNR/DNI status. 3. If all concerned agree, would discontinue artificial means of prolonging the inevitable as the patient's prognosis is quite poor. Thank you for entrusting me with the care of Ms. Renner. I shall follow her with you. Dequan Hernandez M.D., M.S.P.H. DR: JLUIS JOB#: [id number] MTDNabil
[2016-10-20 04:00] VITALS: BP 118/75
[2016-10-20] MEDS: D5NS 1,000 ML IV SCH (05:04)
[2016-10-20 05:59] LABS: MEAN CORPUSCULAR HGB CONC 32.2 G/DL (32.0-36.0); MEAN CORPUSCULAR VOLUME 84 FL (80-99); MEAN PLATELET VOLUME 4.5 FL (6.5-10.1); PLATELET COUNT 448 K/UL (150-450); RED CELL DISTRIBUTION WIDTH 17.2 % (11.6-14.8)
[2016-10-20 06:02] LABS: WHITE BLOOD COUNT 26.7 K/UL (4.8-10.8)
[2016-10-20 06:10] LABS: ALANINE AMINOTRANSFERASE 9 U/L (3-33); ALBUMIN/GLOBULIN RATIO 0.3 (1.0-2.7); ANION GAP 22 (5-15); ASPARTATE AMINO TRANSFERASE 24 U/L (5-40); CARBON DIOXIDE 16 mEQ/L (20-30); CHLORIDE 90 mEQ/L (98-107); GLOMERULAR FILTRATION RATE 16.2 mL/min (>60); HEMOLYSIS 15; MAGNESIUM 1.5 mg/dL (1.7-2.5); PHOSPHORUS 5.3 mg/dL (2.5-4.8); POTASSIUM 4.7 mEQ/L (3.4-4.9); SODIUM 128 mEQ/L (135-145); TOTAL PROTEIN 5.9 g/dL (6.6-8.7)
[2016-10-20] MEDS: Piperacillin/Tazobactam 3.375 GM in D5W 110 ML IVPB SCH (07:55)
[2016-10-20 08:00] VITALS: BP 111/67
[2016-10-20 08:41] LABS: ABG ALLEN TEST POSITIVE; ABG BASE EXCESS -8.4; ABG PCO2 38.4 mmHg (35.0-45.0)
[2016-10-20] MEDS: Pantoprazole Inj IVP SCH (09:21)
[2016-10-20] MEDS ORDERED: Pantoprazole Inj IVP SCH (10:00)
--- NOTE | 2016-10-20 10:04 | General Progress Note ---
Assessment/Plan Status: not improved, deteriorating Status Narrative Neuro and Renal status unchanged Assessment/Plan status: Coded 10/19 - intubated on Vent Hypercalcemia, related to Neoplastic process- IMPROVED Symptomatic Anemia, Etiology?? Cancer, GI Loss, .... Acute renal failure now- Cr rising Sugg: comfort care in view of recent deterioration of clinical state and underlying metastatic cancer. Prognisis poor. Aredia given 90mg 10/09 per consultants- DNR DNI at this time Subjective ROS Limited/Unobtainable: Yes Allergies: Coded Allergies: No Known Allergies (Unverified , 10/08/16) Objective Last 24 Hour Vital Signs Date Time Temp Pulse Resp B/P Pulse Ox O2 Delivery O2 Flow Rate FiO2 10/20/16 08:35 98 23 40 10/20/16 08:00 95 10/20/16 08:00 97.5 97 26 111/67 100 Mechanical Ventilator 50 10/20/16 06:50 98 23 65 10/20/16 05:19 107 20 65 10/20/16 04:00 104 10/20/16 04:00 50 10/20/16 04:00 97.5 101 26 118/75 99 Mechanical Ventilator 50 10/20/16 03:23 101 21 65 10/20/16 01:08 106 23 65 10/20/16 00:00 50 10/20/16 00:00 98.0 106 25 115/71 99 Mechanical Ventilator 50 10/19/16 23:46 106 10/19/16 23:22 101 21 65 10/19/16 21:11 109 22 65 10/19/16 20:00 50 10/19/16 20:00 98.4 131 25 124/89 97 Mechanical Ventilator 50 10/19/16 20:00 127 10/19/16 19:08 133 33 65 10/19/16 17:13 128 32 50 10/19/16 16:00 50 10/19/16 16:00 124 10/19/16 16:00 98.2 127 24 109/40 98 Mechanical Ventilator 50 10/19/16 15:11 110 21 50 10/19/16 14:00 113 21 124/83 100 Mechanical Ventilator 50 10/19/16 13:23 113 24 50 10/19/16 13:00 106 21 101/59 100 Mechanical Ventilator 50 10/19/16 12:00 114 10/19/16 12:00 98.9 109 20 94/56 100 Mechanical Ventilator 50 10/19/16 12:00 50 10/19/16 11:00 137 29 143/121 100 Mechanical Ventilator 50 10/19/16 10:48 137 31 50 Intake and Output 10/19/16 10/20/16 19:00 07:00 Intake Total 800.0 ml 1235.0 ml Output Total 35 ml 100 ml Balance 765.0 ml 1135.0 ml IV Total 800.0 ml 1235.0 ml Output Urine Total 10 ml 100 ml Gastric Drainage Total 25 ml Laboratory Tests 10/20/16 03:35: White Blood Count 26.7*H, Red Blood Count 3.50L, Hemoglobin 9.5L, Hematocrit 29.4L, Mean Corpuscular Volume 84, Mean Corpuscular Hemoglobin 27.0, Mean Corpuscular Hemoglobin Concent 32.2, Red Cell Distribution Width 17.2H, Platelet Count 448, Mean Platelet Volume 4.5L, Neutrophils (%) (Auto) , Lymphocytes (%) (Auto) , Monocytes (%) (Auto) , Eosinophils (%) (Auto) , Basophils (%) (Auto) , Neutrophils % (Manual) [Pending], Lymphocytes % (Manual) [Pending], Platelet Estimate [Pending], Platelet Morphology [Pending], Sodium Level 128L, Potassium Level 4.7, Chloride Level 90L, Carbon Dioxide Level 16L, Anion Gap 22H, Blood Urea Nitrogen 26H, Creatinine 3.0H, Estimat Glomerular Filtration Rate 16.2, Glucose Level 96, Calcium Level 7.0L, Phosphorus Level 5.3H, Magnesium Level 1.5L, Total Bilirubin < 0.2, Aspartate Amino Transf (AST/ SGOT) 24, Alanine Aminotransferase (ALT/SGPT) 9, Alkaline Phosphatase 136H, Total Protein 5.9L, Albumin 1.6L, Globulin 4.3, Albumin/Globulin Ratio 0.3L 10/20/16 04:00: Arterial Blood pH 7.281L, Arterial Blood Partial Pressure CO2 38.4, Arterial Blood Partial Pressure O2 174.8H, Arterial Blood HCO3 17.7L, Arterial Blood Oxygen Saturation 98.9H, Arterial Blood Base Excess -8.4, Edgard Test Positive 10/20/16 05:30: Urine Eosinophils Few Height (Feet): 5 Height (Inches): 2.00 Weight (Pounds): 130 General Appearance: mild distress, other - twiching muscles EENT: other - on vent Cardiovascular: tachycardia Respiratory/Chest: decreased breath sounds Objective other physical exam not changed CLEMENTE APPIAH Oct 20, 2016 10:04
--- NOTE | 2016-10-20 10:22 | Diagnostic Imaging Report ---
Indication: Dyspnea Comparison: 10/18/16 A single view chest radiograph was obtained. Findings: Hilar vessels are prominent. Heart size is relatively normal. Pulmonary vascular prominence and interstitial disease noted likely due to CHF. Tubes and lines are stable. Impression: Congestive heart failure suspected. No significant price changer the last 2 days
[2016-10-20 10:43] LABS: ANISOCYTOSIS 1+; BAND NEUTROPHILS % (MANUAL) 3 % (0-8); BASOPHILS % (MANUAL) 0 % (0-2); EOSINOPHILS % (MANUAL) 1 % (0-3); LYMPHOCYTES % (MANUAL) 4 % (20-45); NEUTROPHILS % (MANUAL) 88 % (45-75); PLATELET ESTIMATE INCREASED; PLATELET MORPHOLOGY NORMAL; TOTAL CELLS COUNTED 100
[2016-10-20 12:00] VITALS: BP 114/75
--- NOTE | 2016-10-20 12:12 | Pulmonolgy Critical Care Note ---
Critical Care - Asmt/Plan Problems: (1) Cardiac arrest (2) Respiratory failure, acute (3) Seizures (4) Decerebrate posture (5) Sepsis (6) JAY (acute kidney injury) (7) Pelvic mass in female Critical Care - Objective Last 24 Hour Vital Signs Date Time Temp Pulse Resp B/P Pulse Ox O2 Delivery O2 Flow Rate FiO2 10/20/16 11:10 95 23 40 10/20/16 08:35 98 23 40 10/20/16 08:00 95 10/20/16 08:00 97.5 97 26 111/67 100 Mechanical Ventilator 50 10/20/16 08:00 50 10/20/16 06:50 98 23 65 10/20/16 05:19 107 20 65 10/20/16 04:00 104 10/20/16 04:00 50 10/20/16 04:00 97.5 101 26 118/75 99 Mechanical Ventilator 50 10/20/16 03:23 101 21 65 10/20/16 01:08 106 23 65 10/20/16 00:00 50 10/20/16 00:00 98.0 106 25 115/71 99 Mechanical Ventilator 50 10/19/16 23:46 106 10/19/16 23:22 101 21 65 10/19/16 21:11 109 22 65 10/19/16 20:00 50 10/19/16 20:00 98.4 131 25 124/89 97 Mechanical Ventilator 50 10/19/16 20:00 127 10/19/16 19:08 133 33 65 10/19/16 17:13 128 32 50 10/19/16 16:00 50 10/19/16 16:00 124 10/19/16 16:00 98.2 127 24 109/40 98 Mechanical Ventilator 50 10/19/16 15:11 110 21 50 10/19/16 14:00 113 21 124/83 100 Mechanical Ventilator 50 10/19/16 13:23 113 24 50 10/19/16 13:00 106 21 101/59 100 Mechanical Ventilator 50 Micro: Microbiology Date/Time Source Procedure Growth Status 10/19/16 06:00 Rectum VRE Culture - Final Enterococcus Faecium - Vre Complete 10/19/16 06:00 Neck Gram Stain - Final Resulted 10/19/16 06:00 Neck Wound Culture - Preliminary NO GROWTH AFTER 24 HOURS Resulted Critical Care - Subjective ROS Limited/Unobtainable: Yes ICU Day: 3 Intubation Day: 3 Interval Events: still deep coma, zero urine output. all consultants agreed with DNR. Neuro recommended stopping all artificial means of preventing the inevitable. Will call ethics to see the case as well. Meanwhile I stop the antibiotics and pt will be receiving comfort care FI02: 40 Vent Support Breath Rate: 20 Vent Support Mode: AC Vent Tidal Volume: 500 Sputum Amount: Small PEEP: 5.0 PIP: 24 I&O: Intake and Output 10/19/16 10/20/16 19:00 07:00 Intake Total 800.0 ml 1235.0 ml Output Total 35 ml 120 ml Balance 765.0 ml 1115.0 ml IV Total 800.0 ml 1235.0 ml Output Urine Total 10 ml 120 ml Gastric Drainage Total 25 ml ET-Tube: 7.5 ET Position: 23 TRISTON FRIED Oct 20, 2016 12:12
--- NOTE | 2016-10-20 13:12 | General Progress Note ---
Progress Note Progress Note Bioethics Consult Asked by attending to consult. A 56 year old woman, unrepresented, intubated on ventilator with history of cardiac arrest and prolonged period of cerebral anoxia. She is comatose with decorticate posturing and neurology is of the opinion that she has a very poor prognosis for survival. She also has a diagnosis of metastatic cancer. No code DNR has been instituted and is appropriate. Further aggressive medical care is likely to prove futile and supportive/comfort care only would be appropriate. In view of her extreme anoxic brain damage terminal extubation would also be a reasonable, ethical option. Zuleima Leon M.D. Bioethics Committee Chair ZULEIMA LEON Oct 20, 2016 13:12
--- NOTE | 2016-10-20 14:46 | Cardiac Electrophysiology PN ---
Assessment/Plan Assessment/Plan 1. Tachycardia due to sinus tach due to sepsis, respiratory failure. No atrial fib. 2. Respiratory failure on Vent 3. S/P Septic shock. Off pressors. 4. Extensive disseminated ovarian cancer with a large pelvic mass, extensive lymphadenopathy, extensive osseous metastases, hepatic and pulmonary metastases. 5. Hypercalcemia, likely related to metastatic malignancy 6. Acute thrombus bilateral common femoral vein s/p IVC filter placement 7. DNR, DNI, Comfort care. Awaiting Ethics eval prior to terminal extubation by Dr Flynn PRASAD RN Subjective Subjective Out of ICU on vent unresponsive but DNR/DNI. Has vaginal bleeding per RN. Objective Last 24 Hour Vital Signs Date Time Temp Pulse Resp B/P Pulse Ox O2 Delivery O2 Flow Rate FiO2 10/20/16 13:00 91 20 40 10/20/16 12:00 93 10/20/16 11:10 95 23 40 10/20/16 08:35 98 23 40 10/20/16 08:00 95 10/20/16 08:00 97.5 97 26 111/67 100 Mechanical Ventilator 50 10/20/16 08:00 50 10/20/16 06:50 98 23 65 10/20/16 05:19 107 20 65 10/20/16 04:00 104 10/20/16 04:00 50 10/20/16 04:00 97.5 101 26 118/75 99 Mechanical Ventilator 50 10/20/16 03:23 101 21 65 10/20/16 01:08 106 23 65 10/20/16 00:00 50 10/20/16 00:00 98.0 106 25 115/71 99 Mechanical Ventilator 50 10/19/16 23:46 106 10/19/16 23:22 101 21 65 10/19/16 21:11 109 22 65 10/19/16 20:00 50 10/19/16 20:00 98.4 131 25 124/89 97 Mechanical Ventilator 50 10/19/16 20:00 127 10/19/16 19:08 133 33 65 10/19/16 17:13 128 32 50 10/19/16 16:00 50 10/19/16 16:00 124 10/19/16 16:00 98.2 127 24 109/40 98 Mechanical Ventilator 50 10/19/16 15:11 110 21 50 Intake and Output 10/19/16 10/20/16 19:00 07:00 Intake Total 800.0 ml 1235.0 ml Output Total 35 ml 120 ml Balance 765.0 ml 1115.0 ml IV Total 800.0 ml 1235.0 ml Output Urine Total 10 ml 120 ml Gastric Drainage Total 25 ml Laboratory Tests Test 10/20/16 03:35 10/20/16 04:00 10/20/16 05:30 White Blood Count 26.7 K/UL (4.8-10.8) *H Red Blood Count 3.50 M/UL (4.20-5.40) L Hemoglobin 9.5 G/DL (12.0-16.0) L Hematocrit 29.4 % (37.0-47.0) L Mean Corpuscular Volume 84 FL (80-99) Mean Corpuscular Hemoglobin 27.0 PG (27.0-31.0) Mean Corpuscular Hemoglobin Concent 32.2 G/DL (32.0-36.0) Red Cell Distribution Width 17.2 % (11.6-14.8) H Platelet Count 448 K/UL (150-450) Mean Platelet Volume 4.5 FL (6.5-10.1) L Neutrophils (%) (Auto) % (45.0-75.0) Lymphocytes (%) (Auto) % (20.0-45.0) Monocytes (%) (Auto) % (1.0-10.0) Eosinophils (%) (Auto) % (0.0-3.0) Basophils (%) (Auto) % (0.0-2.0) Differential Total Cells Counted 100 Neutrophils % (Manual) 88 % (45-75) H Lymphocytes % (Manual) 4 % (20-45) L Monocytes % (Manual) 4 % (1-10) Eosinophils % (Manual) 1 % (0-3) Basophils % (Manual) 0 % (0-2) Band Neutrophils 3 % (0-8) Platelet Estimate Increased H Platelet Morphology Normal Anisocytosis 1+ Sodium Level 128 mEQ/L (135-145) L Potassium Level 4.7 mEQ/L (3.4-4.9) Chloride Level 90 mEQ/L (98-107) L Carbon Dioxide Level 16 mEQ/L (20-30) L Anion Gap 22 (5-15) H Blood Urea Nitrogen 26 mg/dL (7-23) H Creatinine 3.0 mg/dL (0.5-0.9) H Estimat Glomerular Filtration Rate 16.2 mL/min (>60) Glucose Level 96 mg/dL (74-106) Calcium Level 7.0 mg/dL (8.6-10.2) L Phosphorus Level 5.3 mg/dL (2.5-4.8) H Magnesium Level 1.5 mg/dL (1.7-2.5) L Total Bilirubin < 0.2 mg/dL (0.0-1.2) Aspartate Amino Transf (AST/SGOT) 24 U/L (5-40) Alanine Aminotransferase (ALT/SGPT) 9 U/L (3-33) Alkaline Phosphatase 136 U/L (35-104) H Total Protein 5.9 g/dL (6.6-8.7) L Albumin 1.6 g/dL (3.5-5.2) L Globulin 4.3 g/dL Albumin/Globulin Ratio 0.3 (1.0-2.7) L Arterial Blood pH 7.281 (7.350-7.450) Arterial Blood Partial Pressure CO2 38.4 mmHg (35.0-45.0) Arterial Blood Partial Pressure O2 174.8 mmHg (75.0-100.0) H Arterial Blood HCO3 17.7 mmol/L (22.0-26.0) L Arterial Blood Oxygen Saturation 98.9 % (92.0-98.0) H Arterial Blood Base Excess -8.4 Edgard Test Positive Urine Eosinophils Few Microbiology Date/Time Source Procedure Growth Status 10/19/16 06:00 Rectum VRE Culture - Final Enterococcus Faecium - Vre Complete 10/19/16 06:00 Neck Gram Stain - Final Resulted 10/19/16 06:00 Neck Wound Culture - Preliminary NO GROWTH AFTER 24 HOURS Resulted Objective HEENt Orally intubated. Cardiovascular: Tachy S1,S2 no G/M Respiratory/Chest: Coarse rhonchi Abdomen: soft Edema: mild edema Neurologic: unresponsive ANGELINE MONTES Oct 20, 2016 14:46
[2016-10-20 16:00] VITALS: BP 129/67
--- NOTE | 2016-10-20 16:01 | General Progress Note ---
Assessment/Plan Problem List: (1) Anemia ICD Codes: D64.9 - Anemia, unspecified SNOMED: 669737619 (2) Skin infection ICD Codes: L08.9 - Local infection of the skin and subcutaneous tissue, unspecified SNOMED: 084171227 (3) Sepsis ICD Codes: A41.9 - Sepsis, unspecified organism SNOMED: 10680590 (4) JAY (acute kidney injury) ICD Codes: N17.9 - Acute kidney failure, unspecified SNOMED: 45302498 Assessment/Plan mets cancer w hydro s/p code blue favor comfort care bioethics consult resp failure Subjective ROS Limited/Unobtainable: Yes Allergies: Coded Allergies: No Known Allergies (Unverified , 10/08/16) Subjective chronic pain Objective Last 24 Hour Vital Signs Date Time Temp Pulse Resp B/P Pulse Ox O2 Delivery O2 Flow Rate FiO2 10/20/16 14:50 93 20 40 10/20/16 13:00 91 20 40 10/20/16 12:00 50 10/20/16 12:00 97.5 92 20 114/75 99 Mechanical Ventilator 50 10/20/16 12:00 93 10/20/16 11:10 95 23 40 10/20/16 08:35 98 23 40 10/20/16 08:00 95 10/20/16 08:00 97.5 97 26 111/67 100 Mechanical Ventilator 50 10/20/16 08:00 50 10/20/16 06:50 98 23 65 10/20/16 05:19 107 20 65 10/20/16 04:00 104 10/20/16 04:00 50 10/20/16 04:00 97.5 101 26 118/75 99 Mechanical Ventilator 50 10/20/16 03:23 101 21 65 10/20/16 01:08 106 23 65 10/20/16 00:00 50 10/20/16 00:00 98.0 106 25 115/71 99 Mechanical Ventilator 50 10/19/16 23:46 106 10/19/16 23:22 101 21 65 10/19/16 21:11 109 22 65 10/19/16 20:00 50 10/19/16 20:00 98.4 131 25 124/89 97 Mechanical Ventilator 50 10/19/16 20:00 127 10/19/16 19:08 133 33 65 10/19/16 17:13 128 32 50 Intake and Output 10/19/16 10/20/16 19:00 07:00 Intake Total 800.0 ml 1235.0 ml Output Total 35 ml 120 ml Balance 765.0 ml 1115.0 ml IV Total 800.0 ml 1235.0 ml Output Urine Total 10 ml 120 ml Gastric Drainage Total 25 ml Laboratory Tests 10/20/16 03:35: White Blood Count 26.7*H, Red Blood Count 3.50L, Hemoglobin 9.5L, Hematocrit 29.4L, Mean Corpuscular Volume 84, Mean Corpuscular Hemoglobin 27.0, Mean Corpuscular Hemoglobin Concent 32.2, Red Cell Distribution Width 17.2H, Platelet Count 448, Mean Platelet Volume 4.5L, Neutrophils (%) (Auto) , Lymphocytes (%) (Auto) , Monocytes (%) (Auto) , Eosinophils (%) (Auto) , Basophils (%) (Auto) , Differential Total Cells Counted 100, Neutrophils % ( Manual) 88H, Lymphocytes % (Manual) 4L, Monocytes % (Manual) 4, Eosinophils % ( Manual) 1, Basophils % (Manual) 0, Band Neutrophils 3, Platelet Estimate IncreasedH, Platelet Morphology Normal, Anisocytosis 1+, Sodium Level 128L, Potassium Level 4.7, Chloride Level 90L, Carbon Dioxide Level 16L, Anion Gap 22H , Blood Urea Nitrogen 26H, Creatinine 3.0H, Estimat Glomerular Filtration Rate 16.2, Glucose Level 96, Calcium Level 7.0L, Phosphorus Level 5.3H, Magnesium Level 1.5L, Total Bilirubin < 0.2, Aspartate Amino Transf (AST/SGOT) 24, Alanine Aminotransferase (ALT/SGPT) 9, Alkaline Phosphatase 136H, Total Protein 5.9L, Albumin 1.6L, Globulin 4.3, Albumin/Globulin Ratio 0.3L 10/20/16 04:00: Arterial Blood pH 7.281L, Arterial Blood Partial Pressure CO2 38.4, Arterial Blood Partial Pressure O2 174.8H, Arterial Blood HCO3 17.7L, Arterial Blood Oxygen Saturation 98.9H, Arterial Blood Base Excess -8.4, Edgard Test Positive 10/20/16 05:30: Urine Eosinophils Few Height (Feet): 5 Height (Inches): 2.00 Weight (Pounds): 130 General Appearance: lethargic Hadadz,Ali MD Oct 20, 2016 16:01
[2016-10-20] MEDS ORDERED: D5NS 1000ml IV ONE (17:43)
[2016-10-20] MEDS ORDERED: NS 275ml ONE (17:43)
[2016-10-20] MEDS ORDERED: Tubing IV Secondary IV ONE (17:43)
--- NOTE | 2016-10-20 17:49 | Infectious Diseases Prog Note ---
Assessment/Plan Problems: (1) Skin infection Assessment & Plan: S/P lymph node biopsy complicated with skin wound infection of the left neck, wound culture is negative . was on clindamycin and zosyn empirically , still has leukocytosis, suspect due to ureter obstruction and pyelonephritis, refused nephrostomy , fluconazole was added for fungal coverage , but no improvement in her WBC, since she needs source control to relief her obstruction, but refused all procedures. (2) Sepsis Assessment & Plan: suspect malignancy related VS pyelonephritis due to ureter obstruction from pelvic malignancy , recommend nephrostomy to relief obstruction by IR, but patient refused. culture results are negative so far , continue zosyn and start zyvox , recommend hospice care, and comfort measures since she has been refusing medical care and procedures. (3) Anemia Assessment & Plan: due to chronic disease and malignancy, monitor H/H transfuse blood as needed, rule out GI bleeding as a source (4) JAY (acute kidney injury) Assessment & Plan: suspect due to ureter obstruction due to pelvic mass, recommend urology consult for stent placement , or nephrostomy by IR, unfortunately she refused , continue hydration, monitor UOP, avoid nephrotoxic meds (5) Pelvic mass in female Assessment & Plan: suspect recurrent ovarian CA, oncology is following, needs biopsy to confirm , but she refused it, may benefit from chemo for palliative purpose. recommend hospice care (6) Respiratory failure, acute Assessment & Plan: intubated on mechanical ventilation, has poor prognosis , pulmonary is following (7) Cardiac arrest Assessment & Plan: S/P CPR with intubation, poor prognosis , with anoxic brain injury, cards was consulted. Subjective ROS Limited/Unobtainable: Yes Allergies: Coded Allergies: No Known Allergies (Unverified , 10/08/16) Subjective she is out of ICU, on comfort measures only , S/P code . Objective Vital Signs Last 24 Hour Vital Signs Date Time Temp Pulse Resp B/P Pulse Ox O2 Delivery O2 Flow Rate FiO2 10/20/16 16:50 97 23 40 10/20/16 16:00 97.0 94 23 129/67 100 10/20/16 16:00 50 10/20/16 14:50 93 20 40 10/20/16 13:00 91 20 40 10/20/16 12:00 50 10/20/16 12:00 97.5 92 20 114/75 99 Mechanical Ventilator 50 10/20/16 12:00 93 10/20/16 11:10 95 23 40 10/20/16 08:35 98 23 40 10/20/16 08:00 95 10/20/16 08:00 97.5 97 26 111/67 100 Mechanical Ventilator 50 10/20/16 08:00 50 10/20/16 06:50 98 23 65 10/20/16 05:19 107 20 65 10/20/16 04:00 104 10/20/16 04:00 50 10/20/16 04:00 97.5 101 26 118/75 99 Mechanical Ventilator 50 10/20/16 03:23 101 21 65 10/20/16 01:08 106 23 65 10/20/16 00:00 50 10/20/16 00:00 98.0 106 25 115/71 99 Mechanical Ventilator 50 10/19/16 23:46 106 10/19/16 23:22 101 21 65 10/19/16 21:11 109 22 65 10/19/16 20:00 50 10/19/16 20:00 98.4 131 25 124/89 97 Mechanical Ventilator 50 10/19/16 20:00 127 10/19/16 19:08 133 33 65 Height (Feet): 5 Height (Inches): 2.00 Weight (Pounds): 130 General Appearance: WD/WN, no acute distress, cachetic, other - edematous HEENT: normocephalic, atraumatic, anicteric Respiratory/Chest: respiratory distress, decreased breath sounds, crackles/ rales Cardiovascular: normal peripheral pulses, tachycardia Abdomen: distended, guarding, tender, mass Extremities: other - edema Skin: no rash, ulcers Microbiology Date/Time Source Procedure Growth Status 10/19/16 06:00 Rectum VRE Culture - Final Enterococcus Faecium - Vre Complete 10/19/16 06:00 Neck Gram Stain - Final Resulted 10/19/16 06:00 Neck Wound Culture - Preliminary NO GROWTH AFTER 24 HOURS Resulted Laboratory Tests Test 10/20/16 03:35 10/20/16 04:00 10/20/16 05:30 White Blood Count 26.7 K/UL (4.8-10.8) *H Red Blood Count 3.50 M/UL (4.20-5.40) L Hemoglobin 9.5 G/DL (12.0-16.0) L Hematocrit 29.4 % (37.0-47.0) L Mean Corpuscular Volume 84 FL (80-99) Mean Corpuscular Hemoglobin 27.0 PG (27.0-31.0) Mean Corpuscular Hemoglobin Concent 32.2 G/DL (32.0-36.0) Red Cell Distribution Width 17.2 % (11.6-14.8) H Platelet Count 448 K/UL (150-450) Mean Platelet Volume 4.5 FL (6.5-10.1) L Neutrophils (%) (Auto) % (45.0-75.0) Lymphocytes (%) (Auto) % (20.0-45.0) Monocytes (%) (Auto) % (1.0-10.0) Eosinophils (%) (Auto) % (0.0-3.0) Basophils (%) (Auto) % (0.0-2.0) Differential Total Cells Counted 100 Neutrophils % (Manual) 88 % (45-75) H Lymphocytes % (Manual) 4 % (20-45) L Monocytes % (Manual) 4 % (1-10) Eosinophils % (Manual) 1 % (0-3) Basophils % (Manual) 0 % (0-2) Band Neutrophils 3 % (0-8) Platelet Estimate Increased H Platelet Morphology Normal Anisocytosis 1+ Sodium Level 128 mEQ/L (135-145) L Potassium Level 4.7 mEQ/L (3.4-4.9) Chloride Level 90 mEQ/L (98-107) L Carbon Dioxide Level 16 mEQ/L (20-30) L Anion Gap 22 (5-15) H Blood Urea Nitrogen 26 mg/dL (7-23) H Creatinine 3.0 mg/dL (0.5-0.9) H Estimat Glomerular Filtration Rate 16.2 mL/min (>60) Glucose Level 96 mg/dL (74-106) Calcium Level 7.0 mg/dL (8.6-10.2) L Phosphorus Level 5.3 mg/dL (2.5-4.8) H Magnesium Level 1.5 mg/dL (1.7-2.5) L Total Bilirubin < 0.2 mg/dL (0.0-1.2) Aspartate Amino Transf (AST/SGOT) 24 U/L (5-40) Alanine Aminotransferase (ALT/SGPT) 9 U/L (3-33) Alkaline Phosphatase 136 U/L (35-104) H Total Protein 5.9 g/dL (6.6-8.7) L Albumin 1.6 g/dL (3.5-5.2) L Globulin 4.3 g/dL Albumin/Globulin Ratio 0.3 (1.0-2.7) L Arterial Blood pH 7.281 (7.350-7.450) Arterial Blood Partial Pressure CO2 38.4 mmHg (35.0-45.0) Arterial Blood Partial Pressure O2 174.8 mmHg (75.0-100.0) H Arterial Blood HCO3 17.7 mmol/L (22.0-26.0) L Arterial Blood Oxygen Saturation 98.9 % (92.0-98.0) H Arterial Blood Base Excess -8.4 Edgard Test Positive Urine Eosinophils Few Current Medications Medications (Trade) Dose Ordered Sig/[place] Route PRN Reason Start Time Stop Time Status Last Admin Dose Admin Acetaminophen (Tylenol) 650 mg Q4H PRN ORAL Mild Pain/Temp > 100.5 10/19/16 17:00 11/18/16 16:59 Albuterol/ Ipratropium (DuoNeb 0.5-3(2.5)mg/3ml) 3 ml Q4H PRN HHN Shortness of Breath 10/19/16 16:00 10/24/16 15:59 Lorazepam (Ativan 2mg/ml 1ml) 2 mg Q2H PRN IV For Anxiety 10/19/16 16:30 10/26/16 16:29 10/19/16 19:53 Morphine Sulfate (Morphine Sulfate) 4 mg Q4H PRN IVP Severe Pain (Pain Scale 7-10) 10/19/16 16:00 10/26/16 15:59 Pantoprazole (Protonix) 40 mg DAILY IVP 10/20/16 10:00 11/19/16 09:59 10/20/16 09:21 Sodium Citrate (Bicitra) 45 ml EVERY 6 HOURS ORAL 10/20/16 12:00 11/19/16 11:59 10/20/16 12:57 Jaden Su M.D. Oct 20, 2016 17:49
--- NOTE | 2016-10-20 19:06 | Neurology Progress Note ---
Interim History Interim History Interim History Ms. Renner continues to be unresponsive. She opens her eyes on vigorous painful stimuli but cannot respond in any other way. She is not exhibiting any abnormal movements. She is ventilator dependent. Review of Systems Neuro Review of Systems Unable to obtain. Objective Physical Exam Last Vital Signs Date Time Temp Pulse Resp B/P Pulse Ox O2 Delivery O2 Flow Rate FiO2 10/20/16 16:50 97 23 40 10/20/16 16:00 97.0 129/67 100 10/20/16 12:00 Mechanical Ventilator 10/18/16 19:00 4.0 Laboratory Tests Test 10/20/16 03:35 10/20/16 04:00 10/20/16 05:30 White Blood Count 26.7 K/UL (4.8-10.8) *H Red Blood Count 3.50 M/UL (4.20-5.40) L Hemoglobin 9.5 G/DL (12.0-16.0) L Hematocrit 29.4 % (37.0-47.0) L Mean Corpuscular Volume 84 FL (80-99) Mean Corpuscular Hemoglobin 27.0 PG (27.0-31.0) Mean Corpuscular Hemoglobin Concent 32.2 G/DL (32.0-36.0) Red Cell Distribution Width 17.2 % (11.6-14.8) H Platelet Count 448 K/UL (150-450) Mean Platelet Volume 4.5 FL (6.5-10.1) L Neutrophils (%) (Auto) % (45.0-75.0) Lymphocytes (%) (Auto) % (20.0-45.0) Monocytes (%) (Auto) % (1.0-10.0) Eosinophils (%) (Auto) % (0.0-3.0) Basophils (%) (Auto) % (0.0-2.0) Differential Total Cells Counted 100 Neutrophils % (Manual) 88 % (45-75) H Lymphocytes % (Manual) 4 % (20-45) L Monocytes % (Manual) 4 % (1-10) Eosinophils % (Manual) 1 % (0-3) Basophils % (Manual) 0 % (0-2) Band Neutrophils 3 % (0-8) Platelet Estimate Increased H Platelet Morphology Normal Anisocytosis 1+ Sodium Level 128 mEQ/L (135-145) L Potassium Level 4.7 mEQ/L (3.4-4.9) Chloride Level 90 mEQ/L (98-107) L Carbon Dioxide Level 16 mEQ/L (20-30) L Anion Gap 22 (5-15) H Blood Urea Nitrogen 26 mg/dL (7-23) H Creatinine 3.0 mg/dL (0.5-0.9) H Estimat Glomerular Filtration Rate 16.2 mL/min (>60) Glucose Level 96 mg/dL (74-106) Calcium Level 7.0 mg/dL (8.6-10.2) L Phosphorus Level 5.3 mg/dL (2.5-4.8) H Magnesium Level 1.5 mg/dL (1.7-2.5) L Total Bilirubin < 0.2 mg/dL (0.0-1.2) Aspartate Amino Transf (AST/SGOT) 24 U/L (5-40) Alanine Aminotransferase (ALT/SGPT) 9 U/L (3-33) Alkaline Phosphatase 136 U/L (35-104) H Total Protein 5.9 g/dL (6.6-8.7) L Albumin 1.6 g/dL (3.5-5.2) L Globulin 4.3 g/dL Albumin/Globulin Ratio 0.3 (1.0-2.7) L Arterial Blood pH 7.281 (7.350-7.450) Arterial Blood Partial Pressure CO2 38.4 mmHg (35.0-45.0) Arterial Blood Partial Pressure O2 174.8 mmHg (75.0-100.0) H Arterial Blood HCO3 17.7 mmol/L (22.0-26.0) L Arterial Blood Oxygen Saturation 98.9 % (92.0-98.0) H Arterial Blood Base Excess -8.4 Edgard Test Positive Urine Eosinophils Few Neurologic Exam Objective PHYSICAL EXAMINATION: GENERAL: She is a well-developed, relatively well-nourished, lady, lying in bed, connected to the ventilator via an orotracheal tube. HEAD: Normocephalic and atraumatic. NECK: No neck rigidity was observed. EENT EXAMINATION: Benign. NEUROLOGICAL EXAMINATION: MENTAL STATUS EXAMINATION: She was comatose and did not respond even to deep painful stimuli other than with eye opening Further mental status testing was impossible. SPEECH: Could not be tested. LANGUAGE: Could not be tested. CRANIAL NERVE EXAMINATION: II: She did not blink to threat. III, IV & : The external ocular movements were present on oculocephalic maneuvers. The pupils were 3 mm in diameter and did not react to light. V & VII: The corneal reflexes were present, but significantly diminished. VIII: She did not respond to sounds and had no nystagmus. IX & X: The gag reflex was absent on manipulating the endotracheal tube. XI: The sternocleidomastoids and trapezii did not function. XII: Could not be tested adequately. MOTOR SYSTEM: The tone was increased in all four extremities. Examination of muscle mass revealed generalized muscle wasting. Examination of power was impossible to perform as even on applying deep painful stimuli, no movements were seen. SENSORY EXAMINATION: She did not respond even to deep painful stimuli. REFLEXES: 2+ present bilaterally symmetrical at the biceps, triceps, and brachioradialis. 2++ at both knees. 0 at both ankles. The plantar responses were mute bilaterally. COORDINATION, STANCE & GAIT: Could not be tested. Impression/Recommendations Diagnostic Impression 1. Ms. Mony Renner is a 56-year-old, lady, of unknown handedness, who does have a past history of schizophrenia, a seizure disorder and ovarian cancer for metastatic nature, who was hospitalized for sepsis and anemia and while she was being stabilized in the hospital she had a Code Blue on 10/18/2016 with asystolic cardiopulmonary arrest. It took approximately 20 minutes before she could be resuscitated. Following that, she was noted to be comatose and having generalized myoclonus. 2. She continues to be comatose but her myoclonus is quiescent. 3. On neurological examination, at this time, she is unresponsive but opens her eyes on deep pain. The only brainstem function that she exhibits is eye movements on oculocephalic maneuvers and diminished corneal reflexes. 4. 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 5. The prognosis for recovery of neurological function is poor due to the prolonged duration of the cardiopulmonary arrest and in addition, the severe myoclonus following that. In addition, the patient has an underlying terminal cancer, which again makes the prognosis worse. Recommendations 1. Continue present management. 2. Agree with having the patient on a DNR/DNI status. 3. If all concerned agree, would discontinue artificial means of prolonging the inevitable as the patient's prognosis is quite poor. Corie Hernandez M.D., M.S.P.Tam. CORIE HERNANDEZ Oct 20, 2016 19:06
[2016-10-20 20:00] VITALS: BP 125/61
--- NOTE | 2016-10-20 20:54 | General Progress Note ---
Assessment/Plan Assessment/Plan IMPRESSION: 1. Extensive disseminated malignancy, as described above, with a large pelvic mass, extensive lymphadenopathy, extensive osseous metastases, hepatic and pulmonary metastases. There is also unusual circumferential involvement of the bladder wall - discussed multiple times, patient refuses biopsy or workup or treatment 2. Hypercalcemia, likely related to metastatic malignancy 3. Acute thrombus bilateral common femoral vein s/p IVC filter placement 4. Anemia of chronic disease (severe). 5. Hx of ovarian cancer 6. Hyperferritinemia, most likely reactive. 7. History of schizophrenia. 8. History of ovarian cancer. 9. Hypertension. 10. Chronic obstructive pulmonary disease. 11. History of seizure. 12. Skin abscess. 13. Failure to thrive. 14. Hepatitis C RECOMMENDATIONS: 1. Considering to terminally extubate, is DNR/DNI, considering bioethics consult 2. PATIENT IS REFUSING biopsy 3. PRBC transfusion on p.r.n. basis. Refused meds 4. Has refused endoscopy/colonoscopy 5. hx of noncomplance with care/treatment 6. Consider hospice/palliative care given patient refusal for workup/treatment, would benefit from this service 7. Staff Thank you, Miguel Alvarez MD Subjective Constitutional: Reports: no symptoms HEENT: Reports: no symptoms Cardiovascular: Reports: no symptoms Respiratory: Reports: no symptoms Gastrointestinal/Abdominal: Reports: no symptoms Neurologic/Psychiatric: Reports: no symptoms Endocrine: Reports: no symptoms Hematologic/Lymphatic: Reports: anemia Allergies: Coded Allergies: No Known Allergies (Unverified , 10/08/16) Subjective stable, potentially to be terminally extubated, is DNR/DNI Objective Last 24 Hour Vital Signs Date Time Temp Pulse Resp B/P Pulse Ox O2 Delivery O2 Flow Rate FiO2 10/20/16 20:00 97.7 89 22 125/61 100 10/20/16 19:38 100 24 40 10/20/16 16:50 97 23 40 10/20/16 16:00 94 10/20/16 16:00 97.0 94 23 129/67 100 10/20/16 16:00 50 10/20/16 14:50 93 20 40 10/20/16 13:00 91 20 40 10/20/16 12:00 50 10/20/16 12:00 97.5 92 20 114/75 99 Mechanical Ventilator 50 10/20/16 12:00 93 10/20/16 11:10 95 23 40 10/20/16 08:35 98 23 40 10/20/16 08:00 95 10/20/16 08:00 97.5 97 26 111/67 100 Mechanical Ventilator 50 10/20/16 08:00 50 10/20/16 06:50 98 23 65 10/20/16 05:19 107 20 65 10/20/16 04:00 104 10/20/16 04:00 50 10/20/16 04:00 97.5 101 26 118/75 99 Mechanical Ventilator 50 10/20/16 03:23 101 21 65 10/20/16 01:08 106 23 65 10/20/16 00:00 50 10/20/16 00:00 98.0 106 25 115/71 99 Mechanical Ventilator 50 10/19/16 23:46 106 10/19/16 23:22 101 21 65 10/19/16 21:11 109 22 65 Intake and Output 10/19/16 10/20/16 19:00 07:00 Intake Total 800.0 ml 1235.0 ml Output Total 35 ml 120 ml Balance 765.0 ml 1115.0 ml IV Total 800.0 ml 1235.0 ml Output Urine Total 10 ml 120 ml Gastric Drainage Total 25 ml Laboratory Tests 10/20/16 03:35: White Blood Count 26.7*H, Red Blood Count 3.50L, Hemoglobin 9.5L, Hematocrit 29.4L, Mean Corpuscular Volume 84, Mean Corpuscular Hemoglobin 27.0, Mean Corpuscular Hemoglobin Concent 32.2, Red Cell Distribution Width 17.2H, Platelet Count 448, Mean Platelet Volume 4.5L, Neutrophils (%) (Auto) , Lymphocytes (%) (Auto) , Monocytes (%) (Auto) , Eosinophils (%) (Auto) , Basophils (%) (Auto) , Differential Total Cells Counted 100, Neutrophils % ( Manual) 88H, Lymphocytes % (Manual) 4L, Monocytes % (Manual) 4, Eosinophils % ( Manual) 1, Basophils % (Manual) 0, Band Neutrophils 3, Platelet Estimate IncreasedH, Platelet Morphology Normal, Anisocytosis 1+, Sodium Level 128L, Potassium Level 4.7, Chloride Level 90L, Carbon Dioxide Level 16L, Anion Gap 22H , Blood Urea Nitrogen 26H, Creatinine 3.0H, Estimat Glomerular Filtration Rate 16.2, Glucose Level 96, Calcium Level 7.0L, Phosphorus Level 5.3H, Magnesium Level 1.5L, Total Bilirubin < 0.2, Aspartate Amino Transf (AST/SGOT) 24, Alanine Aminotransferase (ALT/SGPT) 9, Alkaline Phosphatase 136H, Total Protein 5.9L, Albumin 1.6L, Globulin 4.3, Albumin/Globulin Ratio 0.3L 10/20/16 04:00: Arterial Blood pH 7.281L, Arterial Blood Partial Pressure CO2 38.4, Arterial Blood Partial Pressure O2 174.8H, Arterial Blood HCO3 17.7L, Arterial Blood Oxygen Saturation 98.9H, Arterial Blood Base Excess -8.4, Edgard Test Positive 10/20/16 05:30: Urine Eosinophils Few Height (Feet): 5 Height (Inches): 2.00 Weight (Pounds): 130 General Appearance: no apparent distress EENT: TMs normal Neck: supple Cardiovascular: regular rhythm Respiratory/Chest: lungs clear Abdomen: no organomegaly Extremities: non-tender Edema: 1+ Leg (L), 1+ Leg (R) Edema: mild edema Skin: warm/dry Miguel Alvarez Oct 20, 2016 20:54
--- NOTE | 2016-10-20 20:57 | General Progress Note ---
Assessment/Plan Assessment/Plan Assessment - resp arrest - s/p code blue - hypercalcemia - constipation - ovarian CA , mets - Anemia - HTN - CPS Recommendations - supportive care - care planning - poor px - agree with comfort care Subjective Allergies: Coded Allergies: No Known Allergies (Unverified , 10/08/16) Subjective seen early am doing poorly intubated out of ICU eyes open but unresponsive Objective Last 24 Hour Vital Signs Date Time Temp Pulse Resp B/P Pulse Ox O2 Delivery O2 Flow Rate FiO2 10/20/16 20:00 97.7 89 22 125/61 100 10/20/16 19:38 100 24 40 10/20/16 16:50 97 23 40 10/20/16 16:00 94 10/20/16 16:00 97.0 94 23 129/67 100 10/20/16 16:00 50 10/20/16 14:50 93 20 40 10/20/16 13:00 91 20 40 10/20/16 12:00 50 10/20/16 12:00 97.5 92 20 114/75 99 Mechanical Ventilator 50 10/20/16 12:00 93 10/20/16 11:10 95 23 40 10/20/16 08:35 98 23 40 10/20/16 08:00 95 10/20/16 08:00 97.5 97 26 111/67 100 Mechanical Ventilator 50 10/20/16 08:00 50 10/20/16 06:50 98 23 65 10/20/16 05:19 107 20 65 10/20/16 04:00 104 10/20/16 04:00 50 10/20/16 04:00 97.5 101 26 118/75 99 Mechanical Ventilator 50 10/20/16 03:23 101 21 65 10/20/16 01:08 106 23 65 10/20/16 00:00 50 10/20/16 00:00 98.0 106 25 115/71 99 Mechanical Ventilator 50 10/19/16 23:46 106 10/19/16 23:22 101 21 65 10/19/16 21:11 109 22 65 Intake and Output 10/19/16 10/20/16 19:00 07:00 Intake Total 800.0 ml 1235.0 ml Output Total 35 ml 120 ml Balance 765.0 ml 1115.0 ml IV Total 800.0 ml 1235.0 ml Output Urine Total 10 ml 120 ml Gastric Drainage Total 25 ml Laboratory Tests 10/20/16 03:35: White Blood Count 26.7*H, Red Blood Count 3.50L, Hemoglobin 9.5L, Hematocrit 29.4L, Mean Corpuscular Volume 84, Mean Corpuscular Hemoglobin 27.0, Mean Corpuscular Hemoglobin Concent 32.2, Red Cell Distribution Width 17.2H, Platelet Count 448, Mean Platelet Volume 4.5L, Neutrophils (%) (Auto) , Lymphocytes (%) (Auto) , Monocytes (%) (Auto) , Eosinophils (%) (Auto) , Basophils (%) (Auto) , Differential Total Cells Counted 100, Neutrophils % ( Manual) 88H, Lymphocytes % (Manual) 4L, Monocytes % (Manual) 4, Eosinophils % ( Manual) 1, Basophils % (Manual) 0, Band Neutrophils 3, Platelet Estimate IncreasedH, Platelet Morphology Normal, Anisocytosis 1+, Sodium Level 128L, Potassium Level 4.7, Chloride Level 90L, Carbon Dioxide Level 16L, Anion Gap 22H , Blood Urea Nitrogen 26H, Creatinine 3.0H, Estimat Glomerular Filtration Rate 16.2, Glucose Level 96, Calcium Level 7.0L, Phosphorus Level 5.3H, Magnesium Level 1.5L, Total Bilirubin < 0.2, Aspartate Amino Transf (AST/SGOT) 24, Alanine Aminotransferase (ALT/SGPT) 9, Alkaline Phosphatase 136H, Total Protein 5.9L, Albumin 1.6L, Globulin 4.3, Albumin/Globulin Ratio 0.3L 10/20/16 04:00: Arterial Blood pH 7.281L, Arterial Blood Partial Pressure CO2 38.4, Arterial Blood Partial Pressure O2 174.8H, Arterial Blood HCO3 17.7L, Arterial Blood Oxygen Saturation 98.9H, Arterial Blood Base Excess -8.4, Edgard Test Positive 10/20/16 05:30: Urine Eosinophils Few Height (Feet): 5 Height (Inches): 2.00 Weight (Pounds): 130 Objective Thin WW NCAT, intubated supple CTA with coarse BS RRR abd more firm no edema HOLLAND GARSIA Oct 20, 2016 20:57
[2016-10-21] VITALS: BP 116/74
[2016-10-21] MEDS: Sodium Citrate 30ml ORAL SCH ×2 (01:17→06:36)
[2016-10-21 04:00] VITALS: BP 115/74
[2016-10-21 08:00] VITALS: BP 113/68
[2016-10-21] MEDS: Pantoprazole Inj IVP SCH (08:18)
--- NOTE | 2016-10-21 08:37 | General Progress Note ---
Assessment/Plan Assessment/Plan Assessment - resp arrest - s/p code blue - hypercalcemia - constipation - ovarian CA , mets - Anemia - HTN - CPS Recommendations - supportive care - care planning - poor px - agree with comfort care - will sign off - pls call PRN Subjective Allergies: Coded Allergies: No Known Allergies (Unverified , 10/08/16) Subjective doing poorly intubated care plan noted eyes open but unresponsive Objective Last 24 Hour Vital Signs Date Time Temp Pulse Resp B/P Pulse Ox O2 Delivery O2 Flow Rate FiO2 10/21/16 06:59 96 19 40 10/21/16 05:00 92 20 40 10/21/16 04:00 98.0 95 24 115/74 100 Mechanical Ventilator 40 10/21/16 04:00 50 10/21/16 03:45 94 10/21/16 03:07 93 20 40 10/21/16 01:25 96 24 40 10/21/16 00:00 50 10/21/16 00:00 98.1 97 20 116/74 100 10/20/16 23:49 97 10/20/16 23:08 97 20 40 10/20/16 21:00 101 21 40 10/20/16 20:00 97.7 89 22 125/61 100 10/20/16 20:00 50 10/20/16 20:00 101 10/20/16 19:38 100 24 40 10/20/16 16:50 97 23 40 10/20/16 16:00 94 10/20/16 16:00 97.0 94 23 129/67 100 10/20/16 16:00 50 10/20/16 14:50 93 20 40 10/20/16 13:00 91 20 40 10/20/16 12:00 50 10/20/16 12:00 97.5 92 20 114/75 99 Mechanical Ventilator 50 10/20/16 12:00 93 10/20/16 11:10 95 23 40 Intake and Output 10/20/16 10/21/16 19:00 07:00 Intake Total 860.0 ml Output Total 80 ml 100 ml Balance 780.0 ml -100 ml IV Total 860.0 ml Output Urine Total 60 ml 100 ml Gastric Drainage Total 20 ml Height (Feet): 5 Height (Inches): 2.00 Weight (Pounds): 130 Objective Thin WW NCAT, intubated supple CTA with coarse BS RRR abd more firm no edema HOLLAND GARSIA Oct 21, 2016 08:37
--- NOTE | 2016-10-21 08:50 | Wound Nurse Progress Note ---
Wound RN Progress Note Wound Consult chemical burn erosion site assessed noted good progress, no further skin breakdown noted. current treatment is effective, turn and repositioned patient to offload area. remains clean and dry. JEANNIE CASAS Oct 21, 2016 08:50
--- NOTE | 2016-10-21 10:20 | General Progress Note ---
Assessment/Plan Status: unchanged Status Narrative comatose Assessment/Plan status: Coded 10/18 11 pm - intubated on Vent Hypercalcemia, related to Neoplastic process- IMPROVED Symptomatic Anemia, Etiology?? Cancer, GI Loss, .... Acute renal failure now- Cr rising Sugg: no labs comfort care in view of recent deterioration of clinical state and underlying metastatic cancer. Prognisis poor. per consultants- DNR DNI at this time Aredia given 90mg 10/09 Subjective ROS Limited/Unobtainable: Yes Allergies: Coded Allergies: No Known Allergies (Unverified , 10/08/16) Objective Last 24 Hour Vital Signs Date Time Temp Pulse Resp B/P Pulse Ox O2 Delivery O2 Flow Rate FiO2 10/21/16 08:59 97 21 40 10/21/16 08:00 50 10/21/16 08:00 97.7 95 23 113/68 100 Mechanical Ventilator 40 10/21/16 06:59 96 19 40 10/21/16 05:00 92 20 40 10/21/16 04:00 98.0 95 24 115/74 100 Mechanical Ventilator 40 10/21/16 04:00 50 10/21/16 03:45 94 10/21/16 03:07 93 20 40 10/21/16 01:25 96 24 40 10/21/16 00:00 50 10/21/16 00:00 98.1 97 20 116/74 100 10/20/16 23:49 97 10/20/16 23:08 97 20 40 10/20/16 21:00 101 21 40 10/20/16 20:00 97.7 89 22 125/61 100 10/20/16 20:00 50 10/20/16 20:00 101 10/20/16 19:38 100 24 40 10/20/16 16:50 97 23 40 10/20/16 16:00 94 10/20/16 16:00 97.0 94 23 129/67 100 10/20/16 16:00 50 10/20/16 14:50 93 20 40 10/20/16 13:00 91 20 40 10/20/16 12:00 50 10/20/16 12:00 97.5 92 20 114/75 99 Mechanical Ventilator 50 10/20/16 12:00 93 10/20/16 11:10 95 23 40 Intake and Output 10/20/16 10/21/16 19:00 07:00 Intake Total 860.0 ml Output Total 80 ml 100 ml Balance 780.0 ml -100 ml IV Total 860.0 ml Output Urine Total 60 ml 100 ml Gastric Drainage Total 20 ml Height (Feet): 5 Height (Inches): 2.00 Weight (Pounds): 130 General Appearance: no apparent distress Objective other physical exam not changed CLEMENTE APPIAH Oct 21, 2016 10:20
--- NOTE | 2016-10-21 11:05 | General Progress Note ---
Assessment/Plan Problem List: (1) Anemia ICD Codes: D64.9 - Anemia, unspecified SNOMED: 697185519 (2) Skin infection ICD Codes: L08.9 - Local infection of the skin and subcutaneous tissue, unspecified SNOMED: 903909731 (3) Sepsis ICD Codes: A41.9 - Sepsis, unspecified organism SNOMED: 77053409 (4) JAY (acute kidney injury) ICD Codes: N17.9 - Acute kidney failure, unspecified SNOMED: 95870934 Status: unchanged Assessment/Plan mets cancer w hydro s/p code blue favor comfort care bioethics consult multi organ damage non salavagable Subjective ROS Limited/Unobtainable: Yes Allergies: Coded Allergies: No Known Allergies (Unverified , 10/08/16) Subjective chronic pain Objective Last 24 Hour Vital Signs Date Time Temp Pulse Resp B/P Pulse Ox O2 Delivery O2 Flow Rate FiO2 10/21/16 08:59 97 21 40 10/21/16 08:00 94 10/21/16 08:00 50 10/21/16 08:00 97.7 95 23 113/68 100 Mechanical Ventilator 40 10/21/16 06:59 96 19 40 10/21/16 05:00 92 20 40 10/21/16 04:00 98.0 95 24 115/74 100 Mechanical Ventilator 40 10/21/16 04:00 50 10/21/16 03:45 94 10/21/16 03:07 93 20 40 10/21/16 01:25 96 24 40 10/21/16 00:00 50 10/21/16 00:00 98.1 97 20 116/74 100 10/20/16 23:49 97 10/20/16 23:08 97 20 40 10/20/16 21:00 101 21 40 10/20/16 20:00 97.7 89 22 125/61 100 10/20/16 20:00 50 10/20/16 20:00 101 10/20/16 19:38 100 24 40 10/20/16 16:50 97 23 40 10/20/16 16:00 94 10/20/16 16:00 97.0 94 23 129/67 100 10/20/16 16:00 50 10/20/16 14:50 93 20 40 10/20/16 13:00 91 20 40 10/20/16 12:00 50 10/20/16 12:00 97.5 92 20 114/75 99 Mechanical Ventilator 50 10/20/16 12:00 93 10/20/16 11:10 95 23 40 Intake and Output 10/20/16 10/21/16 19:00 07:00 Intake Total 860.0 ml Output Total 80 ml 100 ml Balance 780.0 ml -100 ml IV Total 860.0 ml Output Urine Total 60 ml 100 ml Gastric Drainage Total 20 ml Height (Feet): 5 Height (Inches): 2.00 Weight (Pounds): 130 General Appearance: lethargic Sulma Desir MD Oct 21, 2016 11:05
[2016-10-21 12:00] VITALS: BP 114/71
--- NOTE | 2016-10-21 12:15 | Pulmonology Progress Note ---
Assessment/Plan Problems: (1) Cardiac arrest (2) Hypoxemic encephalopathy (3) Respiratory failure, acute Assessment/Plan dc vent support when all consultants agree comfort care no labs. Subjective ROS Limited/Unobtainable: No Interval Events: deep coma Allergies: Coded Allergies: No Known Allergies (Unverified , 10/08/16) Objective Last 24 Hour Vital Signs Date Time Temp Pulse Resp B/P Pulse Ox O2 Delivery O2 Flow Rate FiO2 10/21/16 11:15 95 19 40 10/21/16 08:59 97 21 40 10/21/16 08:00 94 10/21/16 08:00 50 10/21/16 08:00 97.7 95 23 113/68 100 Mechanical Ventilator 40 10/21/16 06:59 96 19 40 10/21/16 05:00 92 20 40 10/21/16 04:00 98.0 95 24 115/74 100 Mechanical Ventilator 40 10/21/16 04:00 50 10/21/16 03:45 94 10/21/16 03:07 93 20 40 10/21/16 01:25 96 24 40 10/21/16 00:00 50 10/21/16 00:00 98.1 97 20 116/74 100 10/20/16 23:49 97 10/20/16 23:08 97 20 40 10/20/16 21:00 101 21 40 10/20/16 20:00 97.7 89 22 125/61 100 10/20/16 20:00 50 10/20/16 20:00 101 10/20/16 19:38 100 24 40 10/20/16 16:50 97 23 40 10/20/16 16:00 94 10/20/16 16:00 97.0 94 23 129/67 100 10/20/16 16:00 50 10/20/16 14:50 93 20 40 10/20/16 13:00 91 20 40 Intake and Output 10/20/16 10/21/16 19:00 07:00 Intake Total 860.0 ml Output Total 80 ml 100 ml Balance 780.0 ml -100 ml IV Total 860.0 ml Output Urine Total 60 ml 100 ml Gastric Drainage Total 20 ml HEENT: normocephalic, atraumatic Respiratory/Chest: chest wall non-tender, lungs clear Cardiovascular: normal peripheral pulses, normal rate Abdomen: normal bowel sounds, soft, non tender Genitourinary: normal external genitalia Neurologic/Psychiatric: yard supervisor II-XII grossly normal Microbiology Date/Time Source Procedure Growth Status 10/19/16 06:00 Nasal Nares MRSA Culture - Final NO METHICILLIN RESISTANT STAPH AUREUS... Complete 10/19/16 06:00 Rectum VRE Culture - Final Enterococcus Faecium - Vre Complete 10/19/16 06:00 Neck Gram Stain - Final Resulted 10/19/16 06:00 Neck Wound Culture - Preliminary NO GROWTH AFTER 48 HOURS Resulted Current Medications Medications (Trade) Dose Ordered Sig/[place] Route PRN Reason Start Time Stop Time Status Last Admin Dose Admin Acetaminophen (Tylenol) 650 mg Q4H PRN ORAL Mild Pain/Temp > 100.5 10/19/16 17:00 11/18/16 16:59 Albuterol/ Ipratropium (DuoNeb 0.5-3(2.5)mg/3ml) 3 ml Q4H PRN HHN Shortness of Breath 10/19/16 16:00 10/24/16 15:59 Lorazepam (Ativan 2mg/ml 1ml) 2 mg Q2H PRN IV For Anxiety 10/19/16 16:30 10/26/16 16:29 10/19/16 19:53 Morphine Sulfate (Morphine Sulfate) 4 mg Q4H PRN IVP Severe Pain (Pain Scale 7-10) 10/19/16 16:00 10/26/16 15:59 Pantoprazole (Protonix) 40 mg DAILY IVP 10/20/16 10:00 11/19/16 09:59 10/21/16 08:18 TRISTON FRIED Oct 21, 2016 12:15
--- NOTE | 2016-10-21 15:17 | Cardiology Report ---
APPROVED REPORT EKG Measurement Heart [id number] Sinus tachycardia with premature ventricular complexes or fusion complexes Low voltage QRS Borderline ECG
--- NOTE | 2016-10-21 15:23 | Cardiac Electrophysiology PN ---
Assessment/Plan Assessment/Plan 1. Tachycardia due to sinus tach due to sepsis, respiratory failure. No atrial fib. 2. Respiratory failure on Vent 3. S/P Septic shock. Off pressors. 4. Extensive disseminated ovarian cancer with a large pelvic mass, extensive lymphadenopathy, extensive osseous metastases, hepatic and pulmonary metastases. 5. Hypercalcemia, likely related to metastatic malignancy 6. Acute thrombus bilateral common femoral vein s/p IVC filter placement 7. DNR, DNI, Comfort care. Awaiting terminal extubation by Dr Flynn PRASAD RN Subjective Subjective On vent unresponsive, DNR/DNI. Off pressors. No SVT or VT. Objective Last 24 Hour Vital Signs Date Time Temp Pulse Resp B/P Pulse Ox O2 Delivery O2 Flow Rate FiO2 10/21/16 14:52 95 21 40 10/21/16 12:30 95 14 40 10/21/16 12:00 97.2 96 21 114/71 96 Mechanical Ventilator 40 10/21/16 12:00 50 10/21/16 12:00 90 10/21/16 11:15 95 19 40 10/21/16 08:59 97 21 40 10/21/16 08:00 94 10/21/16 08:00 50 10/21/16 08:00 97.7 95 23 113/68 100 Mechanical Ventilator 40 10/21/16 06:59 96 19 40 10/21/16 05:00 92 20 40 10/21/16 04:00 98.0 95 24 115/74 100 Mechanical Ventilator 40 10/21/16 04:00 50 10/21/16 03:45 94 10/21/16 03:07 93 20 40 10/21/16 01:25 96 24 40 10/21/16 00:00 50 10/21/16 00:00 98.1 97 20 116/74 100 10/20/16 23:49 97 10/20/16 23:08 97 20 40 10/20/16 21:00 101 21 40 10/20/16 20:00 97.7 89 22 125/61 100 10/20/16 20:00 50 10/20/16 20:00 101 10/20/16 19:38 100 24 40 10/20/16 16:50 97 23 40 10/20/16 16:00 94 10/20/16 16:00 97.0 94 23 129/67 100 10/20/16 16:00 50 Intake and Output 10/20/16 10/21/16 19:00 07:00 Intake Total 860.0 ml Output Total 80 ml 100 ml Balance 780.0 ml -100 ml IV Total 860.0 ml Output Urine Total 60 ml 100 ml Gastric Drainage Total 20 ml Microbiology Date/Time Source Procedure Growth Status 10/19/16 06:00 Nasal Nares MRSA Culture - Final NO METHICILLIN RESISTANT STAPH AUREUS... Complete 10/19/16 06:00 Rectum VRE Culture - Final Enterococcus Faecium - Vre Complete 10/19/16 06:00 Neck Gram Stain - Final Resulted 10/19/16 06:00 Neck Wound Culture - Preliminary NO GROWTH AFTER 48 HOURS Resulted Objective HEENt Orally intubated. Cardiovascular: Tachy S1,S2 no G/M Respiratory/Chest: Coarse rhonchi Abdomen: soft Edema: mild edema Neurologic: unresponsive ANGELINE MONTES Oct 21, 2016 15:23
[2016-10-21 16:00] VITALS: BP 142/90
--- NOTE | 2016-10-21 18:17 | Infectious Diseases Prog Note ---
Assessment/Plan Problems: (1) Skin infection Assessment & Plan: S/P lymph node biopsy complicated with skin wound infection of the left neck, wound culture is negative . was on clindamycin and zosyn empirically , still has leukocytosis, suspect due to ureter obstruction and pyelonephritis, refused nephrostomy , since she needs source control to relief her obstruction, but refused all procedures. (2) Sepsis Assessment & Plan: suspect malignancy related VS pyelonephritis due to ureter obstruction from pelvic malignancy , recommend nephrostomy to relief obstruction by IR, but patient refused. culture results are negative so far , off antibiotics , on hospice care, and comfort measures (3) Anemia Assessment & Plan: due to chronic disease and malignancy, monitor H/H transfuse blood as needed, rule out GI bleeding as a source (4) JAY (acute kidney injury) Assessment & Plan: suspect due to ureter obstruction due to pelvic mass, recommend urology consult for stent placement , or nephrostomy by IR, unfortunately she refused , continue hydration, monitor UOP, avoid nephrotoxic meds (5) Pelvic mass in female Assessment & Plan: suspect recurrent ovarian CA, oncology is following, needs biopsy to confirm , but she refused it, may benefit from chemo for palliative purpose. recommend hospice care (6) Respiratory failure, acute Assessment & Plan: intubated on mechanical ventilation, has poor prognosis , pulmonary is following (7) Cardiac arrest Assessment & Plan: S/P CPR with intubation, poor prognosis , with anoxic brain injury, cards was consulted. Subjective ROS Limited/Unobtainable: Yes Allergies: Coded Allergies: No Known Allergies (Unverified , 10/08/16) Subjective she is out of ICU, on comfort measures only , still intubated Objective Vital Signs Last 24 Hour Vital Signs Date Time Temp Pulse Resp B/P Pulse Ox O2 Delivery O2 Flow Rate FiO2 10/21/16 16:50 102 22 40 10/21/16 16:00 100 10/21/16 16:00 50 10/21/16 16:00 97.0 100 20 142/90 98 Trach Collar 40 10/21/16 14:52 95 21 40 10/21/16 12:30 95 14 40 10/21/16 12:00 97.2 96 21 114/71 96 Mechanical Ventilator 40 10/21/16 12:00 50 10/21/16 12:00 90 10/21/16 11:15 95 19 40 10/21/16 08:59 97 21 40 10/21/16 08:00 94 10/21/16 08:00 50 10/21/16 08:00 97.7 95 23 113/68 100 Mechanical Ventilator 40 10/21/16 06:59 96 19 40 10/21/16 05:00 92 20 40 10/21/16 04:00 98.0 95 24 115/74 100 Mechanical Ventilator 40 10/21/16 04:00 50 10/21/16 03:45 94 10/21/16 03:07 93 20 40 10/21/16 01:25 96 24 40 10/21/16 00:00 50 10/21/16 00:00 98.1 97 20 116/74 100 10/20/16 23:49 97 10/20/16 23:08 97 20 40 10/20/16 21:00 101 21 40 10/20/16 20:00 97.7 89 22 125/61 100 10/20/16 20:00 50 10/20/16 20:00 101 10/20/16 19:38 100 24 40 Height (Feet): 5 Height (Inches): 2.00 Weight (Pounds): 130 General Appearance: WD/WN, no acute distress HEENT: normocephalic, atraumatic, anicteric Respiratory/Chest: no respiratory distress, no accessory muscle use, decreased breath sounds, crackles/rales Cardiovascular: normal peripheral pulses, normal rate, regular rhythm Abdomen: absent bowel sounds, distended, guarding, mass Extremities: no cyanosis, no clubbing Skin: no rash Microbiology Date/Time Source Procedure Growth Status 10/19/16 06:00 Nasal Nares MRSA Culture - Final NO METHICILLIN RESISTANT STAPH AUREUS... Complete 10/19/16 06:00 Rectum VRE Culture - Final Enterococcus Faecium - Vre Complete 10/19/16 06:00 Neck Gram Stain - Final Resulted 10/19/16 06:00 Neck Wound Culture - Preliminary NO GROWTH AFTER 48 HOURS Resulted Current Medications Medications (Trade) Dose Ordered Sig/[place] Route PRN Reason Start Time Stop Time Status Last Admin Dose Admin Acetaminophen (Tylenol) 650 mg Q4H PRN ORAL Mild Pain/Temp > 100.5 10/19/16 17:00 11/18/16 16:59 Albuterol/ Ipratropium (DuoNeb 0.5-3(2.5)mg/3ml) 3 ml Q4H PRN HHN Shortness of Breath 10/19/16 16:00 10/24/16 15:59 Lorazepam (Ativan 2mg/ml 1ml) 2 mg Q2H PRN IV For Anxiety 10/19/16 16:30 10/26/16 16:29 10/19/16 19:53 Morphine Sulfate (Morphine Sulfate) 4 mg Q4H PRN IVP Severe Pain (Pain Scale 7-10) 10/19/16 16:00 10/26/16 15:59 Pantoprazole (Protonix) 40 mg DAILY IVP 10/20/16 10:00 11/19/16 09:59 10/21/16 08:18 Jaden Su M.D. Oct 21, 2016 18:16
--- NOTE | 2016-10-21 18:45 | General Progress Note ---
Assessment/Plan Assessment/Plan IMPRESSION: 1. Extensive disseminated malignancy, as described above, with a large pelvic mass, extensive lymphadenopathy, extensive osseous metastases, hepatic and pulmonary metastases. There is also unusual circumferential involvement of the bladder wall - discussed multiple times, patient refuses biopsy or workup or treatment 2. Hypercalcemia, likely related to metastatic malignancy 3. Acute thrombus bilateral common femoral vein s/p IVC filter placement 4. Anemia of chronic disease (severe) 5. Hx of ovarian cancer 6. Hyperferritinemia, most likely reactive. 7. History of schizophrenia. 8. History of ovarian cancer. 9. Hypertension. 10. Chronic obstructive pulmonary disease. 11. History of seizure. 12. Skin abscess. 13. Failure to thrive. 14. Hepatitis C RECOMMENDATIONS: 1. Patient is DNR/DNI, considering bioethics consult 2. PATIENT IS REFUSING biopsy 3. PRBC transfusion on p.r.n. basis. Refused meds 4. Has refused endoscopy/colonoscopy 5. hx of noncomplance with care/treatment 6. Followup on solutions consultant recommendations 7. Staff Thank you, Miguel Alvarez MD Subjective Constitutional: Reports: no symptoms HEENT: Reports: no symptoms Cardiovascular: Reports: no symptoms Respiratory: Reports: no symptoms Gastrointestinal/Abdominal: Reports: poor fluid intake Genitourinary: Reports: no symptoms Neurologic/Psychiatric: Reports: no symptoms Endocrine: Reports: no symptoms Hematologic/Lymphatic: Reports: anemia Allergies: Coded Allergies: No Known Allergies (Unverified , 10/08/16) Subjective continues to refuse biopsy, no labs at this time Objective Last 24 Hour Vital Signs Date Time Temp Pulse Resp B/P Pulse Ox O2 Delivery O2 Flow Rate FiO2 10/21/16 16:50 102 22 40 10/21/16 16:00 100 10/21/16 16:00 50 10/21/16 16:00 97.0 100 20 142/90 98 Trach Collar 40 10/21/16 14:52 95 21 40 10/21/16 12:30 95 14 40 10/21/16 12:00 97.2 96 21 114/71 96 Mechanical Ventilator 40 10/21/16 12:00 50 10/21/16 12:00 90 10/21/16 11:15 95 19 40 10/21/16 08:59 97 21 40 10/21/16 08:00 94 10/21/16 08:00 50 10/21/16 08:00 97.7 95 23 113/68 100 Mechanical Ventilator 40 10/21/16 06:59 96 19 40 10/21/16 05:00 92 20 40 10/21/16 04:00 98.0 95 24 115/74 100 Mechanical Ventilator 40 10/21/16 04:00 50 10/21/16 03:45 94 10/21/16 03:07 93 20 40 10/21/16 01:25 96 24 40 10/21/16 00:00 50 10/21/16 00:00 98.1 97 20 116/74 100 10/20/16 23:49 97 10/20/16 23:08 97 20 40 10/20/16 21:00 101 21 40 10/20/16 20:00 97.7 89 22 125/61 100 10/20/16 20:00 50 10/20/16 20:00 101 10/20/16 19:38 100 24 40 Intake and Output 10/20/16 10/21/16 19:00 07:00 Intake Total 860.0 ml Output Total 80 ml 100 ml Balance 780.0 ml -100 ml IV Total 860.0 ml Output Urine Total 60 ml 100 ml Gastric Drainage Total 20 ml Height (Feet): 5 Height (Inches): 2.00 Weight (Pounds): 130 General Appearance: no apparent distress EENT: TMs normal Neck: supple Cardiovascular: normal rate Respiratory/Chest: lungs clear Abdomen: non tender Extremities: non-tender Edema: 1+ Leg (L), 1+ Leg (R) Edema: mild edema Neurologic: alert Skin: warm/dry Miguel Alvarez Oct 21, 2016 18:45
[2016-10-21 19:00] VITALS: BP 146/90
--- NOTE | 2016-10-21 21:12 | Neurology Progress Note ---
Interim History Interim History Interim History Ms. Renner continues to be unresponsive. She opens her eyes on painful stimuli but cannot respond in any other way. She is not exhibiting any abnormal movements. She is ventilator dependent. Review of Systems Neuro Review of Systems Unable to obtain. Objective Physical Exam Last Vital Signs Date Time Temp Pulse Resp B/P Pulse Ox O2 Delivery O2 Flow Rate FiO2 10/21/16 20:42 50 10/21/16 20:28 110 22 10/21/16 19:00 97.5 146/90 98 Mechanical Ventilator 10/18/16 19:00 4.0 Neurologic Exam Objective PHYSICAL EXAMINATION: GENERAL: She is a well-developed, relatively well-nourished, lady, lying in bed, connected to the ventilator via an orotracheal tube. HEAD: Normocephalic and atraumatic. NECK: No neck rigidity was observed. EENT EXAMINATION: Benign. NEUROLOGICAL EXAMINATION: MENTAL STATUS EXAMINATION: She was comatose and did not respond even to deep painful stimuli other than with eye opening Further mental status testing was impossible. SPEECH: Could not be tested. LANGUAGE: Could not be tested. CRANIAL NERVE EXAMINATION: II: She did not blink to threat. III, IV & : The external ocular movements were present on oculocephalic maneuvers. The pupils were 3 mm in diameter and did not react to light. V & VII: The corneal reflexes were present, but significantly diminished. VIII: She did not respond to sounds and had no nystagmus. IX & X: The gag reflex was absent on manipulating the endotracheal tube. XI: The sternocleidomastoids and trapezii did not function. XII: Could not be tested adequately. MOTOR SYSTEM: The tone was increased in all four extremities. Examination of muscle mass revealed generalized muscle wasting. Examination of power was impossible to perform as even on applying deep painful stimuli, no movements were seen. SENSORY EXAMINATION: She did not respond even to deep painful stimuli. REFLEXES: 2+ and bilaterally symmetrical at the biceps, triceps, and brachioradialis. 2++ at both knees. 0 at both ankles. The plantar responses were mute bilaterally. COORDINATION, STANCE & GAIT: Could not be tested. Impression/Recommendations Diagnostic Impression 1. Ms. Mony Renner is a 56-year-old, lady, of unknown handedness, who does have a past history of schizophrenia, a seizure disorder and ovarian cancer for metastatic nature, who was hospitalized for sepsis and anemia and while she was being stabilized in the hospital she had a Code Blue on 10/18/2016 with asystolic cardiopulmonary arrest. It took approximately 20 minutes before she could be resuscitated. Following that, she was noted to be comatose and having generalized myoclonus. 2. She continues to be comatose but her myoclonus is quiescent. 3. On neurological examination, at this time, she is unresponsive but opens her eyes on deep pain. The only brainstem function that she exhibits is eye movements on oculocephalic maneuvers and diminished corneal reflexes. 4. 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 5. The prognosis for recovery of neurological function is poor due to the prolonged duration of the cardiopulmonary arrest and in addition, the severe myoclonus following that. In addition, the patient has an underlying terminal cancer, which again makes the prognosis worse. Recommendations 1. Continue present management. 2. Agree with having the patient on a DNR/DNI status. 3. If all concerned agree, would discontinue artificial means of prolonging the inevitable as the patient's prognosis is quite poor. Corie Hernandez M.D., M.S.P.H. CORIE HERNANDEZ Oct 21, 2016 21:12
[2016-10-22] VITALS: BP 121/70
[2016-10-22 04:00] VITALS: BP 125/66
[2016-10-22 08:00] VITALS: BP 128/75
[2016-10-22] MEDS: Pantoprazole Inj IVP SCH (08:12)
--- NOTE | 2016-10-22 08:45 | General Progress Note ---
Assessment/Plan Assessment/Plan IMPRESSION: 1. Extensive disseminated malignancy, as described above, with a large pelvic mass, extensive lymphadenopathy, extensive osseous metastases, hepatic and pulmonary metastases. There is also unusual circumferential involvement of the bladder wall - discussed multiple times, patient refuses biopsy or workup or treatment 2. Hypercalcemia, likely related to metastatic malignancy 3. Acute thrombus bilateral common femoral vein s/p IVC filter placement 4. Anemia of chronic disease (severe) 5. Hx of ovarian cancer 6. Hyperferritinemia, most likely reactive. 7. History of schizophrenia. 8. History of ovarian cancer. 9. Hypertension. 10. Chronic obstructive pulmonary disease. 11. History of seizure. 12. Skin abscess. 13. Failure to thrive. 14. Hepatitis C RECOMMENDATIONS: 1. Patient is DNR/DNI, considering bioethics consult 2. PATIENT HAS been REFUSING biopsy 3. PRBC transfusion on p.r.n. basis. Refused meds 4. Has refused endoscopy/colonoscopy 5. hx of noncomplance with care/treatment 6. Followup on warehouse consultant recommendations 7. Staff Thank you, Miguel Alvarez MD Subjective Constitutional: Reports: no symptoms HEENT: Reports: no symptoms Cardiovascular: Reports: no symptoms Respiratory: Reports: no symptoms Gastrointestinal/Abdominal: Reports: no symptoms Genitourinary: Reports: no symptoms Neurologic/Psychiatric: Reports: weakness Endocrine: Reports: no symptoms Hematologic/Lymphatic: Reports: anemia Allergies: Coded Allergies: No Known Allergies (Unverified , 10/08/16) Subjective Non-responsive, no labs at this time, have discussed with family Objective Last 24 Hour Vital Signs Date Time Temp Pulse Resp B/P Pulse Ox O2 Delivery O2 Flow Rate FiO2 10/22/16 06:35 106 25 40 10/22/16 05:19 103 20 40 10/22/16 04:00 50 10/22/16 04:00 98.4 107 21 125/66 97 Mechanical Ventilator 40 10/22/16 03:51 107 10/22/16 03:10 103 20 40 10/22/16 01:20 112 23 40 10/22/16 00:00 98.4 107 20 121/70 98 Mechanical Ventilator 40 10/22/16 00:00 50 10/21/16 23:38 107 10/21/16 23:00 108 20 40 10/21/16 20:42 50 10/21/16 20:30 101 10/21/16 20:28 110 22 40 10/21/16 20:08 103 23 40 10/21/16 19:00 97.5 100 20 146/90 98 Mechanical Ventilator 40 10/21/16 16:50 102 22 40 10/21/16 16:00 100 10/21/16 16:00 50 10/21/16 16:00 97.0 100 20 142/90 98 Mechanical Ventilator 40 10/21/16 14:52 95 21 40 10/21/16 12:30 95 14 40 10/21/16 12:00 97.2 96 21 114/71 96 Mechanical Ventilator 40 10/21/16 12:00 50 10/21/16 12:00 90 10/21/16 11:15 95 19 40 10/21/16 08:59 97 21 40 Intake and Output 10/21/16 10/22/16 19:00 07:00 Output Total 30 ml 80 ml Balance -30 ml -80 ml Output Urine Total 30 ml 80 ml Height (Feet): 5 Height (Inches): 2.00 Weight (Pounds): 130 General Appearance: no apparent distress EENT: TMs normal Neck: supple Cardiovascular: regular rhythm Respiratory/Chest: lungs clear Abdomen: no organomegaly Extremities: non-tender Edema: 1+ Leg (L), 1+ Leg (R) Edema: mild edema Neurologic: alert Skin: warm/dry Miguel Alvarez Oct 22, 2016 08:44
--- NOTE | 2016-10-22 11:07 | General Progress Note ---
Assessment/Plan Status: unchanged Status Narrative comatose Assessment/Plan status: Coded 10/18 11 pm - intubated on Vent Hypercalcemia, related to Neoplastic process- IMPROVED Symptomatic Anemia, Etiology?? Cancer, GI Loss, .... Acute renal failure now- Cr rising Sugg: no labs Comfort care in view of recent deterioration of clinical state and underlying metastatic cancer. Favor terminal extubation per consultants- DNR DNI at this time- DC hoffman Aredia given 90mg 10/09 Subjective ROS Limited/Unobtainable: Yes Allergies: Coded Allergies: No Known Allergies (Unverified , 10/08/16) Objective Last 24 Hour Vital Signs Date Time Temp Pulse Resp B/P Pulse Ox O2 Delivery O2 Flow Rate FiO2 10/22/16 09:12 105 20 40 10/22/16 08:00 98 10/22/16 08:00 98.2 105 21 128/75 99 Mechanical Ventilator 40 10/22/16 08:00 50 10/22/16 06:35 106 25 40 10/22/16 05:19 103 20 40 10/22/16 04:00 50 10/22/16 04:00 98.4 107 21 125/66 97 Mechanical Ventilator 40 10/22/16 03:51 107 10/22/16 03:10 103 20 40 10/22/16 01:20 112 23 40 10/22/16 00:00 98.4 107 20 121/70 98 Mechanical Ventilator 40 10/22/16 00:00 50 10/21/16 23:38 107 10/21/16 23:00 108 20 40 10/21/16 20:42 50 10/21/16 20:30 101 10/21/16 20:28 110 22 40 10/21/16 20:08 103 23 40 10/21/16 19:00 97.5 100 20 146/90 98 Mechanical Ventilator 40 10/21/16 16:50 102 22 40 10/21/16 16:00 100 10/21/16 16:00 50 10/21/16 16:00 97.0 100 20 142/90 98 Mechanical Ventilator 40 10/21/16 14:52 95 21 40 10/21/16 12:30 95 14 40 10/21/16 12:00 97.2 96 21 114/71 96 Mechanical Ventilator 40 10/21/16 12:00 50 10/21/16 12:00 90 10/21/16 11:15 95 19 40 Intake and Output 10/21/16 10/22/16 19:00 07:00 Output Total 30 ml 80 ml Balance -30 ml -80 ml Output Urine Total 30 ml 80 ml Height (Feet): 5 Height (Inches): 2.00 Weight (Pounds): 130 General Appearance: no apparent distress Genitourinary/Rectal: other - hoffman, contains bloody urine Objective other physical exam not changed CLEMENTE APPIAH Oct 22, 2016 11:07
[2016-10-22 12:00] VITALS: BP 128/72
--- NOTE | 2016-10-22 12:05 | Pulmonology Progress Note ---
Assessment/Plan Problems: (1) Cardiac arrest (2) Hypoxemic encephalopathy (3) Respiratory failure, acute Assessment/Plan dc vent support when all consultants agree comfort care no labs. consider removing all artificial devices when ok with all other consultants. Subjective ROS Limited/Unobtainable: No Allergies: Coded Allergies: No Known Allergies (Unverified , 10/08/16) Objective Last 24 Hour Vital Signs Date Time Temp Pulse Resp B/P Pulse Ox O2 Delivery O2 Flow Rate FiO2 10/22/16 10:45 108 20 40 10/22/16 09:12 105 20 40 10/22/16 08:00 98 10/22/16 08:00 98.2 105 21 128/75 99 Mechanical Ventilator 40 10/22/16 08:00 50 10/22/16 06:35 106 25 40 10/22/16 05:19 103 20 40 10/22/16 04:00 50 10/22/16 04:00 98.4 107 21 125/66 97 Mechanical Ventilator 40 10/22/16 03:51 107 10/22/16 03:10 103 20 40 10/22/16 01:20 112 23 40 10/22/16 00:00 98.4 107 20 121/70 98 Mechanical Ventilator 40 10/22/16 00:00 50 10/21/16 23:38 107 10/21/16 23:00 108 20 40 10/21/16 20:42 50 10/21/16 20:30 101 10/21/16 20:28 110 22 40 10/21/16 20:08 103 23 40 10/21/16 19:00 97.5 100 20 146/90 98 Mechanical Ventilator 40 10/21/16 16:50 102 22 40 10/21/16 16:00 100 10/21/16 16:00 50 10/21/16 16:00 97.0 100 20 142/90 98 Mechanical Ventilator 40 10/21/16 14:52 95 21 40 10/21/16 12:30 95 14 40 Intake and Output 10/21/16 10/22/16 19:00 07:00 Output Total 30 ml 80 ml Balance -30 ml -80 ml Output Urine Total 30 ml 80 ml General Appearance: cachetic HEENT: normocephalic, atraumatic Respiratory/Chest: chest wall non-tender, lungs clear Cardiovascular: normal peripheral pulses, normal rate Abdomen: normal bowel sounds, soft, non tender Genitourinary: normal external genitalia Extremities: no clubbing Skin: no rash Laboratory Tests 10/22/16 11:55: Urine Eosinophils [Pending] Current Medications Medications (Trade) Dose Ordered Sig/[place] Route PRN Reason Start Time Stop Time Status Last Admin Dose Admin Acetaminophen (Tylenol) 650 mg Q4H PRN ORAL Mild Pain/Temp > 100.5 10/19/16 17:00 11/18/16 16:59 Albuterol/ Ipratropium (DuoNeb 0.5-3(2.5)mg/3ml) 3 ml Q4H PRN HHN Shortness of Breath 10/19/16 16:00 10/24/16 15:59 Lorazepam (Ativan 2mg/ml 1ml) 2 mg Q2H PRN IV For Anxiety 10/19/16 16:30 10/26/16 16:29 10/19/16 19:53 Morphine Sulfate (Morphine Sulfate) 4 mg Q4H PRN IVP Severe Pain (Pain Scale 7-10) 10/19/16 16:00 10/26/16 15:59 Pantoprazole (Protonix) 40 mg DAILY IVP 10/20/16 10:00 11/19/16 09:59 10/22/16 08:12 TRISTON FRIED Oct 22, 2016 12:05
--- NOTE | 2016-10-22 14:38 | Neurology Progress Note ---
Interim History Interim History Interim History Ms. Renner continues to be unresponsive. She opens her eyes on painful stimuli but cannot respond in any other way. She is exhibiting segmental myoclonus of various muscle groups from time to time. She is ventilator dependent. There has been no improvement in her condition. Review of Systems Neuro Review of Systems Unable to obtain. Objective Physical Exam Last Vital Signs Date Time Temp Pulse Resp B/P Pulse Ox O2 Delivery O2 Flow Rate FiO2 10/22/16 12:30 105 20 40 10/22/16 12:00 98.1 128/72 100 Mechanical Ventilator 10/18/16 19:00 4.0 Laboratory Tests Test 10/22/16 11:55 Urine Eosinophils Rare Neurologic Exam Objective PHYSICAL EXAMINATION: GENERAL: She is a well-developed, relatively well-nourished, lady, lying in bed, connected to the ventilator via an orotracheal tube. HEAD: Normocephalic and atraumatic. NECK: No neck rigidity was observed. EENT EXAMINATION: Benign. NEUROLOGICAL EXAMINATION: MENTAL STATUS EXAMINATION: She was comatose and did not respond even to deep painful stimuli other than with eye opening Further mental status testing was impossible. SPEECH: Could not be tested. LANGUAGE: Could not be tested. CRANIAL NERVE EXAMINATION: II: She did not blink to threat. III, IV & : The external ocular movements were present on oculocephalic maneuvers. The pupils were 3 mm in diameter and did not react to light. V & VII: The corneal reflexes were present, but significantly diminished. VIII: She did not respond to sounds and had no nystagmus. IX & X: The gag reflex was absent on manipulating the endotracheal tube. XI: The sternocleidomastoids and trapezii did not function. XII: Could not be tested adequately. MOTOR SYSTEM: The tone was increased in all four extremities. Examination of muscle mass revealed generalized muscle wasting. Examination of power was impossible to perform as even on applying deep painful stimuli, no movements were seen. She did exhibit segmental myoclonus involving different muscle groups. SENSORY EXAMINATION: She did not respond even to deep painful stimuli. REFLEXES: 2+ and bilaterally symmetrical at the biceps, triceps, and brachioradialis. 2++ at both knees. 0 at both ankles. The plantar responses were mute bilaterally. COORDINATION, STANCE & GAIT: Could not be tested. Impression/Recommendations Diagnostic Impression 1. Ms. Mony Renner is a 56-year-old, lady, of unknown handedness, who does have a past history of schizophrenia, a seizure disorder and ovarian cancer for metastatic nature, who was hospitalized for sepsis and anemia and while she was being stabilized in the hospital she had a Code Blue on 10/18/2016 with asystolic cardiopulmonary arrest. It took approximately 20 minutes before she could be resuscitated. Following that, she was noted to be comatose and having generalized myoclonus. 2. She continues to be comatose and is exhibiting segmental myoclonus involving different muscle groups. 3. On neurological examination, at this time, she is unresponsive but opens her eyes on deep pain. The only brainstem function that she exhibits is eye movements on oculocephalic maneuvers and diminished corneal reflexes. 4. 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 5. The prognosis for recovery of neurological function is poor due to the prolonged duration of the cardiopulmonary arrest and in addition, the myoclonus following that. In addition, the patient has an underlying terminal cancer, which again makes the prognosis worse. Recommendations 1. Continue present management. 2. Agree with having the patient on a DNR/DNI status. 3. If all concerned agree, would discontinue artificial means of prolonging the inevitable as the patient's prognosis is quite poor. Corie Hernandez M.D., M.S.P.CORIE MITCHELL Oct 22, 2016 14:38
--- NOTE | 2016-10-22 14:43 | General Progress Note ---
Assessment/Plan Problem List: (1) Anemia ICD Codes: D64.9 - Anemia, unspecified SNOMED: 510173815 (2) Skin infection ICD Codes: L08.9 - Local infection of the skin and subcutaneous tissue, unspecified SNOMED: 939704632 (3) Sepsis ICD Codes: A41.9 - Sepsis, unspecified organism SNOMED: 46362170 (4) JAY (acute kidney injury) ICD Codes: N17.9 - Acute kidney failure, unspecified SNOMED: 03210946 Status: unchanged Assessment/Plan mets cancer w hydro s/p code blue favor comfort care very poor prognosis Subjective ROS Limited/Unobtainable: Yes Constitutional: Reports: no symptoms Allergies: Coded Allergies: No Known Allergies (Unverified , 10/08/16) Subjective chronic pain Objective Last 24 Hour Vital Signs Date Time Temp Pulse Resp B/P Pulse Ox O2 Delivery O2 Flow Rate FiO2 10/22/16 14:40 112 24 40 10/22/16 12:30 105 20 40 10/22/16 12:00 98.1 104 25 128/72 100 Mechanical Ventilator 40 10/22/16 12:00 102 10/22/16 12:00 50 10/22/16 10:45 108 20 40 10/22/16 09:12 105 20 40 10/22/16 08:00 98 10/22/16 08:00 98.2 105 21 128/75 99 Mechanical Ventilator 40 10/22/16 08:00 50 10/22/16 06:35 106 25 40 10/22/16 05:19 103 20 40 10/22/16 04:00 50 10/22/16 04:00 98.4 107 21 125/66 97 Mechanical Ventilator 40 10/22/16 03:51 107 10/22/16 03:10 103 20 40 10/22/16 01:20 112 23 40 10/22/16 00:00 98.4 107 20 121/70 98 Mechanical Ventilator 40 10/22/16 00:00 50 10/21/16 23:38 107 10/21/16 23:00 108 20 40 10/21/16 20:42 50 10/21/16 20:30 101 10/21/16 20:28 110 22 40 10/21/16 20:08 103 23 40 10/21/16 19:00 97.5 100 20 146/90 98 Mechanical Ventilator 40 10/21/16 16:50 102 22 40 10/21/16 16:00 100 10/21/16 16:00 50 10/21/16 16:00 97.0 100 20 142/90 98 Mechanical Ventilator 40 10/21/16 14:52 95 21 40 Intake and Output 10/21/16 10/22/16 19:00 07:00 Output Total 30 ml 80 ml Balance -30 ml -80 ml Output Urine Total 30 ml 80 ml Laboratory Tests 10/22/16 11:55: Urine Eosinophils Rare Height (Feet): 5 Height (Inches): 2.00 Weight (Pounds): 130 EENT: PERRL/EOMI Neck: supple Cardiovascular: normal rate Respiratory/Chest: lungs clear Abdomen: soft Sulma Desir MD Oct 22, 2016 14:43
[2016-10-22 16:00] VITALS: BP 121/71
--- NOTE | 2016-10-22 18:18 | Cardiac Electrophysiology PN ---
Assessment/Plan Assessment/Plan 1. Tachycardia due to sinus tach due to sepsis, respiratory failure and no atrial fib. 2. Respiratory failure on Vent 3. S/P Septic shock. Off pressors. 4. Extensive disseminated ovarian cancer with extensive lymphadenopathy, extensive osseous, hepatic and pulmonary metastases. 5. Hypercalcemia, due to metastatic cancer 6. Acute thrombus bilateral common femoral vein s/p IVC filter placement 7. DNR, DNI, Comfort care. Pending terminal extubation SHANICE RN Subjective Subjective On vent unresponsive, DNR/DNI. Off pressors. No arrhythmias. No significant change. Objective Last 24 Hour Vital Signs Date Time Temp Pulse Resp B/P Pulse Ox O2 Delivery O2 Flow Rate FiO2 10/22/16 16:30 110 24 40 10/22/16 16:04 50 10/22/16 16:00 111 10/22/16 16:00 99.0 108 20 121/71 95 Mechanical Ventilator 40 10/22/16 14:40 112 24 40 10/22/16 12:30 105 20 40 10/22/16 12:00 98.1 104 25 128/72 100 Mechanical Ventilator 40 10/22/16 12:00 102 10/22/16 12:00 50 10/22/16 10:45 108 20 40 10/22/16 09:12 105 20 40 10/22/16 08:00 98 10/22/16 08:00 98.2 105 21 128/75 99 Mechanical Ventilator 40 10/22/16 08:00 50 10/22/16 06:35 106 25 40 10/22/16 05:19 103 20 40 10/22/16 04:00 50 10/22/16 04:00 98.4 107 21 125/66 97 Mechanical Ventilator 40 10/22/16 03:51 107 10/22/16 03:10 103 20 40 10/22/16 01:20 112 23 40 10/22/16 00:00 98.4 107 20 121/70 98 Mechanical Ventilator 40 10/22/16 00:00 50 10/21/16 23:38 107 10/21/16 23:00 108 20 40 10/21/16 20:42 50 10/21/16 20:30 101 10/21/16 20:28 110 22 40 10/21/16 20:08 103 23 40 10/21/16 19:00 97.5 100 20 146/90 98 Mechanical Ventilator 40 Intake and Output 2/23/17 2/24/17 19:00 07:00 Output Total 30 ml 80 ml Balance -30 ml -80 ml Output Urine Total 30 ml 80 ml Laboratory Tests Test 10/22/16 11:55 Urine Eosinophils Rare Objective HEENt Orally intubated. Cardiovascular: Tachy S1,S2 no G/M Respiratory/Chest: Coarse rhonchi Abdomen: soft Edema: mild edema Neurologic: unresponsive ANGELINE MONTES Oct 22, 2016 18:17
[2016-10-22 20:00] VITALS: BP 142/72
[2016-10-23] VITALS: BP 133/74
[2016-10-23 04:00] VITALS: BP 127/64
[2016-10-23 08:00] VITALS: BP 126/72
[2016-10-23] MEDS ORDERED: D5NS 1000ml IV ONE (08:21)
[2016-10-23] MEDS ORDERED: NS 275ml ONE ×2 (08:21→17:03)
[2016-10-23] MEDS ORDERED: Tubing IV Secondary IV ONE (08:21)
[2016-10-23] MEDS: Pantoprazole Inj IVP SCH (08:30)
--- NOTE | 2016-10-23 10:20 | Pulmonology Progress Note ---
Assessment/Plan Problems: (1) Cardiac arrest (2) Hypoxemic encephalopathy (3) Respiratory failure, acute Assessment/Plan consider removing all artificial devices when ok with all other consultants. I will sign off the case. Subjective ROS Limited/Unobtainable: Yes Allergies: Coded Allergies: No Known Allergies (Unverified , 10/08/16) Subjective I will sign off. Objective Last 24 Hour Vital Signs Date Time Temp Pulse Resp B/P Pulse Ox O2 Delivery O2 Flow Rate FiO2 10/23/16 09:04 104 22 40 10/23/16 08:00 97.3 109 26 126/72 100 Mechanical Ventilator 40 10/23/16 08:00 104 10/23/16 07:55 40 10/23/16 07:04 107 25 40 10/23/16 04:49 103 24 40 10/23/16 04:00 105 10/23/16 04:00 94.0 16 127/64 95 Room Air 10/23/16 04:00 40 10/23/16 03:04 110 23 40 10/23/16 01:02 110 21 40 10/23/16 00:00 40 10/23/16 00:00 99.1 111 22 133/74 98 Mechanical Ventilator 10/22/16 23:47 116 10/22/16 23:14 120 24 40 10/22/16 21:46 111 10/22/16 21:01 118 22 40 10/22/16 20:00 98.1 19 142/72 95 Mechanical Ventilator 40 10/22/16 20:00 50 10/22/16 20:00 114 10/22/16 18:49 112 21 40 10/22/16 16:30 110 24 40 10/22/16 16:04 50 10/22/16 16:00 111 10/22/16 16:00 99.0 108 20 121/71 95 Mechanical Ventilator 40 10/22/16 14:40 112 24 40 10/22/16 12:30 105 20 40 10/22/16 12:00 98.1 104 25 128/72 100 Mechanical Ventilator 40 10/22/16 12:00 102 10/22/16 12:00 50 10/22/16 10:45 108 20 40 Intake and Output 10/22/16 10/23/16 19:00 07:00 Output Total 0 ml Balance 0 ml Output Urine Total 0 ml # Voids 2 # Bowel Movements 2 Objective pt remains orally intubated General Appearance: cachetic HEENT: normocephalic, atraumatic Respiratory/Chest: chest wall non-tender, lungs clear Cardiovascular: normal peripheral pulses, normal rate Abdomen: normal bowel sounds, soft, non tender Extremities: no cyanosis 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 Lymphatic: no neck adenopathy Laboratory Tests 10/22/16 11:55: Urine Eosinophils Rare Current Medications Medications (Trade) Dose Ordered Sig/[place] Route PRN Reason Start Time Stop Time Status Last Admin Dose Admin Acetaminophen (Tylenol) 650 mg Q4H PRN ORAL Mild Pain/Temp > 100.5 10/19/16 17:00 11/18/16 16:59 Albuterol/ Ipratropium (DuoNeb 0.5-3(2.5)mg/3ml) 3 ml Q4H PRN HHN Shortness of Breath 10/19/16 16:00 10/24/16 15:59 Lorazepam (Ativan 2mg/ml 1ml) 2 mg Q2H PRN IV For Anxiety 10/19/16 16:30 10/26/16 16:29 10/19/16 19:53 Morphine Sulfate (Morphine Sulfate) 4 mg Q4H PRN IVP Severe Pain (Pain Scale 7-10) 10/19/16 16:00 10/26/16 15:59 Pantoprazole (Protonix) 40 mg DAILY IVP 10/20/16 10:00 11/19/16 09:59 10/23/16 08:30 TRISTON FRIED Oct 23, 2016 10:20
--- NOTE | 2016-10-23 11:12 | General Progress Note ---
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 and mets cancer i favor comfort care Subjective ROS Limited/Unobtainable: Yes Allergies: Coded Allergies: No Known Allergies (Unverified , 10/08/16) Subjective chronic pain Objective Last 24 Hour Vital Signs Date Time Temp Pulse Resp B/P Pulse Ox O2 Delivery O2 Flow Rate FiO2 10/23/16 09:04 104 22 40 10/23/16 08:00 97.3 109 26 126/72 100 Mechanical Ventilator 40 10/23/16 08:00 104 10/23/16 07:55 40 10/23/16 07:04 107 25 40 10/23/16 04:49 103 24 40 10/23/16 04:00 105 10/23/16 04:00 94.0 16 127/64 95 Room Air 10/23/16 04:00 40 10/23/16 03:04 110 23 40 10/23/16 01:02 110 21 40 10/23/16 00:00 40 10/23/16 00:00 99.1 111 22 133/74 98 Mechanical Ventilator 10/22/16 23:47 116 10/22/16 23:14 120 24 40 10/22/16 21:46 111 10/22/16 21:01 118 22 40 10/22/16 20:00 98.1 19 142/72 95 Mechanical Ventilator 40 10/22/16 20:00 50 10/22/16 20:00 114 10/22/16 18:49 112 21 40 10/22/16 16:30 110 24 40 10/22/16 16:04 50 10/22/16 16:00 111 10/22/16 16:00 99.0 108 20 121/71 95 Mechanical Ventilator 40 10/22/16 14:40 112 24 40 10/22/16 12:30 105 20 40 10/22/16 12:00 98.1 104 25 128/72 100 Mechanical Ventilator 40 10/22/16 12:00 102 10/22/16 12:00 50 Intake and Output 10/22/16 10/23/16 19:00 07:00 Output Total 0 ml Balance 0 ml Output Urine Total 0 ml # Voids 2 # Bowel Movements 2 Laboratory Tests 10/22/16 11:55: Urine Eosinophils Rare Height (Feet): 5 Height (Inches): 2.00 Weight (Pounds): 130 General Appearance: lethargic, confused Sulma Desir MD Oct 23, 2016 11:12
--- NOTE | 2016-10-23 11:41 | General Progress Note ---
Assessment/Plan Status: unchanged Status Narrative comatose- no change in neurostatus after 4 days Assessment/Plan status: Coded 10/18 11 pm - intubated on Vent Hypercalcemia, related to Neoplastic process- IMPROVED Symptomatic Anemia, Etiology?? Cancer, GI Loss, .... Acute renal failure now- Cr rising Sugg: terminal extubation- ordered- in view of recent deterioration of clinical state and underlying metastatic cancer. Subjective ROS Limited/Unobtainable: Yes Allergies: Coded Allergies: No Known Allergies (Unverified , 10/08/16) Objective Last 24 Hour Vital Signs Date Time Temp Pulse Resp B/P Pulse Ox O2 Delivery O2 Flow Rate FiO2 10/23/16 11:15 111 26 40 10/23/16 09:04 104 22 40 10/23/16 08:00 97.3 109 26 126/72 100 Mechanical Ventilator 40 10/23/16 08:00 104 10/23/16 07:55 40 10/23/16 07:04 107 25 40 10/23/16 04:49 103 24 40 10/23/16 04:00 105 10/23/16 04:00 94.0 16 127/64 95 Room Air 10/23/16 04:00 40 10/23/16 03:04 110 23 40 10/23/16 01:02 110 21 40 10/23/16 00:00 40 10/23/16 00:00 99.1 111 22 133/74 98 Mechanical Ventilator 10/22/16 23:47 116 10/22/16 23:14 120 24 40 10/22/16 21:46 111 10/22/16 21:01 118 22 40 10/22/16 20:00 98.1 19 142/72 95 Mechanical Ventilator 40 10/22/16 20:00 50 10/22/16 20:00 114 10/22/16 18:49 112 21 40 10/22/16 16:30 110 24 40 10/22/16 16:04 50 10/22/16 16:00 111 10/22/16 16:00 99.0 108 20 121/71 95 Mechanical Ventilator 40 10/22/16 14:40 112 24 40 10/22/16 12:30 105 20 40 10/22/16 12:00 98.1 104 25 128/72 100 Mechanical Ventilator 40 10/22/16 12:00 102 10/22/16 12:00 50 Intake and Output 10/22/16 10/23/16 19:00 07:00 Output Total 0 ml Balance 0 ml Output Urine Total 0 ml # Voids 2 # Bowel Movements 2 Laboratory Tests 10/22/16 11:55: Urine Eosinophils Rare Height (Feet): 5 Height (Inches): 2.00 Weight (Pounds): 130 General Appearance: no apparent distress, other - comatose Objective other physical exam not changed CLEMENTE APPIAH Oct 23, 2016 11:41
[2016-10-23 12:00] VITALS: BP 126/73
[2016-10-23] MEDS: Morphine Sulfate 4mg/ml Inj IVP PRN ×3 (14:27→21:27)
--- NOTE | 2016-10-23 14:49 | Neurology Progress Note ---
Interim History Interim History Interim History Ms. Renner continues to be unresponsive. She opens her eyes on painful stimuli but cannot respond in any other way. She is exhibiting segmental myoclonus of various muscle groups from time to time. She has been extubated. There has been no improvement in her condition. Her care has been changed to comfort care with no further interventions. Review of Systems Neuro Review of Systems Unable to obtain. Objective Physical Exam Last Vital Signs Date Time Temp Pulse Resp B/P Pulse Ox O2 Delivery O2 Flow Rate FiO2 10/23/16 12:00 97.7 117 14 126/73 97 Nasal Cannula 2.0 10/23/16 12:00 40 Neurologic Exam Objective PHYSICAL EXAMINATION: GENERAL: She is a well-developed, relatively well-nourished, lady, lying in bed, with an airway in her mouth. HEAD: Normocephalic and atraumatic. NECK: No neck rigidity was observed. EENT EXAMINATION: Benign. NEUROLOGICAL EXAMINATION: MENTAL STATUS EXAMINATION: She was comatose and did not respond even to deep painful stimuli other than with eye opening Further mental status testing was impossible. SPEECH: Could not be tested. LANGUAGE: Could not be tested. CRANIAL NERVE EXAMINATION: II: She did not blink to threat. III, IV & : The external ocular movements were present on oculocephalic maneuvers. The pupils were 3 mm in diameter and did not react to light. V & VII: The corneal reflexes were present, but significantly diminished. VIII: She did not respond to sounds and had no nystagmus. IX & X: The gag reflex was absent on manipulating the endotracheal tube. XI: The sternocleidomastoids and trapezii did not function. XII: Could not be tested adequately. MOTOR SYSTEM: The tone was increased in all four extremities. Examination of muscle mass revealed generalized muscle wasting. Examination of power was impossible to perform as even on applying deep painful stimuli, no movements were seen. She did exhibit segmental myoclonus involving different muscle groups. SENSORY EXAMINATION: She did not respond even to deep painful stimuli. REFLEXES: 2+ and bilaterally symmetrical at the biceps, triceps, and brachioradialis. 2++ at both knees. 0 at both ankles. The plantar responses were mute bilaterally. COORDINATION, STANCE & GAIT: Could not be tested. Impression/Recommendations Status: unchanged Diagnostic Impression 1. Ms. Mony Renner is a 56-year-old, lady, of unknown handedness, who does have a past history of schizophrenia, a seizure disorder and ovarian cancer for metastatic nature, who was hospitalized for sepsis and anemia and while she was being stabilized in the hospital she had a Code Blue on 10/18/2016 with asystolic cardiopulmonary arrest. It took approximately 20 minutes before she could be resuscitated. Following that, she was noted to be comatose and having generalized myoclonus. 2. She continues to be comatose and is exhibiting segmental myoclonus involving different muscle groups. 3. On neurological examination, at this time, she is unresponsive but opens her eyes on deep pain. The only brainstem function that she exhibits is eye movements on oculocephalic maneuvers and diminished corneal reflexes. 4. 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 5. The prognosis for recovery of neurological function is poor due to the prolonged duration of the cardiopulmonary arrest and in addition, the myoclonus following that. In addition, the patient has an underlying terminal cancer, which again makes the prognosis worse. 6. She has been terminally extubated and her care has been changed to comfort care. She is comfortable. Recommendations 1. Agree with comfort care. 2. Keep comfortable. Corie Hernandez M.D., M.S.P.Tam. CORIE HERNANDEZ Oct 23, 2016 14:49
[2016-10-23 16:00] VITALS: BP 128/73
--- NOTE | 2016-10-23 18:56 | General Progress Note ---
Assessment/Plan Assessment/Plan IMPRESSION: 1. Extensive disseminated malignancy, as described above, with a large pelvic mass, extensive lymphadenopathy, extensive osseous metastases, hepatic and pulmonary metastases. There is also unusual circumferential involvement of the bladder wall - discussed multiple times, patient refuses 2. Hypercalcemia, likely related to metastatic malignancy 3. Acute thrombus bilateral common femoral vein s/p IVC filter placement 4. Anemia of chronic disease (severe). 5. Hx of ovarian cancer 6. Hyperferritinemia, most likely reactive. 7. History of schizophrenia. 8. History of ovarian cancer. 9. Hypertension. 10. Chronic obstructive pulmonary disease. 11. History of seizure. 12. Skin abscess. 13. Failure to thrive. 14. Hepatitis C RECOMMENDATIONS: 1. Watch count. Hgb goal >7. 2. PATIENT IS REFUSING biopsy 3. PRBC transfusion on p.r.n. basis. Refused meds 4. Has refused endoscopy/colonoscopy 5. hx of noncomplance with care/treatment 6. Consider hospice/palliative care given patient refusal for workup/treatment, would benefit from this service 7. Does not require iron 8. SCD for DVT prophylaxis. 9. Reviewed tumor markers. 10. Staff Thank you, Florentino Alvarez MD Subjective Constitutional: Reports: no symptoms HEENT: Reports: no symptoms Cardiovascular: Reports: no symptoms Respiratory: Reports: no symptoms Gastrointestinal/Abdominal: Reports: no symptoms Genitourinary: Reports: no symptoms Neurologic/Psychiatric: Reports: no symptoms Endocrine: Reports: no symptoms Hematologic/Lymphatic: Reports: no symptoms Allergies: Coded Allergies: No Known Allergies (Unverified , 10/08/16) Objective Last 24 Hour Vital Signs Date Time Temp Pulse Resp B/P Pulse Ox O2 Delivery O2 Flow Rate FiO2 10/23/16 16:40 117 10/23/16 16:00 98.0 117 20 128/73 97 Nasal Cannula 2.0 10/23/16 16:00 40 10/23/16 16:00 117 10/23/16 12:00 97.7 117 14 126/73 97 Nasal Cannula 2.0 10/23/16 12:00 40 10/23/16 12:00 118 10/23/16 11:51 96 Nasal Cannula 3.0 10/23/16 11:50 Nasal Cannula 3.0 10/23/16 11:50 Nasal Cannula 3.0 10/23/16 11:15 111 26 40 10/23/16 09:04 104 22 40 10/23/16 08:00 97.3 109 26 126/72 100 Mechanical Ventilator 40 10/23/16 08:00 104 10/23/16 07:55 40 10/23/16 07:04 107 25 40 10/23/16 04:49 103 24 40 10/23/16 04:00 105 10/23/16 04:00 94.0 16 127/64 95 Room Air 10/23/16 04:00 40 10/23/16 03:04 110 23 40 10/23/16 01:02 110 21 40 10/23/16 00:00 40 10/23/16 00:00 99.1 111 22 133/74 98 Mechanical Ventilator 10/22/16 23:47 116 10/22/16 23:14 120 24 40 10/22/16 21:46 111 10/22/16 21:01 118 22 40 10/22/16 20:00 98.1 19 142/72 95 Mechanical Ventilator 40 10/22/16 20:00 50 10/22/16 20:00 114 Intake and Output 10/22/16 10/23/16 19:00 07:00 Output Total 0 ml Balance 0 ml Output Urine Total 0 ml # Voids 2 # Bowel Movements 2 Height (Feet): 5 Height (Inches): 2.00 Weight (Pounds): 130 General Appearance: no apparent distress EENT: TMs normal Neck: supple Cardiovascular: regular rhythm Respiratory/Chest: lungs clear Abdomen: soft Edema: no edema noted Arm (L), no edema noted Arm (R), no edema noted Leg (L), no edema noted Leg (R), no edema noted Pedal (L), no edema noted Pedal (R), no edema noted Generalized Lymphatic: normal anterior cervical (L), normal anterior cervical (R), normal axillary (L), normal axillary (R), normal inguinal (L), normal inguinal (R), normal other, normal posterior cervical (L), normal posterior cervical (R), normal submandibular (L), normal submandibular (R), normal supraclavicular (L), normal supraclavicular (R) FLORENTINO ALVAREZ Oct 23, 2016 18:56
[2016-10-23 20:00] VITALS: BP 111/75
[2016-10-24] VITALS (8 sets, daily range): BP systolic 109–132; BP diastolic 51–85
--- NOTE | 2016-10-24 07:53 | General Progress Note ---
Assessment/Plan Assessment/Plan IMPRESSION: 1. Extensive disseminated malignancy, as described above, with a large pelvic mass, extensive lymphadenopathy, extensive osseous metastases, hepatic and pulmonary metastases. There is also unusual circumferential involvement of the bladder wall - discussed multiple times, patient refuses biopsy or workup or treatment (have discussed multiple times with her) 2. Hypercalcemia, likely related to metastatic malignancy 3. Acute thrombus bilateral common femoral vein s/p IVC filter placement 4. Anemia of chronic disease (severe) 5. Hx of ovarian cancer 6. Hyperferritinemia, most likely reactive. 7. History of schizophrenia. 8. History of ovarian cancer. 9. Hypertension. 10. Chronic obstructive pulmonary disease. 11. History of seizure. 12. Skin abscess. 13. Failure to thrive. 14. Hepatitis C RECOMMENDATIONS: 1. Patient is DNR/DNI, considering bioethics consult 2. PATIENT HAS been REFUSING biopsy 3. No further LABS, also has Refused meds 4. Has refused endoscopy/colonoscopy 5. hx of noncomplance with care/treatment 6. Followup on telecom sales consultant recs 7. Staff Thank you, Miguel Alvarez MD Subjective Constitutional: Reports: no symptoms HEENT: Reports: no symptoms Cardiovascular: Reports: no symptoms Respiratory: Reports: no symptoms Gastrointestinal/Abdominal: Reports: nausea Genitourinary: Reports: no symptoms Neurologic/Psychiatric: Reports: no symptoms Endocrine: Reports: no symptoms Hematologic/Lymphatic: Reports: anemia Allergies: Coded Allergies: No Known Allergies (Unverified , 10/08/16) Subjective Still obtunded, no labs at this time, no events since tuesday per RN Objective Last 24 Hour Vital Signs Date Time Temp Pulse Resp B/P Pulse Ox O2 Delivery O2 Flow Rate FiO2 10/24/16 04:00 109 10/24/16 04:00 97.5 109 24 132/80 97 Nasal Cannula 3.0 10/24/16 00:00 109 10/24/16 00:00 98.0 109 24 119/85 97 Nasal Cannula 2.0 10/23/16 20:00 40 10/23/16 20:00 115 10/23/16 20:00 98.1 117 20 111/75 97 Nasal Cannula 2.0 10/23/16 19:23 Nasal Cannula 3.0 32 10/23/16 19:23 97 Nasal Cannula 3.0 32 10/23/16 16:40 117 10/23/16 16:00 98.0 117 20 128/73 97 Nasal Cannula 2.0 10/23/16 16:00 40 10/23/16 16:00 117 10/23/16 12:00 97.7 117 14 126/73 97 Nasal Cannula 2.0 10/23/16 12:00 40 10/23/16 12:00 118 10/23/16 11:51 96 Nasal Cannula 3.0 10/23/16 11:50 Nasal Cannula 3.0 10/23/16 11:50 Nasal Cannula 3.0 10/23/16 11:15 111 26 40 10/23/16 09:04 104 22 40 10/23/16 08:00 97.3 109 26 126/72 100 Mechanical Ventilator 40 10/23/16 08:00 104 10/23/16 07:55 40 Intake and Output 10/23/16 10/24/16 19:00 07:00 # Voids 2 1 # Bowel Movements 1 1 Height (Feet): 5 Height (Inches): 2.00 Weight (Pounds): 130 General Appearance: no apparent distress EENT: TMs normal Neck: supple Cardiovascular: regular rhythm Respiratory/Chest: lungs clear Abdomen: soft Extremities: non-tender Edema: 1+ Leg (L), 1+ Leg (R) Neurologic: alert Skin: warm/dry Miguel Alvarez Oct 24, 2016 07:52
[2016-10-24] MEDS: Morphine Sulfate 4mg/ml Inj IVP PRN (08:25)
--- NOTE | 2016-10-24 11:03 | Pulmonology Progress Note ---
Assessment/Plan Problems: (1) Cardiac arrest (2) Hypoxemic encephalopathy (3) Respiratory failure, acute Assessment/Plan pt was extubated yesterday, looks comfortable, opens eyes consider dc of NG tube and morphine prn Subjective ROS Limited/Unobtainable: Yes Interval Events: extubated yesterday, Allergies: Coded Allergies: No Known Allergies (Unverified , 10/08/16) Subjective I will sign off. Objective Last 24 Hour Vital Signs Date Time Temp Pulse Resp B/P Pulse Ox O2 Delivery O2 Flow Rate FiO2 10/24/16 08:00 110 10/24/16 08:00 97.5 113 18 125/85 96 Nasal Cannula 2.5 10/24/16 07:01 Nasal Cannula 3.0 32 10/24/16 07:00 97 Nasal Cannula 3.0 32 10/24/16 04:00 109 10/24/16 04:00 97.5 109 24 132/80 97 Nasal Cannula 3.0 10/24/16 00:00 109 10/24/16 00:00 98.0 109 24 119/85 97 Nasal Cannula 2.0 10/23/16 20:00 40 10/23/16 20:00 115 10/23/16 20:00 98.1 117 20 111/75 97 Nasal Cannula 2.0 10/23/16 19:23 Nasal Cannula 3.0 32 10/23/16 19:23 97 Nasal Cannula 3.0 32 10/23/16 16:40 117 10/23/16 16:00 98.0 117 20 128/73 97 Nasal Cannula 2.0 10/23/16 16:00 40 10/23/16 16:00 117 10/23/16 12:00 97.7 117 14 126/73 97 Nasal Cannula 2.0 10/23/16 12:00 40 10/23/16 12:00 118 10/23/16 11:51 96 Nasal Cannula 3.0 10/23/16 11:50 Nasal Cannula 3.0 10/23/16 11:50 Nasal Cannula 3.0 10/23/16 11:15 111 26 40 Intake and Output 10/23/16 10/24/16 19:00 07:00 # Voids 2 1 # Bowel Movements 1 1 Objective pt remains orally intubated General Appearance: WD/WN, cachetic HEENT: normocephalic, atraumatic Respiratory/Chest: chest wall non-tender Cardiovascular: normal peripheral pulses, normal rate Abdomen: normal bowel sounds, soft, non tender Genitourinary: normal external genitalia Extremities: no cyanosis Current Medications Medications (Trade) Dose Ordered Sig/[place] Route PRN Reason Start Time Stop Time Status Last Admin Dose Admin Acetaminophen (Tylenol) 650 mg Q4H PRN ORAL Mild Pain/Temp > 100.5 10/19/16 17:00 11/18/16 16:59 Lorazepam (Ativan 2mg/ml 1ml) 2 mg Q2H PRN IV For Anxiety 10/19/16 16:30 10/26/16 16:29 10/19/16 19:53 Morphine Sulfate (Morphine Sulfate) 4 mg Q2H PRN IVP Severe Pain (Pain Scale 7-10) 10/23/16 14:00 10/30/16 13:59 10/24/16 08:25 TRISTON FRIED Oct 24, 2016 11:03
[2016-10-24] MEDS ORDERED: PCA Morphine 1mg/ml 30 ML IV PRN (11:30)
[2016-10-24] MEDS ORDERED: Morphine Sulfate 4mg/ml Inj SUBQ PRN ×2 (11:30→14:30)
[2016-10-24] MEDS ORDERED: LORazepam Inj 2mg/ml 1ml IV PRN (12:30)
--- NOTE | 2016-10-24 13:18 | General Progress Note ---
Assessment/Plan Status: unchanged, deteriorating Assessment/Plan Status: Coded 10/18 11 pm - intubated on Vent Hypercalcemia, related to Neoplastic process- IMPROVED Symptomatic Anemia, Etiology?? Cancer, GI Loss, .... Acute renal failure now- Cr rising Sugg: On comfort care now in view of recent deterioration of clinical state and underlying metastatic cancer. Subjective ROS Limited/Unobtainable: Yes Allergies: Coded Allergies: No Known Allergies (Unverified , 10/08/16) Objective Last 24 Hour Vital Signs Date Time Temp Pulse Resp B/P Pulse Ox O2 Delivery O2 Flow Rate FiO2 10/24/16 12:00 97.5 108 18 127/70 99 Nasal Cannula 2.5 10/24/16 08:00 110 10/24/16 08:00 97.5 113 18 125/85 96 Nasal Cannula 2.5 10/24/16 07:01 Nasal Cannula 3.0 32 10/24/16 07:00 97 Nasal Cannula 3.0 32 10/24/16 04:00 109 10/24/16 04:00 97.5 109 24 132/80 97 Nasal Cannula 3.0 10/24/16 00:00 109 10/24/16 00:00 98.0 109 24 119/85 97 Nasal Cannula 2.0 10/23/16 20:00 40 10/23/16 20:00 115 10/23/16 20:00 98.1 117 20 111/75 97 Nasal Cannula 2.0 10/23/16 19:23 Nasal Cannula 3.0 32 10/23/16 19:23 97 Nasal Cannula 3.0 32 10/23/16 16:40 117 10/23/16 16:00 98.0 117 20 128/73 97 Nasal Cannula 2.0 10/23/16 16:00 40 10/23/16 16:00 117 Intake and Output 10/23/16 10/24/16 19:00 07:00 # Voids 2 1 # Bowel Movements 1 1 Height (Feet): 5 Height (Inches): 2.00 Weight (Pounds): 130 General Appearance: no apparent distress, other - comatose Objective other physical exam not changed CLEMENTE APPIAH Oct 24, 2016 13:18
[2016-10-24] MEDS: PCA Morphine 1mg/ml 30 ML IV PRN ×2 (14:07→17:47)
[2016-10-24] MEDS ORDERED: D5W 275ml ONE (16:23)
[2016-10-25] MEDS: PCA Morphine 1mg/ml 30 ML IV PRN ×3 (00:01→12:58)
[2016-10-25 04:00] VITALS: BP 112/53
[2016-10-25 08:35] VITALS: BP 102/56
--- NOTE | 2016-10-25 08:53 | General Progress Note ---
Assessment/Plan Status: unchanged, deteriorating Status Narrative appears comfortable Assessment/Plan Status: Coded 10/18 11 pm - intubated on Vent Hypercalcemia, related to Neoplastic process- IMPROVED Symptomatic Anemia, Etiology?? Cancer, GI Loss, .... Acute renal failure now- Cr rising Sugg: On comfort care now in view of recent deterioration of clinical state and underlying metastatic cancer. ? disposition?? Subjective ROS Limited/Unobtainable: Yes Allergies: Coded Allergies: No Known Allergies (Unverified , 10/08/16) Objective Last 24 Hour Vital Signs Date Time Temp Pulse Resp B/P Pulse Ox O2 Delivery O2 Flow Rate FiO2 10/25/16 08:35 98.1 115 21 102/56 92 Nasal Cannula 2.0 10/25/16 04:00 97.6 108 14 112/53 94 Nasal Cannula 3.0 10/25/16 00:00 14 10/24/16 23:57 98.2 110 16 110/51 93 Nasal Cannula 3.0 10/24/16 23:21 Nasal Cannula 3.0 32 10/24/16 23:21 96 Nasal Cannula 3.0 32 10/24/16 20:00 98.6 90 16 109/61 93 Nasal Cannula 10/24/16 19:57 14 10/24/16 18:17 97.5 10/24/16 17:48 16 10/24/16 16:00 98.1 114 17 111/63 96 Room Air 10/24/16 15:57 16 10/24/16 14:48 16 10/24/16 14:15 16 10/24/16 13:15 16 10/24/16 13:12 97.5 107 21 124/70 97 Nasal Cannula 2.0 10/24/16 12:00 97.5 108 18 127/70 99 Nasal Cannula 2.5 Intake and Output 10/24/16 10/25/16 19:00 07:00 # Voids 1 1 Height (Feet): 5 Height (Inches): 2.00 Weight (Pounds): 130 General Appearance: other - comatose Objective other physical exam not changed CLEMENTE APPIAH Oct 25, 2016 08:53
--- NOTE | 2016-10-25 09:01 | General Progress Note ---
Assessment/Plan Assessment/Plan IMPRESSION: 1. Extensive disseminated malignancy, as described above, with a large pelvic mass, extensive lymphadenopathy, extensive osseous metastases, hepatic and pulmonary metastases. There is also unusual circumferential involvement of the bladder wall - discussed multiple times, patient refuses biopsy or workup or treatment (have discussed multiple times with her), currently is on comfort care measures 2. Hypercalcemia, likely related to metastatic malignancy 3. Acute thrombus bilateral common femoral vein s/p IVC filter placement 4. Anemia of chronic disease (severe) 5. Hx of ovarian cancer 6. Hyperferritinemia, most likely reactive. 7. History of schizophrenia. 8. History of ovarian cancer. 9. Hypertension. 10. Chronic obstructive pulmonary disease. 11. History of seizure. 12. Skin abscess. 13. Failure to thrive. 14. Hepatitis C RECOMMENDATIONS: 1. On comfort care measures (terminally extubated) 2. PATIENT HAS been REFUSING biopsy 3. No further LABS, also has refused meds 4. Has refused endoscopy/colonoscopy 5. hx of noncomplance with care/treatment 6. Staff Thank you, Miguel Alvarez MD Subjective Constitutional: Reports: no symptoms HEENT: Reports: no symptoms Cardiovascular: Reports: no symptoms Respiratory: Reports: no symptoms Gastrointestinal/Abdominal: Reports: no symptoms Genitourinary: Reports: no symptoms Neurologic/Psychiatric: Reports: no symptoms Endocrine: Reports: no symptoms Hematologic/Lymphatic: Reports: anemia Allergies: Coded Allergies: No Known Allergies (Unverified , 10/08/16) Subjective On comfort care measures, no fevers or chills reported Objective Last 24 Hour Vital Signs Date Time Temp Pulse Resp B/P Pulse Ox O2 Delivery O2 Flow Rate FiO2 10/25/16 08:35 98.1 115 21 102/56 92 Nasal Cannula 2.0 10/25/16 04:00 97.6 108 14 112/53 94 Nasal Cannula 3.0 10/25/16 00:00 14 10/24/16 23:57 98.2 110 16 110/51 93 Nasal Cannula 3.0 10/24/16 23:21 Nasal Cannula 3.0 32 10/24/16 23:21 96 Nasal Cannula 3.0 32 10/24/16 20:00 98.6 90 16 109/61 93 Nasal Cannula 10/24/16 19:57 14 10/24/16 18:17 97.5 10/24/16 17:48 16 10/24/16 16:00 98.1 114 17 111/63 96 Room Air 10/24/16 15:57 16 10/24/16 14:48 16 10/24/16 14:15 16 10/24/16 13:15 16 10/24/16 13:12 97.5 107 21 124/70 97 Nasal Cannula 2.0 10/24/16 12:00 97.5 108 18 127/70 99 Nasal Cannula 2.5 Intake and Output 10/24/16 10/25/16 19:00 07:00 # Voids 1 1 Height (Feet): 5 Height (Inches): 2.00 Weight (Pounds): 130 General Appearance: no apparent distress EENT: TMs normal Neck: normal alignment Cardiovascular: normal rate Respiratory/Chest: lungs clear Extremities: non-tender Edema: 1+ Leg (L), 1+ Leg (R) Edema: mild edema Neurologic: alert Skin: warm/dry Miguel Alvarez Oct 25, 2016 09:01
[2016-10-25 11:28] VITALS: BP 103/56
--- NOTE | 2016-10-25 13:16 | General Progress Note ---
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 Subjective ROS Limited/Unobtainable: Yes Constitutional: Reports: no symptoms Allergies: Coded Allergies: No Known Allergies (Unverified , 10/08/16) Subjective chronic pain Objective Last 24 Hour Vital Signs Date Time Temp Pulse Resp B/P Pulse Ox O2 Delivery O2 Flow Rate FiO2 10/25/16 12:00 15 10/25/16 11:28 98.2 118 20 103/56 91 Nasal Cannula 2.0 10/25/16 08:35 98.1 115 21 102/56 92 Nasal Cannula 2.0 10/25/16 08:00 15 10/25/16 04:00 97.6 108 14 112/53 94 Nasal Cannula 3.0 10/25/16 00:00 14 10/24/16 23:57 98.2 110 16 110/51 93 Nasal Cannula 3.0 10/24/16 23:21 Nasal Cannula 3.0 32 10/24/16 23:21 96 Nasal Cannula 3.0 32 10/24/16 20:00 98.6 90 16 109/61 93 Nasal Cannula 10/24/16 19:57 14 10/24/16 18:17 97.5 10/24/16 17:48 16 10/24/16 16:00 98.1 114 17 111/63 96 Room Air 10/24/16 15:57 16 10/24/16 14:48 16 10/24/16 14:15 16 10/24/16 13:15 16 Intake and Output 10/24/16 10/25/16 19:00 07:00 # Voids 1 1 Height (Feet): 5 Height (Inches): 2.00 Weight (Pounds): 130 General Appearance: lethargic, confused EENT: PERRL/EOMI Neck: supple Cardiovascular: normal rate Respiratory/Chest: lungs clear Abdomen: soft Sulma Desir MD Oct 25, 2016 13:16
--- NOTE | 2016-10-26 14:13 | Discharge Summary ---
Discharge Summary Hospital Course Date of Admission Oct 08, 2016 at 22:15 Date of Discharge Oct 25, 2016 at 14:15 Admitting Diagnosis skin infection, anemia HPI Mony Renner is a 56 year old female who was admitted on Oct 08, 2016 at 22:15 for Skin Infection,Anemia Hospital Course summary dictated # [id number] Discharge Discharge Disposition , pronounced at 1335 on 10/25/16 Discharge Diagnoses: Carlos (Abbiarabella),Rocío PHILLIP Oct 26, 2016 14:13
--- NOTE | 2016-10-27 02:58 | Discharge Summary 2 SIG ---
DATE OF ADMISSION: 10/08/2016 DATE OF EXPIRATION: 10/25/2016 REASON FOR ADMISSION: 56-year-old female, resident of a halfway facility presented with anemia. The patient was sent from the halfway facility for generalized weakness. The patient reported bilateral leg pain. The patient had a history of extensive ovarian cancer with metastasis. The patient also had history of schizophrenia. The patient reported having a left-sided neck wound, which was previously cultured as being infectious. Upon presentation, the patient was afebrile. Pulse oximetry on room air was stable. Blood pressure was stable. The patient presented with leukocytosis of 19.5, hemoglobin 7.2, and hematocrit 23.4. Calcium elevated 13.7. Troponin negative. BUN 27 and creatinine 1.2. Urinalysis did not reveal evidence of UTI. Chest x-ray revealed no acute cardiopulmonary disease. The patient started on empiric antibiotics for neck wound, possible abscess and admitted to the hospital for further management. ADMITTING DIAGNOSES: 1. Anemia. 2. Neck wound with possible skin abscess. 3. History of metastatic ovarian cancer. HOSPITAL STAY: The patient was initially on the Med/Surg floor. CAT scan of the abdomen and pelvis revealed extensive disseminated malignancy with a large pelvic mass, extensive lymphadenopathy, extensive osseous metastasis, hepatic and pulmonary metastases, unusual circumferential involvement of the bladder wall. Severe left hydronephrosis likely presumptively long-standing. Mild right hydronephrosis, presumptively due to pelvic tumor. Compression fracture of the L1 vertebral body. Pain management provided. The patient was on empiric antibiotics. ID doctor followed. Blood culture negative. Wound culture negative. Urine culture mixed gram-positive organism with colony count less than 10,000. Persistent leukocytosis was likely reactive, due to the extensive malignant process. Cancer tumor markers were elevated : CA-15-3 CA-125, CA 27-29, CEA with normal CA- 19-9. Cloth Bleaching Supervisor/oncologist and GI both followed the patient. GI suggested EGD and colonoscopy, given anemia. Stool OB was negative x3. Noted low iron, but high ferritin. The patient declined EGD and colonoscopy. Urology seen the patient for chronic bilateral hydronephrosis. He did not recommend stents, instead suggested d bilateral nephrostomies, however, the patient declined bilateral nephrostomy placement. Urologist concurred with the fact that leukocytosis was more likely due to malignancy than to possible pyelonephritis. The patient declined CT guided biopsy of pelvic mass as recommended by oncologist. The patient refused bone scan. Pain management provided. Overall, the patient was declining all diagnostic and invasive procedures. Cloth Bleaching Supervisor/oncologist followed closely, documented refusal of treatment. Hemoglobin and hematocrit were closely monitored, with transfusion as needed by parameters specified by oncologist. . The patient was on the intravenous fluids. The patient was in acute renal failure and hyponatremia. Chalk Machine Operator followed and recommended to avoid nephrotoxic. Hypercalcemia management was done by weatherization technician. Status post Aredia infusion. Calcium improved. Hypercalcemia was likely secondary to malignancy. Venous duplex of bilateral lower extremities revealed evidence of acute bilateral DVT lower extremities. The patient had a previous IVC filter as evident on imaging. No anticoagulation due to anemia. Diuretic stopped due to worsening renal parameters, creatinine was trending up. Psychiatrist was consulted regarding patient capability to make informed decisions regarding her medical care. Psychiatrist concluded that the patient lacked capability of making informed decision and planned to file probate conservatorship. On 10/18/2016, Katie Blue was called since the patient was an apneic. The patient required emergency airway intubation. The patient received multiple medication. The patient appeared to be extremely edematous in abdominal and lower extremities area. NG tube was placed. The patient was not responsive. Blood pressure and heart rate were obtained. Unsuccessful attempt to place a central line by ED doctor. The patient transferred to ICU in critical condition. Pupils were unreactive. Neurology consult was subsequently requested. Per neurologist, the patient continued to be comatose. Her history and physical most consistent with anoxic ischemic encephalopathy. Critical care doctor, doctor Pruett, discussed patient care and future prognosis with all consultants. All consultants concurred with changing code status to DNR/DNI with palliative measures as well as terminal extubation, due to recent deterioration in patient/s clinical status and underlying extensive metastatic malignancy. Subsequently, Code Status changed to DNR/DNI with palliative care. The patient subsequently undergone terminal extubation. Supplemental oxygen was provided via nasal cannula. Her condition was rapidly deteriorated. The patient was on the AUTOMOBILE RENTAL AGENT morphine. During the subsequent round on the patient, the nurse discovered that the patient 's pupils were dilated and fixed. The patient did not respond to any verbal or physical stimuli. No carotid or radial pulse. No chest wall movement. No respirations, no heart sounds on auscultation. Nursing building custodial supervisor pronounced the patient at 13:35 hours on 10/25/2016. Cause of - cardiopulmonary arrest. FINAL DIAGNOSES: 1. Status post septic shock 2. Sepsis. 3. Extensive disseminated ovarian cancer with extensive osseous , hepatic, pulmonary metastases. 4. Acute respiratory failure, requiring intubation. 5. Status post cardiac arrest. 6. Hypercalcemia of malignancy. 7. Acute deep venous thrombosis bilateral lower extremity, history of inferior vena cava filter. 8. Persistent leukocytosis, likely secondary to malignancy. 9. Anemia , status post blood transfusion. 10. Chronic bilateral hydronephrosis. 11. Anoxic ischemic encephalopathy. 12. Acute kidney injury/acute tubular necrosis, secondary to hydronephrosis. 13. Bilateral pleural effusion, likely malignant. 14. Hyponatremia. 15. Chronic obstructive pulmonary disease. 16. L1 compression fracture. 17. Schizophrenia. 18. Hepatitis C. Sulma Desir M.D. Rocío Gómezeder NMarguerite DR: Juanito JOB#: [id number] CC: BRINA
--- NOTE | 2016-10-27 16:29 | Consultation ---
DATE OF CONSULTATION: CARDIOLOGY CONSULTATION CONSULTING PHYSICIAN: Trevor Lee M.D. REFERRING PHYSICIAN: Sulma Desir M.D. REASON FOR CONSULTATION: Tachycardia in a patient post CPR. HISTORY OF PRESENT ILLNESS: The patient is a 56-year-old lady who was admitted originally on 10/09/2016 with generalized weakness and anemia. She has history of left-sided ovarian cancer and has refused surgery. The patient was admitted to the emergency room for sepsis and left neck abscess. Subsequently from the emergency room the patient was transferred to telemetry for tachycardia. Later the patient was intubated and subsequently Code Blue. At the time of my evaluation, the patient was in the intensive care unit, but is being transferred out as the patient is made DNR/DNI. PAST MEDICAL HISTORY: Includes: 1. History of ovarian cancer. 2. Schizophrenia. 3. History of anemia. FAMILY HISTORY: Noncontributory. PHYSICAL EXAMINATION: VITAL SIGNS: Blood pressure 124/83, pulse 120 to 130, respirations 18, and she is afebrile. HEENT: Head and neck. She is orally intubated. There is a OG tube. LUNGS: Coarse rhonchi bilaterally. CARDIOVASCULAR: Tachycardic. S1 and S2 with no gallop or murmur. ABDOMEN: Distended. EXTREMITIES: A 2+ bilateral pitting edema. LABORATORY DATA: White count 36.2, hemoglobin 9.8, hematocrit 31.1, platelet count 113,000. Sodium 124, potassium 4.4, BUN of 24, creatinine 2.6, and glucose of 121. INR is 1.1. ASSESSMENT AND PLAN: 1. Sinus tachycardia due to the patient's sepsis and respiratory failure. There is no evidence of atrial fibrillation or supraventricular tachycardia, treated for underlying sepsis. 2. Respiratory failure. Currently, on the ventilator. 3. Acute renal failure and hypercalcemia with neoplastic process. Follow up with Dr. Sanchez. 4. Symptomatic anemia. 5. DNR/DNI. 6. Extensive disseminated malignancy due to a large pelvic mass. The patient metastasis, . The patient refused surgery in the past. 7. . 8. . 9. History of ovarian cancer. 10. Schizophrenia. 11. . Thank very much, Dr. Desir, for allowing me to participate in the care of this patient. Please do not hesitate to contact me for any questions regarding my evaluation. Trevor Lee M.D. DR: Laura JOB#: [id number] CC:
== END 2016-10-25 14:15 | disposition expired | DRG 870 ==
LOC: ENRESERVDT → ENRESERVTM → EDBD 21:18 → EMR 21:32 → 4E 22:15 → EDBEDREQ 22:31 → 4E 10-09 01:25 → ICU 10-18 21:54 → 2W 10-19 14:53 → 4E 10-24 13:12
PROC: 30233N1 Transfusion of Nonautologous Red Blood Cells into Peripheral Vein, Percutaneous Approach (ICD-10-PCS; 2016-10-09)
PROC: 0BH17EZ Insertion of Endotracheal Airway into Trachea, Via Natural or Artificial Opening (ICD-10-PCS; principal; 2016-10-18)
PROC: 5A1955Z Respiratory Ventilation, Greater than 96 Consecutive Hours (ICD-10-PCS; principal; 2016-10-18)
PROC: 3E03328 Introduction of Oxazolidinones into Peripheral Vein, Percutaneous Approach (ICD-10-PCS; 2016-10-19)
DX: A41.9 Sepsis, unspecified organism (principal); J96.00 Acute respiratory failure, unspecified whether with hypoxia or hypercapnia; N17.0 Acute kidney failure with tubular necrosis; R65.21 Severe sepsis with septic shock; R40.20 Unspecified coma; J91.0 Malignant pleural effusion; G93.1 Anoxic brain damage, not elsewhere classified; I82.413 Acute embolism and thrombosis of femoral vein, bilateral; C78.00 Secondary malignant neoplasm of unspecified lung; C78.7 Secondary malignant neoplasm of liver and intrahepatic bile duct; C79.51 Secondary malignant neoplasm of bone; L02.818 Cutaneous abscess of other sites; C56.9 Malignant neoplasm of unspecified ovary; S32.019A Unspecified fracture of first lumbar vertebra, initial encounter for closed fracture; L02.11 Cutaneous abscess of neck; C80.0 Disseminated malignant neoplasm, unspecified; I46.9 Cardiac arrest, cause unspecified; E83.52 Hypercalcemia; D64.9 Anemia, unspecified; Z66 Do not resuscitate; Z51.5 Encounter for palliative care; F20.9 Schizophrenia, unspecified; J44.9 Chronic obstructive pulmonary disease, unspecified; B19.20 Unspecified viral hepatitis C without hepatic coma; E86.0 Dehydration; I10 Essential (primary) hypertension; L08.9 Local infection of the skin and subcutaneous tissue, unspecified; D47.3 Essential (hemorrhagic) thrombocythemia; D63.8 Anemia in other chronic diseases classified elsewhere; D50.9 Iron deficiency anemia, unspecified; G40.909 Epilepsy, unspecified, not intractable, without status epilepticus; K59.00 Constipation, unspecified; Z91.19 Patient's noncompliance with other medical treatment and regimen
CPT/HCPCS: 36415; 36600; 71010; 72170; 74177; 74230; 76775; 80053; 80202; 81003; 82105; 82140; 82270; 82378; 82533; 82550; 82553; 82607; 82728; 82746; 82747; 82784; 82803; 82962; 82977; 83010; 83020; 83540; 83550; 83605; 83615; 83690; 83735; 83880; 84100; 84165; 84300; 84443; 84484; 84550; 85007; 85025; 85044; 85384; 85610; 85651; 85730; 86140; 86300; 86301; 86304; 86334; 86431; 86703; 86705; 86709; 86803; 86850; 86900; 86901; 86920; 87040; 87070; 87081; 87086; 87205; 87340; 89050; 92950; 93005; 93970; 94002; 94003; 94640; 94664; 94760; C9399; J0171; J2430; J7620; J8499; S0077